=== PATIENT | female | born 1975 | race Caucasian/White ===

== ENCOUNTER 2020-01-04 14:05 | Outpatient (REF) | payer OTHER, SELFPAY | END 2020-01-04 14:06 | disposition home or self-care (01) | LOC: HO.LAB 14:05 | PROVIDERS: Visit Provider Internal Medicine | DX: Z20.828 Contact with and (suspected) exposure to other viral communicable diseases (principal) | CPT/HCPCS: C9803; U0003 ==

== ENCOUNTER 2020-02-09 12:34 | Emergency (ER) | payer OTHER, SELFPAY ==
[2020-02-09 13:32] VITALS: BP 109/63; PULSE 86; RESP 16; TEMP 36.6; O2SAT 99; BMI 31.3
[2020-02-09 17:31] LABS: MANUAL DIFF FLAG NO
[2020-02-09 17:32] LABS: Basophils Percent Auto 0.4 % (0-2); Eosinophils Absolute Auto 0.1 X10*3/uL (0.0-0.4); Eosinophils Percent Auto 0.9 % (0-4); Hematocrit 31.9 % (37-47); Imm Gran Abs Auto 0.02 X10*3/uL (0.00-0.03); Imm Gran Pct Auto 0.2 % (0.0-0.4); Lymphocytes Absolute Auto 2.9 X10*3/uL (1.2-4.9); Lymphocytes Percent Auto 33.8 % (20-40); Mean Corpuscular HGB Conc 31.3 g/dl (31.0-35.0); Mean Corpuscular Hemoglobin 26.9 pg (27.0-33.0); Mean Corpuscular Volume 85.8 fL (80-98); Monocytes Absolute Auto 0.5 X10*3/uL (0.1-1.2); Neutrophils Percent Auto 58.7 % (45-73); Platelet Count 308 X10*3/uL (160-400); Red Blood Count 3.72 X10*6/uL (4.20-5.50); Red Cell Distribution Width 14.3 % (11.0-16.0); White Blood Count 8.5 X10*3/uL (4.8-10.8)
[2020-02-09 18:03] LABS: Alanine Aminotransferase 12 U/L (0-31); Albumin Level 4.1 g/dL (3.5-5.0); Alkaline Phosphatase 49 U/L (39-117); Anion Gap 13 (12-20); Aspartate Amino Transferase 20 U/L (5-31); Bilirubin Total < 0.2 mg/dL (0.0-1.0); Blood Urea Nitrogen 12 mg/dL (9-16); Calcium 8.8 mg/dL (8.4-10.2); Carbon Dioxide 25 mmol/L (22-29); Chloride 107 mmol/L (96-108); Creatinine Clr Calc Pharmacy 106.6; Estimated Glomerular Filt Rate > 60; Glucose Random 96 mg/dL (60-115); Magnesium 1.9 mg/dL (1.6-2.6); Potassium 4.6 mmol/l (3.3-5.1); Sodium 140 mmol/L (135-145); Total Protein 6.4 g/dL (6.5-8.0)
[2020-02-09 18:17] VITALS: BP 108/71; PULSE 61; RESP 16; O2SAT 99
--- NOTE | 2020-02-09 18:17 | ED.EXTPRO ---
HPI - Extremity Problem General Chief complaint: Extremity Problem Stated complaint: leg cramps Time Seen by Provider: 02/09/20 14:26 Source: patient Mode of arrival: ambulatory Limitations: no limitations History of Present Illness HPI Narrative: 44-year-old female with past medical history that is significant for restless leg syndrome, chronic pain in the right shoulder secondary to rotator cuff injury was part of pain management in [place] for extended period time practice has been closed currently between pain management also history of iron deficiency anemia due to prolonged periods she in fact was admitted for this once in the past in 2019 to this facility due to being symptomatic and low in H&H requiring transfusion evaluated by hematology. She presents today with complaint of bilateral lower extremity cramping like pain which she describes as similar to pain when she was anemic in the past requiring transfusion. She states she has had some increase in pica with ice. Related Data Previous Rx's Medication Instructions Recorded ferrous sulfate 325 mg PO DAILY #30 tab 02/09/20 Allergies Allergy/AdvReac Type Severity Reaction Status Date / Time No Known Allergies Allergy Verified 02/09/20 13:30 Review of Systems Review of Systems: Constitutional: No Weight loss, No Fever, No Chills, No Night Sweats, No Fatigue, No Malaise ENT/Mouth: No Hearing loss, No Ear Pain, No Nasal Congestion, No Sinus Pain, No Hoarseness, No sore throat, No Rhinorrhea, No Swallowing Difficulty Eyes: No Eye Pain, No Swelling, No Redness, No Foreign Body, No Discharge, No Vision Changes Cardiovascular: No Chest Pain, No SOB, No Dyspnea on Exertion, No Orthopnea, No Edema, No Palpitations Respiratory: No Cough, No Sputum, No Wheezing, No Smoke Exposure, No Dyspnea Gastrointestinal: No Nausea, No Vomiting, No Diarrhea, No Constipation, No abdominal Pain, No Hematochezia, No Melena Genitourinary: no irregular bleeding, No Dysuria, No Urinary Frequency, No Hematuria, No Urinary Incontinence, No Urgency, No Flank Pain, No Urinary Flow Changes, No Hesitancy Musculoskeletal: No joint pain, No Myalgias, No Joint Swelling Skin: No Skin Lesions, No rash Neuro: No Weakness, No Numbness, No Paresthesias, No Loss of Consciousness, No Dizziness, No Headache Psych: No Social Issues Heme/Lymph: No Bruising, No Bleeding,No Lymphadenopathy Endocrine: No Polyuria, No Polydipsia, No Temperature Intolerance Yes all other systems are reviewed and are negative [facility] Past Medical History Medical History (Updated 02/09/20 @ 18:19 by Jared Templeton NP) Rotator cuff disorder Social History Social History Advance Directives: No Advance Directives Information Provided: Yes Physical Exam Vital Signs: Vital Signs: Last Vital Signs Temp 97.8 F 02/09/20 13:32 Pulse 61 02/09/20 18:17 Resp 16 02/09/20 18:17 BP 108/71 02/09/20 18:17 Pulse Ox 99 02/09/20 18:17 Body Mass Index 31.3 Const: General: cooperative and healthy appearing; No acute distress or intoxicated appearing Nutritional Appearance: average body habitus Orientation/consciousness: patient oriented x3 HENMT: Head: Yes normal to inspection Ears: hearing grossly normal bilaterally Eyes: General: appearance normal, both eyes and all related structures Visual Ramirez: normal visual ramirez by confrontation Neck: Neck: Yes normal visual inspection, No positive Brudzinski's sign, No positive Kernig's sign and No tender Thyroid: Thyroid normal Chest: Chest palpation & inspection: normal inspection of the chest Resp: Effort & Inspection: normal respiratory effort Auscultation: clear to auscultation bilaterally Cardio: Jugular venous distension: no JVD Rhythm: regular rhythm Heart sounds: S1 normal heart sound present and S2 normal heart sound present GI: Inspection: Yes normal to inspection Percussion: Yes normal to percussion Auscultation: normal bowel sounds : General: Yes no CVA tenderness Back/Spine/Pelvis: Back: no CVA tenderness Skin: General skin exam: no rashes or lesions noted Neuro: General: patient oriented x3 Extrem: Other: No lower extremity edema. No rash. Negative Homans. General: Yes normal to inspection Course Course Course Narrative: Labs chronic appearing. Slight anemia no compliance with iron ran out in between doctors. Will give her Rx. In relation to the rotator cuff has had pain management and injections will refer to orthopedics. MDM - Extremity (Nontraumatic) Lab Data Result diagrams: 02/09/20 17:27 02/09/20 17:27 Labs: Lab Results 02/09/20 02/09/20 Range/Units 17:27 17:27 WBC 8.5 (4.8-10.8) X10*3/uL RBC 3.72 L (4.20-5.50) X10*6/uL Hgb 10.0 L (12.0-16.0) g/dl Hct 31.9 L (37-47) % MCV 85.8 (80-98) fL MCH 26.9 L (27.0-33.0) pg MCHC 31.3 (31.0-35.0) g/dl RDW 14.3 (11.0-16.0) % Plt Count 308 (160-400) X10*3/uL MPV 9.0 L (9.4-12.3) fL Immature Gran % (Auto) 0.2 (0.0-0.4) % Neut % (Auto) 58.7 (45-73) % Lymph % (Auto) 33.8 (20-40) % Lawrence % (Auto) 6.0 (2-11) % Eos % (Auto) 0.9 (0-4) % Baso % (Auto) 0.4 (0-2) % Lymph # (Auto) 2.9 (1.2-4.9) X10*3/uL Lawrence # (Auto) 0.5 (0.1-1.2) X10*3/uL Eos # (Auto) 0.1 (0.0-0.4) X10*3/uL Baso # (Auto) 0.0 (0.0-0.2) X10*3/uL Abs Immat Gran (auto) 0.02 (0.00-0.03) X10*3/uL Absolute Neuts (auto) 5.0 (2.0-8.3) X10*3/uL Absolute Nucleated RBC 0.000 (0.0-0.012) X10*3/uL Nucleated RBC % (auto) 0.0 (0.0-0.2) /100WBC Sodium 140 (135-145) mmol/L Potassium 4.6 (3.3-5.1) mmol/l Chloride 107 (96-108) mmol/L Carbon Dioxide 25 (22-29) mmol/L Anion Gap 13 (12-20) BUN 12 (9-16) mg/dL Creatinine 0.76 (0.5-1.4) mg/dL Estim Creat Clear Calc 106.6 Estimated GFR > 60 Random Glucose 96 (60-115) mg/dL Calcium 8.8 (8.4-10.2) mg/dL Magnesium 1.9 (1.6-2.6) mg/dL Total Bilirubin < 0.2 (0.0-1.0) mg/dL AST 20 (5-31) U/L ALT 12 (0-31) U/L Alkaline Phosphatase 49 (39-117) U/L Total Creatine Kinase 149 H (26-140) U/L Total Protein 6.4 L (6.5-8.0) g/dL Albumin 4.1 (3.5-5.0) g/dL Discharge Plan Discharge Clinical Impression: Anemia, Chronic pain in right shoulder Patient Disposition: Home, Self-Care Instructions: Anemia (ED) Additional Instructions: High protein/time however diet Take her iron as prescribed Push fluids Follow-up with her blood 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 (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
== END 2020-02-09 18:28 | disposition home or self-care (01) ==
PROVIDERS: Nurse Practitioner Primary Care; Emergency Provider Emergency Medicine; PCP Internal Medicine
DX: D64.9 Anemia, unspecified (principal); G89.29 Other chronic pain; M25.511 Pain in right shoulder
CPT/HCPCS: 36415; 80053; 82550; 83735; 85025; 99283

== ENCOUNTER 2020-03-07 06:42 | Emergency (ER) | payer OTHER, SELFPAY | END 2020-03-07 08:14 | disposition left against medical advice (07) | LOC: HO.ED 07:59 | PROVIDERS: Emergency Provider Emergency Medicine | DX: R10.9 Unspecified abdominal pain (principal) ==

== ENCOUNTER 2020-03-07 09:25 | Emergency (ER) | payer OTHER, SELFPAY ==
[2020-03-07] VITALS (9 sets, daily range): BP systolic 100–128; BP diastolic 65–85; PULSE 60–78; RESP 16–20; TEMP 36.6–36.8; O2SAT 97–100; BMI 32.3
--- NOTE | 2020-03-07 09:57 | US_ITS ---
EXAMINATION: US RETROPERITONEAL LIMITED (RENAL ONLY) CLINICAL INFORMATION: Renal stone.. COMPARISON: None TECHNIQUE: Routine grayscale imaging of FINDINGS: RIGHT KIDNEY: 11.3 x 4.6 x 5.4 cm (SAG x AP x TRV). The kidney is normal in size, contour, and echogenicity. Renal cortical thickness is normal. There is a small anechoic cyst in the lower pole measuring 1.2 x 0.7 x 0.8 seen. No additional cyst seen. There are no echogenic stones, caliectasis or hydronephrosis. There is a 0.4 x 0.3 x 0.3 cm echogenic area without shadowing likely calcification producing twinkle artifact. LEFT KIDNEY: 10.7 x 5.0 x 5.0 cm (SAG x AP x TRV). The kidney is normal in size, contour, and echogenicity. Renal cortical thickness is normal. No calculi or focal parenchymal lesions. No hydronephrosis. US/US renal BI IMPRESSION: Small cyst lower pole right kidney with a small tubular artifact adjacent to the cyst question calcification. Unremarkable left kidney. There is no hydronephrosis on either side.
--- NOTE | 2020-03-07 10:00 | ED_ITS ---
HPI - Abdominal Pain General Chief Complaint: Abdominal Pain Stated Complaint: ABD PAIN Time Seen by Provider: 03/07/20 09:56 Source: patient Mode of arrival: ambulatory Limitations: no limitations History of Present Illness HPI narrative: Patient is a 44-year-old female with no significant past medical history presenting with right low back pain which is radiating around her flank to her right lower quadrant. Patient denies blood in her urine, constipation, bloody or black stools, nausea, fevers. She states she has never had this kind of pain before. She states the pain comes and goes in waves. Denies history of kidney stones. Related Data Previous Rx's Medication Instructions Recorded ferrous sulfate 325 mg PO DAILY #30 tab 02/09/20 Allergies Allergy/AdvReac Type Severity Reaction Status Date / Time No Known Allergies Allergy Verified 02/09/20 13:30 Review of Systems Review of Systems Yes all other systems are reviewed and are negative Physical Exam Vital Signs: Vital Signs: Last Vital Signs Temp 98.3 F 03/07/20 09:40 Pulse 61 03/07/20 14:00 Resp 18 03/07/20 14:40 BP 113/65 03/07/20 14:00 Pulse Ox 97 03/07/20 14:00 Body Mass Index 32.3 Const: General: cooperative, healthy appearing, comfortable, well developed and acute distress (Very obviously uncomfortable, in pain. ) Orientation/co nsciousness: patient oriented x3 Limitations: no limitations HENMT: Head: Yes normal to inspection Eyes: General: appearance normal, both eyes and all related structures Neck: Neck: Yes normal visual inspection and Yes full ROM Resp: Effort & Inspection: normal respiratory effort and able to speak in complete sentences Auscultation: clear to auscultation bilaterally Cardio: Rate: regular rate Rhythm: regular rhythm Heart sounds: normal S1 and S2 GI: Inspection: Yes normal to inspection Palpation (GI): Soft to palpation and Tenderness to palpation present (GI) in the RLQ; Holley's sign negative and with no rebound tenderness Back/Spine/Pelvis: Back: CVA tenderness (Right-sided positive) Skin: General skin exam: no rashes or lesions noted Neuro: General: patient oriented x3 Extrem: General: Yes normal to inspection Course Course Course Narrative: 44-year-old female no significant past medical history presenting with right-sided lower back pain radiating to the RLQ. VSS. Physical exam we revealed + CVA right side. Will get labs, UA, and ultrasound. Pain control until results available. 11:55am patient requesting more pain medication, will give 15 mg Toradol IV. Labs not resulted, ultrasound is complete but not read. Pt in room laughing and talking on the phone, does not appear to be in any pain. 12:40pm ultrasound negative for kidney stone, will get abdominal CT scan, labs still pending. Patient looks comfortable lying in bed texting. 1:45pm patient stating her pain is getting bad again, will give another dose 3 mg morphine as it has been 4 hours since her last dose. VSS. Complete metabolic panel normal, liver panel normal, CBC still pending. Patient looks comfortable lying in bed texting. 3pm CT scan negative, all labs are within normal limits. Discussed with guicho day, we have ruled out anything concerning in abdomen in all of her labs are normal her vital signs are stable. Advised we will discharge home and she can follow up with her PCP if the pain continues or return to the emergency department. MDM - Abdominal Pain Differential Diagnosis Differential diagnosis: Likely acute appendicitis, calculus of kidney, renal colic and small bowel obstruction Lab Data Result diagrams: 03/07/20 10:21 Labs: Lab Results 03/07/20 03/07/20 Range/Units 10:07 10:21 Sodium 141 (135-145) mmol/L Potassium 4.3 (3.3-5.1) mmol/L Chloride 108 (96-108) mmol/L Carbon Dioxide 24 (22-29) mmol/L Anion Gap 13 (12-20) BUN 16 (9-16) mg/dL Creatinine 0.92 (0.5-1.4) mg/dL Estim Creat Clear Calc 89.4 Estimated GFR > 60 Random Glucose 82 (60-115) mg/dL Calcium 9.2 (8.4-10.2) mg/dL Total Bilirubin 0.5 (0.0-1.0) mg/dL Direct Bilirubin < 0.2 (0.0-0.5) mg/dL AST 23 (5-31) U/L ALT 15 (0-31) U/L Alkaline Phosphatase 54 (39-117) U/L Total Protein 7.3 (6.5-8.0) g/dL Albumin 4.6 (3.5-5.0) g/dL Urine Color YELLOW Urine Appearance CLEAR Urine pH 6.0 (5.0-8.0) Ur Specific [place] 1.015 (1.005-1.025) Urine Protein NEG (NEG-TRACE) MG/DL Urine Glucose (UA) NEG (NEG) MG/DL Urine Ketones NEG (NEG) MG/DL Urine Blood NEG (NEG) Urine Nitrite NEG (NEG) Ur Leukocyte Esterase NEG (NEG) Imaging Data US - abdomen: Attestation: I personally reviewed and interpreted this imaging study as follows: My impression: ? calcification, will get CT Scan abdomen and pelvis Radiologist's impression: [address] [id number] ReportSigned Patient: Stefany SmithMR#: [id number]: 1975Acct:[id number]/Sex: 44 / FADM Date: 03/07/20Loc: EDAttending Dr: Ordering Physician: ALIN CASEY Date of Service: 03/07/20 Procedure(s): US renal BI Accession Number(s): [id number] cc: ALIN CASEY~ EXAMINATION: US RETROPERITONEAL LIMITED (RENAL ONLY) CLINICAL INFORMATION: Renal stone.. COMPARISON: None TECHNIQUE: Routine grayscale imaging of FINDINGS: RIGHT KIDNEY: 11.3 x 4.6 x 5.4 cm (SAG x AP x TRV). The kidney is normal in size, contour, and echogenicity. Renal cortical thickness is normal. There is a small anechoic cyst in the lower pole measuring 1.2 x 0.7 x 0.8 seen. No additional cyst seen. There are no echogenic stones, caliectasis or hydronephrosis. There is a 0.4 x 0.3 x 0.3 cm echogenic area without shadowing likely calcification producing twinkle artifact. LEFT KIDNEY: 10.7 x 5.0 x 5.0 cm (SAG x AP x TRV). The kidney is normal in size, contour, and echogenicity. Renal cortical thickness is normal. No calculi or focal parenchymal lesions. No hydronephrosis. US/US renal BI IMPRESSION: Small cyst lower pole right kidney with a small tubular artifact adjacent to the cyst question calcification. Unremarkable left kidney. There is no hydronephrosis on either side. Dictated By:JOSE TOMPKINS MDSigned By:<Electronically signed by JOSE TOMPKINS MD in [place]>03/07/[address] scan - abdomen: Attestation: I personally reviewed and interpreted this imaging study as follows: Radiologist's impression: [address] [id number] Scan ReportSigned Patient: Stefany SmithMR#: [id number]: 1975Acct:[id number]/Sex: 44 / FADM Date: 03/07/20Loc: EDAttending Dr: Ordering Physician: ALIN CASEY Date of Service: 03/07/20 Procedure(s): CT abdomen pelvis wo con Accession Number(s): [id number] cc: ALIN CASEY~ EXAMINATION: CT ABDOMEN AND PELVIS WITHOUT CONTRAST CLINICAL INFORMATION: Right lower quadrant pain COMPARISON: Previous renal ultrasound from earlier the same day CT of the abdomen and pelvis February 2011 TECHNIQUE: Multidetector volumetric imaging was performed from the superior aspect of the liver through the pubic symphysis. Sagittal and coronal reformatted images were obtained on the technologist's workstation. This CT examination was performed using dose optimization techniques as appropriate, variously including the following: *Automated exposure control *Adjustment of mA and/or kV according to patient size (this includes techniques or standardized protocols for targeted exams where dose is matched to indication/reason for exam; i.e. extremities or head) *Use of iterative reconstruction technique DLP: 667 mGy-cm FINDINGS: LUNG BASES: The visualized lung bases are unremarkable. LIVER, GALLBLADDER, AND BILIARY TREE: The liver is normal in size, shape, and attenuation. There is a cyst with wall calcification exophytic to the posterior segment of the right lobe of the liver. This is unchanged. No other focal liver lesion biliary duct dilatation is present. The gallbladder has been removed. PANCREAS: Unremarkable. SPLEEN: Unremarkable. ADRENAL GLANDS: Unremarkable. KIDNEYS AND URETERS: The kidneys are normal in size, shape, and attenuation. No hydronephrosis, hydroureter, or calculi seen. No perinephric stranding. BLADDER: Not GASTROINTESTINAL TRACT: There are postsurgical changes from gastric bypass. The small and large bowel are otherwise unremarkable. The appendix is unremarkable. ABDOMINAL WALL: There is a small umbilical hernia containing fat. LYMPH NODES: Normal. VASCULAR: Unremarkable. PELVIC VISCERA: Unremarkable. OSSEOUS STRUCTURES: Unremarkable. CT/CT abdomen pelvis wo con IMPRESSION: Normal-appearing appendix. Postoperative changes from gastric bypass. Dictated By:ANDRADE ECHOLS MDSigned By:<Electronically signed by ANDRADE ECHOLS MD in [place]>03/07/20 5977 Discharge Plan Discharge Clinical Impression: Acute right lower quadrant pain Patient Disposition: Home, Self-Care Instructions: Acute Abdominal Pain (ED) Additional Instructions: Discussed, we have ruled out many of the concerning diagnoses when it comes to abdominal pain. Please be sure to stay well hydrated and if the pain continues, please follow-up with your PCP or return to the emergency department. Prescriptions: No Action ferrous sulfate 325 mg (65 mg iron) tablet 325 mg PO DAILY Qty: 30 RF: 0 PMFSH Past Medical History Medical History (Updated 03/07/20 @ 15:17 by JARETH Clay) Rotator cuff disorder Surgical History (Updated 03/07/20 @ 13:57 by JARETH Clay) H/O tubal ligation Social History Social History Alcohol intake: never Smoking Status: Never smoker Use of substances other than those prescribed or required for medical reasons: No Advance Directives: No Advance Directives Information Provided: Yes
[2020-03-07] MEDS: Morphine Sulfate 4 MG/ML CARTRIDGE 3 MG IVPUSH ×2 (10:12→14:40)
[2020-03-07 10:15] LABS: Glucose Urine UA NEG (NEG); Leukocyte Esterase Urine NEG (NEG); Nitrite Urine NEG (NEG); Specific Gravity - Urine 1.015 (1.005-1.025); Urine Blood NEG (NEG); Urine Ketones NEG (NEG); Urine Protein NEG (NEG-TRACE)
[2020-03-07 10:18] LABS: Appearance Urine CLEAR; Color Urine YELLOW
[2020-03-07 10:52] LABS: Alanine Aminotransferase 15 U/L (0-31); Albumin Level 4.6 g/dL (3.5-5.0); Alkaline Phosphatase 54 U/L (39-117); Aspartate Amino Transferase 23 U/L (5-31); Bilirubin Direct < 0.2 mg/dL (0.0-0.5); Bilirubin Total 0.5 mg/dL (0.0-1.0); Total Protein 7.3 g/dL (6.5-8.0)
[2020-03-07] MEDS: Ketorolac Tromethamine 15 MG/ML VIAL IVPUSH (12:06)
--- NOTE | 2020-03-07 12:07 | PC.NURSE ---
PT MEDICATED ORDERED FOR C/O 10/10 FLANK PAIN.
--- NOTE | 2020-03-07 12:39 | CT_ITS ---
EXAMINATION: CT ABDOMEN AND PELVIS WITHOUT CONTRAST CLINICAL INFORMATION: Right lower quadrant pain COMPARISON: Previous renal ultrasound from earlier the same day CT of the abdomen and pelvis February 2011 TECHNIQUE: Multidetector volumetric imaging was performed from the superior aspect of the liver through the pubic symphysis. Sagittal and coronal reformatted images were obtained on the technologist's workstation. This CT examination was performed using dose optimization techniques as appropriate, variously including the following: *Automated exposure control *Adjustment of mA and/or kV according to patient size (this includes techniques or standardized protocols for targeted exams where dose is matched to indication/reason for exam; i.e. extremities or head) *Use of iterative reconstruction technique DLP: 667 mGy-cm FINDINGS: LUNG BASES: The visualized lung bases are unremarkable. LIVER, GALLBLADDER, AND BILIARY TREE: The liver is normal in size, shape, and attenuation. There is a cyst with wall calcification exophytic to the posterior segment of the right lobe of the liver. This is unchanged. No other focal liver lesion biliary duct dilatation is present. The gallbladder has been removed. PANCREAS: Unremarkable. SPLEEN: Unremarkable. ADRENAL GLANDS: Unremarkable. KIDNEYS AND URETERS: The kidneys are normal in size, shape, and attenuation. No hydronephrosis, hydroureter, or calculi seen. No perinephric stranding. BLADDER: Not GASTROINTESTINAL TRACT: There are postsurgical changes from gastric bypass. The small and large bowel are otherwise unremarkable. The appendix is unremarkable. ABDOMINAL WALL: There is a small umbilical hernia containing fat. LYMPH NODES: Normal. VASCULAR: Unremarkable. PELVIC VISCERA: Unremarkable. OSSEOUS STRUCTURES: Unremarkable. CT/CT abdomen pelvis wo con IMPRESSION: Normal-appearing appendix. Postoperative changes from gastric bypass.
[2020-03-07 12:56] LABS: Anion Gap 13 (12-20); Blood Urea Nitrogen 16 mg/dL (9-16); Calcium 9.2 mg/dL (8.4-10.2); Carbon Dioxide 24 mmol/L (22-29); Chloride 108 mmol/L (96-108); Creatinine Clr Calc Pharmacy 89.4; Estimated Glomerular Filt Rate > 60; Glucose Random 82 mg/dL (60-115); Potassium 4.3 mmol/L (3.3-5.1); Sodium 141 mmol/L (135-145)
== END 2020-03-07 15:50 | disposition home or self-care (01) ==
PROVIDERS: Physician Assistant; Emergency Provider Emergency Medicine
DX: R10.31 Right lower quadrant pain (principal); M54.5 Low back pain; Z79.899 Other long term (current) drug therapy
CPT/HCPCS: 36415; 74176; 76775; 80053; 80076; 81003; 82248; 96374; 96375; 96376; 99284; 99285; J1885; J2270

== ENCOUNTER 2020-05-30 20:21 | Emergency (ER) | payer OTHER, SELFPAY ==
[2020-05-30 20:33] VITALS: BP 106/64; PULSE 90; RESP 18; TEMP 36.6; O2SAT 98; BMI 30.7
[2020-05-30 22:24] LABS: MANUAL DIFF FLAG NO
[2020-05-30 22:25] LABS: Basophils Percent Auto 0.4 % (0-2); Eosinophils Absolute Auto 0.1 X10*3/uL (0.0-0.4); Eosinophils Percent Auto 1.7 % (0-4); Hematocrit 30.8 % (37-47); Hemoglobin 9.5 g/dl (12.0-16.0); Imm Gran Abs Auto 0.02 X10*3/uL (0.00-0.03); Imm Gran Pct Auto 0.3 % (0.0-0.4); Lymphocytes Absolute Auto 2.6 X10*3/uL (1.2-4.9); Lymphocytes Percent Auto 33.2 % (20-40); Mean Corpuscular HGB Conc 30.8 g/dl (31.0-35.0); Mean Corpuscular Hemoglobin 25.7 pg (27.0-33.0); Mean Corpuscular Volume 83.5 fL (80-98); Mean Platelet Volume 8.8 fL (9.4-12.3); Monocytes Absolute Auto 0.6 X10*3/uL (0.1-1.2); Monocytes Percent Auto 7.6 % (2-11); Neutrophils Absolute Auto 4.4 X10*3/uL (2.0-8.3); Neutrophils Percent Auto 56.8 % (45-73); Platelet Count 261 X10*3/uL (160-400); Red Blood Count 3.69 X10*6/uL (4.20-5.50); Red Cell Distribution Width 19.1 % (11.0-16.0); White Blood Count 7.8 X10*3/uL (4.8-10.8)
--- NOTE | 2020-05-30 22:36 | ED_ITS ---
HPI - General Adult General Chief complaint: General Medical Stated complaint: leg spasms Time Seen by Provider: 05/30/20 21:48 Source: patient Mode of arrival: EMS History of Present Illness HPI narrative: 45-year-old female who complains acute on chronic bilateral lower extremity muscle spasms. Patient states that this occurs every 2-3 months and denies any precluding symptoms such as nausea, vomiting, diarrhea, or injury to her lower extremities. In addition, patient denies any unexplained calf swelling or pain other than the spasms that she experiences. Patient states that these occur when she is trying to relax in the evening while watching TV. Related Data Previous Rx's Medication Instructions Recorded ferrous sulfate 325 mg PO DAILY #30 tab 02/09/20 ketorolac 10 mg PO Q6H PRN 5 Days #20 tab 05/31/20 Allergies Allergy/AdvReac Type Severity Reaction Status Date / Time No Known Allergies Allergy Verified 02/09/20 13:30 Review of Systems Review of Systems: Pertinent positives and negatives as stated in HPI 10 point review of systems is otherwise negative. PMFSH Past Medical History Source: nursing notes reviewed Medical History Rotator cuff disorder Surgical History H/O tubal ligation Social History Social History Alcohol intake: never Smoking Status: Never smoker Advance Directives: No Advance Directives Information Provided: Yes Physical Exam Vital Signs: Vital Signs: Last Vital Signs Temp 97.9 F 05/30/20 20:33 Pulse 90 05/30/20 20:33 Resp 18 05/30/20 20:33 BP 106/64 05/30/20 20:33 Pulse Ox 98 05/30/20 20:33 Body Mass Index 30.7 VITAL SIGNS: Reviewed. GENERAL: Well developed, well nourished, in no acute distress. HEAD: Normocephalic/atraumatic EYES: PERRLA, EOMI OROPHARYNX: no oral lesions noted, posterior pharynx clear NECK: Supple, no adenopathy LUNGS: Normal breath sounds. No adventitious sounds or accessory muscle use. SpO2<98> CARDIOVASCULAR: Regular rate and rhythm without noted murmurs ABDOMEN: Soft, non-tender, non-distended with bowel sounds. EXTREMITIES: No cyanosis, clubbing or edema. NEUROLOGIC: Alert and oriented x 4. Strength and sensation to light touch were grossly intact x 4. Course Course Course Narrative: A 45-year-old female with history and clinical presentation consistent with leg spasms suggestive of possible restless leg syndrome but will rule out metabolic etiologies. Review of all investigations negative for any acute findings from chronic stable to better explain patient's presentation and on re-evaluation after receiving IM Toradol patient states that her symptoms have completely resolved. She is noted to have been resting comfortably until results of findings were discussed with her at bedside. Medical Decision Making Lab Data Result diagrams: 05/30/20 22:20 05/30/20 22:20 Labs: Lab Results 05/30/20 05/30/20 05/30/20 Range/Units 22:20 22:20 22:20 WBC 7.8 (4.8-10.8) X10*3/uL RBC 3.69 L (4.20-5.50) X10*6/uL Hgb 9.5 L (12.0-16.0) g/dl Hct 30.8 L (37-47) % MCV 83.5 (80-98) fL MCH 25.7 L (27.0-33.0) pg MCHC 30.8 L (31.0-35.0) g/dl RDW 19.1 H (11.0-16.0) % Plt Count 261 (160-400) X10*3/uL MPV 8.8 L (9.4-12.3) fL Immature Gran % (Auto) 0.3 (0.0-0.4) % Neut % (Auto) 56.8 (45-73) % Lymph % (Auto) 33.2 (20-40) % [place] % (Auto) 7.6 (2-11) % Eos % (Auto) 1.7 (0-4) % Baso % (Auto) 0.4 (0-2) % Lymph # (Auto) 2.6 (1.2-4.9) X10*3/uL [place] # (Auto) 0.6 (0.1-1.2) X10*3/uL Eos # (Auto) 0.1 (0.0-0.4) X10*3/uL Baso # (Auto) 0.0 (0.0-0.2) X10*3/uL Abs Immat Gran (auto) 0.02 (0.00-0.03) X10*3/uL Absolute Neuts (auto) 4.4 (2.0-8.3) X10*3/uL Absolute Nucleated RBC 0.000 (0.0-0.012) X10*3/uL Nucleated RBC % (auto) 0.0 (0.0-0.2) /100WBC ESR 12 (0-20) MM/HR Sodium 138 (135-145) mmol/L Potassium 4.1 (3.3-5.1) mmol/L Chloride 108 (96-108) mmol/L Carbon Dioxide 24 (22-29) mmol/L Anion Gap 10 L (12-20) BUN 23 H (9-16) mg/dL Creatinine 0.80 (0.5-1.4) mg/dL Estim Creat Clear Calc 99.2 Estimated GFR > 60 Random Glucose 99 (60-115) mg/dL Calcium 8.7 (8.4-10.2) mg/dL Total Bilirubin 0.4 (0.0-1.0) mg/dL AST 20 (5-31) U/L ALT 11 (0-31) U/L Alkaline Phosphatase 46 (39-117) U/L Total Protein 6.1 L (6.5-8.0) g/dL Albumin 3.9 (3.5-5.0) g/dL Discharge Plan Discharge Clinical Impression: Muscle spasm of both lower legs Patient Disposition: Home, Self-Care Instructions: Muscle Spasm (ED) Additional Instructions: 1. Continue to drink plenty of water. 2. Please follow up with primary care provider in the next 2-3 days for re- evaluation and outpatient management of your chronic lower leg spasms. Do not hesitate to return to the emergency department for any acute worsening of symptoms. Prescriptions: New ketorolac 10 mg tablet 10 mg PO Q6H PRN (Reason: pain) 5 Days Qty: 20 RF: 0 No Action ferrous sulfate 325 mg (65 mg iron) tablet 325 mg PO DAILY Qty: 30 RF: 0 Referrals: Physician,Unknown [Primary Care Provider] - 2 days
[2020-05-30 22:49] LABS: Alanine Aminotransferase 11 U/L (0-31); Albumin Level 3.9 g/dL (3.5-5.0); Alkaline Phosphatase 46 U/L (39-117); Anion Gap 10 (12-20); Aspartate Amino Transferase 20 U/L (5-31); Bilirubin Total 0.4 mg/dL (0.0-1.0); Blood Urea Nitrogen 23 mg/dL (9-16); Calcium 8.7 mg/dL (8.4-10.2); Carbon Dioxide 24 mmol/L (22-29); Chloride 108 mmol/L (96-108); Creatinine Clr Calc Pharmacy 99.2; Estimated Glomerular Filt Rate > 60; Glucose Random 99 mg/dL (60-115); Potassium 4.1 mmol/L (3.3-5.1); Sodium 138 mmol/L (135-145); Total Protein 6.1 g/dL (6.5-8.0)
[2020-05-30] MEDS: Ketorolac Tromethamine 15 MG/ML VIAL IM (22:54)
[2020-05-30 23:14] LABS: Erythrocyte Sedimentation Rate 12 MM/HR (0-20)
[2020-05-31] VITALS: BP 117/74; PULSE 83; RESP 18; O2SAT 97
== END 2020-05-31 00:48 | disposition home or self-care (01) ==
PROVIDERS: Emergency Provider Student in an Organized Health Care Education/Training Program
DX: M62.831 Muscle spasm of calf (principal); M79.605 Pain in left leg; M79.604 Pain in right leg; Z79.899 Other long term (current) drug therapy
CPT/HCPCS: 36415; 80053; 85025; 85652; 96372; 99283; 99284; J1885

== ENCOUNTER 2020-06-10 18:14 | Emergency (ER) | payer OTHER, SELFPAY ==
--- NOTE | ~2020-06-10 | US_ITS ---
EXAMINATION: BILATERAL LOWER EXTREMITY DEEP VENOUS ULTRASOUND CLINICAL INFORMATION: Bilateral lower extremity pain and swelling. COMPARISON: No similar prior examinations are available for comparison. TECHNIQUE: Duplex Doppler imaging with compression maneuvers were performed of the bilateral lower extremity deep venous systems. FINDINGS: The bilateral visualized common femoral, femoral and popliteal veins demonstrate normal compressibility and color flow without evidence of venous thrombosis. Visualized portions of the bilateral calf veins demonstrate normal color fill-in suggesting patency. There is no evidence of a Alford's cyst. US/US venous duplex LE BI IMPRESSION: No evidence of deep venous thrombosis involving the bilateral lower extremities.
[2020-06-10 18:27] VITALS: BP 115/86; PULSE 85; RESP 18; TEMP 36.7; O2SAT 98; BMI 32.3
--- NOTE | 2020-06-10 19:06 | ED_ITS ---
HPI - Extremity Problem General Chief complaint: Extremity Problem Stated complaint: B/L Leg Pain Time Seen by Provider: 06/10/20 18:39 Source: patient Mode of arrival: ambulatory Limitations: no limitations History of Present Illness HPI Narrative: 45-year-old female with a past medical history of iron deficiency anemia, gastric bypass here with complaints of bilateral lower extremity pain with cramping>1 month. Pain usually occurs after she has been sitting for a period of time and then starts to stretch her leg. It starts with a cramp in her toe and then her calves cramp up and cause a severe amount of pain which lasts several minutes and then self resolves when she stretches it out. She does have intermittent swelling. No redness, warmth, fevers, chills. No shortness of breath or chest pain. No recent travel. No estrogen use. No history of blood clots. No family history of blood clots. Seen at her occupational health at work and referred to the ER for a ultrasound to rule out a DVT. She is working on setting up a primary care doctor. Related Data Previous Rx's Medication Instructions Recorded ferrous sulfate 325 mg PO DAILY #30 tab 02/09/20 ketorolac 10 mg PO Q6H PRN 5 Days #20 tab 05/31/20 cyclobenzaprine 10 mg PO TID PRN #10 tab 06/10/20 ketorolac 10 mg PO Q8H PRN #20 tab 06/10/20 Allergies Allergy/AdvReac Type Severity Reaction Status Date / Time No Known Allergies Allergy Verified 06/10/20 18:27 Review of Systems Review of Systems: Yes all other systems are reviewed and are negative Constitutional: Constitutional: Reports no additional constitutional complaints, Denies body ache(s), Denies chills, Denies fever(s), Denies headache(s) and Denies weakness Eyes: Eyes: Reports no additional eye complaints and Denies change in vision ENT: Reports system reviewed and no additional complaints, except as document ed, Denies dizziness, Denies headache(s), Denies nasal congestion, Denies nasal discharge and Denies neck pain Cardiovascular: Cardiovascular: Reports no additional cardiovascular complaints, Denies chest pain, Denies leg edema and Denies dyspnea Respiratory: Respiratory: Reports no additional respiratory complaints, Denies cough and Denies dyspnea Gastrointestinal: Gastrointestinal: Reports no additional gastrointestinal complaints, Denies abdominal pain, Denies diarrhea, Denies nausea and Denies vomiting Genitourinary: Genitourinary: Reports no additional female genitourinary complaints and Denies urinary incontinence Musculoskeletal: Musculoskeletal: Reports no additional musculoskeletal complaints, Denies back pain, Denies arthralgias, Denies joint swelling, Reports muscle cramps, Denies neck pain, Denies numbness and Denies tingling Integumentary/Breasts: Skin/Breast: Reports system reviewed and no additional complaints, except as docu and Denies rash Neurologic: Reports system reviewed and no additional complaints, except as documented, Denies Abnormal speech present, Denies dizziness, Denies headache(s), Denies numbness, Denies tingling and Denies weakness PMFSH Past Medical History Attestation statement: The following information was validated with the patient. Source: old records reviewed and nursing notes reviewed Medical History (Updated 06/10/20 @ 20:22 by Desi Humphrey NP) HILDA (iron deficiency anemia) Rotator cuff disorder Surgical History (Updated 06/10/20 @ 19:08 by Desi Humphrey NP) H/O gastric bypass H/O tubal ligation Social History Social History Alcohol intake: former Smoking Status: Smoker, status unknown Use of substances other than those prescribed or required for medical reasons: No Advance Directives: No Advance Directives Information Provided: No Patient : No Physical Exam Vital Signs: Vital Signs: Last Vital Signs Temp 98.0 F 06/10/20 18:27 Pulse 85 06/10/20 18:27 Resp 18 06/10/20 18:27 BP 115/86 06/10/20 18:27 Pulse Ox 98 06/10/20 18:27 Body Mass Index 32.3 Const: General: cooperative, healthy appearing, comfortable and no acute distress Orientation/consciousness: patient oriented x3 Limitations: no limitations HENMT: Head: Yes normal to inspection Ears: hearing grossly normal bilaterally General nose exam: Normal external nose present Face and sinus: Yes normal facial exam Mouth: Normal oral and palatal mucosa present Throat: Yes posterior oropharynx normal Eyes: General: appearance normal, both eyes and all related structures Pupils: Equal, round and reactive pupils present Neck: Neck: Yes normal visual inspection Chest: Chest palpation & inspection: normal inspection of the chest Resp: Effort & Inspection: normal respiratory effort Auscultation: clear to auscultation bilaterally Cardio: Rate: regular rate Rhythm: regular rhythm Peripheral pulses: Peripheral pulses 2+ throughout GI: Inspection: Yes normal to inspection Palpation (GI): Soft to palpation and nontender Auscultation: normal bowel sounds Back/Spine/Pelvis: Thoracic/Lumbar Spine: thoracic and lumbar spine normal to inspection Skin: General skin exam: no rashes or lesions noted Neuro: General: patient oriented x3, no focal motor deficits and normal sensation to monofilament Cranial nerves: Yes Equal, round and reactive pupils present Cognition (Neuro): normal cognition Speech: No Abnormal speech present Gait exam (Neuro): Normal gait present Motor exam (neuro): 5/5 motor strength present throughout Extrem: General: Yes normal to inspection, Yes calf tenderness (Bilateral posterior calves) and No edema Course Course Course Narrative: 45 yo female here with bilateral calf pain x several weeks to months which is worsened after periods of rest and occurs when she stretches. Seen here and had negative labs. Discussed likely muscle spasms and recommended to follow-up with PCP. However, patient does not have one and does not feel like doctors listen to her complaints. Seen at her occupational health at work who recommended to come in for DVT study. Will check US, Labs. 2039-US negative for DVT. Labs unremarkable w/ exception of mild HILDA. HPI and exam c/w with muscle spasms. Recommended outpatient follow-up with primary care doctor. She was provided with a list.. Reviewed worrisome signs and symptoms of when to return to the emergency department. Comfortable discharge home. MDM - Extremity (Nontraumatic) Lab Data Result diagrams: 06/10/20 19:55 06/10/20 19:55 Labs: Lab Results 06/10/20 06/10/20 Range/Units 19:55 19:55 WBC 7.2 (4.8-10.8) X10*3/uL RBC 3.66 L (4.20-5.50) X10*6/uL Hgb 9.7 L (12.0-16.0) g/dl Hct 31.1 L (37-47) % MCV 85.0 (80-98) fL MCH 26.5 L (27.0-33.0) pg MCHC 31.2 (31.0-35.0) g/dl RDW 19.9 H (11.0-16.0) % Plt Count 265 (160-400) X10*3/uL MPV 9.5 (9.4-12.3) fL Immature Gran % (Auto) 0.1 (0.0-0.4) % Neut % (Auto) 50.3 (45-73) % Lymph % (Auto) 39.9 (20-40) % [place] % (Auto) 7.3 (2-11) % Eos % (Auto) 2.0 (0-4) % Baso % (Auto) 0.4 (0-2) % Lymph # (Auto) 2.9 (1.2-4.9) X10*3/uL [place] # (Auto) 0.5 (0.1-1.2) X10*3/uL Eos # (Auto) 0.1 (0.0-0.4) X10*3/uL Baso # (Auto) 0.0 (0.0-0.2) X10*3/uL Abs Immat Gran (auto) 0.01 (0.00-0.03) X10*3/uL Absolute Neuts (auto) 3.6 (2.0-8.3) X10*3/uL Absolute Nucleated RBC 0.000 (0.0-0.012) X10*3/uL Nucleated RBC % (auto) 0.0 (0.0-0.2) /100WBC Sodium 140 (135-145) mmol/L Potassium 3.8 (3.3-5.1) mmol/L Chloride 111 H (96-108) mmol/L Carbon Dioxide 22 (22-29) mmol/L Anion Gap 11 L (12-20) BUN 20 H (9-16) mg/dL Creatinine 0.80 (0.5-1.4) mg/dL Estim Creat Clear Calc 101.7 Estimated GFR > 60 Random Glucose 120 H (60-115) mg/dL Calcium 8.7 (8.4-10.2) mg/dL Magnesium 1.9 (1.6-2.6) mg/dL Total Bilirubin 0.3 (0.0-1.0) mg/dL Direct Bilirubin < 0.2 (0.0-0.5) mg/dL AST 19 (5-31) U/L ALT 8 (0-31) U/L Alkaline Phosphatase 42 (39-117) U/L Total Creatine Kinase 234 H D (26-140) U/L Total Protein 6.1 L (6.5-8.0) g/dL Albumin 3.9 (3.5-5.0) g/dL Imaging Data Venous US: Attestation: I personally reviewed and interpreted this imaging study as follows: Radiologist's impression: [address] [id number] ReportSigned Patient: Stefany SmithMR#: [id number]: [id number]:[id number]/Sex: 45 / FADM Date: 06/10/20Loc: E[address] Dr: Ordering Physician: DESI HUMPHREY NP Date of Service: 06/10/20 Procedure(s): US venous duplex LE BI Accession Number(s): [id number] cc: DESI HUMPHREY NP~ EXAMINATION: BILATERAL LOWER EXTREMITY DEEP VENOUS ULTRASOUND CLINICAL INFORMATION: Bilateral lower extremity pain and swelling. COMPARISON: No similar prior examinations are available for comparison. TECHNIQUE: Duplex Doppler imaging with compression maneuvers were performed of the bilateral lower extremity deep venous systems. FINDINGS: The bilateral visualized common femoral, femoral and popliteal veins demonstrate normal compressibility and color flow without evidence of venous thrombosis. Visualized portions of the bilateral calf veins demonstrate normal color fill-in suggesting patency. There is no evidence of a Alford's cyst. US/US venous duplex LE BI IMPRESSION: No evidence of deep venous thrombosis involving the bilateral lower extremities. Discharge Plan Discharge Clinical Impression: Muscle spasm of both lower legs Patient Disposition: Home, Self-Care Instructions: Muscle Spasm (ED) Additional Instructions: Heat or ice Gentle stretching Follow-up with a PCP as discussed Prescriptions: New ketorolac 10 mg tablet 10 mg PO Q8H PRN (Reason: pain) Qty: 20 RF: 0 cyclobenzaprine 10 mg tablet 10 mg PO TID PRN (Reason: muscle spasm) Qty: 10 RF: 0 No Action ketorolac 10 mg tablet 10 mg PO Q6H PRN (Reason: pain) 5 Days Qty: 20 RF: 0 ferrous sulfate 325 mg (65 mg iron) tablet 325 mg PO DAILY Qty: 30 RF: 0 Stand Alone Forms: Work/School Release Interventions: ED Discharge Assessment Last Done: 06/10/20 20:50 Discharge Date/Time: 06/10/20 20:52
[2020-06-10] MEDS: diazePAM 5 MG TABLET PO (19:13)
[2020-06-10] MEDS: Ketorolac Tromethamine 60 MG/2 ML VIAL IM (19:13)
[2020-06-10 19:58] LABS: MANUAL DIFF FLAG NO
[2020-06-10 20:10] LABS: Basophils Percent Auto 0.4 % (0-2); Eosinophils Absolute Auto 0.1 X10*3/uL (0.0-0.4); Hematocrit 31.1 % (37-47); Hemoglobin 9.7 g/dl (12.0-16.0); Imm Gran Abs Auto 0.01 X10*3/uL (0.00-0.03); Imm Gran Pct Auto 0.1 % (0.0-0.4); Lymphocytes Absolute Auto 2.9 X10*3/uL (1.2-4.9); Lymphocytes Percent Auto 39.9 % (20-40); Mean Corpuscular HGB Conc 31.2 g/dl (31.0-35.0); Mean Corpuscular Hemoglobin 26.5 pg (27.0-33.0); Mean Platelet Volume 9.5 fL (9.4-12.3); Monocytes Absolute Auto 0.5 X10*3/uL (0.1-1.2); Monocytes Percent Auto 7.3 % (2-11); Neutrophils Absolute Auto 3.6 X10*3/uL (2.0-8.3); Neutrophils Percent Auto 50.3 % (45-73); Platelet Count 265 X10*3/uL (160-400); Red Blood Count 3.66 X10*6/uL (4.20-5.50); Red Cell Distribution Width 19.9 % (11.0-16.0); White Blood Count 7.2 X10*3/uL (4.8-10.8)
[2020-06-10 20:26] LABS: Alanine Aminotransferase 8 U/L (0-31); Albumin Level 3.9 g/dL (3.5-5.0); Alkaline Phosphatase 42 U/L (39-117); Anion Gap 11 (12-20); Aspartate Amino Transferase 19 U/L (5-31); Bilirubin Direct < 0.2 mg/dL (0.0-0.5); Bilirubin Total 0.3 mg/dL (0.0-1.0); Blood Urea Nitrogen 20 mg/dL (9-16); Calcium 8.7 mg/dL (8.4-10.2); Carbon Dioxide 22 mmol/L (22-29); Chloride 111 mmol/L (96-108); Creatinine Clr Calc Pharmacy 101.7; Estimated Glomerular Filt Rate > 60; Glucose Random 120 mg/dL (60-115); Magnesium 1.9 mg/dL (1.6-2.6); Potassium 3.8 mmol/L (3.3-5.1); Sodium 140 mmol/L (135-145); Total Protein 6.1 g/dL (6.5-8.0)
== END 2020-06-10 20:52 | disposition home or self-care (01) ==
PROVIDERS: Nurse Practitioner Family; Emergency Provider Internal Medicine
DX: M79.605 Pain in left leg (principal); M79.604 Pain in right leg; M62.831 Muscle spasm of calf
CPT/HCPCS: 36415; 80048; 80076; 82550; 83735; 85025; 93970; 96372; 99284; J1885

== ENCOUNTER 2021-02-03 12:00 | Outpatient (REF) | payer OTHER, SELFPAY | END 2021-02-03 12:01 | disposition home or self-care (01) | LOC: HO.HMGCLDS 12:00 | PROVIDERS: Visit Provider Internal Medicine | DX: Z20.822 Contact with and (suspected) exposure to COVID-19 (principal) | CPT/HCPCS: C9803; U0003; U0005 ==

== ENCOUNTER 2021-02-25 20:41 | Emergency (ER) | payer OTHER, SELFPAY ==
[2021-02-25 21:41] VITALS: BP 116/60; PULSE 99; RESP 18; TEMP 36.7; O2SAT 98; BMI 30.4
[2021-02-25 23:11] LABS: MANUAL DIFF FLAG NO
[2021-02-25 23:12] LABS: Basophils Percent Auto 0.5 % (0-2); Eosinophils Percent Auto 0.9 % (0-4); Hematocrit 29.2 % (37.0-47.0); Hemoglobin 9.1 g/dl (12.0-16.0); Imm Gran Abs Auto 0.01 X10*3/uL (0.00-0.03); Imm Gran Pct Auto 0.2 % (0.0-0.4); Lymphocytes Absolute Auto 1.7 X10*3/uL (1.2-4.9); Lymphocytes Percent Auto 37.7 % (20-40); Mean Corpuscular HGB Conc 31.2 g/dl (31.0-35.0); Mean Corpuscular Hemoglobin 24.5 pg (27.0-33.0); Mean Corpuscular Volume 78.7 fL (80.0-98.0); Monocytes Absolute Auto 0.7 X10*3/uL (0.1-1.2); Neutrophils Percent Auto 45.7 % (45-73); Platelet Count 309 X10*3/uL (160-400); Red Blood Count 3.71 X10*6/uL (4.20-5.50); Red Cell Distribution Width 15.5 % (11.0-16.0); White Blood Count 4.4 X10*3/uL (4.8-10.8)
[2021-02-25 23:13] LABS: Appearance Urine CLEAR; Color Urine YELLOW; Glucose Urine UA NEG (NEG); Leukocyte Esterase Urine NEG (NEG); Nitrite Urine NEG (NEG); PH 5.5 (5.0-8.0); Specific Gravity - Urine <= 1.005 (1.005-1.025); Urine Blood NEG (NEG); Urine Ketones NEG (NEG); Urine Protein NEG (NEG-TRACE)
[2021-02-25 23:15] LABS: UPreg QC Valid YES; Urine Pregnancy NEGATIVE (NEGATIVE)
[2021-02-25 23:30] LABS: Alanine Aminotransferase 12 U/L (0-31); Albumin Level 4.1 g/dL (3.5-5.0); Alkaline Phosphatase 49 U/L (39-117); Anion Gap 12 (12-20); Aspartate Amino Transferase 18 U/L (5-31); Bilirubin Total 0.3 mg/dL (0.0-1.0); Blood Urea Nitrogen 13 mg/dL (9-16); Calcium 9.2 mg/dL (8.4-10.2); Carbon Dioxide 22 mmol/L (22-29); Chloride 108 mmol/L (96-108); Creatinine Clr Calc Pharmacy 77.6; Estimated Glomerular Filt Rate 59; Glucose Random 98 mg/dL (60-115); Lipase 99 U/L (8-78); Potassium 4.4 mmol/L (3.3-5.1); Sodium 138 mmol/L (135-145); Total Protein 6.9 g/dL (6.5-8.0)
--- NOTE | 2021-02-26 02:24 | ED_ITS ---
HPI - Female Genitourinary General Chief complaint: Urogenital-Female Stated complaint: low iron levels? dizziness, back & leg pain Time Seen by Provider: 02/25/21 21:20 Source: patient Mode of arrival: ambulatory History of Present Illness HPI Narrative: 45-year-old female with significant past medical history of bariatric surgery and presents with 2 years of ongoing pelvic pain with radiation into bilateral lower extremities that patient describes as burning and that she simply ?deals with?. Patient acknowledges that she does not have a primary care provider due to time constraints on following up. Patient denies any fevers, chills and reports that she has not been COVID-19 vaccinated. She denies any recent nausea, vomiting, and denies any use of alcohol or illicit substances. Related Data Previous Rx's Medication Instructions Recorded ferrous sulfate 325 mg (65 mg 325 mg PO DAILY #30 tab 02/09/20 iron) tablet ketorolac 10 mg tablet 10 mg PO Q6H PRN 5 Days #20 tab 05/31/20 cyclobenzaprine 10 mg tablet 10 mg PO TID PRN #10 tab 06/10/20 ketorolac 10 mg tablet 10 mg PO Q8H PRN #20 tab 06/10/20 ketorolac 10 mg tablet 10 mg PO Q6H PRN 5 Days #20 tab 02/26/21 Allergies Allergy/AdvReac Type Severity Reaction Status Date / Time No Known Allergies Allergy Verified 02/25/21 21:41 Review of Systems Review of Systems: Pertinent positives and negatives as stated in HPI 10 point review of systems is otherwise negative. [facility] Past Medical History Source: nursing notes reviewed Medical History HILDA (iron deficiency anemia) Rotator cuff disorder Surgical History H/O gastric bypass H/O tubal ligation Social History Social History Alcohol intake: former Advance Directives: No Patient : No Physical Exam Vital Signs: Vital Signs: Last Vital Signs Temp 98.0 F 02/25/21 21:41 Pulse 99 02/25/21 21:41 Resp 18 02/25/21 21:41 BP 116/60 02/25/21 21:41 Pulse Ox 98 02/25/21 21:41 BMI result Body Mass Index 30.4 VITAL SIGNS: Reviewed. GENERAL: Well developed, well nourished, in no acute distress. HEAD: Normocephalic/atraumatic EYES: PERRLA, EOMI OROPHARYNX: no oral lesions noted, posterior pharynx clear LUNGS: Normal breath sounds. No adventitious sounds or accessory muscle use. SpO2<98> CARDIOVASCULAR: Regular rate and rhythm without noted murmurs, no JVD or lower extremity edema. ABDOMEN: Soft, non-tender, non-distended with bowel sounds. SKIN: Inspection of the skin reveals no rashes NEUROLOGIC: Alert and oriented x 4. Strength and sensation to light touch were grossly intact x 4. Course Course Course Narrative: This is a 45-year-old female with history and clinical presentation consistent with acute on chronic heavy menstrual flow with bilateral lower extremity leg cramps. On review of all investigations there are no acute changes from chronic findings. Notably, patient has electrolytes within normal range, CPK is within normal range and renal function is within normal limits although the creatinine level is noted to have worsened since 06/10/2020. On re-evaluation patient is feeling improved after the Tylenol and Toradol. Patient was strongly encouraged to follow-up with a primary care provider at her earliest convenience. MDM - Female Genitourinary Lab Data Result diagrams: 02/25/21 23:04 02/25/21 23:04 Labs: Lab Results 02/25/21 02/25/21 02/25/21 Range/Units 23:04 23:04 23:04 WBC 4.4 L (4.8-10.8) X10*3/uL RBC 3.71 L (4.20-5.50) X10*6/uL Hgb 9.1 L (12.0-16.0) g/dl Hct 29.2 L (37.0-47.0) % MCV 78.7 L (80.0-98.0) fL MCH 24.5 L (27.0-33.0) pg MCHC 31.2 (31.0-35.0) g/dl RDW 15.5 (11.0-16.0) % Plt Count 309 (160-400) X10*3/uL MPV 9.0 L (9.4-12.3) fL Immature Gran % (Auto) 0.2 (0.0-0.4) % Neut % (Auto) 45.7 (45-73) % Lymph % (Auto) 37.7 (20-40) % [place] % (Auto) 15.0 H (2-11) % Eos % (Auto) 0.9 (0-4) % Baso % (Auto) 0.5 (0-2) % Lymph # (Auto) 1.7 (1.2-4.9) X10*3/uL [place] # (Auto) 0.7 (0.1-1.2) X10*3/uL Eos # (Auto) 0.0 (0.0-0.4) X10*3/uL Baso # (Auto) 0.0 (0.0-0.2) X10*3/uL Abs Immat Gran (auto) 0.01 (0.00-0.03) X10*3/uL Absolute Neuts (auto) 2.0 (2.0-8.3) x10*3/uL Absolute Nucleated RBC 0.000 (0.0-0.012) X10*3/uL Nucleated RBC % (auto) 0.0 (0.0-0.2) /100WBC Sodium 138 (135-145) mmol/L Potassium 4.4 (3.3-5.1) mmol/L Chloride 108 (96-108) mmol/L Carbon Dioxide 22 (22-29) mmol/L Anion Gap 12 (12-20) BUN 13 (9-16) mg/dL Creatinine 1.02 (0.5-1.4) mg/dL Estim Creat Clear Calc 77.6 Estimated GFR 59 Random Glucose 98 (60-115) mg/dL Calcium 9.2 (8.4-10.2) mg/dL Total Bilirubin 0.3 (0.0-1.0) mg/dL AST 18 (5-31) U/L ALT 12 (0-31) U/L Alkaline Phosphatase 49 (39-117) U/L Total Creatine Kinase 100 D (26-140) U/L Total Protein 6.9 (6.5-8.0) g/dL Albumin 4.1 (3.5-5.0) g/dL Lipase 99 H (8-78) U/L Urine Color YELLOW Urine Appearance CLEAR Urine pH 5.5 (5.0-8.0) Ur Specific [place] <= 1.005 (1.005-1.025) Urine Protein NEG (NEG-TRACE) MG/DL Urine Glucose (UA) NEG (NEG) MG/DL Urine Ketones NEG (NEG) MG/DL Urine Blood NEG (NEG) Urine Nitrite NEG (NEG) Ur Leukocyte Esterase NEG (NEG) Urine Test (NEGATIVE) 02/25/21 Range/Units 23:04 WBC (4.8-10.8) X10*3/uL RBC (4.20-5.50) X10*6/uL Hgb (12.0-16.0) g/dl Hct (37.0-47.0) % MCV (80.0-98.0) fL MCH (27.0-33.0) pg MCHC (31.0-35.0) g/dl RDW (11.0-16.0) % Plt Count (160-400) X10*3/uL MPV (9.4-12.3) fL Immature Gran % (Auto) (0.0-0.4) % Neut % (Auto) (45-73) % Lymph % (Auto) (20-40) % [place] % (Auto) (2-11) % Eos % (Auto) (0-4) % Baso % (Auto) (0-2) % Lymph # (Auto) (1.2-4.9) X10*3/uL [place] # (Auto) (0.1-1.2) X10*3/uL Eos # (Auto) (0.0-0.4) X10*3/uL Baso # (Auto) (0.0-0.2) X10*3/uL Abs Immat Gran (auto) (0.00-0.03) X10*3/uL Absolute Neuts (auto) (2.0-8.3) x10*3/uL Absolute Nucleated RBC (0.0-0.012) X10*3/uL Nucleated RBC % (auto) (0.0-0.2) /100WBC Sodium (135-145) mmol/L Potassium (3.3-5.1) mmol/L Chloride (96-108) mmol/L Carbon Dioxide (22-29) mmol/L Anion Gap (12-20) BUN (9-16) mg/dL Creatinine (0.5-1.4) mg/dL Estim Creat Clear Calc Estimated GFR Random Glucose (60-115) mg/dL Calcium (8.4-10.2) mg/dL Total Bilirubin (0.0-1.0) mg/dL AST (5-31) U/L ALT (0-31) U/L Alkaline Phosphatase (39-117) U/L Total Creatine Kinase (26-140) U/L Total Protein (6.5-8.0) g/dL Albumin (3.5-5.0) g/dL Lipase (8-78) U/L Urine Color Urine Appearance Urine pH (5.0-8.0) Ur Specific [place] (1.005-1.025) Urine Protein (NEG-TRACE) MG/DL Urine Glucose (UA) (NEG) MG/DL Urine Ketones (NEG) MG/DL Urine Blood (NEG) Urine Nitrite (NEG) Ur Leukocyte Esterase (NEG) Urine Test NEGATIVE (NEGATIVE) Discharge Plan Discharge Clinical Impression: Dysmenorrhea, Bilateral leg cramps Patient Disposition: Home, Self-Care Instructions: Dysmenorrhea (ED), Leg Cramps (ED) Additional Instructions: 1. Tylenol 1000 mg, orally, every 6 hours as needed for pain control. Do not exceed 4000 mg within 24 hours. 2. Increase fluid hydration, especially with water and use [id number] Mylanta prior to meals as needed for symptoms of indigestion. 3. Establish care with a primary care provider as soon as possible for further outpatient evaluation, it investigations and referrals as necessary. Return to the ER for worsening symptoms. Prescriptions: New ketorolac 10 mg tablet 10 mg PO Q6H PRN (Reason: pain) 5 Days Qty: 20 RF: 0 No Action ketorolac 10 mg tablet 10 mg PO Q6H PRN (Reason: pain) 5 Days Qty: 20 RF: 0 ferrous sulfate 325 mg (65 mg iron) tablet 325 mg PO DAILY Qty: 30 RF: 0 ketorolac 10 mg tablet 10 mg PO Q8H PRN (Reason: pain) Qty: 20 RF: 0 cyclobenzaprine 10 mg tablet 10 mg PO TID PRN (Reason: muscle spasm) Qty: 10 RF: 0
[2021-02-26] MEDS: Ketorolac Tromethamine 30 MG/ML VIAL 15 MG IM (02:59)
[2021-02-26] MEDS: Acetaminophen 325 MG TABLET 975 MG PO (02:59)
== END 2021-02-26 04:20 | disposition home or self-care (01) ==
PROVIDERS: Emergency Provider Student in an Organized Health Care Education/Training Program
DX: N94.6 Dysmenorrhea, unspecified (principal); R25.2 Cramp and spasm; F17.200 Nicotine dependence, unspecified, uncomplicated; Z98.84 Bariatric surgery status
CPT/HCPCS: 36415; 80053; 81003; 81025; 82550; 83690; 85025; 96372; 99283; 99284; J1885

== ENCOUNTER 2021-03-09 13:35 | Outpatient (REF) | payer OTHER, SELFPAY ==
[2021-03-09 16:55] LABS: Cholesterol 178 mg/dL; HDL Cholesterol 54 mg/dL; Iron 22 mcg/dL (30-160); LDL Cholesterol Calculated 105 mg/dl; Percent Iron Saturation 5 % (15-50); Total Iron Binding Capacity 464 mcg/dL (228-428); Triglycerides 96 mg/dL; Unsaturated Iron Binding 442 ug/dL
[2021-03-09 17:16] LABS: TSH reflex Free T4 3.19 uIU/mL (0.32-4.0); Vitamin D 25-OH Total 25.5 ng/mL (>30)
[2021-03-09 17:29] LABS: Folate 8.6 ng/mL (> or = 4.0); Vitamin B12 570 pg/mL (200-900)
== END 2021-03-09 13:36 | disposition home or self-care (01) ==
LOC: HO.HMGCLDS 13:35
PROVIDERS: Visit Provider Internal Medicine
DX: Z00.01 Encounter for general adult medical examination with abnormal findings (principal); D50.9 Iron deficiency anemia, unspecified; Z98.84 Bariatric surgery status
CPT/HCPCS: 36415; 80061; 82306; 82607; 82746; 83540; 84443

== ENCOUNTER 2021-03-12 14:38 | Outpatient (REF) | payer OTHER, SELFPAY ==
[2021-03-13 06:57] LABS: Rubeola IgG (Measles) >300.00 AU/mL
== END 2021-03-12 14:39 | disposition home or self-care (01) ==
LOC: HO.HMGCLDS 14:38
PROVIDERS: Visit Provider Physician Assistant
DX: Z02.1 Encounter for pre-employment examination (principal)
CPT/HCPCS: 36415; 86765

== ENCOUNTER 2021-03-25 08:10 | Outpatient (REF) | payer OTHER, SELFPAY ==
[2021-03-25 17:25] LABS: CT PCR NOT DETECTED (Not Detect.); NG PCR NOT DETECTED (Not Detect.)
== END 2021-03-25 08:11 | disposition home or self-care (01) ==
LOC: HO.LAB 08:10
PROVIDERS: PCP Internal Medicine; Visit Provider Obstetrics & Gynecology
DX: Z11.3 Encounter for screening for infections with a predominantly sexual mode of transmission (principal); N92.0 Excessive and frequent menstruation with regular cycle; K43.2 Incisional hernia without obstruction or gangrene
CPT/HCPCS: 87491; 87591; 99212

== ENCOUNTER 2021-04-03 13:56 | Outpatient (REF) | payer OTHER, SELFPAY ==
--- NOTE | ~2021-04-03 | US_ITS ---
EXAMINATION: US PELVIS CLINICAL INFORMATION: Abnormal uterine vaginal bleeding. COMPARISON: None TECHNIQUE: Ultrasound of the pelvis is performed using both transabdominal and transvaginal transducers along with Doppler. Transvaginal imaging is performed due to inadequate visualization transabdominally. FINDINGS: UTERUS: The uterus is anteverted and measures 10.7 x 5.8 x 6.7 cm. The double wall endometrial thickness is 1.36 mm. The uterus is smooth in contour and has heterogeneous myometrial echogenicity. There are 2 hypoechoic lesions seen. Lesion in the upper body of uterus measures 1.8 x 1.5 x 1.6 cm. Second lesion in the right mid body of lesion likely submucosal measures 1.2 x 0.8 x 1.5 cm. Both these lesions were not seen on the previous ultrasound exam. There are small nabothian cysts seen in the cervix. ADNEXA: Both ovaries are visualized. There is normal color flow to the adnexa. There is no ovarian torsion. There is no pelvic ascites or fluid collection. Right ovary measures 5.1 x 1.9 x 3.8 cm and volume 19.2 mL. There is a simple anechoic cyst measuring 2.2 x 1.8 x 2.4 cm. Left ovary measures 2.4 x 3.0 x 2.0 cm and volume 7.4 mL. There are prominent vessels seen extending to the endometrium where there is a focal hypoechoic round area seen within the endometrial canal, question polyp. It measures 0.5 x 1.3 cm. US/US pelvic and transvaginal IMPRESSION: At least 2 uterine fibroids; the second fibroid is very subtle. Heterogeneous myometrium with small nabothian cysts in the cervix. Suspect small endometrial polyp with increased vascularity.
== END 2021-04-03 13:57 | disposition home or self-care (01) ==
LOC: HO.HMGCX 13:56
PROVIDERS: Visit Provider Obstetrics & Gynecology
DX: N93.9 Abnormal uterine and vaginal bleeding, unspecified (principal)
CPT/HCPCS: 76830; 76856

== ENCOUNTER 2021-04-06 15:55 | Outpatient (REF) | payer OTHER, SELFPAY ==
--- NOTE | ~2021-04-06 | MM_ITS ---
EXAMINATION: MM SCREENING DIGITAL BREAST TOMOSYNTHESIS, BILATERAL CLINICAL INFORMATION: Screening. Asymptomatic. Age 45. No prior breast imaging. Family history breast cancer, maternal aunt. The lifetime risk of breast cancer based on the Tyrer-Cuzick Model is 11%. COMPARISON: None (current study represents initial baseline exam). TECHNIQUE: Digital breast tomosynthesis is performed in both the craniocaudal and mediolateral oblique views along with computer-aided detection (CAD). Synthesized 2D images are generated from the tomosynthesis. Additional left MLO view is provided. FINDINGS: There are scattered areas of fibroglandular density (ACR BI-RADS breast composition Category b). There are no significant masses, abnormal calcifications, or other abnormalities. Breast tissue composition borders on heterogeneously dense. There is no architectural abnormality. The axilla and skin contours are unremarkable. MM/MM tomosynthesis screening BI IMPRESSION: No mammographic evidence of malignancy. ASSESSMENT: BI-RADS 1: Negative RECOMMENDATION: Routine annual mammography screening. This patient's information was entered into a reminder system with a target due date for their next mammogram.
== END 2021-04-06 15:56 | disposition home or self-care (01) ==
LOC: HO.MAMMO 15:55
PROVIDERS: Visit Provider Internal Medicine
DX: Z12.31 Encounter for screening mammogram for malignant neoplasm of breast (principal)
CPT/HCPCS: 77063; 77067

== ENCOUNTER → 2021-04-16 10:06 | Outpatient (BNVA) | payer OTHER, SELFPAY | PROVIDERS: PCP Internal Medicine; Visit Provider Obstetrics & Gynecology | DX: N92.0 Excessive and frequent menstruation with regular cycle (principal); D25.9 Leiomyoma of uterus, unspecified | CPT/HCPCS: 99212 ==

== ENCOUNTER 2021-04-28 08:41 | Outpatient (REF) | payer OTHER, SELFPAY ==
--- NOTE | ~2021-04-28 | CT_ITS ---
EXAMINATION: CT ABDOMEN AND PELVIS WITH CONTRAST CLINICAL INFORMATION: Incisional hernia without obstruction or gangrene COMPARISON: Previous CT of the abdomen and pelvis February 2020 TECHNIQUE: Multidetector volumetric images were obtained from the superior aspect of the liver through the pubic symphysis following administration 85 mL of Omnipaque 350 intravenous contrast. Sagittal and coronal reformatted images were obtained on the technologist's workstation. Oral contrast: Yes This CT examination was performed using dose optimization techniques as appropriate, variously including the following: *Automated exposure control *Adjustment of mA and/or kV according to patient size (this includes techniques or standardized protocols for targeted exams where dose is matched to indication/reason for exam; i.e. extremities or head) *Use of iterative reconstruction technique DLP: 448 mGy-cm FINDINGS: LUNG BASES: The visualized lung bases are unremarkable. LIVER, GALLBLADDER, AND BILIARY TREE: The liver is normal in size, shape, and attenuation. There is an exophytic cyst with wall calcification adjacent to the posterior segment of the right lobe of the liver measuring 1 cm that is stable. No other focal liver lesion. The gallbladder is been removed. There is no biliary duct dilatation. PANCREAS: Unremarkable. SPLEEN: Unremarkable. ADRENAL GLANDS: Unremarkable. KIDNEYS AND URETERS: The kidneys are normal in size, shape, and attenuation. No hydronephrosis, hydroureter, or calculi seen. No perinephric stranding. BLADDER: Unremarkable. GASTROINTESTINAL TRACT: There are postsurgical changes from gastric bypass. There is stool throughout the colon questionable for constipation. Small and large bowel is otherwise unremarkable. The appendix is unremarkable. ABDOMINAL WALL: There is a tiny umbilical hernia containing fat. No other hernia is seen. There is a 1 cm soft tissue nodule right lower quadrant overlying the right rectus muscle axial image 66 series 3. This is similar to February 2020 exam. LYMPH NODES: Normal. VASCULAR: Unremarkable. PELVIC VISCERA: Unremarkable. OSSEOUS STRUCTURES: Unremarkable. CT/CT abdomen pelvis w con IMPRESSION: Postsurgical changes from gastric bypass and cholecystectomy. Constipation. Stable liver cyst with wall calcification. Tiny umbilical hernia containing fat. No other hernia is seen. 1 cm soft tissue nodule in the right lower abdominal wall overlying the right rectus muscle similar to February 2020 exam. Fleischner guidelines were followed.
[2021-04-28] MEDS: iohexoL 350 MG/ML 100 ML INFUS..BTL IV (11:37)
[2021-04-28] MEDS: Barium Sulfate Oral (Berry) 450 ML ORAL.SUSP 900 ML PO (11:38)
== END 2021-04-28 08:42 | disposition home or self-care (01) ==
LOC: HO.CT 08:41
PROVIDERS: PCP Internal Medicine; Visit Provider Obstetrics & Gynecology
DX: K43.2 Incisional hernia without obstruction or gangrene (principal)
CPT/HCPCS: 74177; Q9967

== ENCOUNTER 2021-05-08 05:58 | Day surgery (SDC) | payer OTHER, SELFPAY ==
[2021-05-04 10:37] VITALS: BMI 29.3
--- NOTE | 2021-05-06 13:23 | HO.ANESPROP2 ---
Documented by User: Patsy Adames NP 05/06/21 13:24 HPI - Anesthesia Eval Consult details Narrative: 46yo F for D&C Hysteroscopy,poss polypectomy,poss myomectomy PMFSH Active Problems Active Problems: All Active Problems (Updated 04/16/21 @ 10:31 by Bradley Ricketts MD) Incisional hernia (Acute) Anxiety and depression (Acute) Immunization refused (Acute) Heavy cigarette smoker (20-39 per day) (Acute) Menorrhagia (Acute) H/O gastric bypass (Acute) HILDA (iron deficiency anemia) (Acute) Past Medical History Medical History Anemia Anxiety and depression Heavy cigarette smoker (20-39 per day) HILDA (iron deficiency anemia) Immunization refused Menorrhagia Rotator cuff disorder Family History Family History Father Mental health disorder Daughter Mental health disorder Paternal Aunt Mental health disorder Surgical History Surgical History H/O gastric bypass H/O tubal ligation History of Social History Social History Housing: Apartment Alcohol intake: former Patient Tobacco Use Status: Current everyday Tobacco user Cigarette Packs Per Day: 1 e-Cigarette/Vaping Use: Never Used Use of substances other than those prescribed or required for medical reasons: No Are you DNR?: No Advance Directives: No Advance Directives Information Provided: Yes service: No Current occupational status: employed Meds Allergies Allergy/AdvReac Type Severity Reaction Status Date / Time No Known Allergies Allergy Verified 03/25/21 08:42 Home Medications Medication Instructions Recorded Confirmed Last Taken Type biotin 10,000 mcg capsule mcg PO 03/09/21 Unknown History calcium citrate 250 mg 1 tab PO DAILY 03/09/21 Unknown History calcium-vitamin D3 5 mcg (200 unit) tablet (Citracal Regular) melatonin 10 mg tablet 20 mg PO DAILY 03/09/21 Unknown History Exam Exam Date and Time: May 06, 2021 1323 Height,Weight and Vital Signs: Height 5 ft 6 in Weight 82.554 kg Pertinent Lab Results Pertinent Lab Results: Laboratory Tests 02/25/21 02/25/21 23:04 23:04 WBC 4.4 L Hgb 9.1 L Hct 29.2 L Plt Count 309 Sodium 138 Potassium 4.4 Chloride 108 Carbon Dioxide 22 BUN 13 Creatinine 1.02 Assessment and Plan Assessment Anesthesia Assessment: Chart Reviewed Documented by User: Karen Fox MD 05/08/21 07:37 PMFSH Past Medical History Medical History Anemia Anxiety and depression Heavy cigarette smoker (20-39 per day) HILDA (iron deficiency anemia) Immunization refused Menorrhagia Rotator cuff disorder Family History Family History Father Mental health disorder Daughter Mental health disorder Paternal Aunt Mental health disorder Family history of problems with anesthesia: No Surgical History Surgical History H/O gastric bypass H/O tubal ligation History of History of Problems with Anesthesia: No Social History Social History Housing: Apartment Alcohol intake: former Patient Tobacco Use Status: Current everyday Tobacco user Cigarette Packs Per Day: 1 e-Cigarette/Vaping Use: Never Used Use of substances other than those prescribed or required for medical reasons: No Are you DNR?: No Advance Directives: No Advance Directives Information Provided: Yes service: No Current occupational status: employed Meds Allergies Allergy/AdvReac Type Severity Reaction Status Date / Time No Known Allergies Allergy Verified 03/25/21 08:42 Home Medications Medication Instructions Recorded Confirmed Last Taken Type biotin 10,000 mcg capsule mcg PO 03/09/21 Unknown History calcium citrate 250 mg 1 tab PO DAILY 03/09/21 Unknown History calcium-vitamin D3 5 mcg (200 unit) tablet (Citracal Regular) melatonin 10 mg tablet 20 mg PO DAILY 03/09/21 Unknown History Exam Airway Mallampati Class: I TM Dist: >3cm Neck ROM: Full Assessment and Plan Assessment Anesthesia Assessment: Anesthesia Plan Discussed and Smoking Cess. Discussed Final Anesthetic Review Family History of Problems with Anesthesia: No History of Problems with Anesthesia: No NPO: Yes ASA Class: II Final Preanesthetic Review: No Changes in Pt Med Stat, Meds/Allgs Chart Reviewed, Consent Obtained/Reviewed and Anes Risks/Benef Reviewed Patient Risk: Low Procedure Risk: Low Anesthetic Plan Anesthetic Plan: GA Disposition: Standard PACU
[2021-05-08] VITALS (8 sets, daily range): BP systolic 100–122; BP diastolic 51–67; PULSE 63–85; RESP 16–18; TEMP 36.3–36.9; O2SAT 98–100
[2021-05-08 06:19] LABS: UPreg QC Valid YES; Urine Pregnancy NEGATIVE (NEGATIVE)
[2021-05-08] MEDS: Lactated Ringers 1,000 ML 100 ML IVCONT (06:47)
--- NOTE | 2021-05-08 07:33 | MHC.SHP ---
Pre-Procedural Eval Section A Date of Service: 05/08/21 The patient is an INPATIENT: No Changes since office visit: No Cold of Flu in the past 2 weeks, No New Medical Problems, No Changes in Medication and No Patient answered all questions The History & Physical has been completed within 30 days and I have reviewed it.: Yes Section B Chief Complaint: Excessive and frequent menstruation Allergies: Allergies Allergy/AdvReac Type Severity Reaction Status Date / Time No Known Allergies Allergy Verified 03/25/21 08:42 Plan Diagnosis/Plan: Unchanged I have reviewed the history and physical and performed a pertinent physical examination on my patient. No changes have occurred unless specified.
--- NOTE | 2021-05-08 08:00 | PM.OP ---
Brief Operative Note Date of Service: 05/08/21 Pre-op diagnosis: abnormal uterine bleeding Post-op diagnosis: other ( endometrial polyp) Procedure: Hysteroscopy D&C, Polypectomy Surgeon: Bradley Ricketts MD Anesthesia: MAC Was an Business Excellence Manager used for this Procedure?: No Estimated blood loss (mL): 0 Pathology: other (Endometrial Scrapping. Polyp) Condition: stable Disposition: PACU
--- NOTE | 2021-05-08 08:01 | P.OP_ITS ---
Operative Note Operative Note Date of Service: 05/08/21 Narrative: Preop Diagnosis: abnormal uterine bleeding Operation: Diagnostic Hysteroscopy, Dilataion & Curettage and polypectomy Post Op Diagnosis: Endometrial Polyp QBL: Minimal Anesthesia: MAC Surgeon: Bradley Ricketts MD Senior Php Software Developer: None Complication: None Pathology: Endometrial Scrapings, Endometrial polyp Complication: None Pathology: Endometrial Scrapings, Endometrial polyp Procedure: The patient was put in the dorsal lithotomy position, scrubbed, and draped in the usual manner. A sterile speculum was inserted in the patient's vagina. The anterior lip of the cervix was grasped with a single tooth tenaculum. The cervix was dilated up to 5 mm, then the scope was inserted in the patient's uterus. Inspection revealed endometrial polyp. The Myosure Reach device was used; it was introduced through the operative channel and polypectomy done with no complications, this was followed by sharp curettings with moderate amount of tissues retrieved.At the end of the procedure, all instruments were taken out of the patient uterine and vaginal cavity. The single tooth tenaculum was removed and homeostasis was assured using pressure,. The patient tolerated the procedure well and was transferred to the PACU in a stable condition.
[2021-05-08] MEDS: oxyCODONE HCl Immed Release 5 MG TABLET PO (08:12)
== END 2021-05-08 09:50 | disposition home or self-care (01) ==
PROVIDERS: PCP Internal Medicine; Visit Provider Obstetrics & Gynecology
PROC: 0UDB8ZZ Extraction of Endometrium, Via Natural or Artificial Opening Endoscopic (ICD-10-PCS; CPT 58558; principal; 2021-05-08 07:30)
DX: N92.0 Excessive and frequent menstruation with regular cycle (principal); N84.0 Polyp of corpus uteri; D50.9 Iron deficiency anemia, unspecified; F17.210 Nicotine dependence, cigarettes, uncomplicated; Z98.84 Bariatric surgery status; Z98.51 Tubal ligation status
CPT/HCPCS: 58558; 81025; 88305; J1100; J2250; J2405; J3010

== ENCOUNTER → 2021-05-28 11:59 | Outpatient (BNVA) | payer OTHER, SELFPAY | PROVIDERS: PCP Internal Medicine; Visit Provider Obstetrics & Gynecology | DX: N92.0 Excessive and frequent menstruation with regular cycle (principal) ==

== ENCOUNTER → 2021-06-10 13:45 | Outpatient (BNVA) | payer OTHER, SELFPAY | PROVIDERS: PCP Internal Medicine; Referring Provider Internal Medicine; Visit Provider Surgery | DX: K42.9 Umbilical hernia without obstruction or gangrene (principal); D50.9 Iron deficiency anemia, unspecified; N92.0 Excessive and frequent menstruation with regular cycle; F17.210 Nicotine dependence, cigarettes, uncomplicated; F41.9 Anxiety disorder, unspecified; F32.A Depression, unspecified; I83.813 Varicose veins of bilateral lower extremities with pain; M25.511 Pain in right shoulder; G89.29 Other chronic pain; M67.919 Unspecified disorder of synovium and tendon, unspecified shoulder; Z98.84 Bariatric surgery status | CPT/HCPCS: 99202 ==

== ENCOUNTER → 2021-06-16 10:35 | Outpatient (BNVA) | payer OTHER, SELFPAY | PROVIDERS: PCP Internal Medicine; Visit Provider Obstetrics & Gynecology | DX: N92.0 Excessive and frequent menstruation with regular cycle (principal) | CPT/HCPCS: 99212 ==

== ENCOUNTER 2021-06-19 08:21 | Day surgery (SDC) | payer OTHER, SELFPAY ==
--- NOTE | 2021-06-18 09:09 | HO.ANESPROP2 ---
Documented by User: Patsy Adames NP 06/18/21 09:10 HPI - Anesthesia Eval Consult details Narrative: 46yo F for Uterine Ablation w/Master PMFSH Active Problems Active Problems: All Active Problems (Updated 05/28/21 @ 12:30 by Bradley Ricketts MD) Incisional hernia (Acute) Umbilical hernia (Acute) Myoma (Acute) Rotator cuff disorder (Acute) Chronic right shoulder pain (Acute) Varicose veins of bilateral lower extremities with pain (Acute) Anxiety and depression (Acute) Immunization refused (Acute) Heavy cigarette smoker (20-39 per day) (Acute) Menorrhagia (Acute) H/O gastric bypass (Acute) HILDA (iron deficiency anemia) (Acute) Past Medical History Medical History Anemia Anxiety and depression Chronic right shoulder pain Heavy cigarette smoker (20-39 per day) HILDA (iron deficiency anemia) Immunization refused Menorrhagia Rotator cuff disorder Varicose veins of bilateral lower extremities with pain Family History Family History Father Mental health disorder Daughter Mental health disorder Paternal Aunt Mental health disorder Family history of problems with anesthesia: No Surgical History Surgical History H/O gastric bypass H/O tubal ligation History of History of cholecystectomy Hx of dilation and curettage History of Problems with Anesthesia: No Social History Social History Housing: Apartment Alcohol intake: former Patient Tobacco Use Status: Current everyday Tobacco user Cigarette Packs Per Day: 1 e-Cigarette/Vaping Use: Never Used Are you DNR?: No Advance Directives: No Advance Directives Information Provided: Yes Nutrition Risks: No Nutritional Risk service: No Current occupational status: employed Meds Allergies Allergy/AdvReac Type Severity Reaction Status Date / Time No Known Allergies Allergy Verified 06/10/21 13:58 Home Medications Medication Instructions Recorded Confirmed Last Taken Type biotin 10,000 mcg capsule mcg PO 03/09/21 06/10/21 Unknown History calcium citrate 250 mg 1 tab PO DAILY 03/09/21 06/15/21 Unknown History calcium-vitamin D3 5 mcg (200 unit) tablet (Citracal Regular) melatonin 10 mg tablet 20 mg PO DAILY 03/09/21 06/15/21 Unknown History Exam Exam Date and Time: June 18, [id number] Pertinent Lab Results Pertinent Lab Results: Laboratory Tests 02/25/21 02/25/21 23:04 23:04 WBC 4.4 L Hgb 9.1 L Hct 29.2 L Plt Count 309 Sodium 138 Potassium 4.4 Chloride 108 Carbon Dioxide 22 BUN 13 Creatinine 1.02 Assessment and Plan Assessment Anesthesia Assessment: Chart Reviewed Final Anesthetic Review Family History of Problems with Anesthesia: No History of Problems with Anesthesia: No Documented by User: Karen Fox MD 06/19/21 10:11 PMF Past Medical History Medical History Anemia Anxiety and depression Chronic right shoulder pain Heavy cigarette smoker (20-39 per day) HILDA (iron deficiency anemia) Immunization refused Menorrhagia Rotator cuff disorder Varicose veins of bilateral lower extremities with pain Family History Family History Father Mental health disorder Daughter Mental health disorder Paternal Aunt Mental health disorder Surgical History Surgical History H/O gastric bypass H/O tubal ligation History of History of cholecystectomy Hx of dilation and curettage Social History Social History Housing: Apartment Alcohol intake: former Patient Tobacco Use Status: Current everyday Tobacco user Cigarette Packs Per Day: 1 e-Cigarette/Vaping Use: Never Used Are you DNR?: No Advance Directives: No Advance Directives Information Provided: Yes Nutrition Risks: No Nutritional Risk service: No Current occupational status: employed Meds Allergies Allergy/AdvReac Type Severity Reaction Status Date / Time No Known Allergies Allergy Verified 06/10/21 13:58 Home Medications Medication Instructions Recorded Confirmed Last Taken Type biotin 10,000 mcg capsule mcg PO 03/09/21 06/10/21 Unknown History calcium citrate 250 mg 1 tab PO DAILY 03/09/21 06/15/21 Unknown History calcium-vitamin D3 5 mcg (200 unit) tablet (Citracal Regular) melatonin 10 mg tablet 20 mg PO DAILY 03/09/21 06/15/21 Unknown History Exam Airway Mallampati Class: II TM Dist: >3cm Neck ROM: Full Assessment and Plan Assessment Anesthesia Assessment: Anesthesia Plan Discussed Final Anesthetic Review NPO: Yes ASA Class: II Final Preanesthetic Review: No Changes in Pt Med Stat, Meds/Allgs Chart Reviewed, Consent Obtained/Reviewed and Anes Risks/Benef Reviewed Patient Risk: Low Procedure Risk: Low Anesthetic Plan Anesthetic Plan: GA Disposition: Standard PACU
[2021-06-19] VITALS (14 sets, daily range): BP systolic 102–124; BP diastolic 52–71; PULSE 53–80; RESP 12–18; TEMP 35.9–36.6; O2SAT 97–100; BMI 30.2
[2021-06-19] MEDS: Lactated Ringers 1,000 ML 100 ML IVCONT (08:47)
--- NOTE | 2021-06-19 08:54 | MHC.SHP ---
Pre-Procedural Eval Section A Date of Service: 06/19/21 The patient is an INPATIENT: No Changes since office visit: No Cold of Flu in the past 2 weeks, No New Medical Problems, No Changes in Medication and No Patient answered all questions The History & Physical has been completed within 30 days and I have reviewed it.: Yes Section B Chief Complaint: Excessive and frequent menstruation w/ reg cycle Allergies: Allergies Allergy/AdvReac Type Severity Reaction Status Date / Time No Known Allergies Allergy Verified 06/10/21 13:58 Plan Diagnosis/Plan: Unchanged I have reviewed the history and physical and performed a pertinent physical examination on my patient. No changes have occurred unless specified.
[2021-06-19 08:56] LABS: UPreg QC Valid YES; Urine Pregnancy NEGATIVE (NEGATIVE)
--- NOTE | 2021-06-19 10:14 | P.BOP_ITS ---
Brief Operative Note Date of Service: 06/19/21 Pre-op diagnosis: Abnormal uterine bleeding Post-op diagnosis: same Procedure: NovaSure Endometrial Ablation Surgeon: Bradley Ricketts MD Anesthesia: MAC Was an Flatbed Company Driver used for this Procedure?: No Estimated blood loss (mL): 0 Pathology: none sent Condition: stable Disposition: PACU
--- NOTE | 2021-06-19 10:15 | P.OP_ITS ---
Operative Note Operative Note Date of Service: 06/19/21 Narrative: Preop diagnosis: Abnormal uterine bleed Post Op Diagnosis: Same Op: Novasure Endometrial Ablation Anesthesia: MAC Finished Stock Inspector: None QBL: Minimal Pathology: None Complications: None Procedure: The patient was put in the dorsal lithotomy position. She was prepped and draped in the usual sterile manner. Bimanual exam prior to prepping revealed a mobile, anteverted uterus. A speculum was placed in the vagina and the anterior lip of the cervix was grasped with a single toothed tenaculum and brought forward. Taking care not to enter deep into the uterus, a sound was passed inside to measure the length of the uterus and cervix. This length was found to be 8 cm. Next, Hegar dilator was inserted into the cervical os to measure the cervical length which was 3 cm. This yielded an endometrial cavity length of 5 cm. A series of Hegar dilators were then inserted sequentially into the cervical os up to a size of 5 mm. The Novasure device was then opened and tested; the fan deployed easily. The instrument was set to the correct cavity length and introduced into the uterine cavity. The fan was slowly deployed with gentle movements to ensure a snug fit within the cavity. The cavity width read 4.5 cm. The measurements were imported and a cavity check was done. The trumpet was then slid down to the cervix and the device was activated. The total burn time was 97 seconds. The fan was retracted and device removed. The fan was examined and revealed charred tissue. The tenaculum was removed and the cervix examined for hemostasis which was achieved using pressure. Finally the speculum was removed. The patient tolerated the procedure well and was brought to the recovery room in a stable condition. At the end of the procedure all sponges and instruments were counted and correct. The blood loss was minimal and there were no complications.
[2021-06-19] MEDS: fentaNYL citrate/PF 100 MCG/2 ML VIAL 50 MCG IVPUSH ×4 (10:24→11:01)
[2021-06-19] MEDS: oxyCODONE HCl Immed Release 5 MG TABLET PO (10:25)
[2021-06-19] MEDS: HYDROmorphone HCl 0.5 MG/0.5 ML SYRINGE IVPUSH (11:27)
== END 2021-06-19 12:45 | disposition home or self-care (01) ==
PROVIDERS: PCP Internal Medicine; Visit Provider Obstetrics & Gynecology
PROC: (CPT 58353; principal; 2021-06-19 10:20)
DX: N92.0 Excessive and frequent menstruation with regular cycle (principal); N93.9 Abnormal uterine and vaginal bleeding, unspecified; Z98.51 Tubal ligation status; D50.9 Iron deficiency anemia, unspecified; F41.8 Other specified anxiety disorders; D64.9 Anemia, unspecified; I83.813 Varicose veins of bilateral lower extremities with pain; Z79.899 Other long term (current) drug therapy; F17.210 Nicotine dependence, cigarettes, uncomplicated
CPT/HCPCS: 58353; 81025; J1100; J1170; J2250; J2405; J3010

== ENCOUNTER → 2021-07-02 14:31 | Outpatient (BNVA) | payer OTHER, SELFPAY | PROVIDERS: Visit Provider Obstetrics & Gynecology | DX: Z13.89 Encounter for screening for other disorder (principal) ==

== ENCOUNTER → 2021-07-23 14:49 | Outpatient (BNVA) | payer OTHER, SELFPAY | PROVIDERS: PCP Internal Medicine; Visit Provider Nurse Practitioner Family | DX: M25.511 Pain in right shoulder (principal); G89.29 Other chronic pain; M67.911 Unspecified disorder of synovium and tendon, right shoulder; M25.531 Pain in right wrist; M79.604 Pain in right leg; M79.605 Pain in left leg | CPT/HCPCS: 99202 ==

== ENCOUNTER 2023-01-28 09:22 | Outpatient (AMB) | payer OTHER, SELFPAY ==
--- NOTE | 2023-01-28 09:34 | A.OFFPC_ITS ---
Vital Signs 01/28/23 09:35 Height 5 ft 7 in Weight 222 lb 5 oz BMI 34.8 BP 110/74 Blood Pressure Location Rt brachial Position Sitting Pulse 74 Pulse Source Pulse Oximeter Pulse Oximetry (%) 97 Oxygen Delivery Method Room Air Intake Visit Reasons: Annual PE Intake Note: pt is here for annual exam, physical Inspector Brake Lining Required: No Accompanied by: Self / Same As Patient Allergies No Known Allergies Allergy (Verified 01/28/23 10:25) Medication List - Last Reconciled 01/28/23 by Rosio Augustine MD bupropion HCl 150 mg PO BID clonidine HCl 0.1 mg PO BID cyclobenzaprine 10 mg PO BEDTIME PRN 90 days eszopiclone 3 mg PO BEDTIME PRN gabapentin 900 mg PO BEDTIME gabapentin 600 mg PO TID hydroxyzine HCl 10 mg PO QID PRN varenicline (Chantix Starting Month Box) PO PER PKG DIR Tobacco use date assessed: 01/28/23 Dental Screening Dental Screen Date: 01/28/23 Did you have a dental visit in the last 12 months?: Yes Did you have a dental problem in the last 6 months where you did not have access to dental care?: No Was dental information given to patient?: Patient has dentist HPI Annual PE HPI Details 47-year-old lady here today to [facility] and for physical examination. Recently moved up here again from [place], where she had recent cervical spine surgery for cervical scoliosis, states had plates and screws placed, and was prescribed gabapentin, takes 600 mg 3 times a day 08:00, 12 noon and 16:00 and 900 mg at bedtime still having intermittent episodes of pain and stiffness in posterior neck going down right shoulder, but decreased intensity as compared to prior to surgery.. She has chronic insomnia, was placed on eszopiclone by her PCP when she was in [place]. Still continues to smoke 1 pack per day, and would like to try quitting again, has tried Chantix in the past which has helped. She has been diagnosed with OCD, anxiety and depression and PTSD in the past, previously was being seen by Dr. Dunaway at [facility], and has been seeing a therapist down in [place] . Patient was then placed there on bupropion, clonidine, hydroxyzine, which she has been taking 4 times a day for anxiety attacks. Would like to be referred back for counseling, and eventually establish with another psychiatric provider here. Has history of iron deficiency anemia, due to heavy menstrual bleeding, underwent endometrial ablation-NovaSure procedure [address] Ricketst and has not had a period since. Still has intermittent episodes of fatigue and lightheadedness, but denies chest pain, no palpitations or shortness of breath reported. Has superficial varicosities in both lower extremities, with heaviness in legs and pain worse during the summer months COUNT INCLUDES THE [facility] Medical History OCD (obsessive compulsive disorder) Cigarette smoker motivated to quit Scoliosis of cervical region due to degenerative disease of spine in adult History of vitamin D deficiency Chronic right shoulder pain Varicose veins of bilateral lower extremities with pain Anemia Anxiety and depression Immunization refused Heavy cigarette smoker (20-39 per day) Menorrhagia HILDA (iron deficiency anemia) Rotator cuff disorder Surgical History History of cervical spinal surgery History of endometrial ablation Hx of dilation and curettage History of cholecystectomy History of H/O gastric bypass H/O tubal ligation Family History Father Mental health disorder Daughter Mental health disorder Paternal Aunt Mental health disorder Social History Housing: Apartment Alcohol intake: former Patient Tobacco Use Status: Current everyday Tobacco user Cigarette Packs Per Day: 1 e-Cigarette/Vaping Use: Never Used service: No Current occupational status: employed 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 1. Little interest or pleasure in doing things: more than half the days 2. Feeling down, depressed, or hopeless: more than half the days 3. Trouble falling or staying asleep, or sleeping too much: several days 4. Feeling tired or having little energy: more than half the days 5. Poor appetite or overeating: more than half the days 6. Feeling bad about yourself - or that you are a failure or have let yourself or your family down: several days 7. Trouble concentrating on things, such as reading the newspaper or watching television: several days 8. Moving or speaking so slowly that other people could have noticed. Or the opposite - being so fidgety or restless that you have been moving around a lot more than usual: not at all 9. Thoughts that you would be better off or of hurting yourself in some way: not at all Total score: 11 Depression Screening Interpretation: Positive Depression Screening Follow-up: Existing condition, In treatment and Community Mental Health Worker F/U Depression Screening Done: Yes 13894 - PHQ-9 Billing: Yes Source: Developed by Drs. Kali Sheriff, Azul Palencia, Amrit Rogers and colleagues, with an educational alfa from [employer]. Thrive Questionnaire Date Thrive assessed: 01/28/23 I am a: Patient What is your living situation today?: I have a steady place to live Within the past 12 months, did the food you bought not last and you didn't have the money to get more?: Never true Within the past 12 months, did you worry whether your food would run out before you got money to buy more?: Never true Do you have trouble paying for medicines?: No Do you have trouble getting transportation to medical appointments?: No Do you have trouble paying your heating and electricity bill?: No Do you have trouble taking care of your child, family member or friend?: No Do you have trouble with day-to-day activities such as bathing, preparing meals, shopping, managing finances, etc.?: No Are you currently unemployed and looking for a job?: No Are you interested in more education?: No Please select the resources that you would like help with: None Currently or been in a relationship where the following occur: no concerns reported AUDIT C Alcohol Use Questionnaire (AUDIT-C) 1. How often do you have a drink containing alcohol?: Never 2. How many drinks containing alcohol do you have on a typical day when you are drinking?: 1 or 2 3. How often do you have six or more drinks on one occasion?: Never Total Score: 0 JESÚS-7 AMB Questionnaire JESÚS-7 Date JESÚS - 7 assessed: 01/28/23 Feeling nervous, anxious, or on edge: 1 = Several days Not being able to stop or control worryin = More than half the days Worrying too much about different things: 2 = More than half the days Trouble relaxin = More than half the days Being so restless that it is hard to sit still: 2 = More than half the days Becoming easily annoyed or irritable: 2 = More than half the days Feeling afraid as if something awful might happen: 1 = Several days Total JESÚS-7 score (0-4 normal; 5-9 mild; 10-14 moderate; 15-21 severe): 12 Source: Developed by Drs. Kali Sheriff, Azul Palencia, Amrit Rogers and colleagues, with an educational alfa from [employer]. JESÚS-7 Assessment Billing JESÚS-7 Assessment Tool: JESÚS-7 Assessment 33711 Review of Systems Const Reports as per HPI and Reports no additional complaints Eyes Details: goes to [facility], wears reading glasses Reports blurry vision and Reports requires corrective lenses ENT Details: [facility] dental Card Denies chest pain, Denies rapid heart rate and Denies irregular heart rhythm Resp Reports no additional complaints GI Denies abdominal pain, Denies melena, Denies hematochezia, Denies change in bowel habits and Denies heartburn Reports no additional complaints Musc Reports as per HPI Skin/Breast Denies breast pain, Denies breast mass and Denies rash Neuro Reports no additional complaints Psych Reports as per HPI, Denies homicidal ideation and Denies suicidal ideation Endo Reports no additional complaints Dell/Lymph Reports no additional complaints Aller/Immun Reports no additional complaints Physical exam (Primary Care) Vital Signs: Last Vital Signs Pulse 74 01/28/23 09:35 BP 110/74 01/28/23 09:35 Pulse Ox 97 01/28/23 09:35 Oxygen Delivery Method Room Air 01/28/23 09:35 BMI result Body Mass Index 34.8 Tobacco/Smoking Status: Tobacco use Status Tobacco use date assessed 01/28/23 01/28/23 09:38 Patient Tobacco Use Status Current everyday Tobacco 01/28/23 09:38 e-Cigarette/Vaping Use Never Used 01/28/23 09:38 Are you ready to quit: Yes PHQ-9: PHQ-9 Score PHQ-9: Total score 11 02/01/23 00:18 Depression Screening Interpretation: Positive Depression Screening Follow-up: Existing condition, In treatment and Community Mental Health Worker F/U Thrive Assessment: Date of Thrive Assessment Date Thrive assessed 01/28/23 01/28/23 09:38 Currently or been in a relationship where the following occur: no concerns reported Const Other: Alert oriented x3, no acute cardiorespiratory distress, ambulatory with normal gait Orientation/consciousness: patient oriented x3 HENMT Head: Yes normocephalic Ears: hearing grossly normal bilaterally, TM's normal bilaterally and EAC's normal General nose exam: Normal external nose present and No nasal discharge present Face and sinus: Yes face symmetric Mouth: Normal oral and palatal mucosa present, oropharynx normal and moist mucous membranes Eyes General: appearance normal, both eyes and all related structures Neck Other: Supple, no lymphadenopathy, thyroid gland nonpalpable Neck: Yes no meningeal signs Chest Chest palpation & inspection: normal inspection of the chest and normal palpation of entire chest wall Breast/axilla palpation: normal palpation of the breasts Resp Effort & Inspection: normal respiratory effort and able to speak in complete sentences Auscultation: clear to auscultation bilaterally Cardio Other: S1-S2 present regular rate and rhythm GI Other: Soft, normal bowel sounds, nontender to palpation, no mass palpated General: Yes deferred (Goes to [facility]) Back/Spine/Pelvis Back: No back tenderness Skin General skin exam: no rashes or lesions noted Neuro General: patient oriented x3, gait normal, moves all extremities, Normal light touch and pain sensation, no meningeal signs and CN's II-XI intact bilaterally Extrem General: Yes no joint enlargement, Yes no pedal edema, Yes no calf tenderness and Yes normal gait Psych Appearance: grossly normal and well kempt Mental Status: mental status grossly normal Speech and movement: Normal speech and movement present Affect: normal affect Attitude: cooperative Thought process: Normal thought process present Thought content: Normal thought content present Assessment and Plan Assessment & Plan (1) Annual visit for general adult medical examination with abnormal findings: Code(s): Z00.01 - Encounter for general adult medical examination with abnormal findings Plan: Will check appropriate labs. Recommended dental visit every 6 months and regular eye exams, at least every 2 years. Take adequate calcium in diet and vitamin-D 3 at 2000 IU per cap once a day, in addition to weight-bearing exercises to help maintain good muscle tone and weight control. Instructed to do self-breast exam, and recommended to get yearly mammogram, states that she will schedule appointment at [facility].. Declined getting colonoscopy procedure, but willing to do Cologuard testing, ordered. Patient understands that if Cologuard comes back positive, she will need to have a colonoscopy. Declined getting any vaccines (2) H/O gastric bypass: Code(s): Z98.84 - Bariatric surgery status Plan: Check CBC, vitamin B12 folic acid level and vitamin-D (3) HILDA (iron deficiency anemia): Code(s): D50.9 - Iron deficiency anemia, unspecified Qualifiers: Iron deficiency anemia type: chronic blood loss Qualified Code(s): D50.0 - Iron deficiency anemia secondary to blood loss (chronic) Plan: CBC ordered with iron profile (4) Heavy cigarette smoker (20-39 per day): Code(s): F17.210 - Nicotine dependence, cigarettes, uncomplicated Plan: Interested in quitting smoking, prescription sent for varenicline starter pack, to take as directed. Return to the clinic for follow-up i on the 4th week after starting medication. Discussed possible side effects with the medication. (5) History of vitamin D deficiency: Code(s): Z86.39 - Personal history of other endocrine, nutritional and metabolic disease Plan: Ordered vitamin-D level, start taking [id number] vitamin-D 3 2000 units daily (6) Anxiety and depression: Code(s): F41.9 - Anxiety disorder, unspecified; F32.A - Depression, unspecified Plan: Currently on multiple psych meds, with symptoms not fully controlled. Referred to our certified mental health worker, for assistance in getting in to be seen for therapy and psychiatry for further evaluation management. (7) Immunization refused: Code(s): Z28.21 - Immunization not carried out because of patient refusal Plan: Patient does not want to get any vaccinations at present time (8) Varicose veins of bilateral lower extremities with pain: Code(s): I83.813 - Varicose veins of bilateral lower extremities with pain Plan: Elevate legs as much as possible and tried wearing compression socks or stockings. Orders: Orders Lipid Panel 01/28/23 D50.9 - Iron deficiency anemia, unspecified, F17.210 - Nicotine dependence, cigarettes, uncomplicated, F32.A - Depression, unspecified, F41.9 - Anxiety disorder, unspecified, I83.813 - Varicose veins of bilateral lower extremities with pain, K42.9 - Umbilical hernia without obstruction or gangrene, M41.52 - Other secondary scoliosis, cervical region, Z00.01 - Encou nter for general adult medical examination with abnormal findings, Z13.220 - Encounter for screening for lipoid disorders, Z28.21 - Immunization not carried out because of patient refusal, Z86.39 - Personal history of other endocrine, nutritional and metabolic disease, Z98.84 - Bariatric surgery status, Z98.890 - Other specified postprocedural states Vitamin B12 and Folate 01/28/23 D50.9 - Iron deficiency anemia, unspecified, F17.210 - Nicotine dependence, cigarettes, uncomplicated, F32.A - Depression, unspecified, F41.9 - Anxiety disorder, unspecified, I83.813 - Varicose veins of bilateral lower extremities with pain, K42.9 - Umbilical hernia without obstruction or gangrene, M41.52 - Other secondary scoliosis, cervical region, Z00.01 - Encounter for general adult medical examination with abnormal findings, Z13.220 - Encounter for screening for lipoid disorders, Z28.21 - Immunization not carried out because of patient refusal, Z86.39 - Personal history of other endocrine, nutritional and metabolic disease, Z98.84 - Bariatric surgery status, Z98.890 - Other specified postprocedural states Complete Blood Count Auto Diff 01/28/23 D50.9 - Iron deficiency anemia, unspecified, F17.210 - Nicotine dependence, cigarettes, uncomplicated, F32.A - Depression, unspecified, F41.9 - Anxiety disorder, unspecified, I83.813 - Varicose veins of bilateral lower extremities with pain, K42.9 - Umbilical hernia without obstruction or gangrene, M41.52 - Other secondary scoliosis, cervical region, Z00.01 - Encounter for general adult medical examination with abnormal findings, Z13.220 - Encounter for screening for lipoid disorders, Z28.21 - Immunization not carried out because of patient refusal, Z86.39 - Personal history of other endocrine, nutritional and metabolic disease, Z98.84 - Bariatric surgery status, Z98.890 - Other specified postprocedural states Comprehensive [place]. Panel Fast 01/28/23 D50.9 - Iron deficiency anemia, unspecified, F17.210 - Nicotine dependence, cigarettes, uncomplicated, F32.A - Depression, unspecified, F41.9 - Anxiety disorder, unspecified, I83.813 - Varicose veins of bilateral lower extremities with pain, K42.9 - Umbilical hernia without obstruction or gangrene, M41.52 - Other secondary scoliosis, cervical region, Z00.01 - Encounter for general adult medical examination with abnormal findings, Z13.220 - Encounter for screening for lipoid disorders, Z28.21 - Immunization not carried out because of patient refusal, Z86.39 - Personal history of other endocrine, nutritional and metabolic disease, Z98.84 - Bariatric surgery status, Z98.890 - Other specified postprocedural states IRON PROFILE 01/28/23 D50.9 - Iron deficiency anemia, unspecified, F17.210 - Nicotine dependence, cigarettes, uncomplicated, F32.A - Depression, unspecified, F41.9 - Anxiety disorder, unspecified, I83.813 - Varicose veins of bilateral lower extremities with pain, K42.9 - Umbilical hernia without obstruction or gangrene, M41.52 - Other secondary scoliosis, cervical region, Z00.01 - Encounter for general adult medical examination with abnormal findings, Z13.220 - Encounter for screening for lipoid disorders, Z28.21 - Immunization not carried out because of patient refusal, Z86.39 - Personal history of other endocrine, nutritional and metabolic disease, Z98.84 - Bariatric surgery status, Z98.890 - Other specified postprocedural states Vitamin D 25-OH Total 01/28/23 D50.9 - Iron deficiency anemia, unspecified, F17.210 - Nicotine dependence, cigarettes, uncomplicated, F32.A - Depression, unspecified, F41.9 - Anxiety disorder, unspecified, I83.813 - Varicose veins of bilateral lower extremities with pain, K42.9 - Umbilical hernia without obstruction or gangrene, M41.52 - Other secondary scoliosis, cervical region, Z00.01 - Encounter for general adult medical examination with abnormal findings, Z13.220 - Encounter for screening for lipoid disorders, Z28.21 - Immunization not carried out because of patient refusal, Z86.39 - Personal history of other endocrine, nutritional and metabolic disease, Z98.84 - Bariatric surgery status, Z98.890 - Other specified postprocedural states Referrals Cologuard Test Z12.11 - Encounter for screening for malignant neoplasm of colon, Z12.12 - Encounter for screening for malignant neoplasm of rectum Medications: New varenicline (Chantix Starting Month Box) PO PER PKG DIR 53 ea 0RF F17.210 - Nicotine dependence, cigarettes, uncomplicated Coding Level of Care Code Est Pt Prev Care 40-64y(59962) Diagnoses Annual visit for general adult medical examination with abnormal findings Z00.01 H/O gastric bypass Z98.84 Iron deficiency anemia due to chronic blood loss D50.0 Iron deficiency anemia type: chronic blood loss Heavy cigarette smoker (20-39 per day) F17.210 History of vitamin D deficiency Z86.39 Anxiety and depression F41.9; F32.A Immunization refused Z28.21 Varicose veins of bilateral lower extremities with pain I83.813 Additional Codes JESÚS-7 Assessment Billing - JESÚS-7 Assessment Tool: JESÚS-7 Assessment [id number] ([id number])
[2023-01-28 09:35] VITALS: BP 110/74; PULSE 74; O2SAT 97; BMI 34.8
== END 2023-01-28 11:39 | disposition home or self-care (01) ==
PROVIDERS: Visit Provider Internal Medicine
DX: Z00.00 Encounter for general adult medical examination without abnormal findings (principal); Z98.84 Bariatric surgery status; D50.0 Iron deficiency anemia secondary to blood loss (chronic); F17.210 Nicotine dependence, cigarettes, uncomplicated; Z86.39 Personal history of other endocrine, nutritional and metabolic disease; F41.9 Anxiety disorder, unspecified; F32.A Depression, unspecified; Z28.21 Immunization not carried out because of patient refusal; I83.813 Varicose veins of bilateral lower extremities with pain
CPT/HCPCS: 96127; 99396

== ENCOUNTER 2023-02-25 08:01 | Outpatient (REF) | payer OTHER, SELFPAY ==
[2023-02-25 11:40] LABS: MANUAL DIFF FLAG NO
[2023-02-25 11:54] LABS: Basophils Percent Auto 0.4 % (0-2); Eosinophils Absolute Auto 0.1 X10*3/uL (0.0-0.4); Eosinophils Percent Auto 1.6 % (0-4); Hematocrit 34.6 % (37.0-47.0); Hemoglobin 10.9 g/dl (12.0-16.0); Imm Gran Abs Auto 0.01 X10*3/uL (0.00-0.03); Imm Gran Pct Auto 0.1 % (0.0-0.4); Lymphocytes Absolute Auto 2.2 X10*3/uL (1.2-4.9); Lymphocytes Percent Auto 29.7 % (20-40); Mean Corpuscular HGB Conc 31.5 g/dl (31.0-35.0); Mean Corpuscular Hemoglobin 25.2 pg (27.0-33.0); Mean Corpuscular Volume 79.9 fL (80.0-98.0); Monocytes Absolute Auto 0.4 X10*3/uL (0.1-1.2); Monocytes Percent Auto 5.7 % (2-11); Neutrophils Absolute Auto 4.6 x10*3/uL (2.0-8.3); Neutrophils Percent Auto 62.5 % (45-73); Platelet Count 380 X10*3/uL (160-400); Red Blood Count 4.33 X10*6/uL (4.20-5.50); White Blood Count 7.3 X10*3/uL (4.8-10.8)
[2023-02-25 13:16] LABS: Alanine Aminotransferase 11 U/L (0-31); Albumin Level 4.3 g/dL (3.5-5.0); Alkaline Phosphatase 68 U/L (39-117); Anion Gap 15 (12-20); Aspartate Amino Transferase 19 U/L (5-31); Bilirubin Total 0.4 mg/dL (0.0-1.0); Blood Urea Nitrogen 22 mg/dL (9-16); Calcium 9.7 mg/dL (8.4-10.2); Carbon Dioxide 22 mmol/L (22-29); Chloride 108 mmol/L (96-108); Cholesterol 227 mg/dL (<200); Estimated Glomerular Filt Rate > 60; Glucose Fasting 92 mg/dL (60-99); HDL Cholesterol 64 mg/dL (>40); Iron 44 mcg/dL (30-160); LDL Cholesterol Calculated 144 mg/dL (<100); Percent Iron Saturation 11 % (15-50); Potassium 4.3 mmol/L (3.3-5.1); Sodium 141 mmol/L (135-145); Total Iron Binding Capacity 397 mcg/dL (228-428); Total Protein 7.7 g/dL (6.5-8.0); Triglycerides 96 mg/dL (<150); Unsaturated Iron Binding 353 ug/dL; Vitamin D 25-OH Total 21.5 ng/mL (>30)
[2023-02-25 14:39] LABS: Folate 4.1 ng/mL (> or = 4.0); Vitamin B12 635 pg/mL (200-900)
== END 2023-02-25 08:02 | disposition home or self-care (01) ==
LOC: HO.HMGCLDS 08:01
PROVIDERS: PCP Internal Medicine; Visit Provider Internal Medicine
DX: Z00.01 Encounter for general adult medical examination with abnormal findings (principal); Z13.220 Encounter for screening for lipoid disorders; D50.9 Iron deficiency anemia, unspecified; F41.9 Anxiety disorder, unspecified; F32.A Depression, unspecified; K42.9 Umbilical hernia without obstruction or gangrene; M41.52 Other secondary scoliosis, cervical region; I83.813 Varicose veins of bilateral lower extremities with pain; F17.210 Nicotine dependence, cigarettes, uncomplicated; Z86.39 Personal history of other endocrine, nutritional and metabolic disease; Z98.890 Other specified postprocedural states; Z98.84 Bariatric surgery status
CPT/HCPCS: 36415; 80053; 80061; 82306; 82607; 82746; 83540; 85025

== ENCOUNTER 2023-03-07 10:57 | Outpatient (AMB) | payer OTHER, SELFPAY ==
[2023-03-07 10:32] VITALS: BMI 35.5
--- NOTE | 2023-03-07 10:32 | MHC.PC.OV ---
Vital Signs 03/07/23 10:32 Height 5 ft 7 in Weight 227 lb BMI 35.5 Intake Visit Reasons: one month fu Intake Note: Pt is having a telehealth visit to discuss smoking cessation & wgt loss options Allergies No Known Allergies Allergy (Verified 03/07/23 11:07) Medication List - Last Reconciled 03/07/23 by Rosio Augustine MD bupropion HCl 150 mg PO BID cholecalciferol (vitamin D3) 1,250 mcg PO QWEEK 3 months clonidine HCl 0.1 mg PO BID cyclobenzaprine 10 mg PO BEDTIME PRN 90 days eszopiclone 3 mg PO BEDTIME PRN ferrous sulfate 325 mg PO DAILY gabapentin 900 mg PO BEDTIME gabapentin 600 mg PO TID hydroxyzine HCl 10 mg PO QID PRN Tobacco use date assessed: 03/07/23 Dental Screening Dental Screen Date: 03/07/23 Did you have a dental visit in the last 12 months?: No Was dental information given to patient?: No HPI one month fu HPI Details 47-year-old lady here today for follow-up regarding smoking cessation. Has been prescribed varenicline, later switched to Chantix, but both medications are not approved by her insurance. She is already on bupropion HCL 150 mg 1 tablet twice a day for her anxiety, but it does not seem to help reduce her nicotine cravings. Smokes at least 20 to 39 cigarettes per day. She is also interested in starting a GLP 1 agonist to help with weight loss . Was on Ozempic starting dose several months ago but had to discontinue it as it was not covered by insurance. Was able to lose about 10 lb while on it. However it cut her appetite too much that she has to force herself to eat when she was taking Ozempic. She is also here to discuss results of recent fasting labs, which showed fasting lipids are elevated with LDL cholesterol at 144 mg/dL and vitamin-D deficiency. Patient states that she knows that she has been eating poorly, eats a lot of fast food and no exercise. [facility] Medical History (Updated 03/07/23 @ 11:41 by Rosio Augustine MD) Obesity (BMI 35.0-39.9 without comorbidity) Hyperlipidemia Vitamin D deficiency OCD (obsessive compulsive disorder) Cigarette smoker motivated to quit Scoliosis of cervical region due to degenerative disease of spine in adult History of vitamin D deficiency Chronic right shoulder pain Varicose veins of bilateral lower extremities with pain Anemia Anxiety and depression Immunization refused Heavy cigarette smoker (20-39 per day) Menorrhagia HILDA (iron deficiency anemia) Rotator cuff disorder Surgical History History of cervical spinal surgery History of endometrial ablation Hx of dilation and curettage History of cholecystectomy History of H/O gastric bypass H/O tubal ligation Family History Father Mental health disorder Daughter Mental health disorder Paternal Aunt Mental health disorder Social History Housing: Apartment Alcohol intake: former Patient Tobacco Use Status: Current everyday Tobacco user Cigarette Packs Per Day: 1 e-Cigarette/Vaping Use: Never Used service: No Current occupational status: employed 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 1. Little interest or pleasure in doing things: not at all 2. Feeling down, depressed, or hopeless: not at all 3. Trouble falling or staying asleep, or sleeping too much: not at all 4. Feeling tired or having little energy: not at all 5. Poor appetite or overeating: not at all 6. Feeling bad about yourself - or that you are a failure or have let yourself or your family down: not at all 7. Trouble concentrating on things, such as reading the newspaper or watching television: not at all 8. Moving or speaking so slowly that other people could have noticed. Or the opposite - being so fidgety or restless that you have been moving around a lot more than usual: not at all 9. Thoughts that you would be better off or of hurting yourself in some way: not at all Total score: 0 Depression Screening Interpretation: Negative Depression Screening Done: Yes 57613 - PHQ-9 Billing: Yes Source: Developed by Drs. Kali Sheriff, Azul Amrit Lawson and colleagues, with an educational alfa from [employer]. Thrive Questionnaire Date Thrive assessed: 01/28/23 I am a: Patient What is your living situation today?: I have a steady place to live Within the past 12 months, did the food you bought not last and you didn't have the money to get more?: Never true Within the past 12 months, did you worry whether your food would run out before you got money to buy more?: Never true Do you have trouble paying for medicines?: No Do you have trouble getting transportation to medical appointments?: No Do you have trouble paying your heating and electricity bill?: No Do you have trouble taking care of your child, family member or friend?: No Do you have trouble with day-to-day activities such as bathing, preparing meals, shopping, managing finances, etc.?: No Are you currently unemployed and looking for a job?: No Are you interested in more education?: No THRIVE Score: 0 AUDIT C Alcohol Use Questionnaire (AUDIT-C) 1. How often do you have a drink containing alcohol?: Monthly or less 2. How many drinks containing alcohol do you have on a typical day when you are drinking?: 3 or 4 3. How often do you have six or more drinks on one occasion?: Never Total Score: 2 JESÚS-7 AMB Questionnaire JESÚS-7 Date JESÚS - 7 assessed: 03/07/23 Feeling nervous, anxious, or on edge: 2 = More than half the days Not being able to stop or control worryin = Nearly every day Worrying too much about different things: 3 = Nearly every day Trouble relaxin = Nearly every day Being so restless that it is hard to sit still: 3 = Nearly every day Becoming easily annoyed or irritable: 3 = Nearly every day Feeling afraid as if something awful might happen: 0 = Not at all Total JESÚS-7 score (0-4 normal; 5-9 mild; 10-14 moderate; 15-21 severe): 17 Source: Developed by Drs. Kali Sheriff, Amrit Tan and colleagues, with an educational alfa from [employer]. JESÚS-7 Assessment Billing JESÚS-7 Assessment Tool: JESÚS-7 Assessment 91084 Review of Systems Const Denies fatigue, Denies headache(s) and Reports weight gain Eyes Details: goes to [employer], wears reading glasses Reports blurry vision and Reports requires corrective lenses ENT Reports no additional complaints and Denies headache(s) Card Denies chest pain, Denies rapid heart rate and Denies irregular heart rhythm Resp Denies cough GI Denies abdominal pain, Denies melena, Denies hematochezia, Denies change in bowel habits and Denies heartburn Reports no additional complaints Musc Reports as per HPI Skin/Breast Denies breast pain, Denies breast mass and Denies rash Neuro Reports no additional complaints and Denies headache(s) Psych Reports as per HPI, Denies homicidal ideation and Denies suicidal ideation Endo Reports no additional complaints and Denies fatigue Dell/Lymph Reports no additional complaints Aller/Immun Reports no additional complaints Physical exam (Primary Care) BMI result Body Mass Index 35.5 Tobacco/Smoking Status: Tobacco use Status Tobacco use date assessed 03/07/23 03/07/23 10:33 Patient Tobacco Use Status Current everyday Tobacco 03/07/23 10:33 e-Cigarette/Vaping Use Never Used 03/07/23 10:33 PHQ-9: PHQ-9 Score PHQ-9: Total score 0 03/07/23 11:15 Depression Screening Interpretation: Negative Thrive Assessment: Date of Thrive Assessment Date Thrive assessed 01/28/23 03/07/23 10:33 Telehealth Telehealth Location of provider rendering services: practice address Location of patient: address on file Patient Identification confirmed using: Name, : Yes Telehealth method: video Patient verbally consented to treatment: Yes Patient verbally consented to billing insurance company: Yes Patient informed of any privacy concerns related to visit: Yes Minutes spent on Phone/Video with Pt.: 15 Results Reviewed Results Reviewed: Name: Stefany Smith Age/Sex: 47/F : 1975 Unit#: [id number] Attend Dr: Rosio Augustine MD Re02/25/23 Status: DEP REF Location: [facility] Disch: SPEC : [id number] TANI: 02/25/23 STATUS: COMP REQ : [id number] RECD: 02/25/[address]: Rosio Augustine MD COMP: 02/25/23 ENTERED: 02/25/[address]: ORDERED: CBC Auto Diff Test Result Flag Reference WBC 7.3 4.8-10.8 X10*3/uL RBC 4.33 4.20-5.50 X10*6/uL HGB 10.9 L 12.0-16.0 g/dl HCT 34.6 L 37.0-47.0 % MCV 79.9 L 80.0-98.0 fL MCH 25.2 L 27.0-33.0 pg MCHC 31.5 31.0-35.0 g/dl RDW 16.0 11.0-16.0 % PLT 380 160-400 X10*3/uL Name: Stefany Smith Age/Sex: 47/F : 1975 Unit#: [id number] Attend Dr: Rosio Augustine MD Re02/25/23 Status: DEP REF Location: [facility] Disch: SPEC : [id number] TANI: 02/25/23 STATUS: COMP REQ : [id number] RECD: 02/25/[address]: Rosio Augustine MD COMP: 02/25/23 ENTERED: 02/25/[address] [facility] [address]: ORDERED: CMP Fast, IRON PROF, Lipid Panel, Vitamin D 25-OH Test Result Flag Reference Sodium 141 135-145 mmol/L Potassium 4.3 3.3-5.1 mmol/L CL 108 96-108 mmol/L CO2 22 22-29 mmol/L Gap 15 12-20 BUN 22 H 9-16 mg/dL Creat 0.90 0.5-1.4 mg/dL EGFR > 60 NOTE: For -[place] individuals, multiply the result by 1.210. Chronic Kidney Disease: Estimated GFR < 60 mL/min/1.73m2 Severe Kidney Disease: Estimated GFR < 15 mL/min/1.73m2 FBS 92 60-99 mg/dL CA 9.7 8.4-10.2 mg/dL Iron 44 30-160 mcg/dL TIBC 397 228-428 mcg/dL Saturation 11 L 15-50 % UIBC 353 ug/dL Total Bili 0.4 0.0-1.0 mg/dL AST (GOT) 19 5-31 U/L ALT (GPT) 11 0-31 U/L Protein, Total 7.7 6.5-8.0 g/dL Alb 4.3 3.5-5.0 g/dL Triglyceride 96 <150 mg/dL Desirable Triglyceride: less than 150 mg/dL Borderline High Triglyceride 150-199 mg/dL High Triglyceride: 200-499 mg/dL Very High Triglyceride: greater than or equal to 5OO mg/dL Cholesterol 227 H <200 mg/dL Desirable Cholesterol: less than 200 mg/dL Borderline High Cholesterol: 200-239 mg/dL High Cholesterol: greater than 239 mg/dL LDL Calculated 144 H <100 mg/dL Desirable LDL: less than 100 mg/dL Near Optimal/Above Optimal LDL: 110-129 mg/dL Borderline High LDL: 130-159 mg/dL High LDL: 160-189 mg/dL Very High LDL: greater than or equal to 190 mg/dL HDL 64 >40 mg/dL Desirable HDL: greater than 40 mg/dL Note: This HDL assay may give artificially low results in patients with liver disease. Alk Phos 68 39-117 U/L Vit D 25-OH Tot 21.5 L >30 ng/mL Health Based Reference Values* < 20 ng/mL Deficient 20-30 ng/mL Insufficient > 30 ng/mL Sufficient Assessment and Plan Assessment & Plan (1) Vitamin D deficiency: Code(s): E55.9 - Vitamin D deficiency, unspecified Plan: Continue taking cholecalciferol 12267 units per capsule to take once a week for the next 3 months. (2) HILDA (iron deficiency anemia): Code(s): D50.9 - Iron deficiency anemia, unspecified Qualifiers: Iron deficiency anemia type: chronic blood loss Qualified Code(s): D50.0 - Iron deficiency anemia secondary to blood loss (chronic) Plan: Continue taking her iron supplement 325 mg once daily (3) Hyperlipidemia: Code(s): E78.5 - Hyperlipidemia, unspecified Qualifiers: Hyperlipidemia type: pure hypercholesterolemia Qualified Code(s): E78.00 - Pure hypercholesterolemia, unspecified Plan: Reviewed recent fasting lipid profile with patient with elevated LDL cholesterol . Stressed importance of adherence to low-cholesterol diet and regular exercise, at least 30 minutes 3 to 4 times a week. Stop eating fast food.. Advised patient to make healthy food choices, eat more fruits, vegetables, whole grains, wild caught fish and low-fat dairy. Limit amount of meat and fried or fatty food products, as well as processed foods and fast foods. Follow-up scheduled with repeat fasting lipid panel in 3 months. (4) Obesity (BMI 35.0-39.9 without comorbidity): Code(s): E66.9 - Obesity, unspecified Plan: Whilst try on we go be 0.25 mg injected subcutaneously once a week, instructed on proper use of medication. Combining it with diet and exercise. Discussed possible side effects of medication, taking it if any severe abdominal pain, nausea diarrhea jaundice develops, see me back for follow-up office visit in 4 weeks (5) Cigarette smoker motivated to quit: Code(s): F17.210 - Nicotine dependence, cigarettes, uncomplicated Plan: Unable to take Chantix or her varenicline due to insurance not covering it. Patient already on bupropion 150 mg twice a day, does not want to go higher on the dose. Awaiting appointment to see psychiatrist at [facility]. Other option would be to start nicotine patches which patient does not want to do at present time. Medications: New Wegovy (semaglutide (weight loss)) administer weeks 1 through 4 of therapy 0.25 mg (0.5 mL) subcut QWEEK 2 mL 0RF NS Coding Level of Care Code Tele Est Pt Level 3 (87604) Diagnoses Vitamin D deficiency E55.9 Iron deficiency anemia due to chronic blood loss D50.0 Iron deficiency anemia type: chronic blood loss Pure hypercholesterolemia E78.00 Hyperlipidemia type: pure hypercholesterolemia Obesity (BMI 35.0-39.9 without comorbidity) E66.9 Cigarette smoker motivated to quit F17.210 Additional Codes JESÚS-7 Assessment Billing - JESÚS-7 Assessment Tool: JESÚS-7 Assessment 76417 ([id number])
== END 2023-03-07 16:07 | disposition home or self-care (01) ==
LOC: HO.HMGC 10:57
PROVIDERS: PCP Internal Medicine; Visit Provider Internal Medicine
DX: D50.0 Iron deficiency anemia secondary to blood loss (chronic) (principal); E66.9 Obesity, unspecified; Z68.35 Body mass index [BMI] 35.0-35.9, adult; E55.9 Vitamin D deficiency, unspecified; E78.00 Pure hypercholesterolemia, unspecified; F17.210 Nicotine dependence, cigarettes, uncomplicated
CPT/HCPCS: 99213

== ENCOUNTER 2023-05-02 16:21 | Emergency (ER) | payer OTHER, SELFPAY ==
--- NOTE | ~2023-05-02 | CT_ITS ---
EXAMINATION: CT HEAD WITHOUT CONTRAST CLINICAL INFORMATION: Change in mental status. COMPARISON: Brain MRI dated 10/21/2009. TECHNIQUE: Contiguous axial imaging was performed from the skull base to vertex without intravenous administration of contrast. This CT examination was performed using dose optimization techniques as appropriate, variously including the following: *Automated exposure control *Adjustment of mA and/or kV according to patient size (this includes techniques or standardized protocols for targeted exams where dose is matched to indication/reason for exam; i.e. extremities or head) *Use of iterative reconstruction technique DLP: 692 mGy-cm FINDINGS: There is no intracranial hemorrhage. There is no evidence of acute/subacute cerebral or cerebellar infarction. There is no midline shift or mass effect. There is no extra-axial fluid collection. The orbits are symmetric and within normal limits. The calvarium is intact. The visualized paranasal sinuses are clear. The mastoid air cells are clear. CT/CT head/brain wo IV con IMPRESSION: No acute intracranial pathology.
--- NOTE | ~2023-05-02 | XR_ITS ---
EXAMINATION: XR CHEST CLINICAL INFORMATION: Cough. COMPARISON: Chest radiographs dated 10/29/2013. TECHNIQUE: Frontal view of the chest was obtained. FINDINGS: There is partially visualized cervical spine hardware. There is scoliosis. Heart size is normal. The lungs are clear. No pleural effusion. No pneumothorax. XR/XR chest 1V IMPRESSION: No pneumonia.
--- NOTE | 2023-05-02 16:24 | ECG_ITS ---
Test Reason : TACARDYA Blood Pressure : / mmHG Vent. Rate : 069 BPM Atrial Rate : 069 BPM P-R Int : 148 ms QRS Dur : 096 ms QT Int : 414 ms P-R-T Axes : 075 063 042 degrees QTc Int : 443 ms Normal sinus rhythm with sinus arrhythmia Normal ECG When compared with ECG of 02-MAY-2023 16:26, Vent. rate has decreased BY 68 BPM T wave inversion no longer evident in Inferior leads Referred By: Rin Nielsen Electronically Signed By:Damion Linder
[2023-05-02 16:36] VITALS: BP 143/77; PULSE 114; RESP 16; TEMP 36.6; O2SAT 100; BMI 32.8
--- NOTE | 2023-05-02 16:47 | ED_ITS ---
HPI - General Adult General Chief complaint: General Medical Stated complaint: ? heart attack Time Seen by Provider: 05/02/23 17:24 Source: family and other Mode of arrival: EMS History of Present Illness HPI narrative: 48-year-old female has a longstanding history of iron deficiency anemia, OCD/anxiety/depression, everyday smoker and history of gastric bypass who was at her daughter's place with concerns regarding a missing granddaughter, daughter denies any illicit substance use but states that when she came back into the house the patient had taken her blood pressure medicine and then stated to the daughter that it felt like she was having a heart attack. Related Data Home Medications Medication Instructions Recorded Confirmed gabapentin 300 mg capsule 900 mg PO BEDTIME pain 01/28/23 gabapentin 600 mg tablet 600 mg PO TID 01/28/23 01/28/23 hydroxyzine HCl 10 mg tablet 10 mg PO QID PRN anxiety 01/28/23 01/28/23 Previous Rx's Medication Instructions Recorded bupropion HCl 150 mg tablet,12 hr 150 mg PO BID #60 tabs 06/17/21 sustained-release cyclobenzaprine 10 mg tablet 10 mg PO BEDTIME PRN muscle spasm 09/28/21 90 days #90 tabs cholecalciferol (vitamin D3) 1,250 1,250 mcg PO QWEEK 3 months #13 02/25/23 mcg (50,000 unit) capsule caps ferrous sulfate 325 mg (65 mg 325 mg PO DAILY #90 tabs 02/25/23 iron) tablet Wegovy 0.25 mg/0.5 mL subcutaneous 0.25 mg (0.5 mL) subcut QWEEK #2 mL 04/29/23 pen injector (semaglutide (weight loss)) clonidine HCl 0.1 mg tablet 0.1 mg PO Q4H 30 days #180 tabs 04/29/23 eszopiclone 3 mg tablet 3 mg PO BEDTIME PRN insomnia #30 04/29/23 tabs varenicline 0.5 mg (11)-1 mg (42) See Rx Instructions PO PER PKG DIR 04/29/23 tablets in a dose pack #53 ea Allergies Allergy/AdvReac Type Severity Reaction Status Date / Time No Known Allergies Allergy Verified 03/07/23 11:07 Review of Systems 2 Review of Systems: Yes Unobtainable due to mental condition PMFSH Past Medical History Source: nursing notes reviewed Medical History Obesity (BMI 35.0-39.9 without comorbidity) Hyperlipidemia Vitamin D deficiency OCD (obsessive compulsive disorder) Cigarette smoker motivated to quit Scoliosis of cervical region due to degenerative disease of spine in adult History of vitamin D deficiency Chronic right shoulder pain Varicose veins of bilateral lower extremities with pain Anemia Anxiety and depression Immunization refused Heavy cigarette smoker (20-39 per day) Menorrhagia HILDA (iron deficiency anemia) Rotator cuff disorder Surgical History History of cervical spinal surgery History of endometrial ablation Hx of dilation and curettage History of cholecystectomy History of H/O gastric bypass H/O tubal ligation Family History Family History Father Mental health disorder Daughter Mental health disorder Paternal Aunt Mental health disorder Social History Social History Housing: Apartment Alcohol intake: former Patient Tobacco Use Status: Current everyday Tobacco user Cigarette Packs Per Day: 1 Smoked in Last 30 Days: Yes e-Cigarette/Vaping Use: Never Used Use of substances other than those prescribed or required for medical reasons: Yes Substance Use Type: Marijuana Advance Directives: No Advance Directives Information Provided: Yes Patient : No service: No Current occupational status: employed 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 GENERAL: Well developed, well nourished, in no acute distress. HEAD: Normocephalic/atraumatic EYES: PERRLA, EOMI EARS: Ext canals without abnormality NOSE: Nares patent bilateral OROPHARYNX: no oral lesions noted, posterior pharynx clear NECK: Supple, no adenopathy LUNGS: Normal breath sounds. No adventitious sounds or accessory muscle use. SpO2<> CARDIOVASCULAR: Regular rate and rhythm without noted murmurs ABDOMEN: Soft, non-tender, non-distended with bowel sounds. MUSCULOSKELETAL: No tenderness, deformities, or effusions noted on gross inspection. EXTREMITIES: No cyanosis, clubbing or edema. SKIN: Inspection of the skin reveals no rashes, NEUROLOGIC: Alert and not answering questions. Strength and sensation to light touch were grossly intact x 4. Course Course Course Narrative: RME performed by Laura Garvin PA-C. Patient is a 48 year old assigned female at presenting to the emergency department acting abnormal. Patient refuses to speak, daughter speaking for patient. Detailed physical exam and review of systems are deferred to the mobile phone salesperson. Labs, imaging, swabs ordered. Patient placed back in the waiting room pending room availability and results. Medications Administered Discontinued Medications Generic Name Dose Route Start Last Admin Trade Name Freq PRN Reason Stop Dose Admin Sodium Chloride 1,000 mls @ 999 mls/hr 05/02/23 17:45 05/02/23 19:52 Ns IV 05/02/23 18:45 Infused .Q1H1M ZAINAB Infusion Medical Decision Making Medical Decision Making [facility] [place] Narrative: 48-year-old female with history and clinical presentation, DDX: Possible intentional overdose, no concern for intracranial etiology, possibility of depression/catatonia. Daughter states that she was not out of site of her mother at all throughout the day, she adamantly denies that her mother took any illicit substances or that she took anything overdose ceron intentionally. I reviewed all investigations and hematologic indices are chronically stable without leukocytosis or left shift, there is a stable microcytic anemia without evidence of bleeding and otherwise there is no thrombocytopenia. Chemistries to seize negative for ANGELITA/electrolyte or liver enzyme derangements and high sensitivity troponin is undetectable without acute changes on EKG. Serial EKGs do not demonstrate any QRS/QTC prolongation. Urinalysis is negative for UTI or hematuria. Salicylate and Tylenol are undetectable, ethanol is undetectable and UDS is only positive for marijuana which may have contributed to patient's symptoms but unclear. CT scan negative for intracranial hemorrhage or mass effect. Chest x-ray negative for pneumonia or venous congestion. 1920: Was notified by nursing and daughter that patient is now awake and adamantly denying any attempts to harm herself and states that she only took her prescribed medication as directed. Patient is eating and drinking at this time, ambulating with a steady gait and is otherwise stable for discharge and suspected panic attack. Differential Diagnosis Differential Diagnoses: The differential diagnosis associated with the presentation includes Please see the discussion above Admission/Observation Consideration of admission/observation: Escalation of care including admission/observation considered Please see the discussion above Lab Data MDM Lab Attestation statement: I reviewed the patient's lab results. Please see the discussion above 05/02/23 17:02 05/02/23 17:02 Labs: Lab Results 05/02/23 05/02/23 05/02/23 Range/Units 16:43 17:02 18:39 WBC 6.7 (4.8-10.8) X10*3/uL RBC 4.31 (4.20-5.50) X10*6/uL Hgb 10.6 L (12.0-16.0) g/dl Hct 33.9 L (37.0-47.0) % MCV 78.7 L (80.0-98.0) fL MCH 24.6 L (27.0-33.0) pg MCHC 31.3 (31.0-35.0) g/dl RDW 15.8 (11.0-16.0) % Plt Count 381 (160-400) X10*3/uL MPV 8.3 L (9.4-12.3) fL Immature Gran % (Auto) 0.1 (0.0-0.4) % Neut % (Auto) 53.3 (45-73) % Lymph % (Auto) 39.8 (20-40) % Cameron % (Auto) 5.3 (2-11) % Eos % (Auto) 0.9 (0-4) % Baso % (Auto) 0.6 (0-2) % Lymph # (Auto) 2.7 (1.2-4.9) X10*3/uL Cameron # (Auto) 0.4 (0.1-1.2) X10*3/uL Eos # (Auto) 0.1 (0.0-0.4) X10*3/uL Baso # (Auto) 0.0 (0.0-0.2) X10*3/uL Abs Immat Gran (auto) 0.01 (0.00-0.03) X10*3/uL Absolute Neuts (auto) 3.6 (2.0-8.3) x10*3/uL Absolute Nucleated RBC 0.000 (0.0-0.012) X10*3/uL Nucleated RBC % (auto) 0.0 (0.0-0.2) /100WBC Sodium 139 (135-145) mmol/L Potassium 3.9 (3.3-5.1) mmol/L Chloride 106 (96-108) mmol/L Carbon Dioxide 22 (22-29) mmol/L Anion Gap 15 (12-20) BUN 18 H (9-16) mg/dL Creatinine 0.97 (0.5-1.4) mg/dL Estim Creat Clear Calc 81.9 Estimated GFR > 60 POC Glucose 122 H (60-115) mg/dL Random Glucose 134 H (60-115) mg/dL Calcium 9.5 (8.4-10.2) mg/dL Total Bilirubin 0.2 (0.0-1.0) mg/dL AST 20 (5-31) U/L ALT 11 (0-31) U/L Alkaline Phosphatase 65 (39-117) U/L Troponin I High Sens < 2.7 (<3.5-17.0) ng/L Total Protein 7.8 (6.5-8.0) g/dL Albumin 4.4 (3.5-5.0) g/dL Urine Color Urine Appearance Urine pH (5.0-9.0) Ur Specific [place] (1.005-1.025) Urine Protein (Neg-Trace) mg/dL Urine Glucose (UA) (Negative) mg/dL Urine Ketones (Negative) mg/dL Urine Blood (Negative) Urine Nitrite (Negative) Ur Leukocyte Esterase (Negative) Salicylates < 5.0 L (15-30) mg/dL Urine Opiates Screen (Not Detect) Urine Fentanyl Screen (Not Detect) Acetaminophen < 3 (<30) mcg/mL Ur Barbiturates Screen (Not Detect) Ur Phencyclidine Scrn (Not Detect) Ur Amphetamines Screen (Not Detect) U Benzodiazepines Scrn (Not Detect) Urine Cocaine Screen (Not Detect) U Marijuana (THC) Screen (Not Detect) Ethyl Alcohol < 10 mg/dL 05/02/23 Range/Units 19:39 WBC (4.8-10.8) X10*3/uL RBC (4.20-5.50) X10*6/uL Hgb (12.0-16.0) g/dl Hct (37.0-47.0) % MCV (80.0-98.0) fL MCH (27.0-33.0) pg MCHC (31.0-35.0) g/dl RDW (11.0-16.0) % Plt Count (160-400) X10*3/uL MPV (9.4-12.3) fL Immature Gran % (Auto) (0.0-0.4) % Neut % (Auto) (45-73) % Lymph % (Auto) (20-40) % Cameron % (Auto) (2-11) % Eos % (Auto) (0-4) % Baso % (Auto) (0-2) % Lymph # (Auto) (1.2-4.9) X10*3/uL [place] # (Auto) (0.1-1.2) X10*3/uL Eos # (Auto) (0.0-0.4) X10*3/uL Baso # (Auto) (0.0-0.2) X10*3/uL Abs Immat Gran (auto) (0.00-0.03) X10*3/uL Absolute Neuts (auto) (2.0-8.3) x10*3/uL Absolute Nucleated RBC (0.0-0.012) X10*3/uL Nucleated RBC % (auto) (0.0-0.2) /100WBC Sodium (135-145) mmol/L Potassium (3.3-5.1) mmol/L Chloride (96-108) mmol/L Carbon Dioxide (22-29) mmol/L Anion Gap (12-20) BUN (9-16) mg/dL Creatinine (0.5-1.4) mg/dL Estim Creat Clear Calc Estimated GFR POC Glucose (60-115) mg/dL Random Glucose (60-115) mg/dL Calcium (8.4-10.2) mg/dL Total Bilirubin (0.0-1.0) mg/dL AST (5-31) U/L ALT (0-31) U/L Alkaline Phosphatase (39-117) U/L Troponin I High Sens (<3.5-17.0) ng/L Total Protein (6.5-8.0) g/dL Albumin (3.5-5.0) g/dL Urine Color Yellow Urine Appearance Clear Urine pH 6.0 (5.0-9.0) Ur Specific [place] 1.015 (1.005-1.025) Urine Protein Negative (Neg-Trace) mg/dL Urine Glucose (UA) Negative (Negative) mg/dL Urine Ketones Negative (Negative) mg/dL Urine Blood Negative (Negative) Urine Nitrite Negative (Negative) Ur Leukocyte Esterase Negative (Negative) Salicylates (15-30) mg/dL Urine Opiates Screen Not Detected (Not Detect) Urine Fentanyl Screen Not Detected (Not Detect) Acetaminophen (<30) mcg/mL Ur Barbiturates Screen Not Detected (Not Detect) Ur Phencyclidine Scrn Not Detected (Not Detect) Ur Amphetamines Screen Not Detected (Not Detect) U Benzodiazepines Scrn Not Detected (Not Detect) Urine Cocaine Screen Not Detected (Not Detect) U Marijuana (THC) Screen POSITIVE H (Not Detect) Ethyl Alcohol mg/dL Independent Interpretation I performed an independent interpretation of an: EKG Interpretation: 1626: Sinus tachycardia, HR-137, no STEMI, TN/QRS/QTC is within normal limits. 1841: Normal sinus rhythm, HR-69, no STEMI, TN/QRS/QTC is within normal limits, QT mildly prolonged but QTC and QRS are within normal limits. Radiology Impression Discussion of test interpretation with radiology: I have reviewed the radiologist's reading. Radiologist Impression: Please see the discussion above External Record Review External record reviewed: Office record, Outpatient record and Prior outpatient labs Chronic Conditions Patient?s care impacted by: Hypertension and Other Depression Critical Care Time Critical Care Time Critical Care Time: Yes Total Critical Care Time: 60 Attestation: I personally attest to this time spent taking care of the patient. Discharge Plan Discharge Clinical Impression: Panic attack Patient Disposition: Home, Self-Care Instructions: Panic Attack (ED) Additional Instructions: 1. Resume all home medications as prescribed. 2. Follow-up with your primary care doctor. Return to the ER for any worsening symptoms. Prescriptions: No Action bupropion HCl 150 mg tablet sustained-release 12 hr 150 mg PO BID Qty: 60 5RF cyclobenzaprine 10 mg tablet 10 mg PO BEDTIME PRN (Reason: muscle spasm) 90 Days Qty: 90 1RF ferrous sulfate 325 mg (65 mg iron) tablet 325 mg PO DAILY Qty: 90 1RF cholecalciferol (vitamin D3) 1,250 mcg (50,000 unit) capsule 1,250 mcg PO QWEEK 90 Days Qty: 13 0RF Wegovy 0.25 mg/0.5 mL pen injector 0.25 mg subcut QWEEK Qty: 2 0RF Rx Instructions: administer weeks 1 through 4 of therapy eszopiclone 3 mg tablet 3 mg PO BEDTIME PRN (Reason: insomnia) Qty: 30 0RF varenicline 0.5 mg (11)- 1 mg (42) tablets,dose pack See Rx Instructions PO PER PKG DIR Qty: 53 0RF Rx Instructions: PO PER PKG DIR clonidine HCl 0.1 mg tablet 0.1 mg PO Q4H 30 Days Qty: 180 0RF hydroxyzine HCl 10 mg tablet 10 mg PO QID PRN (Reason: anxiety) gabapentin 600 mg tablet 600 mg PO TID gabapentin 300 mg capsule 900 mg PO BEDTIME Referrals: Rosio Augustine MD [Primary Care Provider] -
[2023-05-02 16:48] LABS: Glucose, Whole Blood 122 mg/dL (60-115)
[2023-05-02 17:05] LABS: MANUAL DIFF FLAG NO
[2023-05-02 17:15] LABS: Basophils Percent Auto 0.6 % (0-2); Eosinophils Absolute Auto 0.1 X10*3/uL (0.0-0.4); Eosinophils Percent Auto 0.9 % (0-4); Hematocrit 33.9 % (37.0-47.0); Hemoglobin 10.6 g/dl (12.0-16.0); Imm Gran Abs Auto 0.01 X10*3/uL (0.00-0.03); Imm Gran Pct Auto 0.1 % (0.0-0.4); Lymphocytes Absolute Auto 2.7 X10*3/uL (1.2-4.9); Lymphocytes Percent Auto 39.8 % (20-40); Mean Corpuscular HGB Conc 31.3 g/dl (31.0-35.0); Mean Corpuscular Hemoglobin 24.6 pg (27.0-33.0); Mean Corpuscular Volume 78.7 fL (80.0-98.0); Mean Platelet Volume 8.3 fL (9.4-12.3); Monocytes Absolute Auto 0.4 X10*3/uL (0.1-1.2); Monocytes Percent Auto 5.3 % (2-11); Neutrophils Absolute Auto 3.6 x10*3/uL (2.0-8.3); Neutrophils Percent Auto 53.3 % (45-73); Platelet Count 381 X10*3/uL (160-400); Red Blood Count 4.31 X10*6/uL (4.20-5.50); Red Cell Distribution Width 15.8 % (11.0-16.0); White Blood Count 6.7 X10*3/uL (4.8-10.8)
[2023-05-02 17:21] LABS: Alanine Aminotransferase 11 U/L (0-31); Albumin Level 4.4 g/dL (3.5-5.0); Alkaline Phosphatase 65 U/L (39-117); Anion Gap 15 (12-20); Aspartate Amino Transferase 20 U/L (5-31); Bilirubin Total 0.2 mg/dL (0.0-1.0); Blood Urea Nitrogen 18 mg/dL (9-16); Calcium 9.5 mg/dL (8.4-10.2); Carbon Dioxide 22 mmol/L (22-29); Chloride 106 mmol/L (96-108); Creatinine Clr Calc Pharmacy 81.9; Estimated Glomerular Filt Rate > 60; Glucose Random 134 mg/dL (60-115); Potassium 3.9 mmol/L (3.3-5.1); Sodium 139 mmol/L (135-145); Total Protein 7.8 g/dL (6.5-8.0)
--- NOTE | 2023-05-02 17:27 | PC.NURSE ---
pt brought back to 18H - non responsive to verbal commands. pt VSS. resting in bed. with eyes closed.
[2023-05-02 17:31] LABS: Troponin-I High Sensitivity < 2.7 ng/L (<3.5-17.0)
[2023-05-02 17:46] LABS: Ethanol < 10 mg/dL
[2023-05-02 17:52] VITALS: BP 130/85; PULSE 83; RESP 18; TEMP 36.8; O2SAT 93
[2023-05-02] MEDS: 0.9 % Sodium Chloride 1,000 ML 999 ML IV (18:02)
--- NOTE | 2023-05-02 18:32 | ECG_ITS ---
Test Reason : TACHYCARDIA Blood Pressure : / mmHG Vent. Rate : 137 BPM Atrial Rate : 137 BPM P-R Int : 130 ms QRS Dur : 084 ms QT Int : 316 ms P-R-T Axes : 057 078 049 degrees QTc Int : 477 ms Sinus tachycardia Poor data quality No previous ECGs available Referred By: Rin Nielsen Electronically Signed By:Damion Linder
--- NOTE | 2023-05-02 18:50 | MHC.EDTECH ---
patient acetaminophen and salicylate level drawn and sent to lab ,2 nd ekg taken and was read by provider ,Kristen connollyck in place ,br1apnt taken ,patient still very drowsy ,RN aware ,Patient daughter at bedside .
[2023-05-02 18:52] VITALS: BP 134/78; PULSE 76; RESP 16; TEMP 36.1; O2SAT 97
[2023-05-02 19:05] LABS: Acetaminophen LAB < 3 mcg/mL (<30); Salicylate < 5.0 mg/dL (15-30)
[2023-05-02 19:46] LABS: Appearance Urine Clear; Color Urine Yellow; Glucose Urine UA Negative (Negative); Leukocyte Esterase Urine Negative (Negative); Nitrite Urine Negative (Negative); Specific Gravity - Urine 1.015 (1.005-1.025); Urine Blood Negative (Negative); Urine Ketones Negative (Negative); Urine Protein Negative (Neg-Trace)
[2023-05-02 19:51] VITALS: BP 133/79; PULSE 83; RESP 16; TEMP 36.9; O2SAT 98
--- NOTE | 2023-05-02 19:53 | PC.NURSE ---
this RN assumed care of pt, pt A&ox4, respirations even and unlabored. pt alert and asking food at this time, per , pt allowed to eat. pt given sandwich and gingerale, tolerated well at this time.
--- NOTE | 2023-05-02 19:55 | MHC.EDTECH ---
Patient awake talking alert and oriented ,Provider aware ,pt was assisted to bathroom ,void urine sample sent to lab ,vitals taken ,Patient had a ham sandwich and drank 240 ml cara danielito for snack .
[2023-05-02 19:56] LABS: Amphetamine Screen Urine Not Detected (Not Detect); Barbiturates, Urine Not Detected (Not Detect); Benzodiazepines Screen Urine Not Detected (Not Detect); Cannabinoid Screen Urine POSITIVE (Not Detect); Cocaine Screen Urine Not Detected (Not Detect); Fentanyl, urine Not Detected (Not Detect); Opiate Screen Urine Not Detected (Not Detect); Phencyclidine Screen Urine Not Detected (Not Detect)
[2023-05-02 20:45] VITALS: BP 133/79; PULSE 83; RESP 16; TEMP 36.9; O2SAT 98
== END 2023-05-02 20:47 | disposition home or self-care (01) ==
PROVIDERS: Physician Assistant Medical; Emergency Provider Student in an Organized Health Care Education/Training Program; PCP Internal Medicine
DX: F41.0 Panic disorder [episodic paroxysmal anxiety] (principal); F17.210 Nicotine dependence, cigarettes, uncomplicated; Z63.4 Disappearance and death of family member; Z98.84 Bariatric surgery status
CPT/HCPCS: 36415; 70450; 71045; 80053; 80143; 80179; 80307; 81003; 82947; 84484; 85025; 93005; 96360; 96361; 99284

== ENCOUNTER → 2023-05-02 16:24 | Outpatient (BNV) | payer OTHER, SELFPAY | PROVIDERS: Emergency Provider Student in an Organized Health Care Education/Training Program; PCP Internal Medicine; Visit Provider Internal Medicine Cardiovascular Disease | DX: R00.0 Tachycardia, unspecified (principal) | CPT/HCPCS: 93010 ==

== ENCOUNTER 2023-05-04 11:39 | Outpatient (AMB) | payer OTHER, SELFPAY ==
--- NOTE | 2023-05-04 12:15 | MHC.PC.OV ---
Vital Signs 05/04/23 12:16 Height 5 ft 7 in Weight 226 lb BMI 35.4 BP 132/84 Blood Pressure Location Lt brachial Position Sitting Pulse 97 Pulse Source Pulse Oximeter Pulse Oximetry (%) 97 Oxygen Delivery Method Room Air Intake Visit Reasons: ER f/u panic attack Intake Note: [place] [facility] [place] Allergies No Known Allergies Allergy (Verified 05/04/23 23:51) Medication List - Last Reconciled 05/04/23 by Rosio Augustine MD bupropion HCl 150 mg PO BID cholecalciferol (vitamin D3) 1,250 mcg PO QWEEK 3 months clonidine HCl 0.1 mg PO Q4H 30 days cyclobenzaprine 10 mg PO BEDTIME PRN 90 days eszopiclone 3 mg PO BEDTIME PRN gabapentin 600 mg PO TID hydroxyzine HCl 10 mg PO QID PRN varenicline PO PER PKG DIR Wegovy (semaglutide (weight loss)) 0.25 mg (0.5 mL) subcut QWEEK NS Tobacco use date assessed: 05/04/23 Dental Screening Dental Screen Date: 05/04/23 Did you have a dental visit in the last 12 months?: No Was dental information given to patient?: No HPI ER f/u panic attack HPI Details 48-year-old female has a longstanding history of iron deficiency anemia, OCD/anxiety/depression, everyday smoker and history of gastric bypass who was recently seen at the ER for an acute panic attack. Prior to episode, patient states that she was anxiously looking for her daughter, but eventually found her at school doing after school work. When she came back into the house, she states that she felt very funny, was having rapid heartbeats, and stated to her daughter that she felt like she was having a heart attack. She was immediately brought to the emergency room. At the ER, labs drawn showed stable microcytic anemia without evidence of bleeding, no thrombocytopenia. Chemistries came back with electrolyte , renal function, liver enzyme were unremarkable, and high sensitivity troponin was undetectable, without acute changes on EKG. Serial EKGs did not demonstrate any QRS/QTC prolongation. Urinalysis was negative for UTI or hematuria. Salicylate and Tylenol were undetectable, ethanol is undetectable and UDS is only positive for marijuana which may have contributed to patient's symptoms but unclear. CT scan was negative for intracranial hemorrhage or mass effect. Chest x-ray negative for pneumonia or venous congestion. She was given IV fluids, with with improvement of symptoms, and was discharged home. At present patient states that she has not had any further episodes of panic attacks, chest pain, but still feels occasional palpitations and fatigue. Of note she admits to drinking at least 40 oz of espresso a day and does not drink enough water. She is trying to quit smoking cigarettes, was prescribed varenicline on last visit but has not yet started taking the medication.. She is still waiting for an appointment to see as therapist and psychiatrist for her OCD and depression. [facility] Medical History (Updated 05/05/23 @ 05:30 by Asim Bess) Caffeine dependence Intermittent palpitations Obesity (BMI 35.0-39.9 without comorbidity) Hyperlipidemia Vitamin D deficiency OCD (obsessive compulsive disorder) Cigarette smoker motivated to quit Scoliosis of cervical region due to degenerative disease of spine in adult History of vitamin D deficiency Chronic right shoulder pain Varicose veins of bilateral lower extremities with pain Anemia Anxiety and depression Immunization refused Heavy cigarette smoker (20-39 per day) Menorrhagia HILDA (iron deficiency anemia) Rotator cuff disorder Surgical History History of cervical spinal surgery History of endometrial ablation Hx of dilation and curettage History of cholecystectomy History of H/O gastric bypass H/O tubal ligation Family History Father Mental health disorder Daughter Mental health disorder Paternal Aunt Mental health disorder Social History Housing: Apartment Alcohol intake: former Patient Tobacco Use Status: Current everyday Tobacco user Cigarette Packs Per Day: 1 e-Cigarette/Vaping Use: Never Used Substance Use Type: Marijuana service: No Current occupational status: employed 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 1. Little interest or pleasure in doing things: not at all 2. Feeling down, depressed, or hopeless: several days 3. Trouble falling or staying asleep, or sleeping too much: not at all 4. Feeling tired or having little energy: several days 5. Poor appetite or overeating: not at all 6. Feeling bad about yourself - or that you are a failure or have let yourself or your family down: not at all 7. Trouble concentrating on things, such as reading the newspaper or watching television: not at all 8. Moving or speaking so slowly that other people could have noticed. Or the opposite - being so fidgety or restless that you have been moving around a lot more than usual: not at all 9. Thoughts that you would be better off or of hurting yourself in some way: not at all Total score: 2 Depression Screening Interpretation: Positive Depression Screening Follow-up: Existing condition, In treatment and Community Mental Health Worker F/U Depression Screening Done: Yes 61930 - PHQ-9 Billing: Yes Source: Developed by Drs. Kali Sheriff, Azul Palencia, Amrit Rogers and colleagues, with an educational alfa from [employer]: online [employer]. Thrive Questionnaire Date Thrive assessed: 01/28/23 AUDIT C Alcohol Use Questionnaire (AUDIT-C) 1. How often do you have a drink containing alcohol?: Never Total Score: 0 JESÚS-7 AMB Questionnaire JESÚS-7 Date JESÚS - 7 assessed: 05/04/23 Feeling nervous, anxious, or on edge: 1 = Several days Not being able to stop or control worryin = Several days Worrying too much about different things: 1 = Several days Trouble relaxin = Several days Being so restless that it is hard to sit still: 0 = Not at all Becoming easily annoyed or irritable: 1 = Several days Feeling afraid as if something awful might happen: 0 = Not at all Total JESÚS-7 score (0-4 normal; 5-9 mild; 10-14 moderate; 15-21 severe): 5 Source: Developed by Drs. Kali Sheriff, Amrit Tan and colleagues, with an educational alfa from [employer]: online travellers club. JESÚS-7 Assessment Billing JESÚS-7 Assessment Tool: JESÚS-7 Assessment 15181 Review of Systems Const Denies fatigue Eyes Details: goes to [employer], wears reading glasses Reports blurry vision and Reports requires corrective lenses ENT Reports no additional complaints Card Denies chest pain and Denies lightheadedness Resp Denies cough GI Denies abdominal pain, Denies melena, Denies change in bowel habits and Denies heartburn Reports no additional complaints Neuro Reports no additional complaints Psych Reports as per HPI Endo Reports no additional complaints and Denies fatigue Dell/Lymph Reports no additional complaints Aller/Immun Reports no additional complaints Physical exam (Primary Care) Vital Signs: Last Vital Signs Pulse 97 05/04/23 12:16 BP 132/84 05/04/23 12:16 Pulse Ox 97 05/04/23 12:16 Oxygen Delivery Method Room Air 05/04/23 12:16 BMI result Body Mass Index 35.4 Tobacco/Smoking Status: Tobacco use Status Tobacco use date assessed 05/04/23 05/04/23 12:25 Patient Tobacco Use Status Current everyday Tobacco 05/04/23 12:25 e-Cigarette/Vaping Use Never Used 05/04/23 12:25 Are you ready to quit: Yes PHQ-9: PHQ-9 Score PHQ-9: Total score 2 05/09/23 00:45 Depression Screening Interpretation: Positive Depression Screening Follow-up: Existing condition, In treatment and Community Mental Health Worker F/U Thrive Assessment: Date of Thrive Assessment Date Thrive assessed 01/28/23 05/04/23 12:25 Advance Care Planning discussion: Completed/Scanned Date of discussion: 05/04/23 Who was present: Patient and daughter Forms completed: Health Care Proxy Time spent: 16-45 minutes Actual minutes spent: 16 Const Other: Alert oriented x3, no acute cardiorespiratory distress, ambulatory with normal gait, accompanied by daughter Orientation/consciousness: patient oriented x3 HENMT Ears: TM's normal bilaterally and EAC's normal General nose exam: Normal external nose present Face and sinus: Yes face symmetric Mouth: Normal oral and palatal mucosa present, oropharynx normal and moist mucous membranes Eyes General: appearance normal, both eyes and all related structures Neck Other: Supple, no lymphadenopathy, thyroid gland nonpalpable Resp Effort & Inspection: normal respiratory effort and able to speak in complete sentences Auscultation: clear to auscultation bilaterally Cardio Other: S1-S2 present regular rate and rhythm GI Other: Soft, normal bowel sounds, nontender to palpation, no mass palpated Skin General skin exam: no rashes or lesions noted Neuro General: patient oriented x3, gait normal, moves all extremities, Normal light touch and pain sensation and CN's II-XI intact bilaterally Extrem General: Yes no joint enlargement, Yes no pedal edema and Yes normal gait Psych Appearance: grossly normal and well kempt Mental Status: mental status grossly normal Speech and movement: Normal speech and movement present Affect: normal affect Attitude: cooperative Thought process: Normal thought process present Thought content: Normal thought content present Results Reviewed Results Reviewed: Name: Stefany Smith Age/Sex: 48/F : 1975 Unit#: [id number] Attend Dr: Rin Nielsen MD Re05/02/23 Status: DEP ER Location: [facility] Disch: SPEC : [id number] TANI: 05/02/23 STATUS: COMP REQ : [id number] RECD: 05/02/[address]: Laura Garvin COMP: 05/02/23-1745 ENTERED: 05/02/23-[address]: Rosio Augustine MD ORDERED: CMP, Ethanol Test Result Flag Reference Sodium 139 135-145 mmol/L Potassium 3.9 3.3-5.1 mmol/L CL 106 96-108 mmol/L CO2 22 22-29 mmol/L Gap 15 12-20 BUN 18 H 9-16 mg/dL Creat 0.97 0.5-1.4 mg/dL Estimated CrCl 81.9 Provided height and weight: 167.64 cm, 92.079 kg. eGFR (calculated from the MDRD study equation) and eCrCl (calculated from the Cockcroft-Gault equation) are based on different parameters and may not yield comparable results. If eCrCl result is absurd, please check patient's height/weight. EGFR > 60 NOTE: For -[place] individuals, multiply the result by 1.210. Chronic Kidney Disease: Estimated GFR < 60 mL/min/1.73m2 Severe Kidney Disease: Estimated GFR < 15 mL/min/1.73m2 Glucose, Random 134 H 60-115 mg/dL CA 9.5 8.4-10.2 mg/dL Total Bili 0.2 0.0-1.0 mg/dL AST (GOT) 20 5-31 U/L ALT (GPT) 11 0-31 U/L Protein, Total 7.8 6.5-8.0 g/dL Alb 4.4 3.5-5.0 g/dL Alk Phos 65 39-117 U/L Ethanol < 10 mg/dL Serum/plasma ethanol results are to be used for medical/treatment Laboratory Tests 02/25/23 02/25/23 02/25/23 08:06 08:06 08:06 t Iron 44 TIBC 397 % Saturation 11 L Unsat Iron Binding 353 Vitamin B12 635 25-OH Vitamin D Total 21.5 L Folate 4.1 05/02/23 05/02/23 17:02 17:02 WBC 6.7 Hgb 10.6 L Hct 33.9 L MCV 78.7 L MCH 24.6 L RDW 15.8 Plt Count 381 I Assessment and Plan Assessment & Plan (1) Intermittent palpitations: Code(s): R00.2 - Palpitations Plan: Patient does have chronic anemia with negative cologuard test done February 2023. (2) Caffeine dependence: Comment: Drinks espresso , at least 40 oz a day Code(s): F15.20 - Other stimulant dependence, uncomplicated Plan: Advised patient to strongly cut back on her caffeine intake, try switching to decaf has her caffeine intake, specially when taking together with her other medications is likely the reason for her current symptoms (3) Panic attack: Code(s): F41.0 - Panic disorder [episodic paroxysmal anxiety] Plan: Will continue on bupropion, clonidine, hydroxyzine as needed for acuteanxiety attacks . She already sees a therapist once a week, and has been seen by [facility] for assistance with regards to getting an appointment to see psychiatry now that she is back in [place], was previously seeing 1 when she was in [place]. Started on metoprolol succinate ER 25 mg once a day, and cardiology consult ordered. (4) Vitamin D deficiency: Code(s): E55.9 - Vitamin D deficiency, unspecified Plan: Prescription already sent for cholecalciferol supplement to take 1250 mcg once a week for the next 3 months (5) HILDA (iron deficiency anemia): Code(s): D50.9 - Iron deficiency anemia, unspecified Qualifiers: Iron deficiency anemia type: chronic blood loss Qualified Code(s): D50.0 - Iron deficiency anemia secondary to blood loss (chronic) Plan: Refilled her prescription for ferrous sulfate 325 mg to take 1 tablet once a day, advised to take with orange juice for better absorption. Will repeat another CBC, iron profile in 2 months. Prescription also sent for docusate 100 mg per capsule to take 1-2 capsules once a day as needed for constipation that may arise from taking iron supplements. Orders: Orders Complete Blood Count Auto Diff 2 Months D50.9 - Iron deficiency anemia, unspecified, E55.9 - Vitamin D deficiency, unspecified, R00.2 - Palpitations IRON PROFILE 2 Months D50.9 - Iron deficiency anemia, unspecified, E55.9 - Vitamin D deficiency, unspecified, R00.2 - Palpitations Vitamin D 25-OH Total 2 Months D50.9 - Iron deficiency anemia, unspecified, E55.9 - Vitamin D deficiency, unspecified, R00.2 - Palpitations TSH reflex Free T4 05/04/23 R00.2 - Palpitations Glucose Fasting 2 Months D50.9 - Iron deficiency anemia, unspecified, E55.9 - Vitamin D deficiency, unspecified, R00.2 - Palpitations Referrals Cardiology Referral R00.2 - Palpitations Medications: New docusate sodium 100 mg PO DAILY 30 caps 4RF metoprolol succinate ER 25 mg PO DAILY 30 tabs 0RF Refilled ferrous sulfate 325 mg PO DAILY 90 tabs 1RF D50.0 - Iron deficiency anemia secondary to blood loss (chronic) Coding Level of Care Code Est Pt Level 4 (16232) Diagnoses Intermittent palpitations R00.2 Caffeine dependence F15.20 Panic attack F41.0 Vitamin D deficiency E55.9 Iron deficiency anemia due to chronic blood loss D50.0 Iron deficiency anemia type: chronic blood loss Additional Codes JESÚS-7 Assessment Billing - JESÚS-7 Assessment Tool: JESÚS-7 Assessment 11193 ([id number]) Vital Signs *Quality* - Advance Care Planning discussion: Completed/Scanned ([id number]) Vital Signs *Quality* - Time spent: 16-45 minutes ([id number])
[2023-05-04 12:16] VITALS: BP 132/84; PULSE 97; O2SAT 97; BMI 35.4
== END 2023-05-04 13:53 | disposition home or self-care (01) ==
PROVIDERS: PCP Internal Medicine; Visit Provider Internal Medicine
DX: R00.2 Palpitations (principal); F15.20 Other stimulant dependence, uncomplicated; F41.0 Panic disorder [episodic paroxysmal anxiety]; E55.9 Vitamin D deficiency, unspecified; D50.0 Iron deficiency anemia secondary to blood loss (chronic); Z00.00 Encounter for general adult medical examination without abnormal findings
CPT/HCPCS: 99214; 99497

== ENCOUNTER 2023-05-18 06:50 | Outpatient (REF) | payer OTHER, SELFPAY ==
[2023-05-18 11:15] LABS: Iron 30 mcg/dL (30-160); Percent Iron Saturation 8 % (15-50); Total Iron Binding Capacity 396 mcg/dL (228-428); Unsaturated Iron Binding 366 ug/dL
[2023-05-18 11:16] LABS: TSH reflex Free T4 2.69 uIU/mL (0.32-4.0)
== END 2023-05-18 06:51 | disposition home or self-care (01) ==
LOC: HO.HMGCLDS 06:50
PROVIDERS: PCP Internal Medicine; Visit Provider Internal Medicine
DX: R00.2 Palpitations (principal); E55.9 Vitamin D deficiency, unspecified
CPT/HCPCS: 36415; 82306; 83540; 84443

== ENCOUNTER 2023-05-27 11:03 | Outpatient (AMB) | payer OTHER, SELFPAY ==
[2023-05-27 11:39] VITALS: BP 110/68; PULSE 67; O2SAT 98; BMI 35.5
--- NOTE | 2023-05-27 11:39 | MHC.PC.OV ---
Vital Signs 05/27/23 11:39 Height 5 ft 7 in Weight 227 lb BMI 35.5 BP 110/68 Blood Pressure Location Lt brachial Position Sitting Pulse 67 Pulse Source Pulse Oximeter Pulse Oximetry (%) 98 Oxygen Delivery Method Room Air Intake Visit Reasons: f/u Intake Note: Pt is here today for her f/u labs Allergies No Known Allergies Allergy (Verified 05/27/23 12:10) Medication List - Last Reconciled 05/27/23 by Rosio Augustine MD bupropion HCl SR 150 mg PO ONCE cholecalciferol (vitamin D3) 1,250 mcg PO QWEEK 3 months clonidine HCl 0.1 mg PO Q4H 30 days cyclobenzaprine 10 mg PO BEDTIME PRN 90 days docusate sodium 100 mg PO DAILY eszopiclone 3 mg PO BEDTIME PRN ferrous sulfate 325 mg PO DAILY gabapentin 600 mg PO TID hydroxyzine HCl 10 mg PO QID PRN metoprolol succinate ER 25 mg PO DAILY varenicline PO PER PKG DIR Wegovy (semaglutide (weight loss)) 0.25 mg (0.5 mL) subcut QWEEK NS Tobacco use date assessed: 05/27/23 Dental Screening Dental Screen Date: 05/27/23 Did you have a dental visit in the last 12 months?: No Was dental information given to patient?: No HPI f/u HPI Details 38-year-old lady here today for follow-up on her anemia, was started on ferrous sulfate 325 mg once daily, but repeat CBC done recently showed no improvement in her anemia with a hemoglobin still at 10.6 and hematocrit at 33.9 with low iron saturation level. Still complaining of feeling tired all the time, with recurrent palpitations. She has an appointment already scheduled with Cardiology She has anxiety depression, currently still taking medications provided by her previous PCP, and has not yet seen her therapist, states that she did not have time to spend 20 minutes doing an intake on the phone n she has been taking zopiclone almost on a daily basis to help her sleep at night which has been helping Has not started using we go be for help with losing weight as she states that the starting dose was still unavailable in her pharmacy. She has been weaning herself off bupropion, states that it was not really helping her quit smoking, just started taking varenicline starter pack yesterday. States that she has did feel some nausea after starting , which eventually which spontaneously resolved after several minutes. [facility] Medical History Caffeine dependence Intermittent palpitations Obesity (BMI 35.0-39.9 without comorbidity) Hyperlipidemia Vitamin D deficiency OCD (obsessive compulsive disorder) Cigarette smoker motivated to quit Scoliosis of cervical region due to degenerative disease of spine in adult History of vitamin D deficiency Chronic right shoulder pain Varicose veins of bilateral lower extremities with pain Anemia Anxiety and depression Immunization refused Heavy cigarette smoker (20-39 per day) Menorrhagia HILDA (iron deficiency anemia) Rotator cuff disorder Surgical History History of cervical spinal surgery History of endometrial ablation Hx of dilation and curettage History of cholecystectomy History of H/O gastric bypass H/O tubal ligation Family History Father Mental health disorder Daughter Mental health disorder Paternal Aunt Mental health disorder Social History Housing: Apartment Alcohol intake: former Patient Tobacco Use Status: Current everyday Tobacco user Cigarette Packs Per Day: 1 e-Cigarette/Vaping Use: Never Used Substance Use Type: Marijuana service: No Current occupational status: employed 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[employer], 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 Cognitive needs: No Hearing needs: No Vision needs: Yes Female Reproductive History Menstrual Age of Menarche: 13 Questionnaire Thrive Questionnaire Date Thrive assessed: 05/27/23 I am a: Patient What is your living situation today?: I have a steady place to live Within the past 12 months, did the food you bought not last and you didn't have the money to get more?: Never true Within the past 12 months, did you worry whether your food would run out before you got money to buy more?: Never true Do you have trouble paying for medicines?: No Do you have trouble getting transportation to medical appointments?: No Do you have trouble paying your heating and electricity bill?: No Do you have trouble taking care of your child, family member or friend?: No Do you have trouble with day-to-day activities such as bathing, preparing meals, shopping, managing finances, etc.?: No Are you currently unemployed and looking for a job?: No Are you interested in more education?: No THRIVE Score: 0 AUDIT C Alcohol Use Questionnaire (AUDIT-C) 1. How often do you have a drink containing alcohol?: Monthly or less 2. How many drinks containing alcohol do you have on a typical day when you are drinking?: 1 or 2 3. How often do you have six or more drinks on one occasion?: Never Total Score: 1 JESÚS-7 AMB Questionnaire JESÚS-7 Date EJSÚS - 7 assessed: 05/04/23 Source: Developed by Drs. Kali Sheriff, Azul Palencia, Amrit Rogers and colleagues, with an educational alfa from [employer]. Review of Systems Const Denies fatigue Eyes Details: goes to [employer], wears reading glasses Reports blurry vision and Reports requires corrective lenses ENT Reports no additional complaints Card Denies chest pain and Denies lightheadedness Resp Denies cough GI Denies abdominal pain, Denies melena, Denies change in bowel habits and Denies heartburn Reports no additional complaints Neuro Reports no additional complaints Psych Reports as per HPI Endo Reports no additional complaints and Denies fatigue Dell/Lymph Reports no additional complaints Aller/Immun Reports no additional complaints Physical exam (Primary Care) Vital Signs: Last Vital Signs Pulse 67 05/27/23 11:39 BP 110/68 05/27/23 11:39 Pulse Ox 98 05/27/23 11:39 Oxygen Delivery Method Room Air 05/27/23 11:39 BMI result Body Mass Index 35.5 Tobacco/Smoking Status: Tobacco use Status Tobacco use date assessed 05/27/23 05/27/23 11:40 Patient Tobacco Use Status Current everyday Tobacco 05/27/23 11:40 e-Cigarette/Vaping Use Never Used 05/27/23 11:40 Are you ready to quit: Yes Thrive Assessment: Date of Thrive Assessment Date Thrive assessed 05/27/23 05/27/23 11:48 Const Other: Alert oriented x3, no acute cardiorespiratory distress, ambulatory with normal gait, accompanied by daughter Orientation/consciousness: patient oriented x3 HENMT Ears: TM's normal bilaterally and EAC's normal General nose exam: Normal external nose present Face and sinus: Yes face symmetric Mouth: Normal oral and palatal mucosa present, oropharynx normal and moist mucous membranes Eyes General: appearance normal, both eyes and all related structures Neck Other: Supple, no lymphadenopathy, thyroid gland nonpalpable Resp Effort & Inspection: normal respiratory effort and able to speak in complete sentences Auscultation: clear to auscultation bilaterally Cardio Other: S1-S2 present regular rate and rhythm Neuro General: patient oriented x3, gait normal, moves all extremities, Normal light touch and pain sensation and CN's II-XI intact bilaterally Results Reviewed Results Reviewed: Name: Stefany Smith Age/Sex: 48/F : 1975 Unit#: [id number] Attend Dr: Rin Nielsen MD Re05/02/23 [facility] SPE[facility] : [id number] TANI: 05/02/23 STATUS: COMP REQ : [id number] RECD: 05/02/[address]: Rin Nielsen MD COMP: 05/02/23 ENTERED: 05/02/23 [facility] DR: Rosio Augustine MD Generic ED Physician ORDERED: CBC Auto Diff Test Result Flag Reference WBC 6.7 4.8-10.8 X10*3/uL RBC 4.31 4.20-5.50 X10*6/uL HGB 10.6 L 12.0-16.0 g/dl HCT 33.9 L 37.0-47.0 % MCV 78.7 L 80.0-98.0 fL MCH 24.6 L 27.0-33.0 pg MCHC 31.3 31.0-35.0 g/dl RDW 15.8 11.0-16.0 % PLT 381 160-400 X10*3/uL MPV 8.3 L 9.4-12.3 fL Neut Pct Auto 53.3 45-73 % ImGran Pct Auto 0.1 0.0-0.4 % Lymp Pct Auto 39.8 20-40 % [place] Pct Auto 5.3 2-11 % Eos Pct Auto 0.9 0-4 % Baso Pct Auto 0.6 0-2 % NRBC Pct Auto 0.0 0.0-0.2 /100WBC ANC Neut Abs # 3.6 2.0-8.3 x10*3/uL ImGran Abs Auto 0.01 0.00-0.03 X10*3/uL Lymph Abs Auto 2.7 1.2-4.9 X10*3/uL [place] Abs Auto 0.4 0.1-1.2 X10*3/uL Eos Abs Auto 0.1 0.0-0.4 X10*3/uL Baso Abs Auto 0.0 0.0-0.2 X10*3/uL NRBC Abs Auto 0.000 0.0-0.012 X10*3/uL Laboratory Tests 03/09/21 05/18/23 13:40 06:52 Iron 30 TIBC 396 % Saturation 8 L Unsat Iron Binding 366 TSH 3.19 Assessment and Plan Assessment & Plan (1) HILDA (iron deficiency anemia): Code(s): D50.9 - Iron deficiency anemia, unspecified Qualifiers: Iron deficiency anemia type: chronic blood loss Qualified Code(s): D50.0 - Iron deficiency anemia secondary to blood loss (chronic) Plan: Continue taking iron supplements, take it with vitamin-C or orange juice for better absorption. May take Colace or docusate sodium as needed for constipation that may arise (2) Intermittent palpitations: Code(s): R00.2 - Palpitations Plan: Will repeat another CBC and iron profile in 2 months, she also has an appointment already scheduled with Cardiology in August 2023 for further evaluation (3) Cigarette smoker motivated to quit: Code(s): F17.210 - Nicotine dependence, cigarettes, uncomplicated Plan: Started taking varenicline yesterday, advised to continue, take it with food in a glass of water. See her back for follow-up in 1 month (4) OCD (obsessive compulsive disorder): Comment: previously seen by Dr Dunaway Code(s): F42.9 - Obsessive-compulsive disorder, unspecified Plan: Patient advised to schedule an appointment with a therapist and eventually sees Psychiatry. Will continue her on her present treatment for her OCD and anxiety depression. Orders: Orders Complete Blood Count Auto Diff 2 Months D50.0 - Iron deficiency anemia secondary to blood loss (chronic), R00.2 - Palpitations IRON PROFILE 2 Months D50.0 - Iron deficiency anemia secondary to blood loss (chronic), R00.2 - Palpitations Medications: Changed From bupropion HCl SR 150 mg PO BID 60 tabs 5RF Z71.6 - Tobacco abuse counseling To bupropion HCl SR QOD 150 mg PO ONCE Z71.6 - Tobacco abuse counseling Coding Level of Care Code Est Pt Level 4 (04546) Diagnoses Iron deficiency anemia due to chronic blood loss D50.0 Iron deficiency anemia type: chronic blood loss Intermittent palpitations R00.2 Cigarette smoker motivated to quit F17.210 OCD (obsessive compulsive disorder) F42.9
== END 2023-05-27 12:54 | disposition home or self-care (01) ==
PROVIDERS: PCP Internal Medicine; Visit Provider Internal Medicine
DX: D50.0 Iron deficiency anemia secondary to blood loss (chronic) (principal); R00.2 Palpitations; F17.210 Nicotine dependence, cigarettes, uncomplicated; F42.9 Obsessive-compulsive disorder, unspecified
CPT/HCPCS: 99214

== ENCOUNTER 2023-06-14 08:41 | Outpatient (AMB) | payer OTHER, SELFPAY ==
--- NOTE | 2023-06-14 08:53 | MHC.OFFVIS ---
Vital Signs 06/14/23 08:58 Height 5 ft 7 in Weight 226 lb 2 oz BMI 35.4 BP 106/66 Blood Pressure Location Lt brachial Position Sitting Respiration 16 Pulse 93 Pulse Source Pulse Oximeter Pulse Oximetry (%) 97 Oxygen Delivery Method Room Air Intake Visit Reasons: Medication follow up- 2021 Allergies No Known Allergies Allergy (Verified 06/14/23 08:59) Medication List - Last Reconciled 06/14/23 by SHANNON Castillo clonidine HCl 0.1 mg PO Q4H 30 days cyclobenzaprine 10 mg PO BEDTIME PRN 90 days docusate sodium 100 mg PO DAILY eszopiclone 3 mg PO BEDTIME PRN ferrous sulfate 325 mg PO DAILY gabapentin 600 mg PO TID hydroxyzine HCl 10 mg PO QID PRN metoprolol succinate ER 25 mg PO DAILY varenicline PO PER PKG DIR Wegovy (semaglutide (weight loss)) 0.25 mg (0.5 mL) subcut QWEEK NS HPI Comments Details: Patient presents today for medication review. She was last seen in our office in August 2021 after which she moved to [place], [place] and moved back last November,. She was planning to undergo right RTC surgery in [place] but upon surgical evaluation was noted to have significant cervical scoliosis for which she underwent cervical spine fusion with screws and plates in place. Patient reports her right shoulder symptoms have subsided since surgery. Patient reports chronic neck pain with muscle stiffness and limited range of motion but continues to do regular home exercises program and completed 6 weeks of PT after cervical spine surgery in [place]. She has been taking gabapentin TID-QID, spreading it one tab in the morning and afternoon and 2 tabs at bedtime or taking it at am, noon, afternoon and bedtime. She continues to take cyclobenzaprine with good effect and denies any side effects to both medications. She requests refill for gabapentin today. Patient reports numbness and tingling with burning sensations in her upper and lower extremities, with CTS components in her both wrists. She states gabapentin has been helpful but concerned her neuropathy symptoms has been progressively worsening. Denies any recent neurodiagnostic studies. Denies any bladder or bowel dysfunction or saddle anesthesia. Reports left upper extremity decreased strength. Patient is also re-establishing care with Psychology provider and recently had intake at [facility] to manage her stress, OCD, anxiety, depression, insomnia and PTSD. PRIOR: Patient is a pleasant 46 year old female who presents today for evaluation of right shoulder pain due to torn rotator cuff, right wrist pain due to carpal tunnel syndrome and bilateral lower leg pain with burning sensations. 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 She is not sure of the cause for bilateral leg pain since 2020. Patient reports her most concerning pain today is her right shoulder. She endorses difficulty with lifting, overhead movements, pushing, or movements with hand behind her back. She was seen by orthopedic surgeon Dr. Nunez in 2016 and has received cortisone injections. She also reports getting cortisone injections for her right wrist pain. Denies shoulder surgery and states she was told she needs RTC surgery but has been putting off due to family and work commitments. Patient reports she is raising 2 children as a single mom and has not been able to take time off from work to undergo surgery and rehabilitation. Patient reports right shoulder MRI was obtained in 2015 which we do not have a report or imaging today. Patient has previously tried physical therapy, bracing, injections, topical, pain and muscle relaxant medications and ice/heat therapy with minimal to no pain relief. She notes physical therapy has worsened her symptoms. Patient cannot take NSAIDs due to previous bariatric surgery. [facility] Medical History Caffeine dependence Intermittent palpitations Obesity (BMI 35.0-39.9 without comorbidity) Hyperlipidemia Vitamin D deficiency OCD (obsessive compulsive disorder) Cigarette smoker motivated to quit Scoliosis of cervical region due to degenerative disease of spine in adult History of vitamin D deficiency Chronic right shoulder pain Varicose veins of bilateral lower extremities with pain Anemia Anxiety and depression Immunization refused Heavy cigarette smoker (20-39 per day) Menorrhagia HILDA (iron deficiency anemia) Rotator cuff disorder Surgical History History of cervical spinal surgery History of endometrial ablation Hx of dilation and curettage History of cholecystectomy History of H/O gastric bypass H/O tubal ligation Family History Father Mental health disorder Daughter Mental health disorder Paternal Aunt Mental health disorder Social History Housing: Apartment Alcohol intake: former Patient Tobacco Use Status: Current everyday Tobacco user Cigarette Packs Per Day: 1 e-Cigarette/Vaping Use: Never Used Substance Use Type: Marijuana service: No Current occupational status: employed 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[employer], 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 Cognitive needs: No Hearing needs: No Vision needs: Yes Female Reproductive History Menstrual Age of Menarche: 13 Review of Systems Const All systems reviewed & are unremarkable except as noted in HPI and below ENT Reports Normal hearing present and Reports neck pain Musc Reports as per HPI, Reports back pain, Denies myalgias, Reports arthralgias, Denies joint swelling, Denies muscle weakness, Reports neck pain, Reports numbness, Reports radiating pain into limb, Reports stiffness and Reports tingling Neuro Reports Normal hearing present, Denies Abnormal speech present, Denies confusion, Denies memory loss, Reports numbness, Denies Sensory deficit (Neuro) and Reports tingling Psych Reports as per HPI, Reports anxiety, Denies confusion, Reports depression, Reports difficulty concentrating (when in moderate to severe pain), Denies auditory hallucinations, Denies irritability, Denies memory loss, Reports panic attacks, Denies paranoia, Denies hallucinations, Denies tactile hallucinations, Denies homicidal ideation and Denies suicidal ideation Physical Exam General: Appears afebrile. Alert and oriented. Mood and affect appropriate. Follows and participates in conversation appropriately. Respiratory effort is unlabored. No cough. Able to transition from sit to stand unassisted. Ambulates with bilaterally normal heel strike and toe off. Const General: No confusion Orientation/consciousness: patient oriented x3 and No confusion Eyes Pupils: Equal, round and reactive pupils present Neck Neck: Yes no lymphadenopathy, Yes supple, No anterior neck swelling, No torticollis, No tracheal deviation, Yes no JVD and No prominent dorsocervical fat pad Back/Spine/Pelvis Cervical Spine: No collar present, No Lhermitte's sign positive, cervical muscular tenderness, pain with cervical ROM, Cervical spine scars present (anterior), cervical spasm (left>right), No Cervical spine tenderness and No step off deformity Thoracic/Lumbar Spine: thoracic and lumbar spine normal to inspection, No Thoracic/lumbar spine scar(s), paraspinal muscle tenderness, No thoracic spinal tenderness and No lumbar spinal tenderness Neuro General: patient oriented x3, CN's II-XI intact bilaterally and No confusion Cranial nerves: Yes Equal, round and reactive pupils present, Yes Normal hearing present and Yes Ability to bilaterally elevate shoulders present Cognition (Neuro): normal cognition Speech: No Abnormal speech present Gait exam (Neuro): Normal gait present and No Assistive device used Motor exam (neuro): 5/5 motor strength present throughout (4/5 LUE), no tremor noted and Motor abnormalities not present Sensory Exam: No Sensory deficit (Neuro) Results Reviewed Results Reviewed: CT/CT head/brain wo IV con 05/02/23 No acute intracranial pathology. CT/CT abdomen pelvis w con 04/28/21 OSSEOUS STRUCTURES: Unremarkable. XR SHOULDER, RIGHT 07/21/2015 XR ACROMIOCLAVICULAR JOINTS CLINICAL INFORMATION: Right shoulder/right arm numbness. Pain. Decreased range of motion. FINDINGS: Right shoulder: No acute fracture or dislocation. The humeral head articulates appropriately with the glenoid. The joint space is maintained. The visualized lung is clear. Acromioclavicular joints: The acromioclavicular joints are symmetric. There is no abnormal widening with weights. Mild hypertrophic degenerative changes are seen at the right acromioclavicular joint. The lung apices are clear. IMPRESSION: Mild degenerative changes of the right acromioclavicular joint. No abnormal widening. Cervical Spine series 10/29/2013 CLINICAL INFORMATION: Neck and right arm pain with flexion and extension. FINDINGS: The prevertebral soft tissues are normal in configuration. There is a levoscoliosis of the cervicothoracic spine centered at the T3 level. The bones are normal in mineralization and architecture. There is no evidence of a fracture or spondylolisthesis. No kyphotic angulation or subluxation is detected on flexion and extension views. There is minimal disc space narrowing at the C4-C5, C5-C6 and C6-C7 levels with associated spondylytic lipping of the vertebral endplates. There is suggestion of a small posterior bar at C6-C7 level. The neural foramina are patent with out evidence of any bony encroachment. No significant facet joint arthropathy is appreciated. The posterior elements appear to be intact. IMPRESSION: 1. Mild degenerative disc disease with associated spondylitic changes at the C4-C5, C5-C6, and C6-C7 levels without evidence of instability. 2. No evidence of bony neural foraminal encroachment. 3. Levoscoliosis of the cervicothoracic spine. Assessment & Plan Assessment & Plan (1) Cervical post-laminectomy syndrome: Code(s): M96.1 - Postlaminectomy syndrome, not elsewhere classified Category: Medical (2) Chronic pain syndrome: Code(s): G89.4 - Chronic pain syndrome Category: Medical (3) Bilateral neuropathy of upper extremities: Code(s): G56.93 - Unspecified mononeuropathy of bilateral upper limbs Category: Medical (4) Neuropathy involving both lower extremities: Code(s): G57.93 - Unspecified mononeuropathy of bilateral lower limbs Category: Medical (5) Cervicalgia: Code(s): M54.2 - Cervicalgia Category: Medical Plan Continue gabapentin and cyclobenzaprine for neck and neuropathy symptoms. Script also provided for duloxetine, side effects and precautions discussed with patient. Neurodiagnostic studies to further evaluate cervical radiculopathy vs CTS, left >right and bilateral lower extremity neuropathy. Cervical xray to assess hardware status and degenerative changes s/p cervical spine fusion in 07/2022 in [place]. Continue HEP, heat and ice therapy, relaxation and meditation techniques, consider CBT through new Psychology provider. All questions and concerns have been answered and patient agreed with the plan. Follow up for xray/EMG study results/medication review and sooner as needed. Orders: Orders NE electromyogram (EMG) Today G56.93 - Unspecified mononeuropathy of bilateral upper limbs, G57.93 - Unspecified mononeuropathy of bilateral lower limbs XR cervical spine 3V Today G56.93 - Unspecified mononeuropathy of bilateral upper limbs, M54.2 - Cervicalgia, M96.1 - Postlaminectomy syndrome, not elsewhere classified NE nerve conduction velocity Today G56.93 - Unspecified mononeuropathy of bilateral upper limbs, G57.93 - Unspecified mononeuropathy of bilateral lower limbs Medications: New duloxetine 20 mg PO BID 30 days 60 caps 0RF pain G56.93 - Unspecified mononeuropathy of bilateral upper limbs, G57.93 - Unspecified mononeuropathy of bilateral lower limbs, G89.4 - Chronic pain syndrome Changed From gabapentin 600 mg PO TID 30 days 90 tabs 0RF pain G89.4 - Chronic pain syndrome, M96.1 - Postlaminectomy syndrome, not elsewhere classified To gabapentin 1 tab in am, 1 tab in afternoon, 2 tabs at bedtime 600 mg PO TID 30 days 120 tabs 0RF pain G89.4 - Chronic pain syndrome, M96.1 - Postlaminectomy syndrome, not elsewhere classified From gabapentin 600 mg PO TID G89.4 - Chronic pain syndrome, M96.1 - Postlaminectomy syndrome, not elsewhere classified To gabapentin 600 mg PO TID 30 days 90 tabs 0RF pain G89.4 - Chronic pain syndrome, M96.1 - Postlaminectomy syndrome, not elsewhere classified Coding Level of Care Code Est Pt Level 4 (09622) Diagnoses Cervical post-laminectomy syndrome M96.1 Chronic pain syndrome G89.4 Bilateral neuropathy of upper extremities G56.93 Neuropathy involving both lower extremities G57.93 Cervicalgia M54.2
[2023-06-14 08:58] VITALS: BP 106/66; PULSE 93; RESP 16; O2SAT 97; BMI 35.4
== END 2023-06-14 09:19 | disposition home or self-care (01) ==
PROVIDERS: PCP Internal Medicine; Visit Provider Nurse Practitioner Family
DX: M96.1 Postlaminectomy syndrome, not elsewhere classified (principal); G89.4 Chronic pain syndrome; G56.93 Unspecified mononeuropathy of bilateral upper limbs; G57.93 Unspecified mononeuropathy of bilateral lower limbs; M54.2 Cervicalgia
CPT/HCPCS: 99214

== ENCOUNTER → 2023-06-14 08:41 | Outpatient (BNVA) | payer OTHER, SELFPAY | PROVIDERS: PCP Internal Medicine; Visit Provider Nurse Practitioner Family ==

== ENCOUNTER 2023-06-29 15:19 | Outpatient (REF) | payer OTHER, SELFPAY ==
--- NOTE | 2023-06-29 15:29 | EMG_ITS ---
Chief complaint: Chronic neck pain, hand numbness; spasm on bilateral big toes Reason for referral: Evaluate for neuropathy; Carpal Tunnel Syndrome versus radiculopathy Referred by: Jill Levine NP Procedure done: Bilateral upper extremities and bilateral lower extremity NCS/EMG Precautions and/or limitations: Past cervical fusion The limb temperature was monitored continuously and remained between 32-36 degrees C during the performance of the NCS. ?Stim Site NR Onset (ms) Norm Onset (ms) Peak (ms) Norm Peak (ms) O-P Amp (?V) Norm O-P Amp Site1 Site2 Delta-0 (ms) Dist (cm) Werner (m/s) Norm Werner (m/s) Left Median Anti Sensory (2nd Digit) Wrist ? 2.2 2.8 <3.6 39.6 >10 Wrist 2nd Digit 2.2 14.0 64 Right Median Anti Sensory (2nd Digit) Wrist ? 2.7 3.3 <3.6 27.2 >10 Wrist 2nd Digit 2.7 14.0 52 Left Sural Anti Sensory (Lat Mall) Calf ? 2.4 3.3 <4.0 9.6 >5.0 Calf Lat Mall 2.4 14.0 58 Right Sural Anti Sensory (Lat Mall) Calf ? 1.6 3.5 <4.0 10.8 >5.0 Calf Lat Mall 1.6 14.0 88 Left Ulnar Anti Sensory (5th Digit) Wrist ? 2.2 2.9 <3.7 30.0 >15.0 Wrist 5th Digit 2.2 14.0 64 Right Ulnar Anti Sensory (5th Digit) Wrist ? 2.0 2.7 <3.7 24.2 >15.0 Wrist 5th Digit 2.0 14.0 70 Motor Summary Table ?Stim Site NR Onset (ms) Norm Onset (ms) O-P Amp (mV) Norm O-P Amp iAmp (mV) Amp (1st) (%) Site1 Site2 Delta-0 (ms) Dist (cm) Werner (m/s) Norm Werner (m/s) Left Median Motor (Abd Poll Brev) Wrist ? 3.3 <3.9 8.2 >4.5 10.4 100.0 Elbow Wrist 3.9 23.5 60 >45 Elbow ? 7.2 7.7 9.9 93.9 Right Median Motor (Abd Poll Brev) Wrist ? 3.6 <3.9 9.9 >4.5 12.4 100.0 Elbow Wrist 3.9 23.0 59 >45 Elbow ? 7.5 9.1 11.9 91.9 Right Peroneal Motor (Ext Dig Brev) Ankle ? 3.5 <4.0 6.1 >2.5 7.4 100.0 Ankle Ext Dig Brev 3.5 0.0 B Fib ? 9.4 8.5 10.2 139.3 B Fib Ankle 5.9 31.0 53 >40 Poplt ? 10.3 8.6 10.3 141.0 Poplt B Fib 0.9 6.5 72 >40 Left Tibial Motor (Abd Shanks Brev) Ankle ? 2.9 <5 8.4 >2.5 12.9 100.0 Ankle Abd Shanks Brev 2.9 0.0 Knee ? 11.3 6.3 9.0 75.0 Knee Ankle 8.4 35.0 42 >40 Right Tibial Motor (Abd Shanks Brev) Ankle ? 3.1 <5 6.4 >2.5 9.6 100.0 Ankle Abd Shanks Brev 3.1 0.0 Knee ? 10.2 5.8 8.3 90.6 Knee Ankle 7.1 38.0 54 >40 Left Ulnar Motor (Abd Dig Minimi) Wrist ? 2.5 <3.0 5.8 >5 7.5 100.0 B Elbow Wrist 3.4 19.0 56 >45 B Elbow ? 5.9 5.0 6.4 86.2 A Elbow B Elbow 1.3 10.0 77 >45 A Elbow ? 7.2 4.9 6.4 84.5 Right Ulnar Motor (Abd Dig Minimi) Wrist ? 2.3 <3.0 9.0 >5 12.6 100.0 B Elbow Wrist 3.3 20.5 62 >45 B Elbow ? 5.6 8.3 11.8 92.2 A Elbow B Elbow 1.3 10.0 77 >45 A Elbow ? 6.9 8.1 11.5 90.0 Comparison Summary Table ?Stim Site NR Peak (ms) Norm Peak (ms) P-T Amp (?V) Site1 Site2 Delta-P (ms) Norm Delta (ms) Left Median/Radial Dig I Comparison (Digit 1 - 10cm) Median ? 2.3 <2.9 52.1 Median Radial 0.0 Radial ? 2.3 <2.8 14.7 Right Median/Radial Dig I Comparison (Digit 1 - 10cm) Median ? 2.8 <2.9 27.5 Median Radial 0.7 Radial ? 2.1 <2.8 19.2 EMG ?Side Muscle Nerve Root Ins Act Fibs Psw Amp Dur Poly Recrt Int Pat Comment Right 1stDorInt Ulnar C8-T1 Nml Nml Nml Nml Nml 0 Nml Complete Right FlexCarRad Median C6-7 Nml Nml Nml Nml Nml 0 Nml Complete Right Biceps Musculocut C5-6 Nml Nml Nml Nml Nml 0 Nml Complete Right Triceps Radial C6-7-8 Nml Nml Nml Nml Nml 0 Nml Complete Right Deltoid Axillary C5-6 Nml Nml Nml Nml Nml 0 Nml Complete Left 1stDorInt Ulnar C8-T1 Nml Nml Nml Nml Nml 0 Nml Complete Left FlexCarRad Median C6-7 Nml Nml Nml Nml Nml 0 Nml Complete Left Biceps Musculocut C5-6 Nml Nml Nml Nml Nml 0 Nml Complete Left Triceps Radial C6-7-8 Nml Nml Nml Nml Nml 0 Nml Complete Left Deltoid Axillary C5-6 Nml Nml Nml Nml Nml 0 Nml Complete Right AbdHallucis MedPlantar S1-2 Nml Nml Nml Nml Nml 0 Nml Complete Right AntTibialis Dp Br Peron L4-5 Nml Nml Nml Nml Nml 0 Nml Complete Right PostTibialis Tibial L5, S1 Nml Nml Nml Nml Nml 0 Nml Complete Right MedGastroc Tibial S1-2 Nml Nml Nml Nml Nml 0 Nml Complete Right VastusMed Femoral L2-4 Nml Nml Nml Nml Nml 0 Nml Complete Left AbdHallucis MedPlantar S1-2 Nml Nml Nml Nml Nml 0 Nml Complete Left AntTibialis Dp Br Peron L4-5 Nml Nml Nml Nml Nml 0 Nml Complete Left PostTibialis Tibial L5, S1 Nml Nml Nml Nml Nml 0 Nml Complete Left MedGastroc Tibial S1-2 Nml Nml Nml Nml Nml 0 Nml Complete Left VastusMed Femoral L2-4 Nml Nml Nml Nml Nml 0 Nml Complete FINDINGS: Significant interlatency difference seen between right median and radial sensory nerves. Otherwise all other nerves tested within normal. Concentric needle EMG was performed in selected muscles of the bilateral upper extremities and bilateral lower extremity, lumbar paraspinals. Study did not reveal signs of electric abnormalities as shown in the table below. IMPRESSION: 1. This is an abnormal study. 2. There is electrodiagnostic evidence for right very mild/borderline median neuropathy at the wrist, consistent with Carpal Tunnel Syndrome. 3. There is no electrodiagnostic evidence for ulnar neuropathy, brachial plexopathy, cervical radiculopathy. peroneal neuropathy, tibial neuropathy. lumbosacral plexopathy, lumbar radiculopathy, or peripheral neuropathy. Thank you for your kind referral. Lesley Miguel MD, DWIGHT Board Certified, [place] [employer] and [employer] (ABPMR) Board Certified, [place] Board [employer] Electrodiagnostic [employer] (ABEM) CODIN 31506 x 4 MTDD
== END 2023-06-29 15:20 | disposition home or self-care (01) ==
LOC: HO.NEURO 15:19
PROVIDERS: PCP Internal Medicine; Visit Provider Nurse Practitioner Family
DX: G56.93 Unspecified mononeuropathy of bilateral upper limbs (principal); G57.93 Unspecified mononeuropathy of bilateral lower limbs
CPT/HCPCS: 95886; 95913

== ENCOUNTER → 2023-06-29 15:29 | Outpatient (BNV) | payer OTHER, SELFPAY | PROVIDERS: PCP Internal Medicine; Visit Provider Physical Medicine & Rehabilitation | DX: G56.01 Carpal tunnel syndrome, right upper limb (principal); R20.2 Paresthesia of skin; M62.838 Other muscle spasm | CPT/HCPCS: 95886; 95913 ==

== ENCOUNTER 2023-07-07 08:00 | Outpatient (AMB) | payer OTHER, SELFPAY ==
--- NOTE | 2023-07-07 08:09 | AM.OFFWIN_ITS ---
Intake Vital Signs 07/07/23 08:26 Height 5 ft 7 in BP 118/72 Blood Pressure Location Rt brachial Position Sitting Pulse 78 Pulse Source Pulse Oximeter Temp 98.3 F Temp Source Oral Pulse Oximetry (%) 97 Intake Visit Reasons: EST/ cat scratch left arm (lobby) Patient Tobacco Use Status: Current everyday Tobacco user Allergies No Known Allergies Allergy (Verified 07/07/23 08:26) Do you need a note to return to daycare/school/sports/work: Yes HPI HPI Comments History of Present Illness Details This is a 48-year-old female who presents for evaluation of cat bite and cat scratches that occurred last night on her left forearm. The patient states her cat was scared by the appearance of an unknown cat on the other side of her window. The patient picked up her cat and was scratched and bit repeatedly on the left forearm. The patient is unaware of her own cats immunization status. Patient states that she was bleeding excessively and used a paper towel only to stop the blood. Patient states that she did not clean it out with soap and water last night. The patient denies having any fevers or chills but describes significant diaphoresis last night and increased pain in her left forearm today. Patient's last tetanus immunization was approximately 9 years ago. [facility] Medical History Restless leg syndrome Caffeine dependence Intermittent palpitations Obesity (BMI 35.0-39.9 without comorbidity) Hyperlipidemia Vitamin D deficiency OCD (obsessive compulsive disorder) Cigarette smoker motivated to quit Scoliosis of cervical region due to degenerative disease of spine in adult History of vitamin D deficiency Chronic right shoulder pain Varicose veins of bilateral lower extremities with pain Anemia Anxiety and depression Immunization refused Heavy cigarette smoker (20-39 per day) Menorrhagia HILDA (iron deficiency anemia) Rotator cuff disorder Surgical History History of cervical spinal surgery History of endometrial ablation Hx of dilation and curettage History of cholecystectomy History of H/O gastric bypass H/O tubal ligation Family History Father Mental health disorder Daughter Mental health disorder Paternal Aunt Mental health disorder Social History (Reviewed 06/14/23 @ 08:58 by AGNIESZKA Castillo Housing: Apartment Alcohol intake: former Patient Tobacco Use Status: Current everyday Tobacco user Cigarette Packs Per Day: 1 e-Cigarette/Vaping Use: Never Used Substance Use Type: Marijuana service: No Current occupational status: employed 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 Cognitive needs: No Hearing needs: No Vision needs: Yes Female Reproductive History Menstrual Age of Menarche: 13 Review of Systems Const All systems reviewed & are unremarkable except as noted in HPI and below Denies chills, Reports excessive sweating and Denies fever(s) Eyes Reports no additional complaints ENT Reports no additional complaints Card Reports no additional complaints Skin/Breast Denies non-healing lesions, Denies rash, Reports skin pain, Reports skin swelling and Reports wounds Neuro Reports no additional complaints and Denies Sensory deficit (Neuro) Psych Reports no additional complaints Endo Reports excessive sweating Physical Exam Vital Signs: Last Vital Signs Temp 98.3 F 07/07/23 08:26 Pulse 78 07/07/23 08:26 BP 118/72 07/07/23 08:26 Pulse Ox 97 07/07/23 08:26 Const General: cooperative, healthy appearing, alert, awake and in distress mild; No ill appearing Nutritional Appearance: average body habitus and well nourished Orientation/consciousness: patient oriented x3 Limitations: no limitations Skin Other: There are multiple linear surface lacerations and puncture wounds circumferentially on the left forearm; no lesions on the left-hand; no active bleeding or evidence of retained foreign body Wounds: wounds noted (left forearm) Neuro General: patient oriented x3 Sensory Exam: No Sensory deficit (Neuro) Extrem Other: passive ROM left olecranon and left wrist intact; patient able to move all digits of the left hand. Left upper extremity: edema (mild edema left wrist and digits of the left hand) and no joint enlargement Office Meds acetaminophen 325 mg tablet Performing Provider: Kat Navarrete PA-C Performing Location: [facility] Administered by: Willard Breaux CMA on 07/07/23 12:58 Dose Route Admin Location Dispensed Lot Number Expiration Date NDC Sld Inclusion Teacher 325 mg PO 325 mg [id number] [employer] Assessment & Plan Assessment & Plan (1) Cat bite: Comment: Lesions are cleansed with Betadine solution; forearm is wrapped utilizing non.adherent gauze and curlex. Tetanus immunization is updated today. Code(s): W55.01XA - Bitten by cat, initial encounter Qualifiers: Encounter type: initial encounter Qualified Code(s): W55.01XA - Bitten by cat, initial encounter Plan: Patient will be prescribed Augmentin b.i.d. x5 days as prophylactic dose. At this time there is no evidence of a secondary cellulitis. Patient is instructed to return for further evaluation if there is any sign of infection including increased redness, discharge from the lesion, increased pain or fever. Orders: Orders AMB Acetaminophen Adult Dose 07/07/23 W55.01XA - Bitten by cat, initial encounter TDaP Immunization 07/07/23 Z23 - Encounter for immunization Medications: New amoxicillin-pot clavulanate 875-125 mg 1 tab PO Q12H 10 tabs 0RF Coding Level of Care Code Est Pt Level 3 (37706) Diagnoses Cat bite, initial encounter W55.01XA Encounter type: initial encounter Time Spent (min) 25
[2023-07-07 08:26] VITALS: BP 118/72; PULSE 78; TEMP 36.8; O2SAT 97
== END 2023-07-07 09:33 | disposition home or self-care (01) ==
PROVIDERS: PCP Internal Medicine; Visit Provider Physician Assistant
DX: S51.802A Unspecified open wound of left forearm, initial encounter (principal); W55.01XA Bitten by cat, initial encounter
CPT/HCPCS: 90471; 90715; 99213

== ENCOUNTER 2023-07-26 09:14 | Outpatient (REF) | payer OTHER, SELFPAY ==
--- NOTE | ~2023-07-26 | XR_ITS ---
EXAMINATION: XR CERVICAL SPINE CLINICAL INFORMATION: Neck pain. COMPARISON: 10/29/2013. TECHNIQUE: AP and lateral views of the cervical spine. FINDINGS: Status post ACDF with anterior plate, screws and disc spacers spanning [id number]-C7-T1. Hardware appears intact. Large spur along the anteroinferior aspect of C1 progressed since 2013. XR/XR cervical spine 2V IMPRESSION: 1. Status post ACDF spanning C4-T1. Hardware appears intact. 2. Large spur along the anterior-inferior aspect of C1 progressed since 2013.
== END 2023-07-26 09:15 | disposition home or self-care (01) ==
LOC: HO.HMGCX 09:14
PROVIDERS: PCP Internal Medicine; Visit Provider Nurse Practitioner Family
DX: M54.2 Cervicalgia (principal); G56.93 Unspecified mononeuropathy of bilateral upper limbs; M96.1 Postlaminectomy syndrome, not elsewhere classified
CPT/HCPCS: 72040

== ENCOUNTER 2023-08-01 06:21 | Outpatient (REF) | payer OTHER, SELFPAY ==
[2023-08-01 12:05] LABS: MANUAL DIFF FLAG NO
[2023-08-01 12:07] LABS: Basophils Percent Auto 0.4 % (0-2); Eosinophils Absolute Auto 0.1 X10*3/uL (0.0-0.4); Eosinophils Percent Auto 0.8 % (0-4); Hematocrit 37.7 % (37.0-47.0); Hemoglobin 11.8 g/dl (12.0-16.0); Imm Gran Abs Auto 0.03 X10*3/uL (0.00-0.03); Imm Gran Pct Auto 0.3 % (0.0-0.4); Lymphocytes Absolute Auto 2.6 X10*3/uL (1.2-4.9); Lymphocytes Percent Auto 25.5 % (20-40); Mean Corpuscular HGB Conc 31.3 g/dl (31.0-35.0); Mean Corpuscular Hemoglobin 26.9 pg (27.0-33.0); Mean Corpuscular Volume 86.1 fL (80.0-98.0); Mean Platelet Volume 9.4 fL (9.4-12.3); Monocytes Absolute Auto 0.6 X10*3/uL (0.1-1.2); Monocytes Percent Auto 6.2 % (2-11); Neutrophils Absolute Auto 6.8 x10*3/uL (2.0-8.3); Neutrophils Percent Auto 66.8 % (45-73); Platelet Count 369 X10*3/uL (160-400); Red Blood Count 4.38 X10*6/uL (4.20-5.50); Red Cell Distribution Width 16.2 % (11.0-16.0); White Blood Count 10.2 X10*3/uL (4.8-10.8)
[2023-08-01 13:06] LABS: Glucose Fasting 91 mg/dL (60-99); Iron 40 mcg/dL (30-160); Percent Iron Saturation 11 % (15-50); Total Iron Binding Capacity 362 mcg/dL (228-428); Unsaturated Iron Binding 322 ug/dL; Vitamin D 25-OH Total 30.3 ng/mL (>30)
== END 2023-08-01 06:22 | disposition home or self-care (01) ==
LOC: HO.HMGCLDS 06:21
PROVIDERS: PCP Internal Medicine; Visit Provider Internal Medicine
DX: E55.9 Vitamin D deficiency, unspecified (principal); D50.9 Iron deficiency anemia, unspecified; R00.2 Palpitations; D50.0 Iron deficiency anemia secondary to blood loss (chronic); Z13.1 Encounter for screening for diabetes mellitus
CPT/HCPCS: 36415; 82306; 82947; 83540; 85025

== ENCOUNTER 2023-08-01 15:02 | Outpatient (AMB) | payer OTHER, SELFPAY ==
[2023-08-01 15:12] VITALS: BP 121/61; PULSE 83; O2SAT 100; BMI 35.4
--- NOTE | 2023-08-01 15:12 | A.OFFVIS_ITS ---
Vital Signs 08/01/23 15:12 Height 5 ft 7 in Weight 226 lb BMI 35.4 BP 121/61 Blood Pressure Location Rt brachial Position Sitting Pulse 83 Pulse Source Pulse Oximeter Pulse Oximetry (%) 100 Oxygen Delivery Method Room Air Intake Visit Reasons: follow up emg results Intake Note: Pain today 07/17 Microbiology Supervisor Required: No Accompanied by: Self / Same As Patient Allergies No Known Allergies Allergy (Verified 08/01/23 15:13) HPI Comments Details: Patient presents today for follow up to review results of recent EMG of upper and lower extremities. She continues to endorse numbness and tingling of bilateral upper and lower extremities. EMG showed right very mild/borderline median neuropathy at the wrist, consistent with Carpal Tunnel Syndrome. 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 She has tried multiple cortisone injections for right CTS symptoms in the past by Dr. Rosas with good results. She is interested to be evaluated by Hand Specialist. Patient is also seeing cardiology, Dr. Cross on 08/09/23 for palpitations and recent panic attacks. Denies any chest pain, tightness or shortness of breaths. Her neck pain is most bothersome and radiates to left arm and between shoulder blades. She reports significant right arm radicular pain resolution after cervical fusion last summer in [place]. Patient reports same symptoms have shifted to left side. She denies any recent trauma, injury or falls. Denies any bladder or bowel dysfunction or saddle anesthesia. Reports ongoing numbness and tingling with burning sensations in lower extremities, worse at night or prolonged walking or standing. She does have varicose veins with intermittent pain and swelling. Patient was referred to Vascular in 2021 but was not scheduled yet. I will resubmit Vascular referral today. Denies any recent cough, cold, infection, fever, any significant changes in her medical history, medications or recent hospitalizations. PRIOR: Patient presents today for medication review. She was last seen in our office in August 2021 after which she moved to [place], [place] and moved back last November,. She was planning to undergo right RTC surgery in [place] but upon surgical evaluation was noted to have significant cervical scoliosis for which she underwent cervical spine fusion with screws and plates in place. Patient reports her right shoulder symptoms have subsided since surgery. Patient reports chronic neck pain with muscle stiffness and limited range of motion but continues to do regular home exercises program and completed 6 weeks of PT after cervical spine surgery in [place]. She has been taking gabapentin TID-QID, spreading it one tab in the morning and afternoon and 2 tabs at bedtime or taking it at am, noon, afternoon and bedtime. She continues to take cyclobenzaprine with good effect and denies any side effects to both medications. She requests refill for gabapentin today. Patient reports numbness and tingling with burning sensations in her upper and lower extremities, with CTS components in her both wrists. She states gabapentin has been helpful but concerned her neuropathy symptoms has been progressively worsening. Denies any recent neurodiagnostic studies. Denies any bladder or bowel dysfunction or saddle anesthesia. Reports left upper extremity decreased strength. Patient is also re-establishing care with Psychology provider and recently had intake at [facility] to manage her stress, OCD, anxiety, depression, insomnia and PTSD. PRIOR: Patient is a pleasant 46 year old female who presents today for evaluation of right shoulder pain due to torn rotator cuff, right wrist pain due to carpal tunnel syndrome and bilateral lower leg pain with burning sensations. 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 She is not sure of the cause for bilateral leg pain since 2020. Patient reports her most concerning pain today is her right shoulder. She endorses difficulty with lifting, overhead movements, pushing, or movements with hand behind her back. She was seen by orthopedic surgeon Dr. Nunez in 2016 and has received cortisone injections. She also reports getting cortisone injections for her right wrist pain. Denies shoulder surgery and states she was told she needs RTC surgery but has been putting off due to family and work commitments. Patient reports she is raising 2 children as a single mom and has not been able to take time off from work to undergo surgery and rehabilitation. Patient reports right shoulder MRI was obtained in 2016 which we do not have a report or imaging today . Patient has previously tried physical therapy, bracing, injections, topical, pain and muscle relaxant medications and ice/heat therapy with minimal to no pain relief. She notes physical therapy has worsened her symptoms. Patient cannot take NSAIDs due to previous bariatric surgery. [facility] Medical History Restless leg syndrome Caffeine dependence Intermittent palpitations Obesity (BMI 35.0-39.9 without comorbidity) Hyperlipidemia Vitamin D deficiency OCD (obsessive compulsive disorder) Cigarette smoker motivated to quit Scoliosis of cervical region due to degenerative disease of spine in adult History of vitamin D deficiency Chronic right shoulder pain Varicose veins of bilateral lower extremities with pain Anemia Anxiety and depression Immunization refused Heavy cigarette smoker (20-39 per day) Menorrhagia HILDA (iron deficiency anemia) Rotator cuff disorder Surgical History (Updated 08/01/23 @ 15:22 by SHANNON Castillo) History of cervical spinal surgery History of endometrial ablation Hx of dilation and curettage History of cholecystectomy History of H/O gastric bypass H/O tubal ligation Family History Father Mental health disorder Daughter Mental health disorder Paternal Aunt Mental health disorder Social History Housing: Apartment Alcohol intake: former Patient Tobacco Use Status: Current everyday Tobacco user Cigarette Packs Per Day: 1 e-Cigarette/Vaping Use: Never Used Substance Use Type: Marijuana service: No Current occupational status: employed 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[employer], 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 Cognitive needs: No Hearing needs: No Vision needs: Yes Female Reproductive History Menstrual Age of Menarche: 13 Review of Systems Const All systems reviewed & are unremarkable except as noted in HPI and below Reports as per HPI, Denies body aches, Denies chills, Reports difficulty sleeping, Reports fatigue, Denies fever(s), Reports headache(s), Denies malaise, Denies night sweats, Denies weakness and Denies weight loss ENT Reports Normal hearing present and Reports headache(s) Card Denies acrocyanosis, Denies chest pain with activity, Denies syncope, Denies edema, Reports claudication, Denies leg edema, Denies lightheadedness, Reports palpitations (occasionally) and Denies dyspnea on exertion Resp Denies cough and Denies dyspnea on exertion Neuro Reports Normal hearing present, Denies Abnormal speech present, Denies confusion, Denies syncope, Reports headache(s), Denies Sensory deficit (Neuro) and Denies weakness Psych Denies confusion Endo Reports fatigue and Reports palpitations (occasionally) Physical Exam General: Appears afebrile. Alert and oriented. Mood and affect appropriate. Follows and participates in conversation appropriately. Respiratory effort is unlabored. No cough. Able to transition from sit to stand unassisted. Ambulates with bilaterally normal heel strike and toe off. Const General: No confusion Orientation/consciousness: patient oriented x3 and No confusion Eyes Pupils: Equal, round and reactive pupils present Neck Neck: Yes no lymphadenopathy, Yes supple, No anterior neck swelling, No torticollis, No tracheal deviation, Yes no JVD and No prominent dorsocervical fat pad Back/Spine/Pelvis Cervical Spine: No collar present, No Lhermitte's sign positive, cervical muscular tenderness, pain with cervical ROM, Cervical spine scars present (anterior), cervical spasm (left>right), No Cervical spine tenderness and No step off deformity Thoracic/Lumbar Spine: thoracic and lumbar spine normal to inspection, No Thoracic/lumbar spine scar(s), paraspinal muscle tenderness, thoraco-lumbar ROM limited, Thoracic/lumbar scoliosis (cervicothoracic levoscoliosis), No thoracic spinal tenderness and No lumbar spinal tenderness Neuro General: patient oriented x3, CN's II-XI intact bilaterally and No confusion Cranial nerves: Yes Equal, round and reactive pupils present, Yes Normal hearing present and Yes Ability to bilaterally elevate shoulders present Cognition (Neuro): normal cognition Speech: No Abnormal speech present Gait exam (Neuro): Normal gait present and No Assistive device used Motor exam (neuro): 5/5 motor strength present throughout (4/5 LUE), no tremor noted and Motor abnormalities not present Sensory Exam: No Sensory deficit (Neuro) Extrem General: Yes capillary refill normal, Yes no clubbing, cyanosis or edema, Yes no calf tenderness and Yes other (multiple varicose veins BLE) Right upper extremity: wrist (+Tinel's, pain with wrist flexion) Details: normal to inspection, normal ROM and radial pulse present; no tenderness and no unusual warmth Results Reviewed Results Reviewed: NE electromyogram (EMG); NE nerve conduction velocity 06/29/23 IMPRESSION: 1. This is an abnormal study. 2. There is electrodiagnostic evidence for right very mild/borderline median neuropathy at the wrist, consistent with Carpal Tunnel Syndrome. 3. There is no electrodiagnostic evidence for ulnar neuropathy, brachial plexopathy, cervical radiculopathy. peroneal neuropathy, tibial neuropathy. lumbosacral plexopathy, lumbar radiculopathy, or peripheral neuropathy. CT/CT head/brain wo IV con 05/02/23 No acute intracranial pathology. CT/CT abdomen pelvis w con 04/28/21 OSSEOUS STRUCTURES: Unremarkable. XR SHOULDER, RIGHT 07/21/2015 XR ACROMIOCLAVICULAR JOINTS CLINICAL INFORMATION: Right shoulder/right arm numbness. Pain. Decreased range of motion. FINDINGS: Right shoulder: No acute fracture or dislocation. The humeral head articulates appropriately with the glenoid. The joint space is maintained. The visualized lung is clear. Acromioclavicular joints: The acromioclavicular joints are symmetric. There is no abnormal widening with weights. Mild hypertrophic degenerative changes are seen at the right acromioclavicular joint. The lung apices are clear. IMPRESSION: Mild degenerative changes of the right acromioclavicular joint. No abnormal widening. Cervical Spine series 10/29/2013 CLINICAL INFORMATION: Neck and right arm pain with flexion and extension. FINDINGS: The prevertebral soft tissues are normal in configuration. There is a levoscoliosis of the cervicothoracic spine centered at the T3 level. The bones are normal in mineralization and architecture. There is no evidence of a fracture or spondylolisthesis. No kyphotic angulation or subluxation is detected on flexion and extension views. There is minimal disc space narrowing at the C4-C5, C5-C6 and C6-C7 levels with associated spondylytic lipping of the vertebral endplates. There is suggestion of a small posterior bar at C6-C7 level. The neural foramina are patent with out evidence of any bony encroachment. No significant facet joint arthropathy is appreciated. The posterior elements appear to be intact. IMPRESSION: 1. Mild degenerative disc disease with associated spondylitic changes at the C4-C5, C5-C6, and C6-C7 levels without evidence of instability. 2. No evidence of bony neural foraminal encroachment. 3. Levoscoliosis of the cervicothoracic spine. Assessment & Plan Assessment & Plan (1) Scoliosis of cervical region due to degenerative disease of spine in adult: Code(s): M41.52 - Other secondary scoliosis, cervical region Category: Medical (2) Cervical post-laminectomy syndrome: Code(s): M96.1 - Postlaminectomy syndrome, not elsewhere classified Category: Medical (3) Neuropathy involving both lower extremities: Code(s): G57.93 - Unspecified mononeuropathy of bilateral lower limbs Category: Medical (4) Cervical radiculitis: Code(s): M54.12 - Radiculopathy, cervical region Category: Medical (5) History of fusion of cervical spine: Code(s): Z98.1 - Arthrodesis status Category: Surgical (6) Carpal tunnel syndrome of right wrist: Code(s): G56.01 - Carpal tunnel syndrome, right upper limb Category: Medical Plan Neurodiagnostic study results were discussed with patient today. MRI of the cervical spine to assess for neural integrity and compression and follow on cervical hardware status with recent h/o cervical fusion in July 2022. Patient prefers open MRI, will schedule at [facility]. Hand surgery referral for right hand CTS per exam and recent EMG studies. Consider bracing, avoid pain producing activities. Continue gabapentin and duloxetine. Resubmitting Vascular evaluation for BLE varicose veins with pain. All questions and concerns have been answered and patient agreed with the plan. Follow up for MRI results and sooner as needed. Orders: Orders MR cervical spine wo/w con Today G57.93 - Unspecified mononeuropathy of bilateral lower limbs, M41.52 - Other secondary scoliosis, cervical region, M54. 12 - Radiculopathy, cervical region, Z98.1 - Arthrodesis status Referrals Vascular Surgery Referral I83.813 - Varicose veins of bilateral lower extremities with pain Hand Surgery Referral G56.01 - Carpal tunnel syndrome, right upper limb Coding Level of Care Code Est Pt Level 4 (69558) Diagnoses Scoliosis of cervical region due to degenerative disease of spine in adult M41.52 Cervical post-laminectomy syndrome M96.1 Neuropathy involving both lower extremities G57.93 Cervical radiculitis M54.12 History of fusion of cervical spine Z98.1 Carpal tunnel syndrome of right wrist G56.01
== END 2023-08-01 15:36 | disposition home or self-care (01) ==
PROVIDERS: PCP Internal Medicine; Visit Provider Nurse Practitioner Family
DX: M41.52 Other secondary scoliosis, cervical region (principal); M96.1 Postlaminectomy syndrome, not elsewhere classified; G57.93 Unspecified mononeuropathy of bilateral lower limbs; M54.12 Radiculopathy, cervical region; Z98.1 Arthrodesis status; G56.01 Carpal tunnel syndrome, right upper limb
CPT/HCPCS: 99214

== ENCOUNTER 2023-08-04 13:34 | Outpatient (AMB) | payer OTHER, SELFPAY ==
[2023-08-04 14:17] VITALS: BP 106/68; PULSE 65; O2SAT 100; BMI 35.7
--- NOTE | 2023-08-04 14:17 | A.OFFPC_ITS ---
Vital Signs 08/04/23 14:17 Height 5 ft 7 in Weight 228 lb BMI 35.7 BP 106/68 Blood Pressure Location Lt brachial Position Sitting Pulse 65 Pulse Source Pulse Oximeter Pulse Oximetry (%) 100 Oxygen Delivery Method Room Air Intake Visit Reasons: 2 month follow up Intake Note: Pt is here today for her 2 months f/u Allergies No Known Allergies Allergy (Verified 08/14/23 21:10) Medication List - Last Reconciled 08/04/23 by Rosio Augustine MD clonidine HCl 0.1 mg PO Q4H 30 days docusate sodium 100 mg PO DAILY duloxetine 20 mg PO BID 30 days eszopiclone 3 mg PO BEDTIME PRN ferrous sulfate 325 mg PO DAILY gabapentin 600 mg PO TID hydroxyzine HCl 10 mg PO QID PRN magnesium oxide 250 mg PO DAILY metoprolol succinate ER 25 mg PO DAILY polyethylene glycol 3350 (Miralax) 17 grams PO DAILY PRN pramipexole 0.125 mg PO BEDTIME varenicline 1 mg PO BID Wegovy (semaglutide (weight loss)) 0.5 mg (0.5 mL) subcut QWEEK 1 month NS Tobacco use date assessed: 08/04/23 Dental Screening Dental Screen Date: 08/04/23 Did you have a dental visit in the last 12 months?: No Was dental information given to patient?: Patient has dentist HPI 2 month follow up HPI Details 48-year-old lady here today for follow-u p on her anemia. She is currently taking ferrous sulfate 325 mg daily, recent labs showed improvement in her hemoglobin/hematocrit, now almost back to normal. Iron levels however still on the low side. She was started on varenicline for it with smoking cessation last visit 2 months ago, continues to smoke cigarettes, but has been cutting back slowly. [facility] Medical History (Updated 08/14/23 @ 21:17 by Rosio Augustine MD) On varenicline therapy Restless leg syndrome Caffeine dependence Intermittent palpitations Obesity (BMI 35.0-39.9 without comorbidity) Hyperlipidemia Vitamin D deficiency OCD (obsessive compulsive disorder) Cigarette smoker motivated to quit Scoliosis of cervical region due to degenerative disease of spine in adult History of vitamin D deficiency Chronic right shoulder pain Varicose veins of bilateral lower extremities with pain Anemia Anxiety and depression Immunization refused Heavy cigarette smoker (20-39 per day) Menorrhagia HILDA (iron deficiency anemia) Rotator cuff disorder Surgical History History of cervical spinal surgery History of endometrial ablation Hx of dilation and curettage History of cholecystectomy History of H/O gastric bypass H/O tubal ligation Family History Father Mental health disorder Daughter Mental health disorder Paternal Aunt Mental health disorder Social History Housing: Apartment Alcohol intake: former Patient Tobacco Use Status: Current everyday Tobacco user Cigarette Packs Per Day: 1 e-Cigarette/Vaping Use: Never Used Substance Use Type: Marijuana service: No Current occupational status: employed 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 Kali Sheriff, Azul Palencia, Amrit Rogers and colleagues, with an educational alfa from [employer]. Review of Systems Const Reports difficulty sleeping and Denies fatigue (Resolving) ENT Reports no additional complaints Card Denies chest pain and Denies lightheadedness Resp Denies cough GI Denies abdominal pain, Denies melena, Denies change in bowel habits and Denies heartburn Neuro Reports no additional complaints Endo Denies fatigue (Resolving) Dell/Lymph Reports no additional complaints Physical exam (Primary Care) Vital Signs: Last Vital Signs Pulse 65 08/04/23 14:17 BP 106/68 08/04/23 14:17 Pulse Ox 100 08/04/23 14:17 Oxygen Delivery Method Room Air 08/04/23 14:17 BMI result Body Mass Index 35.7 Tobacco/Smoking Status: Tobacco use Status Tobacco use date assessed 08/04/23 08/04/23 14:19 Patient Tobacco Use Status Current everyday Tobacco 08/04/23 14:19 e-Cigarette/Vaping Use Never Used 08/04/23 14:19 Thrive Assessment: Date of Thrive Assessment Date Thrive assessed 05/27/23 08/04/23 14:19 Const Other: Alert oriented x3, no acute cardiorespiratory distress, ambulatory with normal gait, accompanied by daughter Orientation/consciousness: patient oriented x3 [facility] General nose exam: Normal external nose present Face and sinus: Yes face symmetric Mouth: Normal oral and palatal mucosa present, oropharynx normal and moist mucous membranes Eyes General: appearance normal, both eyes and all related structures Neck Other: Supple, no lymphadenopathy, thyroid gland nonpalpable Resp Effort & Inspection: normal respiratory effort and able to speak in complete sentences Auscultation: clear to auscultation bilaterally Cardio Other: S1-S2 present regular rate and rhythm GI Palpation (GI): Soft to palpation, nontender, no guarding and no masses Neuro General: patient oriented x3, gait normal, moves all extremities, Normal light touch and pain sensation and CN's II-XI intact bilaterally Results Reviewed Results Reviewed: Name: Stefany Smith Age/Sex: 48/F : 1975 Unit#: [id number] Attend Dr: Rosio Augustine MD Re08/01/23 Status: DEP REF Location: [facility] Disch: SPEC : [id number] TANI: 08/01/23 STATUS: COMP REQ : [id number] RECD: 08/01/[address]: Rosio Augustine MD COMP: 08/01/23 ENTERED: 08/01/[address]: ORDERED: CBC Auto Diff Test Result Flag Reference WBC 10.2 4.8-10.8 X10*3/uL RBC 4.38 4.20-5.50 X10*6/uL HGB 11.8 L 12.0-16.0 g/dl HCT 37.7 37.0-47.0 % MCV 86.1 80.0-98.0 fL MCH 26.9 L 27.0-33.0 pg MCHC 31.3 31.0-35.0 g/dl RDW 16.2 H 11.0-16.0 % PLT 369 160-400 X10*3/uL MPV 9.4 9.4-12.3 fL Neut Pct Auto 66.8 45-73 % ImGran Pct Auto 0.3 0.0-0.4 % Lymp Pct Auto 25.5 20-40 % Robertson Pct Auto 6.2 2-11 % Eos Pct Auto 0.8 0-4 % Baso Pct Auto 0.4 0-2 % NRBC Pct Auto 0.0 0.0-0.2 /100WBC ANC Neut Abs # 6.8 2.0-8.3 x10*3/uL ImGran Abs Auto 0.03 0.00-0.03 X10*3/uL Lymph Abs Auto 2.6 1.2-4.9 X10*3/uL Robertson Abs Auto 0.6 0.1-1.2 X10*3/uL Eos Abs Auto 0.1 0.0-0.4 X10*3/uL Baso Abs Auto 0.0 0.0-0.2 X10*3/uL NRBC Abs Auto 0.000 0.0-0.012 X10*3/uL Name: Stefany Smith Age/Sex: 48/F : 1975 Unit#: [id number] Attend Dr: Rosio Augustine MD Re08/01/23 Status: DEP REF Location: [facility] Disch: SPEC : [id number] TANI: 08/01/23 STATUS: COMP REQ : [id number] RECD: 08/01/[address]: Rosio Augustine MD COMP: 08/01/231306 ENTERED: 08/01/[address] [facility] [address]: ORDERED: Glu Fasting, IRON PROF, Vitamin D 25-OH Test Result Flag Reference FBS 91 60-99 mg/dL Iron 40 30-160 mcg/dL TIBC 362 228-428 mcg/dL Saturation 11 L 15-50 % UIBC 322 ug/dL Vit D 25-OH Tot 30.3 L >30 ng/mL Health Based Reference Values* < 20 ng/mL Deficient 20-30 ng/mL Insufficient > 30 ng/mL Sufficient Assessment and Plan Assessment & Plan (1) HILDA (iron deficiency anemia): Code(s): D50.9 - Iron deficiency anemia, unspecified Qualifiers: Iron deficiency anemia type: chronic blood loss Qualified Code(s): D50.0 - Iron deficiency anemia secondary to blood loss (chronic) Plan: Improving hemoglobin hematocrit levels, continue ferrous sulfate 325 mg 1 tablet daily (2) Cigarette smoker motivated to quit: Code(s): F17.210 - Nicotine dependence, cigarettes, uncomplicated Plan: Continue with varenicline 1 mg twice a day, and continue cutting back on smoking, should set a quit date on went to stop smoking. 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
== END 2023-08-04 15:52 | disposition home or self-care (01) ==
LOC: HO.HMGC 13:34
PROVIDERS: PCP Internal Medicine; Visit Provider Internal Medicine
DX: D50.0 Iron deficiency anemia secondary to blood loss (chronic) (principal); F17.210 Nicotine dependence, cigarettes, uncomplicated; Z79.899 Other long term (current) drug therapy; Z86.39 Personal history of other endocrine, nutritional and metabolic disease
CPT/HCPCS: 99214

== ENCOUNTER 2023-08-09 08:58 | Outpatient (AMB) | payer OTHER, SELFPAY ==
--- NOTE | 2023-08-09 09:03 | A.OFFVIS_ITS ---
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 Palpitations Credit Administration Manager Required: No Allergies No Known Allergies Allergy (Verified 08/04/23 14:18) Medication List - Last Reconciled 08/09/23 by Alexander Cross MD clonidine HCl 0.1 mg PO Q4H 30 days docusate sodium 100 mg PO DAILY duloxetine 20 mg PO BID eszopiclone 3 mg PO BEDTIME PRN ferrous sulfate 325 mg PO DAILY gabapentin 600 mg PO TID hydroxyzine HCl 10 mg PO QID PRN magnesium oxide 250 mg PO DAILY metoprolol succinate ER 25 mg PO DAILY polyethylene glycol 3350 (Miralax) 17 grams PO DAILY PRN pramipexole 0.125 mg PO BEDTIME varenicline 1 mg PO BID Wegovy (semaglutide (weight loss)) 0.5 mg (0.5 mL) subcut QWEEK 1 month NS HPI Comments Details: Thank you for referring Stefany in cardiology consultation today for symptoms of palpitations. She is a 48-year-old woman with prior history of morbid obesity status post gastric bypass surgery, which has led to about greater than 100 lb weight loss and she is done well with it, mood disorder as well as OCD on psychoactive medications, heavy smoker which she is currently reducing her smoking intake, heavy caffeine intake has been having increased symptoms of palpitations over the last many months. She said she said her palpitations in the past but they were not as frequent and she would notice them as she thought they were due to her poor lifestyle choices. However more recently she is noticing increasing palpitations happening mostly at rest but can happen while at work or at home and sometimes with activity. She feels fluttering/skipped heartbeats in the precordial area. She had presented as the symptoms have worsened in Aprilto the emergency room at that time the workup was benign with benign EKG and normal labs. She had syncopized at that time while in the [facility] room and due to not able to catch her breath and had a CT which was negative. She says she has been feeling increasingly tired and notices the frequency of palpitation have increased. Her daughter bother her Apple watch and she notices whenever she gets his flutter heart rate dips from baseline 83 to 70 beats per minute. She is worried about this. No obvious diagnosis has been made. She was started on metoprolol therapy in April which she does not think has helped her significantly. [facility] Medical History Restless leg syndrome Caffeine dependence Intermittent palpitations Obesity (BMI 35.0-39.9 without comorbidity) Hyperlipidemia Vitamin D deficiency OCD (obsessive compulsive disorder) Cigarette smoker motivated to quit Scoliosis of cervical region due to degenerative disease of spine in adult History of vitamin D deficiency Chronic right shoulder pain Varicose veins of bilateral lower extremities with pain Anemia Anxiety and depression Immunization refused Heavy cigarette smoker (20-39 per day) Menorrhagia HILDA (iron deficiency anemia) Rotator cuff disorder Surgical History History of cervical spinal surgery History of endometrial ablation Hx of dilation and curettage History of cholecystectomy History of H/O gastric bypass H/O tubal ligation Family History Father Mental health disorder Daughter Mental health disorder Paternal Aunt Mental health disorder Social History Housing: Apartment Alcohol intake: former Patient Tobacco Use Status: Current everyday Tobacco user Cigarette Packs Per Day: 1 e-Cigarette/Vaping Use: Never Used Substance Use Type: Marijuana service: No Current occupational status: employed 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[employer], 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[employer], 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 Cognitive needs: No Hearing needs: No Vision needs: Yes Female Reproductive History Menstrual Age of Menarche: 13 Review of Systems Const Reports chills, Reports daytime sleepiness, Reports fatigue, Reports fever(s), Reports frequent falls, Reports poor appetite, Reports snoring, Reports stops breathing during sleep, Reports weakness, Reports weight gain and Reports weight loss Eyes Reports loss of vision ENT Reports dizziness and Reports hearing loss Card Reports chest pain, Reports claudication, Reports leg edema, Reports lightheadedness, Reports palpitations, Reports dyspnea, Reports dyspnea on exertion and Reports orthopnea Resp Reports cough, Reports excessive phlegm production, Reports dyspnea, Reports dyspnea on exertion, Reports snoring and Reports wheezing GI Reports abdominal pain, Reports hematochezia, Reports change in bowel habits, Reports nausea and Reports vomiting Reports urinary frequency and Reports dysuria Musc Reports arthralgias, Reports muscle weakness and Reports numbness Skin/Breast Reports nail changes and Reports rash Neuro Reports Abnormal speech present, Reports dizziness, Reports frequent falls, Reports loss of vision, Reports memory loss, Reports numbness and Reports weakness Psych Reports depression and Reports memory loss Endo Reports fatigue and Reports palpitations Dell/Lymph Reports easy bruising Aller/Immun Reports wheezing Physical Exam Vital Signs: Last Vital Signs Pulse 74 08/09/23 09:04 BP 130/84 08/09/23 09:04 BMI result Body Mass Index 35.7 Const General: cooperative, comfortable, no acute distress, alert, awake, Physically active and well groomed Nutritional Appearance: obese Orientation/consciousness: patient oriented x3 Limitations: no limitations HEENT Head: Yes normocephalic and Yes atraumatic Neck Neck: Yes trachea midline, Yes supple and Yes no JVD Resp Effort & Inspection: normal respiratory effort Auscultation: clear to auscultation bilaterally Cardio Jugular venous distension: no JVD Palpation: normal PMI Rate: regular rate Rhythm: regular rhythm Heart sounds: S1 normal heart sound present, S2 normal heart sound present, no click, no gallops, no murmurs and no rubs GI Auscultation: normal bowel sounds Skin General skin exam: no rashes or lesions noted Neuro General: patient oriented x3 and no focal motor deficits Speech: Abnormal speech present Extrem General: Yes no clubbing, cyanosis or edema Psych Appearance: grossly normal Office Procedures EKG Details: EKG shows normal sinus rhythm with normal EKG with normal axis and normal intervals [id number], Complete Assessment & Plan Assessment & Plan (1) Intermittent palpitations: Code(s): R00.2 - Palpitations Category: Medical Plan: Intermittent episodes of palpitation with increased frequency and change in quality of life for her, most likely clinically appears to be PVCs. However these need to be diagnose. Would suggest a 7 day Holter monitor to further assess for the same. We explained the drop in heart rate due to lack of stroke volume caused by an isolated PVCs. However also evaluated given her multiple risk factors for structural heart disease including ruling out myocardial ischemia as well as an LV structure and function. Will suggest a treadmill stress test to assess for ischemia and also evaluate for exercise-induced arrhythmia. Echocardiogram to assess for LV systolic and diastolic function RV size and function. Further treatment based on the findings. At this point in time continue metoprolol therapy. We discussed about tapering and discontinuing caffeine therapy which she has not quite open to. Also encouraged to eventually abstain from smoking. She says she is trying. Can consider coronary calcium score to evaluate for presence of coronary atherosclerosis if the stress test is within normal limits. Will follow up in the clinic after above-mentioned test. Thank you for allowing me to partake in her care Orders: Orders CA stress test Today R00.2 - Palpitations ECG 7 day holter monitor Today R00.2 - Palpitations CA echo transthoracic complete Today R00.2 - Palpitations Coding Level of Care Code New Pt Level 4 (03919) Diagnoses Intermittent palpitations R00.2 CPT Codes EKG - CPT: 35273-[id number], Complete ([id number])
[2023-08-09 09:04] VITALS: BP 130/84; PULSE 74; BMI 35.7
== END 2023-08-09 09:50 | disposition home or self-care (01) ==
PROVIDERS: PCP Internal Medicine; Visit Provider Internal Medicine Cardiovascular Disease
DX: R00.2 Palpitations (principal)
CPT/HCPCS: 93010; 99204

== ENCOUNTER → 2023-08-09 08:58 | Outpatient (BNVA) | payer OTHER, SELFPAY | PROVIDERS: PCP Internal Medicine; Visit Provider Internal Medicine Cardiovascular Disease | DX: R00.2 Palpitations (principal) | CPT/HCPCS: 93005 ==

== ENCOUNTER 2023-08-10 13:32 | Outpatient (REF) | payer OTHER, SELFPAY ==
[2023-08-25 08:13] LABS: HPV 16 RNA NOT DETECTED
== END 2023-08-10 13:33 | disposition home or self-care (01) ==
LOC: HO.LNP 13:32
PROVIDERS: PCP Internal Medicine; Visit Provider Obstetrics & Gynecology
DX: Z01.419 Encounter for gynecological examination (general) (routine) without abnormal findings (principal); Z11.51 Encounter for screening for human papillomavirus (HPV)
CPT/HCPCS: 87624; 87625; 88175

== ENCOUNTER 2023-08-10 13:32 | Outpatient (AMB) | payer OTHER, SELFPAY ==
--- NOTE | 2023-08-10 13:36 | A.OFFVIS_ITS ---
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 No complaints. Last Pap/HPV was negative in 09/25 Last Mammogram was BI-RADS 1 in 03/31 No previous screening colonoscopy [facility] Medical History Restless leg syndrome Caffeine dependence Intermittent palpitations Obesity (BMI 35.0-39.9 without comorbidity) Hyperlipidemia Vitamin D deficiency OCD (obsessive compulsive disorder) Cigarette smoker motivated to quit Scoliosis of cervical region due to degenerative disease of spine in adult History of vitamin D deficiency Chronic right shoulder pain Varicose veins of bilateral lower extremities with pain Anemia Anxiety and depression Immunization refused Heavy cigarette smoker (20-39 per day) Menorrhagia HILDA (iron deficiency anemia) Rotator cuff disorder Surgical History History of cervical spinal surgery History of endometrial ablation Hx of dilation and curettage History of cholecystectomy History of H/O gastric bypass H/O tubal ligation Family History Father Mental health disorder Daughter Mental health disorder Paternal Aunt Mental health disorder Social History Housing: Apartment Alcohol intake: former Patient Tobacco Use Status: Current everyday Tobacco user Cigarette Packs Per Day: 1 e-Cigarette/Vaping Use: Never Used Substance Use Type: Marijuana service: No Current occupational status: employed 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[employer], 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 Cognitive needs: No Hearing needs: No Vision needs: Yes Female Reproductive History Menstrual Age of Menarche: 13 Date of last pap smear: 09/28/18 Date of Mammogram: 04/06/21 Review of Systems Const All systems reviewed & are unremarkable except as noted in HPI and below Card Reports as per HPI Resp Reports as per HPI GI Reports as per HPI and Reports no additional complaints Reports as per HPI Physical Exam Vital Signs: Last Vital Signs BP 126/82 08/10/23 13:38 BMI result Body Mass Index 35.6 Const General: cooperative, healthy appearing and comfortable Chest Chest palpation & inspection: normal inspection of the chest and normal palpation of entire chest wall Breast/axilla inspection: normal inspection of the breasts and normal inspection of the axillae Breast/axilla palpation: normal palpation of the breasts, normal palpation of the axillae and no axillary lymphadenopathy Resp Effort & Inspection: normal respiratory effort Auscultation: clear to auscultation bilaterally Percussion: percussion normal Cardio Palpation: normal PMI Rate: regular rate Rhythm: regular rhythm Heart sounds: no murmurs and no rubs Peripheral pulses: Peripheral pulses 2+ throughout GI Inspection: Yes normal to inspection Palpation (GI): Soft to palpation, nontender, no guarding, not rigid and No hepatosplenomegaly present Percussion: Yes normal to percussion Auscultation: normal bowel sounds Rectal Exam - Female: deferred General: Yes bladder normal to palpation External Female Exam: No lesion Speculum Exam - Vagina: normal appearance of the vagina, normal palpation, normal vaginal discharge and not erythematous Speculum Exam - Cervix: normal appearance of the cervix and normal palpation Bimanual exam- vagina & uterus: normal bimanual exam, normal palpation, uterine size normal, bladder normal to palpation, consistency normal and normal palpation Bimanual Exam- Adnexa, other: normal adnexae, no masses and no tenderness Assessment & Plan Assessment & Plan (1) Well woman exam: Code(s): Z01.419 - Encounter for gynecological examination (general) (routine) without abnormal findings Category: Medical Plan: Co testing done. Counseled the patient about the recommended dietary allowance of 1200 mg of Calcium & 600 IU of vitamin D. Mammogram ordered. Recommended to the patient to be referred to GI for screening colonoscopy, the patient would like to think about it and get back to me . The patient was instructed to perform monthly self-breast exams and schedule annual exam in a year. All questions answered and the patient verbalized understanding. Orders: Orders MM tomosynthesis screening BI Today Z12.31 - Encounter for screening mammogram for malignant neoplasm of breast Coding Level of Care Code Est Pt Prev Care 40-64y(03532) Diagnoses Well woman exam Z01.419
[2023-08-10 13:38] VITALS: BP 126/82; BMI 35.6
== END 2023-08-10 14:00 | disposition home or self-care (01) ==
PROVIDERS: PCP Internal Medicine; Visit Provider Obstetrics & Gynecology
DX: Z01.419 Encounter for gynecological examination (general) (routine) without abnormal findings (principal)
CPT/HCPCS: 99396

== ENCOUNTER 2023-08-26 08:56 | Outpatient (AMB) | payer OTHER, SELFPAY ==
--- NOTE | 2023-08-26 09:17 | HO.SPINEOV ---
Intake Visit Reasons: cervical radiculopathy Intake Note: Ms. Smith is here today c/o neck pain that radiates to both arms. Government Affairs Fellow Required: No Allergies No Known Allergies Allergy (Verified 08/26/23 09:18) Assessment & Plan Assessment & Plan (1) Cervical radiculitis: Code(s): M54.12 - Radiculopathy, cervical region Category: Medical Plan Dear Jill, Thank you for referring Mrs Smith to our office today. This is a 48-year-old female who presents to the office today for evaluation of chronic interscapular neck pain, left hand numbness and persistent right arm pain after a C4-T1 fusion done in 2020 at [facility]. She tells me that the surgery was done because of right arm weakness and spinal cord compression. She underwent the proceed and had improvement in the arm weakness to the point where she was able to lift her arm up again. However, there has been an interscapular lower cervical upper thoracic pain that she has been continuing to deal with since the operation. She also continues to complain of left hand numbness. She describes it as the whole hand being numb. There is also pain that continues to shoot down her right arm into her forearm. That was present before the surgery as well, got slightly better but just never completely went away. She is here today to review her MRI and her x-rays. She currently takes gabapentin, duloxetine, leave to help with the pain. She was on cyclobenzaprine but that was stopped. She does not report any new myelopathic symptoms. PMH: History of PCOS, high cholesterol, Igor-en-Y bypass, some type of sinus arrhythmia, anemia, cholecystectomy, uterus cauterization, C4-T1 anterior cervical fusion. Social hx: Still smokes about a quarter of a pack a day, marijuana nightly, no alcohol Medications: Gabapentin, duloxetine, cyclobenzaprine, leave, clonidine, Colace, Lunesta, iron, wegovy, pramipexole, metoprolol, hydroxyzine, Chantix Allergies: None Physical exam: Patient is awake alert oriented x3, she has a well healed incision in the front of her neck on the left side, strength is full in bilateral upper extremities with the exception of some pain related weakness in her right shoulder secondary to a rotator cuff tear. Reflexes are 2+ and symmetric in the upper and lower extremities. There is no Brar's sign. Tinel sign is negative bilaterally. Imaging review: There is a cervical MRI and cervical x-rays as well as a chest x-ray to review. Cervical MRI was done at [facility] and this shows evidence of metallic hardware defects from C4-T1. The patient has no residual spinal cord compression. The neuroforamina are patent. Her x-rays show that she has evidence of good alignment with the interbody cages the plate is in good position. It does appear as though 1 of the screws in the bottom left may have come forward slightly. There is nothing here to suggest instability. There is a chest x-ray done in 2014 compared to 1 done recently and it does show slight worsening of her levoscoliosis in the upper thoracic spine. Impression: 48-year-old female with a C4-T1 anterior cervical fusion for what sounds like spinal cord compression right arm weakness who did have good improvement in her symptoms postoperatively, with the exception of an interscapular lower cervical upper thoracic neck pain, right arm radiculopathy going down into her forearm and numbness of her left hand. I reviewed all the imaging with Dr. Cuevas in her clinical presentation. Although she has signs of 1 of the screws coming out in the lower edge of the cervical plate, he does not feel there is any evidence of instability here. The plate is in good position. She does have some progression of the thoracic scoliosis which is worse compared to her x-ray done in 2014. This could be an adjacent segment type problem or just strictly degeneration of the scoliosis that can occur naturally. Because of the fusion in the scoliosis combined together, it certainly would be expected that she would have pain in that upper thoracic lower cervical region. Unfortunately attempting to fix the thoracic scoliosis would involve extensive instrumentation and would be unlikely to give her improvements in her pain. In fact it may even make it worse. He does not think he has any surgery to offer her to help with the pain. The good news is that the EMG that she had done does not show any permanent nerve damage in the arms. I reassured her that the numbness that she is feeling in her hand not a sign of permanent nerve damage according to the EMG. She can follow up with us on an as-needed basis. Thank you for allowing us to care for your patient. The total time spent with this visit with this patient was 45 minutes reviewing history, physical exam, cervical imaging review, and implementation of treatment plan or further diagnostic testing Misha Cuevas MD,PhD [facility] Coding Level of Care Code New Pt Level 4 (69664) Diagnoses Cervical radiculitis M54.12
== END 2023-08-26 10:15 | disposition home or self-care (01) ==
PROVIDERS: PCP Internal Medicine; Referring Provider Nurse Practitioner Family; Visit Provider Physician Assistant
DX: M54.12 Radiculopathy, cervical region (principal)
CPT/HCPCS: 99204

== ENCOUNTER → 2023-08-26 08:56 | Outpatient (BNVA) | payer OTHER, SELFPAY | PROVIDERS: PCP Internal Medicine; Visit Provider Physician Assistant ==

== ENCOUNTER → 2023-08-29 07:50 | Outpatient (REF) | payer OTHER, SELFPAY ==
--- NOTE | 2023-08-29 07:57 | CA_ITS ---
Acquisition Time: 2023-08-29 09:12:26 Total Exercise Time: 00:05:39 Test Indications: Dyspnea Medications: SEE H Protocol: ANGIE Max HR: 148 BPM 85% of Pred: 173 BPM Max BP: 148/080 mmHG Max Work Load: 7.0 METS Exercise stress test exercise 5 min 39 sec of Angei protocol achieving 85% with reported dizziness, with mild to moderate SOB, with isolated PACs and rest, with normotensive response to exercise, without EKG changes. Test reviewed with Dr. Pritchard. Referred By: Alexander Cross Overread By: Bibi Gracia
--- NOTE | 2023-08-29 07:57 | CA_ITS ---
Transthoracic Echocardiogram Patient (Last, First, Middle): Stefany Smith, Gender: Female Date of : 1975 Age: 48 Procedure Date: 08/29/2023 Procedure Type: Transthoracic Echocardiogram Location: OP Height: 170.18 cm Weight: 102.97 kg BSA: 2.13 m2 Heart Rate: bpm BP: 110 / 76 mmHg Strength And Conditioning Coach: HARRISON Referring MD: Alexander Cross MD Symptoms: R00.2 - Palpitations Study Quality: Adequate ECG Rhythm: Sinus Conclusions: - The left ventricular systolic function is normal. The calculated ejection fraction is 59% by biplane method. - No obvious valvular pathology seen on this study. Findings Left Ventricle Normal left ventricular cavity size. There is normal left ventricular wall thickness. The left ventricular systolic function is normal. The calculated ejection fraction is 59% by biplane method. There is no evidence of regional wall motion abnormalities. Diastolic function is normal for age. LV peak GLS -20.3%. Right Ventricle Normal right ventricular cavity size and systolic function. Atria Both atria are normal in size. Aortic Valve There is a normal trileaflet aortic valve. There is no aortic valve stenosis. There is no aortic valve regurgitation. Mitral Valve There is mild mitral annular calcification. There is no mitral valve regurgitation. There is no mitral valve stenosis. Pulmonic Valve The pulmonic valve is likely normal. Tricuspid Valve Normal tricuspid valve structure. There is trace tricuspid valve regurgitation. There is no evidence of pulmonary hypertension. Great Vessels The asc aorta is normal in size. Venous The inferior vena cava is normal in size and collapses greater than 50% with inspiration. Pericardium/Pleural There is no evidence of pericardial effusion. Prior Study Comparison No prior study available for comparison. Recommendations, Care & Conclusions No obvious valvular pathology seen on this study. Measurements 2D Linear Measurements IVSd: 0.76 0.6-0.9/0.6-1.0 cm LVIDd: 5.16 3.9-5.3/4.2-5.9 cm LVIDd Index: 2.42 2.4-3.2/2.2-3.1 cm/m2 LVIDs: 3.36 2.0-3.6 cm LVPWd: 0.86 0.7-1.1 cm LA Diam: 3.40 2.7-3.8/3.0-4.0 cm LAIDs Index: 1.60 1.5-2.3 cm/m2 LV Mass: 181.11 67-162/88-224 g LV Mass Index: 85.03 43-95/49-115 g/m2 LVOT Diam: 2.20 3.0+(-)1.3 cm 2D Systolic Function EF 4C: 58.20 >55% EF 2C: 58.00 >55% EF BiP: 58.70 >55% Mitral Valve MV Pk E: 1.16 MV PK A: 0.61 MV Decel Time: 218.00 E/A: 1.90 E'Lateral: 15.00 E'Medial: 9.03 E/E' Med: 12.80 E/E' Lat: 7.70 PHT: 64.00 MVA PHT: 3.44 Decel Appling: 5.30 Aortic Valve AoV Pk Werner: 1.63 AoV Mn Werner: 1.11 AoV VTI: 0.37 AoV Pk Grad: 11.00 Aov Mn Grad: 6.00 GRETTA Cont.VTI: 2.46 LVOT LVOT Pk Werner: 1.07 LVOT Mn Werner: 0.70 LVOT VTI: 0.24 LVOT Pk Grad: 5.00 LVOT Mn Grad: 2.00 LVOT Diam: 2.20 LVOT Area: 3.80 Diastolic Function MV Pk E: 1.16 MV Pk A: 0.61 E/A: 1.90 E'Medial: 9.03 E/E' Med: 12.80 E' Laterial: 15.00 E/E' Lat: 7.70 Right Ventricle TAPSE (mm): 20.70 TVS' Werner: 10.80 Tricuspid Valve RA Press: 3.00 Great Vessels Aorta Sinus of Valsalva: 3.08 2.0-3.5 cm Ao Asc: 3.10 2.1-3.4 cm Updated in Other Vendor System with Status of Final Josemanuel Pritchard MD electronically signed on 08/29/2023 4:08:17 PM with status of Final
--- NOTE | 2023-08-29 07:57 | HM_ITS ---
* Total monitoring time 5 days and 13 hours. * Underlying rhythm is sinus with an average rate of 80/Min. * Occasional ventricular ectopy with a burden of 0.5%. * Rare supraventricular ectopy. * No significant pauses or AV blocks. * No patient markers or diary events. MTDD
== END ==
LOC: HO.CARD 07:50
PROVIDERS: PCP Internal Medicine; Visit Provider Internal Medicine Cardiovascular Disease
DX: R00.2 Palpitations (principal)
CPT/HCPCS: 93017; 93242; 93306; 93356

== ENCOUNTER → 2023-08-29 07:57 | Outpatient (BNV) | payer OTHER, SELFPAY | PROVIDERS: PCP Internal Medicine; Visit Provider Nurse Practitioner | DX: I49.3 Ventricular premature depolarization (principal) | CPT/HCPCS: 93016; 93018; 93244; 93350; 93356 ==

== ENCOUNTER 2023-09-19 14:37 | Outpatient (AMB) | payer OTHER, SELFPAY ==
--- NOTE | 2023-09-19 14:47 | MHC.OFFVIS ---
Vital Signs 09/19/23 14:49 Height 5 ft 7 in Weight 230 lb BMI 36.0 Handedness Right Intake Visit Reasons: New Pt - right hand numbness Intake Note: Stefany is a 48 year old right hand dominant female who presents today as a new patient for right hand numbness that began approximately in 2015. Patient reports she had c3-c7 spinal fusion done July 202022 pressure on spine causing hands to go numb and after this fusion her symptoms improved mildly after. She received ultrasound injections roughly in [id number] Michele Wolf in [place] for her right hand CTS. 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 Her symptoms are worse at night. Her 4th and 5th finger has intermittent numbness with tingling however her thumb is only goes numbness EMG done on 06/29/23. She has wrist brace at home which do provide her with some relief. Allergies No Known Allergies Allergy (Verified 09/19/23 14:49) HPI HPI New Pt - right hand numbness: Details: Patient is a 48-year-old female who presents for evaluation of right hand numbness and tingling, ongoing since approximately 2015. The patient reports that she was diagnosed with carpal tunnel syndrome at approximately that time, and reports that she has received injections into her wrist for carpal tunnel previously, although she is unable to recall the exact date. Today, the patient reports that she does still experience numbness and tingling in her right hand, intermittent, but daily, worse at night. She reports that she is not experiencing any numbness or tingling at this time. She does report that her pain in her right hand regularly wakes her from sleep, and then she has to ?shake it out? in order to get sensation back. [facility] Medical History On varenicline therapy Restless leg syndrome Caffeine dependence Intermittent palpitations Obesity (BMI 35.0-39.9 without comorbidity) Hyperlipidemia Vitamin D deficiency OCD (obsessive compulsive disorder) Cigarette smoker motivated to quit Scoliosis of cervical region due to degenerative disease of spine in adult History of vitamin D deficiency Chronic right shoulder pain Varicose veins of bilateral lower extremities with pain Anemia Anxiety and depression Immunization refused Heavy cigarette smoker (20-39 per day) Menorrhagia HILDA (iron deficiency anemia) Rotator cuff disorder Surgical History History of cervical spinal surgery History of endometrial ablation Hx of dilation and curettage History of cholecystectomy History of H/O gastric bypass H/O tubal ligation Family History Father Mental health disorder Daughter Mental health disorder Paternal Aunt Mental health disorder Social History Housing: Apartment Alcohol intake: former Patient Tobacco Use Status: Current everyday Tobacco user Cigarette Packs Per Day: 1 e-Cigarette/Vaping Use: Never Used Substance Use Type: Marijuana service: No Current occupational status: employed 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 Neuro: Median, ulnar, radial nerves motor and sensory intact and sensation is normal to the tips of all digits. Vascular: Cap refill brisk Pain: Patient reports pain with palpation of the basal joint of the right hand No other pain to palpation ROM: Range of motion of the right hand full and intact Patient is able to make a closed fist Good finger cross Skin: No lacerations or abrasions. General: No ecchymosis, erythema, or evidence of infection. Psych: Appears grossly normal Affect normal Attitude cooperative Results Reviewed Results Reviewed: IMPRESSION: 1. This is an abnormal study. 2. There is electrodiagnostic evidence for right very mild/borderline median neuropathy at the wrist, consistent with Carpal Tunnel Syndrome. 3. There is no electrodiagnostic evidence for ulnar neuropathy, brachial plexopathy, cervical radiculopathy. peroneal neuropathy, tibial neuropathy. lumbosacral plexopathy, lumbar radiculopathy, or peripheral neuropathy. Assessment & Plan Assessment & Plan (1) Carpal tunnel syndrome of right wrist: Code(s): G56.01 - Carpal tunnel syndrome, right upper limb Category: Medical Plan 1. Right carpal tunnel syndrome, mild Symptoms intermittent, daily, worse at night I educated the patient about the condition. I discussed both operative and nonoperative treatment options. The patient would like to proceed with surgery. The risks and benefits of operative treatment were discussed with the patient and the patient wishes to proceed with surgery. These risks include, but are not limited to, risk of damage to blood vessels, nerves, tendons, infection, recurrence, incomplete relief of preoperative symptoms, persistent pain, possible need for further surgery, and the risks associated with regional blocks and/or anesthesia. Plan is to take the patient to the operating room at some point in the next few weeks for the following procedures: 1. Right carpal tunnel release under local anesthesia All of the preoperative paperwork including the consent was discussed today. All of the patient's questions were answered in the clinic today. The patient understands that they will be in contact with our medical or surgical instrument maker to discuss scheduling their procedure. Patient denies diabetes, blood thinners, asthma, heart issues, lung issues, kidney issues, Patient does report current smoking, but that she is attempting smoking cessation, or at least cutting down significantly, this time. Coding Level of Care Code New Pt Level 4 (58887) Diagnoses Carpal tunnel syndrome of right wrist G56.01
[2023-09-19 14:49] VITALS: BMI 36.0
== END 2023-09-19 15:41 | disposition home or self-care (01) ==
PROVIDERS: PCP Internal Medicine
DX: G56.01 Carpal tunnel syndrome, right upper limb (principal)
CPT/HCPCS: 99204

== ENCOUNTER → 2023-09-19 14:37 | Outpatient (BNVA) | payer OTHER, SELFPAY | PROVIDERS: PCP Internal Medicine ==

== ENCOUNTER 2023-10-06 15:28 | Outpatient (AMB) | payer OTHER, SELFPAY ==
[2023-10-06 15:29] VITALS: BP 110/74; BMI 36.0
--- NOTE | 2023-10-06 15:29 | MHC.OFFVIS ---
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 Pt states she has pain and swelling in both legs. Pt denies any numbness or tingling. 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 Complaints include pain over varicosities, swelling of lower extremities, cramping, fatigue, and heaviness of the lower extremities. It has been affecting there daily activities including walking. It is noted more so in right leg. Patient denies any previous venous surgery or injections. Patient denies any history of DVT/ PE. Patient denies any history of phlebitis. Trial of compression includes - [id number] They now present for vascular evaluation regarding their varicose veins. [facility] Medical History On varenicline therapy Restless leg syndrome Caffeine dependence Intermittent palpitations Obesity (BMI 35.0-39.9 without comorbidity) Hyperlipidemia Vitamin D deficiency OCD (obsessive compulsive disorder) Cigarette smoker motivated to quit Scoliosis of cervical region due to degenerative disease of spine in adult History of vitamin D deficiency Chronic right shoulder pain Varicose veins of bilateral lower extremities with pain Anemia Anxiety and depression Immunization refused Heavy cigarette smoker (20-39 per day) Menorrhagia HILDA (iron deficiency anemia) Rotator cuff disorder Surgical History History of cervical spinal surgery History of endometrial ablation Hx of dilation and curettage History of cholecystectomy History of H/O gastric bypass H/O tubal ligation Family History Father Mental health disorder Daughter Mental health disorder Paternal Aunt Mental health disorder Social History Housing: Apartment Alcohol intake: former Patient Tobacco Use Status: Current everyday Tobacco user Cigarette Packs Per Day: 1 e-Cigarette/Vaping Use: Never Used Substance Use Type: Marijuana service: No Current occupational status: employed 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[employer], 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 Cognitive needs: No Hearing needs: No Vision needs: Yes Female Reproductive History Menstrual Age of Menarche: 13 Review of Systems Const All systems reviewed & are unremarkable except as noted in HPI and below Reports no additional complaints ENT Reports Normal hearing present Card Denies chest pain, Denies chest pain at rest, Denies chest pain with activity and Denies pedal edema Resp Denies cough GI Denies abdominal pain Musc Denies abnormal gait, Denies muscle cramps and Denies radiating pain into limb Skin/Breast Denies skin ulcer and Denies wounds Neuro Reports Normal hearing present and Denies abnormal gait Psych Reports no additional complaints Physical Exam Vital Signs: Last Vital Signs BP 110/74 10/06/23 15:29 BMI result Body Mass Index 36.0 Const General: cooperative, healthy appearing and comfortable Orientation/consciousness: oriented to person, oriented to place and oriented to time HEENT Head: Yes normal to inspection Neck Neck: Yes normal visual inspection Carotids: no bruits Chest Chest palpation & inspection: normal inspection of the chest Resp Effort & Inspection: normal respiratory effort and able to speak in complete sentences Auscultation: clear to auscultation bilaterally, no crackles, no rales, no rhonchi and no wheezes Cardio Other: Palpable bilateral dorsalis pedis pulses Rate: regular rate Rhythm: regular rhythm Heart sounds: S1 normal heart sound present and S2 normal heart sound present Bruits: no carotid bruits Peripheral pulses: Peripheral pulses 2+ throughout GI Inspection: Yes normal to inspection Skin Wounds: no wounds Hair: normal Neuro General: oriented to person, oriented to place and oriented to time Cranial nerves: Yes CN's II-XII intact bilaterally and Yes Normal hearing present Cognition (Neuro): normal cognition Motor exam (neuro): 5/5 motor strength present throughout Extrem Other: venous exam: +1 edema General: No clubbing, No cyanosis and No edema Psych Appearance: grossly normal Mental Status: mental status grossly normal Speech and movement: Normal speech and movement present Assessment & Plan Assessment & Plan (1) Varicose veins of right lower extremity with inflammation: Code(s): I83.11 - Varicose veins of right lower extremity with inflammation Category: Medical Plan: Unclear etiology of lower extremity discomfort. This does appear to be more neurogenic in nature. She did have EMG of the upper and lower extremity. It does appear negative for the lower extremities. Patient has mild swelling and some spider telangiectasias. I did take the liberty of ordering venous insufficiency testing to rule that out. I did provide literature and information about compression stockings to her as well. She will follow up with us after testing. Thank you for allowing us to assist in her care. If there are any questions or concerns please do not hesitate to contact us Orders: Orders US venous duplex LE 1 Week I83.11 - Varicose veins of right lower extremity with inflammation Coding Level of Care Code New Pt Level 4 (32261) Diagnoses Varicose veins of right lower extremity with inflammation I83.11
== END 2023-10-06 15:52 | disposition home or self-care (01) ==
PROVIDERS: PCP Internal Medicine; Visit Provider Surgery Vascular Surgery
DX: I83.11 Varicose veins of right lower extremity with inflammation (principal)
CPT/HCPCS: 99204

== ENCOUNTER → 2023-10-06 15:28 | Outpatient (BNVA) | payer OTHER, SELFPAY | PROVIDERS: PCP Internal Medicine; Visit Provider Surgery Vascular Surgery ==

== ENCOUNTER → 2023-11-07 13:52 | Outpatient (BNVA) | payer BC, SELFPAY | PROVIDERS: PCP Internal Medicine; Visit Provider Internal Medicine ==

== ENCOUNTER 2023-11-10 10:53 | Day surgery (SDC) | payer BC, SELFPAY ==
--- NOTE | 2023-11-10 09:28 | W.PM.OPN ---
Operative Note Operative Note Date of Service: 11/10/23 Narrative: Preop diagnosis: 1. Right Carpal tunnel syndrome Postop diagnosis: same Procedure: 1. Right Carpal tunnel release Surgeon: Barb Calloway MD Employment Educational Coord: Rene TEMPLETON Anesthesia: local block using 1% lidocaine with epinephrine Findings: Thickened transverse carpal ligament. EBL: Less than 5 mL Specimens: None Complications: None Disposition: Brought to recovery room in stable condition Plan: Follow-up for 10-14 days for wound check and suture removal Indications: The patient is 48 years old, with right carpal tunnel syndrome that has been unresponsive to nonoperative management. The risks and benefits of operative treatment including but not limited to risk of damage to blood vessels, nerves, tendons, infection, persistent pain, persistent symptoms, or possible need for additional surgery were discussed with the patient and the patient wishes to proceed with surgery. Please note, patient was complaining of left-sided numbness tingling and pain in preop hold and during surgery. We ordered a nerve conduction study of the left side. Procedure: Once consent was obtained a local block was performed using a combination of 1% lidocaine with epinephrine. The patient was then brought back to the operating suite and placed on the operative table in supine position. The right upper extremity was prepped and draped in a standard surgical fashion. Once assured that we had a good block, a 2.0 cm longitudinal incision was made centered over the carpal tunnel. The incision was made through the skin to the subcutaneous tissues using a #15 blade. Dissection was made down to the level of the transverse carpal ligament with care being taken to protect the palmar cutaneous nerve. Once the transverse carpal ligament was clearly visualized, a longitudinal incision was made in the transverse carpal ligament 1st using a #15 blade, then using tenotomy scissors under direct visualization. Care was taken to look for and protect the motor branch of the median nerve when seen in this area. Once satisfied with our carpal tunnel release the wound was copiously irrigated with normal saline and hemostasis was obtained with a brief period of local pressure. The skin edges were reapproximated with some 5.0 nylon suture material and a sterile dressing was applied. The patient appears to have tolerated the procedure well and with no complications. All digits were well vascularized at the conclusion of the case.
[2023-11-10 11:49] VITALS: BP 100/64; PULSE 72; RESP 18; TEMP 36.1; O2SAT 98; BMI 36.0
--- NOTE | 2023-11-10 13:48 | MHC.SHP ---
Pre-Procedural Eval Section A - 24 Hr Update-Section A only Date of Service: 11/10/23 The patient is an INPATIENT: No Changes since office visit: No Cold of Flu in the past 2 weeks, No New Medical Problems, No Changes in Medication and No Patient answered all questions The patient has been examined within 24 hours of the surgical procedure. The History & Physical has been completed within 30 days and I have reviewed it.: Yes Section B - Complete if H&P > 30 days Chief Complaint: Carpal tunnel syndrome, right upper limb Allergies: Allergies Allergy/AdvReac Type Severity Reaction Status Date / Time No Known Allergies Allergy Verified 10/06/23 15:31 Plan Diagnosis/Plan: Unchanged I have reviewed the history and physical and performed a pertinent physical examination on my patient. No changes have occurred unless specified. Time Spent With Patient Time: Total time managing care of this patient today ____ minutes.
[2023-11-10 15:16] VITALS: BP 104/76; PULSE 65; RESP 16; O2SAT 100
== END 2023-11-10 15:17 | disposition home or self-care (01) ==
PROVIDERS: PCP Internal Medicine; Visit Provider Orthopaedic Surgery
PROC: (CPT 64721; principal; 2023-11-10 12:20)
DX: G56.01 Carpal tunnel syndrome, right upper limb (principal); R20.0 Anesthesia of skin; R20.2 Paresthesia of skin; D50.9 Iron deficiency anemia, unspecified; F17.210 Nicotine dependence, cigarettes, uncomplicated; Z98.890 Other specified postprocedural states
CPT/HCPCS: 64721; J0171; J2003

== ENCOUNTER → 2023-11-10 10:53 | Outpatient (BNV) | payer BC, SELFPAY | PROVIDERS: PCP Internal Medicine; Visit Provider Orthopaedic Surgery | DX: G56.01 Carpal tunnel syndrome, right upper limb (principal) | CPT/HCPCS: 64721 ==

== ENCOUNTER 2023-11-23 14:54 | Outpatient (AMB) | payer BC, SELFPAY ==
--- NOTE | 2023-11-23 14:59 | MHC.OFFVIS ---
Intake Visit Reasons: PO RT CTR 11/10/23 AR Intake Note: Stefany is a 48 year old right hand dominant female who presents today post operative S/P right carpal tunnel release DOS: 11/10/23 w/ Dr Calloway. Pt states she is overall feeling well and states her ROM is doing well. Allergies No Known Allergies Allergy (Verified 11/23/23 14:59) HPI HPI PO RT CTR 11/10/23 AR: Details: Patient is a 48-year-old female who presents for postoperative evaluation status post right carpal tunnel release, DOS 11/10/2023. Today, the patient reports that she is feeling very well, and is not experiencing any symptoms in the right hand at this time. The patient denies any redness or discharge from the incision site. Patient denies any numbness or tingling ongoing in the right hand. Of note, the patient does report that she is still experiencing significant numbness, tingling, and pain in the left hand, but is still awaiting EMG and nerve conduction study on that side. Patient states that she has been compliant with all postoperative precautions given to her prior to surgery. No other acute complaints or concerns at this time. [facility] Medical History On varenicline therapy Restless leg syndrome Caffeine dependence Intermittent palpitations Obesity (BMI 35.0-39.9 without comorbidity) Hyperlipidemia Vitamin D deficiency OCD (obsessive compulsive disorder) Cigarette smoker motivated to quit Scoliosis of cervical region due to degenerative disease of spine in adult History of vitamin D deficiency Chronic right shoulder pain Varicose veins of bilateral lower extremities with pain Anemia Anxiety and depression Immunization refused Heavy cigarette smoker (20-39 per day) Menorrhagia HILDA (iron deficiency anemia) Rotator cuff disorder Surgical History History of cervical spinal surgery History of endometrial ablation Hx of dilation and curettage History of cholecystectomy History of H/O gastric bypass H/O tubal ligation Family History Father Mental health disorder Daughter Mental health disorder Paternal Aunt Mental health disorder Social History Housing: Apartment Alcohol intake: former Patient Tobacco Use Status: Current everyday Tobacco user Cigarette Packs Per Day: 1 e-Cigarette/Vaping Use: Never Used Substance Use Type: Marijuana service: No Current occupational status: employed 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 Good APB muscle firing and good finger cross. Pain: Patient reports no tenderness to palpation around the incision site Range of motion nontender and nonpainful Vascular: Capillary refill brisk. ROM: Patient can make a fist and extend all their digits. Skin: Well approximated and well healing incision site noted on the volar aspect of the right wrist No lacerations or abrasions noted. General: No ecchymosis. No erythema or evidence of infection. Assessment & Plan Assessment & Plan (1) Carpal tunnel syndrome of right wrist: Code(s): G56.01 - Carpal tunnel syndrome, right upper limb Category: Medical (2) Numbness and tingling in left hand: Code(s): R20.0 - Anesthesia of skin; R20.2 - Paresthesia of skin Category: Medical Plan 1. Carpal tunnel syndrome, right, status post carpal tunnel release DOS 11/10/2023 Patient appears to be recovering well postoperatively Patient is educated about the typical recovery course At this time, patient is informed that because she is recovering so well, she will not require an acute follow-up with us for her right carpal tunnel release Patient understands this and is amenable to this plan Patient will follow-up as needed with any acute concerns 2. Numbness and tingling of left hand Symptoms almost constant, daily, worse at night Patient was already referred for EMG and nerve conduction study of the left hand Will call for appointment immediately following EMG and nerve conduction study for results review and discussion of further treatment options if indicated Patient is amenable to this plan Patient will follow-up after EMG and nerve conduction study, sooner with any acute concerns Coding Level of Care Code Global (71321) Diagnoses Carpal tunnel syndrome of right wrist G56.01 Numbness and tingling in left hand R20.0; R20.2
== END 2023-11-23 15:13 | disposition home or self-care (01) ==
PROVIDERS: PCP Internal Medicine
DX: G56.01 Carpal tunnel syndrome, right upper limb (principal); R20.0 Anesthesia of skin; R20.2 Paresthesia of skin
CPT/HCPCS: 99024

== ENCOUNTER → 2023-11-23 14:54 | Outpatient (BNVA) | payer OTHER, SELFPAY | PROVIDERS: PCP Internal Medicine ==

== ENCOUNTER 2023-11-30 14:58 | Outpatient (REF) | payer BC, SELFPAY ==
--- NOTE | 2023-11-30 15:01 | EMG_ITS ---
Chief complaint: Pins and needles from left shoulder to left hand, but denies numbness. Left shoulder pain. Last EMG done by me 06/29/2023 did not show any signs of left Carpal Tunnel Syndrome. It did show right mild/borderline Carpal Tunnel Syndrome, now status post right CTR. Reason for referral: Evaluate for Carpal Tunnel Syndrome Referred by: Rene TEMPLETON Procedure done: Left upper extremity NCS/EMG Precautions and/or limitations: None The limb temperature was monitored continuously and remained between 32-36 degrees C during the performance of the NCS. Nerve Conduction Studies Anti Sensory Summary Table ?Stim Site NR Onset (ms) Norm Onset (ms) Peak (ms) Norm Peak (ms) O-P Amp (?V) Norm O-P Amp Site1 Site2 Delta-0 (ms) Dist (cm) Werner (m/s) Norm Werner (m/s) Left Lat Ante Brach Cutan Anti Sensory (Lat Forearm) Lat Biceps ? 1.0 1.3 9.9 Lat Biceps Lat Forearm 1.0 0.0 Left Med Ante Brach Cutan Anti Sensory (Med Forearm) Elbow ? 1.7 2.7 41.0 Elbow Med Forearm 1.7 0.0 Left Median Anti Sensory (2nd Digit) Wrist ? 2.4 3.0 <3.6 31.7 >10 Wrist 2nd Digit 2.4 14.0 58 Left Ulnar Anti Sensory (5th Digit) Wrist ? 2.3 2.9 <3.7 19.9 >15.0 Wrist 5th Digit 2.3 14.0 61 Motor Summary Table ?Stim Site NR Onset (ms) Norm Onset (ms) O-P Amp (mV) Norm O-P Amp iAmp (mV) Amp (1st) (%) Site1 Site2 Delta-0 (ms) Dist (cm) Werner (m/s) Norm Werner (m/s) Left Median Motor (Abd Poll Brev) Wrist ? 3.5 <3.9 9.8 >4.5 11.8 100.0 Elbow Wrist 3.6 21.0 58 >45 Elbow ? 7.1 8.8 11.0 89.8 Left Ulnar Motor (Abd Dig Minimi) Wrist ? 2.4 <3.0 7.1 >5 8.8 100.0 B Elbow Wrist 3.7 19.0 51 >45 B Elbow ? 6.1 6.1 8.1 85.9 A Elbow B Elbow 1.2 10.0 83 >45 A Elbow ? 7.3 5.9 7.5 83.1 Comparison Summary Table ?Stim Site NR Peak (ms) Norm Peak (ms) P-T Amp (?V) Site1 Site2 Delta-P (ms) Norm Delta (ms) Left Median/Radial Dig I Comparison (Digit 1 - 10cm) Median ? 2.4 <2.9 50.3 Median Radial 0.2 Radial ? 2.2 <2.8 16.1 EMG ?Side Muscle Nerve Root Ins Act Fibs Psw Amp Dur Poly Recrt Int Pat Comment Left 1stDorInt Ulnar C8-T1 Nml Nml Nml Nml Nml 0 Nml Complete Left FlexCarRad Median C6-7 Nml Nml Nml Nml Nml 0 Nml Complete Left Biceps Musculocut C5-6 Nml Nml Nml Nml Nml 0 Nml Complete Left Triceps Radial C6-7-8 Nml Nml Nml Nml Nml 0 Nml Complete Left Deltoid Axillary C5-6 Nml Nml Nml Nml Nml 0 Nml Complete Paraspinal EMG ?Side Muscle Nerve Root Ins Act Fibs Psw Comment Left Cervical Upper Rami Nml Nml Nml Left Cervical Mid Rami Nml Nml Nml Left Cervical Lower Rami Nml Nml Nml FINDINGS: All motor and sensory nerves tested showed normal latencies, amplitudes and conduction velocities. Concentric needle EMG was performed in selected muscles of the left upper extremity and cervical paraspinals. Study did not reveal signs of electric abnormalities as shown in the table above. IMPRESSION: 1. This is a normal study. 2. There is no electrodiagnostic evidence for median neuropathy, ulnar neuropathy, brachial plexopathy, or cervical radiculopathy. Thank you for your kind referral. Lesley Miguel MD, DWIGHT Board Certified, [place] [employer] and Rehabilitation (ABPMR) Board Certified, [place] Board of Electrodiagnostic Medicine (ABEM) [place] [id number] [facility]
== END 2023-11-30 14:59 | disposition home or self-care (01) ==
LOC: HO.NEURO 14:58
PROVIDERS: PCP Internal Medicine
DX: R20.0 Anesthesia of skin (principal); R20.2 Paresthesia of skin
CPT/HCPCS: 95886; 95910

== ENCOUNTER → 2023-11-30 15:01 | Outpatient (BNV) | payer BC, SELFPAY | PROVIDERS: PCP Internal Medicine; Visit Provider Physical Medicine & Rehabilitation | DX: R20.2 Paresthesia of skin (principal) | CPT/HCPCS: 95886; 95910 ==

== ENCOUNTER 2023-12-16 12:59 | Outpatient (AMB) | payer BC, SELFPAY ==
--- NOTE | 2023-12-16 13:01 | A.OFFVIS_ITS ---
Intake Visit Reasons: OV-Left upper extremity NCS/EMG-review Intake Note: Stefany is a 48 year old right hand dominant female who presents today for left upper extremity NCS/EMG review. Allergies No Known Allergies Allergy (Verified 12/16/23 13:01) HPI HPI OV-Left upper extremity NCS/EMG-review: Details: Patient is a 48-year-old female who presents for EMG review of hand and arm. The patient states that her numbness, tingling, and pain in the left side of only continue to worsen over the last few weeks, she would like to have carpal tunnel release performed on this side, she got good relief on side the surgery. Patient reports that this numbness and tingling is intermittent, daily, and worse at night. No other acute complaints or concerns at this time. [facility] Medical History On varenicline therapy Restless leg syndrome Caffeine dependence Intermittent palpitations Obesity (BMI 35.0-39.9 without comorbidity) Hyperlipidemia Vitamin D deficiency OCD (obsessive compulsive disorder) Cigarette smoker motivated to quit Scoliosis of cervical region due to degenerative disease of spine in adult History of vitamin D deficiency Chronic right shoulder pain Varicose veins of bilateral lower extremities with pain Anemia Anxiety and depression Immunization refused Heavy cigarette smoker (20-39 per day) Menorrhagia HILDA (iron deficiency anemia) Rotator cuff disorder Surgical History History of cervical spinal surgery History of endometrial ablation Hx of dilation and curettage History of cholecystectomy History of H/O gastric bypass H/O tubal ligation Family History Father Mental health disorder Daughter Mental health disorder Paternal Aunt Mental health disorder Social History Housing: Apartment Alcohol intake: former Patient Tobacco Use Status: Current everyday Tobacco user Cigarette Packs Per Day: 1 e-Cigarette/Vaping Use: Never Used Substance Use Type: Marijuana service: No Current occupational status: employed 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 Normal sensation to all other digits in the left hand today. Normal sensation in the tips of all digits of the right hand today. No thenar or intrinsic wasting. Good APB muscle firing and good finger cross. Vascular: Capillary refill brisk. ROM: Patient can make a fist and extend all their digits. Skin: No lacerations or abrasions noted. General: No ecchymosis. No erythema or evidence of infection. Results Reviewed Results Reviewed: IMPRESSION: 1. This is a normal study. 2. There is no electrodiagnostic evidence for median neuropathy, ulnar neuropathy, brachial plexopathy, or cervical radiculopathy. Lesley Miguel MD, DWIGHT Assessment & Plan Assessment & Plan (1) Numbness and tingling in left hand: Code(s): R20.0 - Anesthesia of skin; R20.2 - Paresthesia of skin Category: Medical Plan 1. Numbness and tingling of the left hand Symptoms intermittent, daily, worse at night At this time, patient is informed that we can not sign her up for a carpal tunnel release on the left with a negative EMG Patient denies any numbness or tingling left small finger Patient was informed that if she is still experiencing numbness or tingling in the 6 months, we can order an other EMG and nerve conduction study to see if she does in fact have carpal tunnel syndrome of the left Patient understands this and is amenable to this plan Patient will follow-up in 4-5 months if she is still experiencing numbness or tingling in the left hand, sooner with any acute concerns Coding Level of Care Code Est Pt Level 3 (89377) Diagnoses Numbness and tingling in left hand R20.0; R20.2
== END 2023-12-16 13:29 | disposition home or self-care (01) ==
PROVIDERS: PCP Internal Medicine
DX: R20.0 Anesthesia of skin (principal); R20.2 Paresthesia of skin
CPT/HCPCS: 99213

== ENCOUNTER 2023-12-27 16:08 | Outpatient (AMB) | payer BC, SELFPAY ==
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
== END 2023-12-27 17:13 | disposition home or self-care (01) ==
LOC: HO.HOP 16:08
PROVIDERS: PCP Internal Medicine; Visit Provider Clinical Nurse Specialist Psychiatric/Mental Health
DX: F42.4 Excoriation (skin-picking) disorder (principal); F33.1 Major depressive disorder, recurrent, moderate; F90.2 Attention-deficit hyperactivity disorder, combined type; F43.12 Post-traumatic stress disorder, chronic
CPT/HCPCS: 90792

== ENCOUNTER → 2023-12-27 16:08 | Outpatient (BNVA) | payer BC, SELFPAY | PROVIDERS: PCP Internal Medicine; Visit Provider Clinical Nurse Specialist Psychiatric/Mental Health | DX: F42.4 Excoriation (skin-picking) disorder (principal); F33.1 Major depressive disorder, recurrent, moderate; F90.2 Attention-deficit hyperactivity disorder, combined type; F43.12 Post-traumatic stress disorder, chronic; Z79.899 Other long term (current) drug therapy | CPT/HCPCS: 90792 ==

== ENCOUNTER 2024-01-10 20:13 | Emergency (ER) | payer BC, SELFPAY ==
--- NOTE | ~2024-01-10 | CT_ITS ---
EXAMINATION: CT ABDOMEN AND PELVIS WITHOUT CONTRAST CLINICAL INFORMATION: Right flank pain. COMPARISON: April 28, 2021 TECHNIQUE: Multidetector volumetric imaging was performed from the superior aspect of the liver through the pubic symphysis. Sagittal and coronal reformatted images were obtained on the technologist's workstation. This CT examination was performed using dose optimization techniques as appropriate, variously including the following: *Automated exposure control *Adjustment of mA and/or kV according to patient size (this includes techniques or standardized protocols for targeted exams where dose is matched to indication/reason for exam; i.e. extremities or head) *Use of iterative reconstruction technique DLP: 809 mGy-cm FINDINGS: LUNG BASES: The visualized lung bases are unremarkable. LIVER, GALLBLADDER, AND BILIARY TREE: The liver is normal in size, shape, and attenuation. No focal hepatic lesion or biliary ductal dilatation is present. There has been a prior cholecystectomy. PANCREAS: Unremarkable. SPLEEN: Unremarkable. ADRENAL GLANDS: Unremarkable. KIDNEYS AND URETERS: The kidneys are normal in size, shape, and attenuation. No hydronephrosis, hydroureter, or calculi seen. No perinephric stranding. BLADDER: Unremarkable. GASTROINTESTINAL TRACT: There is retained stool throughout. The appendix is visualized and is within normal limits. There has been a prior gastric bypass. There is no evidence for bowel obstruction. There is a small umbilical hernia containing fat. ABDOMINAL WALL: There is a minimal umbilical hernia containing fat. LYMPH NODES: Normal. VASCULAR: Unremarkable. PELVIC VISCERA: Unremarkable. OSSEOUS STRUCTURES: Unremarkable. CT/CT abdomen pelvis wo IV con IMPRESSION: 1. No evidence for acute abnormality in the abdomen or pelvis. 2. Retained stool throughout the colon. 3. Small umbilical hernia containing fat. Fleischner guidelines were followed. Electronically signed by: Logan Izquierdo MD 01/11/2024 01:48 AM [facility]
[2024-01-10 20:48] VITALS: BP 96/71; PULSE 80; RESP 18; TEMP 36.9; O2SAT 96; BMI 34.8
--- NOTE | 2024-01-10 20:52 | ED_ITS ---
HPI - Back Pain/Injury General Chief Complaint: Back Pain/Injury Stated Complaint: Lower back pain Time Seen by Provider: 01/10/24 23:33 Related Data Home Medications ?Medication ?Instructions ?Recorded ?Confirmed hydroxyzine HCl 10 mg tablet 10 mg PO BID PRN anxiety 12/27/23 12/27/23 Previous Rx's ?Medication ?Instructions ?Recorded ferrous sulfate 325 mg (65 mg 325 mg PO DAILY #90 tabs 05/04/23 iron) tablet polyethylene glycol 3350 17 gram 17 g PO DAILY PRN constipation #14 06/27/23 oral powder packet (Miralax) ea magnesium oxide 250 mg PO DAILY #30 tabs 08/03/23 gabapentin 600 mg tablet 600 mg PO TID for pain 30 days #90 09/19/23 tabs pramipexole 0.125 mg tablet 0.125 mg PO BEDTIME #90 tabs 11/24/23 cyclobenzaprine 10 mg tablet 10 mg PO BEDTIME PRN muscle spasm 12/19/23 90 days #90 tabs duloxetine 30 mg capsule,delayed 30 mg PO BID #60 caps 12/27/23 release eszopiclone 3 mg tablet 3 mg PO BEDTIME PRN insomnia #30 12/27/23 tabs clonidine HCl 0.1 mg tablet 0.1 mg PO Q4H 30 days #180 tabs 01/09/24 Allergies Allergy/AdvReac Type Severity Reaction Status Date / Time No Known Allergies Allergy Verified 01/10/24 20:49 [facility] Past Medical History Medical History On varenicline therapy Restless leg syndrome Caffeine dependence Intermittent palpitations Obesity (BMI 35.0-39.9 without comorbidity) Hyperlipidemia Vitamin D deficiency OCD (obsessive compulsive disorder) Cigarette smoker motivated to quit Scoliosis of cervical region due to degenerative disease of spine in adult History of vitamin D deficiency Chronic right shoulder pain Varicose veins of bilateral lower extremities with pain Anemia Anxiety and depression Immunization refused Heavy cigarette smoker (20-39 per day) Menorrhagia HILDA (iron deficiency anemia) Rotator cuff disorder Surgical History History of cervical spinal surgery History of endometrial ablation Hx of dilation and curettage History of cholecystectomy History of H/O gastric bypass H/O tubal ligation Family History Family History Father Mental health disorder Daughter Mental health disorder Paternal Aunt Mental health disorder Social History Social History Housing: Apartment Alcohol intake: former Patient Tobacco Use Status: Current everyday Tobacco user Cigarette Packs Per Day: 1 Smoked in Last 30 Days: Yes e-Cigarette/Vaping Use: Never Used Use of substances other than those prescribed or required for medical reasons: No Substance Use Type: Marijuana Advance Directives: No Advance Directives Information Provided: No Do you have a plan to hurt others: No Plan Patient : No service: No Current occupational status: employed 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 Patient is a 48-year-old female with a history of kidney stones, chronic pain syndrome, PTSD, ADHD, OCD, anxiety, depression who presents with right low back/flank pain x2 days. Pain is nonradiating, constant and worsening. Associated nausea vomiting. Patient denies new activity, heavy lifting or trauma. Patient denies dysuria, hematuria. On exam, the patient appears extremely uncomfortable, no CVA tenderness noted. We will screen basic labs a urinalysis and a CT scan. We will be giving IM Toradol and ODT Zofran. The patient is stable, she is able to return to the waiting room pending her full medical assessment. Medications Administered Discontinued Medications Generic Name Dose Route Start Last Admin Trade Name Freq PRN Reason Stop Dose Admin Ketorolac Tromethamine 15 mg 01/10/24 20:51 01/10/24 20:55 Ketorolac Tromethamine 15 Mg/Ml Vial IM 01/10/24 20:52 15 mg ONCE ONE Administration Ketorolac Tromethamine 30 mg 01/11/24 00:03 01/11/24 00:37 Ketorolac Tromethamine 30 Mg/Ml Vial IM 01/11/24 00:04 30 mg ONCE ONE Administration Ondansetron HCl 4 mg 01/10/24 20:51 01/10/24 20:55 Ondansetron Odt 4 Mg Tab.Rapdis TRANSLINGU 01/10/24 20:52 4 mg ONCE ONE Administration Medical Decision Making Lab Data 01/10/24 21:06 01/10/24 21:06 Labs: Lab Results 01/10/24 01/10/24 Range/Units 21:06 22:46 WBC 9.1 (4.8-10.8) X10*3/uL RBC 4.03 L (4.20-5.50) X10*6/uL Hgb 11.7 L (12.0-16.0) g/dl Hct 34.9 L (37.0-47.0) % MCV 86.6 (80.0-98.0) fL MCH 29.0 (27.0-33.0) pg MCHC 33.5 (31.0-35.0) g/dl RDW 13.6 (11.0-16.0) % Plt Count 294 (160-400) X10*3/uL MPV 9.0 L (9.4-12.3) fL Immature Gran % (Auto) 0.3 (0.0-0.4) % Neut % (Auto) 52.3 (45-73) % Lymph % (Auto) 38.5 (20-40) % [place] % (Auto) 6.5 (2-11) % Eos % (Auto) 1.8 (0-4) % Baso % (Auto) 0.6 (0-2) % Lymph # (Auto) 3.5 (1.2-4.9) X10*3/uL [place] # (Auto) 0.6 (0.1-1.2) X10*3/uL Eos # (Auto) 0.2 (0.0-0.4) X10*3/uL Baso # (Auto) 0.1 (0.0-0.2) X10*3/uL Abs Immat Gran (auto) 0.03 (0.00-0.03) X10*3/uL Absolute Neuts (auto) 4.8 (2.0-8.3) x10*3/uL Absolute Nucleated RBC 0.000 (0.0-0.012) X10*3/uL Nucleated RBC % (auto) 0.0 (0.0-0.2) /100WBC Sodium 138 (135-145) mmol/L Potassium 3.9 (3.3-5.1) mmol/L Chloride 109 H (96-108) mmol/L Carbon Dioxide 21 L (22-29) mmol/L Anion Gap 12 (12-20) BUN 19 H (9-16) mg/dL Creatinine 0.78 (0.5-1.4) mg/dL Estim Creat Clear Calc 108.7 Estimated GFR > 60 Random Glucose 69 (60-115) mg/dL Calcium 9.3 (8.4-10.2) mg/dL Magnesium 1.9 (1.6-2.6) mg/dL Total Bilirubin 0.3 (0.0-1.0) mg/dL AST 27 (5-31) U/L ALT 18 (0-31) U/L Alkaline Phosphatase 58 (39-117) U/L Total Protein 6.9 (6.5-8.0) g/dL Albumin 4.0 (3.5-5.0) g/dL Beta HCG, Quant < 2 mIU/mL Urine Color Dark Yellow Urine Appearance Clear Urine pH 6.0 (5.0-9.0) Ur Specific [place] >= 1.030 H (1.005-1.025) Urine Protein Negative (Neg-Trace) mg/dL Urine Glucose (UA) Negative (Negative) mg/dL Urine Ketones Trace (Negative) mg/dL Urine Blood Negative (Negative) Urine Nitrite Negative (Negative) Ur Leukocyte Esterase Negative (Negative) Discharge Plan Discharge Clinical Impression: Abdominal pain Patient Disposition: Still a Patient Prescriptions: No Action polyethylene glycol 3350 [Miralax] 17 gram powder in packet 17 g PO DAILY PRN (Reason: constipation) Qty: 14 0RF magnesium oxide 250 mg magnesium tablet 250 mg PO DAILY Qty: 30 0RF gabapentin 600 mg tablet 600 mg PO TID 30 Days Qty: 90 3RF pramipexole 0.125 mg tablet 0.125 mg PO BEDTIME Qty: 90 1RF cyclobenzaprine 10 mg tablet 10 mg PO BEDTIME PRN (Reason: muscle spasm) 90 Days Qty: 90 1RF clonidine HCl 0.1 mg tablet 0.1 mg PO Q4H 30 Days Qty: 180 0RF ferrous sulfate 325 mg (65 mg iron) tablet 325 mg PO DAILY Qty: 90 1RF duloxetine 30 mg capsule,delayed release(DR/EC) 30 mg PO BID Qty: 60 2RF eszopiclone 3 mg tablet 3 mg PO BEDTIME PRN (Reason: insomnia) Qty: 30 1RF hydroxyzine HCl 10 mg tablet 10 mg PO BID PRN (Reason: anxiety) Print Language: Macedonian
[2024-01-10] MEDS: Ketorolac Tromethamine 15 MG/ML VIAL IM (20:55)
[2024-01-10] MEDS: Ondansetron ODT 4 MG TAB.RAPDIS TRANSLINGU (20:55)
[2024-01-10 21:12] LABS: MANUAL DIFF FLAG NO
[2024-01-10 21:14] LABS: Basophils Absolute Auto 0.1 X10*3/uL (0.0-0.2); Basophils Percent Auto 0.6 % (0-2); Eosinophils Absolute Auto 0.2 X10*3/uL (0.0-0.4); Eosinophils Percent Auto 1.8 % (0-4); Hematocrit 34.9 % (37.0-47.0); Hemoglobin 11.7 g/dl (12.0-16.0); Imm Gran Abs Auto 0.03 X10*3/uL (0.00-0.03); Imm Gran Pct Auto 0.3 % (0.0-0.4); Lymphocytes Absolute Auto 3.5 X10*3/uL (1.2-4.9); Lymphocytes Percent Auto 38.5 % (20-40); Mean Corpuscular HGB Conc 33.5 g/dl (31.0-35.0); Mean Corpuscular Volume 86.6 fL (80.0-98.0); Monocytes Absolute Auto 0.6 X10*3/uL (0.1-1.2); Monocytes Percent Auto 6.5 % (2-11); Neutrophils Absolute Auto 4.8 x10*3/uL (2.0-8.3); Neutrophils Percent Auto 52.3 % (45-73); Platelet Count 294 X10*3/uL (160-400); Red Blood Count 4.03 X10*6/uL (4.20-5.50); Red Cell Distribution Width 13.6 % (11.0-16.0); White Blood Count 9.1 X10*3/uL (4.8-10.8)
[2024-01-10 21:37] LABS: Alanine Aminotransferase 18 U/L (0-31); Alkaline Phosphatase 58 U/L (39-117); Anion Gap 12 (12-20); Aspartate Amino Transferase 27 U/L (5-31); Bilirubin Total 0.3 mg/dL (0.0-1.0); Blood Urea Nitrogen 19 mg/dL (9-16); Calcium 9.3 mg/dL (8.4-10.2); Carbon Dioxide 21 mmol/L (22-29); Chloride 109 mmol/L (96-108); Creatinine Clr Calc Pharmacy 108.7; Estimated Glomerular Filt Rate > 60; Glucose Random 69 mg/dL (60-115); Magnesium 1.9 mg/dL (1.6-2.6); Potassium 3.9 mmol/L (3.3-5.1); Sodium 138 mmol/L (135-145); Total Protein 6.9 g/dL (6.5-8.0)
[2024-01-10 21:39] LABS: HCG Quantitative < 2 mIU/mL
[2024-01-10 23:09] LABS: Appearance Urine Clear; Color Urine Dark Yellow; Glucose Urine UA Negative (Negative); Leukocyte Esterase Urine Negative (Negative); Nitrite Urine Negative (Negative); Specific Gravity - Urine >= 1.030 (1.005-1.025); Urine Blood Negative (Negative); Urine Ketones Trace mg/dL (Negative); Urine Protein Negative (Neg-Trace)
[2024-01-10 23:18] VITALS: BP 103/57; PULSE 62; RESP 18; TEMP 36.7; O2SAT 96
--- NOTE | 2024-01-10 23:32 | MHC.EDTECH ---
This tech took over care of patient at 2300,rounded and introduced self to pt,vitals taken,pt is on her cell phone,appears comfortable call valdes in reach
--- NOTE | 2024-01-11 00:04 | ED_ITS ---
HPI - General Adult General Chief complaint: Back Pain/Injury Stated complaint: Lower back pain Time Seen by Provider: 01/10/24 23:33 Source: patient, RN notes reviewed and old records reviewed Mode of arrival: ambulatory Limitations: no limitations History of Present Illness ED Provider: Lukasz NIELSON narrative: This is a 48-year-old female who presents to the ED complaining of right-sided flank pain for 1 day. Patient reports that the pain is sharp and comes and goes, and radiates to her right groin. She had 1 episode of dry heaving today, and 1 episode of vomiting. She is able to pass gas, and has not had any diarrhea or fevers. Patient takes gabapentin, duloxetine, and clonidine which she reports did not help with her pain which made her concerned. She does have a known small hernia on her right side just below her scar. She endorses significant constipation, however this is not a usual for her baseline, reports that she takes magnesium citrate twice daily along with some ?colostrum powder ?. She is able to pass gas, and had a small bowel movement yesterday. She has a surgical history of cholecystectomy, and gastric bypass 2007. Related Data Home Medications ?Medication ?Instructions ?Recorded ?Confirmed hydroxyzine HCl 10 mg tablet 10 mg PO BID PRN anxiety 12/27/23 12/27/23 Previous Rx's ?Medication ?Instructions ?Recorded ferrous sulfate 325 mg (65 mg 325 mg PO DAILY #90 tabs 05/04/23 iron) tablet polyethylene glycol 3350 17 gram 17 g PO DAILY PRN constipation #14 06/27/23 oral powder packet (Miralax) ea magnesium oxide 250 mg PO DAILY #30 tabs 08/03/23 gabapentin 600 mg tablet 600 mg PO TID for pain 30 days #90 09/19/23 tabs pramipexole 0.125 mg tablet 0.125 mg PO BEDTIME #90 tabs 11/24/23 cyclobenzaprine 10 mg tablet 10 mg PO BEDTIME PRN muscle spasm 12/19/23 90 days #90 tabs duloxetine 30 mg capsule,delayed 30 mg PO BID #60 caps 12/27/23 release eszopiclone 3 mg tablet 3 mg PO BEDTIME PRN insomnia #30 12/27/23 tabs clonidine HCl 0.1 mg tablet 0.1 mg PO Q4H 30 days #180 tabs 01/09/24 peg 3350-electrolytes 236 240 ml PO Q10M PRN constipation 01/11/24 gram-22.74 gram-6.74 gram-5.86 #4,000 mL gram solution (GaviLyte-G) Allergies Allergy/AdvReac Type Severity Reaction Status Date / Time No Known Allergies Allergy Verified 01/10/24 20:49 Review of Systems 2 Constitutional: Constitutional: Denies body ache(s), Denies chills and Denies fever(s) Eyes: Eyes: Denies blurry vision ENT: Denies vertigo and Denies dizziness Cardiovascular: Cardiovascular: Denies chest pain and Denies dyspnea Respiratory: Respiratory: Denies cough and Denies dyspnea Gastrointestinal: Gastrointestinal: Reports abdominal pain, Denies nausea and Denies vomiting Musculoskeletal: Musculoskeletal: Denies back pain Integumentary/Breasts: Skin/Breast: Denies rash Neurologic: Denies vertigo and Denies dizziness Psychiatric: Psychiatric: Denies anxiety PMFSH Past Medical History Medical History On varenicline therapy Restless leg syndrome Caffeine dependence Intermittent palpitations Obesity (BMI 35.0-39.9 without comorbidity) Hyperlipidemia Vitamin D deficiency OCD (obsessive compulsive disorder) Cigarette smoker motivated to quit Scoliosis of cervical region due to degenerative disease of spine in adult History of vitamin D deficiency Chronic right shoulder pain Varicose veins of bilateral lower extremities with pain Anemia Anxiety and depression Immunization refused Heavy cigarette smoker (20-39 per day) Menorrhagia HILDA (iron deficiency anemia) Rotator cuff disorder Surgical History History of cervical spinal surgery History of endometrial ablation Hx of dilation and curettage History of cholecystectomy History of H/O gastric bypass H/O tubal ligation Family History Family History Father Mental health disorder Daughter Mental health disorder Paternal Aunt Mental health disorder Social History Social History Housing: Apartment Alcohol intake: former Patient Tobacco Use Status: Current everyday Tobacco user Cigarette Packs Per Day: 1 Smoked in Last 30 Days: Yes e-Cigarette/Vaping Use: Never Used Use of substances other than those prescribed or required for medical reasons: No Substance Use Type: Marijuana Advance Directives: No Advance Directives Information Provided: No Do you have a plan to hurt others: No Plan Patient : No service: No Current occupational status: employed 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[employer], 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 Cognitive needs: No Hearing needs: No Vision needs: Yes Physical Exam ED Vital Signs: Vital Signs - 24 hr 01/10/24 20:48 01/10/24 23:18 01/11/24 00:36 Temperature 98.5 F 98.1 F 97.7 F Pulse Rate 80 62 80 Respiratory Rate 18 18 16 Blood Pressure 96/71 103/57 L 106/61 Pulse Oximetry 96 96 98 Oxygen Delivery Method Room Air Room Air Room Air BMI result Body Mass Index 34.8 Const Other: Uncomfortable appearing General: cooperative and alert Nutritional Appearance: well nourished Orientation/consciousness: patient oriented x3 HENMT Head: Yes normocephalic and Yes atraumatic Eyes Eyelids: Yes eyelids normal Conjunctivae: conjunctivae normal Sclerae: sclerae normal Corneas: corneas normal Pupils: Equal, round and reactive pupils present EOM: EOMs intact bilaterally Neck Neck: Yes full ROM Resp Effort & Inspection: normal respiratory effort, able to speak in complete sentences and not labored Cardio Rate: regular rate Rhythm: regular rhythm GI Other: Soft around, non distended abdomen. No overlying skin changes. Abdomen nontender to palpation in all 4 quadrants. Rovsing sign negative. No McBurney's point tenderness. Patient has tenderness to palpation of the right flank CVA tenderness is negative bilaterally. Inspection: No distended Palpation (GI): Soft to palpation, not firm, Tenderness to palpation present (GI), no guarding and not rigid Skin General skin exam: elasticity normal Neuro General: patient oriented x3 Cranial nerves: Yes Equal, round and reactive pupils present and Yes Bilaterally intact EOM present Cognition (Neuro): normal cognition Extrem Other: Moving all extremities well without any obvious deformities Medications Administered Discontinued Medications Generic Name Dose Route Start Last Admin Trade Name Freq PRN Reason Stop Dose Admin Ketorolac Tromethamine 15 mg 01/10/24 20:51 01/10/24 20:55 Ketorolac Tromethamine 15 Mg/Ml Vial IM 01/10/24 20:52 15 mg ONCE ONE Administration Ketorolac Tromethamine 30 mg 01/11/24 00:03 01/11/24 00:37 Ketorolac Tromethamine 30 Mg/Ml Vial IM 01/11/24 00:04 30 mg ONCE ONE Administration Ondansetron HCl 4 mg 01/10/24 20:51 01/10/24 20:55 Ondansetron Odt 4 Mg Tab.Kaycee CIFUENTESINGU 01/10/24 20:52 4 mg ONCE ONE Administration Medical Decision Making Medical Decision Making [facility] Narrative: 48-year-old female presents for evaluation of abdominal pain with no other symptoms. Her labs have no significant abnormalities, her urinalysis does not show any evidence of hematuria or infection. Her CT scan was ordered in triage. Clinically I feel the most likely diagnosis is constipation. Less likely bowel obstruction, appendicitis, obstructive uropathy Differential Diagnosis Differential Diagnoses: The differential diagnosis associated with the presentation includes Lab Data [facility] Lab Attestation statement: I reviewed the patient's lab results. No leukocytosis. The patient does have a chronic normocytic anemia consistent with a baseline. There is no left shift. No significant chemistry abnormalities warranting intervention. The patient is not 01/10/24 21:06 01/10/24 21:06 Labs: Lab Results 01/10/24 01/10/24 Range/Units 21:06 22:46 WBC 9.1 (4.8-10.8) X10*3/uL RBC 4.03 L (4.20-5.50) X10*6/uL Hgb 11.7 L (12.0-16.0) g/dl Hct 34.9 L (37.0-47.0) % MCV 86.6 (80.0-98.0) fL MCH 29.0 (27.0-33.0) pg MCHC 33.5 (31.0-35.0) g/dl RDW 13.6 (11.0-16.0) % Plt Count 294 (160-400) X10*3/uL MPV 9.0 L (9.4-12.3) fL Immature Gran % (Auto) 0.3 (0.0-0.4) % Neut % (Auto) 52.3 (45-73) % Lymph % (Auto) 38.5 (20-40) % [place] % (Auto) 6.5 (2-11) % Eos % (Auto) 1.8 (0-4) % Baso % (Auto) 0.6 (0-2) % Lymph # (Auto) 3.5 (1.2-4.9) X10*3/uL [place] # (Auto) 0.6 (0.1-1.2) X10*3/uL Eos # (Auto) 0.2 (0.0-0.4) X10*3/uL Baso # (Auto) 0.1 (0.0-0.2) X10*3/uL Abs Immat Gran (auto) 0.03 (0.00-0.03) X10*3/uL Absolute Neuts (auto) 4.8 (2.0-8.3) x10*3/uL Absolute Nucleated RBC 0.000 (0.0-0.012) X10*3/uL Nucleated RBC % (auto) 0.0 (0.0-0.2) /100WBC Sodium 138 (135-145) mmol/L Potassium 3.9 (3.3-5.1) mmol/L Chloride 109 H (96-108) mmol/L Carbon Dioxide 21 L (22-29) mmol/L Anion Gap 12 (12-20) BUN 19 H (9-16) mg/dL Creatinine 0.78 (0.5-1.4) mg/dL Estim Creat Clear Calc 108.7 Estimated GFR > 60 Random Glucose 69 (60-115) mg/dL Calcium 9.3 (8.4-10.2) mg/dL Magnesium 1.9 (1.6-2.6) mg/dL Total Bilirubin 0.3 (0.0-1.0) mg/dL AST 27 (5-31) U/L ALT 18 (0-31) U/L Alkaline Phosphatase 58 (39-117) U/L Total Protein 6.9 (6.5-8.0) g/dL Albumin 4.0 (3.5-5.0) g/dL Beta HCG, Quant < 2 mIU/mL Urine Color Dark Yellow Urine Appearance Clear Urine pH 6.0 (5.0-9.0) Ur Specific [place] >= 1.030 H (1.005-1.025) Urine Protein Negative (Neg-Trace) mg/dL Urine Glucose (UA) Negative (Negative) mg/dL Urine Ketones Trace (Negative) mg/dL Urine Blood Negative (Negative) Urine Nitrite Negative (Negative) Ur Leukocyte Esterase Negative (Negative) Independent Interpretation I performed an independent interpretation of an: CT Scan (Ysrk-jc-birawibu stool burden) Radiology Impression Discussion of test interpretation with radiology: I have reviewed the radiologist's reading. Radiologist Impression: FINDINGS: LUNG BASES: The visualized lung bases are unremarkable. LIVER, GALLBLADDER, AND BILIARY TREE: The liver is normal in size, shape, and attenuation. No focal hepatic lesion or biliary ductal dilatation is present. There has been a prior cholecystectomy. PANCREAS: Unremarkable. SPLEEN: Unremarkable. ADRENAL GLANDS: Unremarkable. KIDNEYS AND URETERS: The kidneys are normal in size, shape, and attenuation. No hydronephrosis, hydroureter, or calculi seen. No perinephric stranding. BLADDER: Unremarkable. GASTROINTESTINAL TRACT: There is retained stool throughout. The appendix is visualized and is within normal limits. There has been a prior gastric bypass. There is no evidence for bowel obstruction. There is a small umbilical hernia containing fat. ABDOMINAL WALL: There is a minimal umbilical hernia containing fat. LYMPH NODES: Normal. VASCULAR: Unremarkable. PELVIC VISCERA: Unremarkable. OSSEOUS STRUCTURES: Unremarkable. CT/CT abdomen pelvis wo IV con IMPRESSION: 1. No evidence for acute abnormality in the abdomen or pelvis. 2. Retained stool throughout the colon. 3. Small umbilical hernia containing fat. Fleischner guidelines were followed. Electronically signed by: Logan Izquierdo MD 01/11/2024 01:48 AM [facility] [place] Discharge Clinical Impression: Constipation Patient Disposition: Home, Self-Care Instructions: Constipation (ED), High Fiber Diet (ED) Additional Instructions: Your CT scan only showed constipation. Continue the MiraLax. Take GoLYTELY as needed for constipation You do not need to drink the entire bottle Follow-up with your primary doctor Prescriptions: New peg 3350-electrolytes [GaviLyte-G] 236-22.74-6.74 -5.86 gram recon soln 240 ml PO Q10M PRN (Reason: constipation) Qty: 4000 0RF Rx Instructions: until fecal effluent is clear No Action polyethylene glycol 3350 [Miralax] 17 gram powder in packet 17 g PO DAILY PRN (Reason: constipation) Qty: 14 0RF magnesium oxide 250 mg magnesium tablet 250 mg PO DAILY Qty: 30 0RF gabapentin 600 mg tablet 600 mg PO TID 30 Days Qty: 90 3RF pramipexole 0.125 mg tablet 0.125 mg PO BEDTIME Qty: 90 1RF cyclobenzaprine 10 mg tablet 10 mg PO BEDTIME PRN (Reason: muscle spasm) 90 Days Qty: 90 1RF clonidine HCl 0.1 mg tablet 0.1 mg PO Q4H 30 Days Qty: 180 0RF ferrous sulfate 325 mg (65 mg iron) tablet 325 mg PO DAILY Qty: 90 1RF duloxetine 30 mg capsule,delayed release(DR/EC) 30 mg PO BID Qty: 60 2RF eszopiclone 3 mg tablet 3 mg PO BEDTIME PRN (Reason: insomnia) Qty: 30 1RF hydroxyzine HCl 10 mg tablet 10 mg PO BID PRN (Reason: anxiety) Print Language: Slovenian
[2024-01-11 00:36] VITALS: BP 106/61; PULSE 80; RESP 16; TEMP 36.5; O2SAT 98
[2024-01-11] MEDS: Ketorolac Tromethamine 30 MG/ML VIAL IM (00:37)
[2024-01-11 02:06] VITALS: BP 106/61; PULSE 80; RESP 16; TEMP 36.5; O2SAT 98
== END 2024-01-11 02:13 | disposition home or self-care (01) ==
PROVIDERS: Physician Assistant Medical; Emergency Provider Emergency Medicine Emergency Medical Services; PCP Internal Medicine
DX: K59.00 Constipation, unspecified (principal); R10.2 Pelvic and perineal pain; E78.5 Hyperlipidemia, unspecified; F17.210 Nicotine dependence, cigarettes, uncomplicated; F12.90 Cannabis use, unspecified, uncomplicated; Z79.899 Other long term (current) drug therapy
CPT/HCPCS: 36415; 74176; 80053; 81003; 83735; 84702; 85025; 96372; 99284; J1885

== ENCOUNTER 2024-01-16 08:10 | Outpatient (REF) | payer BC, SELFPAY ==
--- NOTE | ~2024-01-16 | XR_ITS ---
EXAMINATION: XR LEFT SHOULDER CLINICAL INFORMATION: Pain in left shoulder M25.512. COMPARISON: None available TECHNIQUE: Three views of the left shoulder. FINDINGS: Mild acromioclavicular osteoarthritis. Possible remote, healed fracture of the clavicle. Small degenerative cyst of the anterior superior humeral head. No acute osseous abnormality. XR/XR shoulder LT min 2V IMPRESSION: Mild acromioclavicular osteoarthritis. No acute osseous abnormality. Electronically signed by: Michael Cook MD 02/23/2024 10:37 AM [facility]
== END 2024-01-16 08:11 | disposition home or self-care (01) ==
LOC: HO.HOSX 08:10
DX: M25.512 Pain in left shoulder (principal); M41.9 Scoliosis, unspecified; Z98.890 Other specified postprocedural states
CPT/HCPCS: 73030

== ENCOUNTER 2024-01-16 14:23 | Outpatient (AMB) | payer BC, SELFPAY ==
--- NOTE | 2024-01-16 14:36 | A.OFFVIS_ITS ---
Vital Signs 01/16/24 14:37 Height 5 ft 7 in Weight 220 lb BMI 34.5 Handedness Right Intake Visit Reasons: New prob- Left shoulder pain Intake Note: Stefany is a 48 year old right hand dominant female who presents today for a new problem visit with complaints of left shoulder pain that started after her right shoulder and spine surgery in 2022 in [place]. Patient described her pain as burning and aching that radiates down her right arm and into fingers. After a while her pins and needles turns into a severe pain. She expresses an itch on the dorsal aspect of her hand that goes into the fingers. She needed to cut down her finger nails to prevent herself from continuing to tear her skin. Is having clicking in the right shoulder. Tylenol and ibuprofen offer no adequate relief. 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 Allergies No Known Allergies Allergy (Verified 01/16/24 14:37) HPI HPI New prob- Left shoulder pain: Details: Patient is a 48-year-old female who presents for left-sided back, shoulder, arm, and hand pain, numbness, and tingling, that has been ongoing since she had spinal surgery in 2022 in [place]. The patient states that at that time, she had surgery to correct some scoliosis in her neck and to alleviate pain in her right shoulder, and since then she has noticed significant pain in the left side of her back, shoulder, arm, and hand. The patient states that her numbness and tingling is intermittent, but daily, and much worse at night or with activity. Patient reports that she frequently has to sit in unorthodox positions to be able to find any relief. Patient reports that she was recently told that she had scoliosis in her spine at the level of the shoulder blades that she was pr eviously unaware of, and she feels that this may be the cause of her pain. Patient did have EMG and nerve conduction study previously performed in the left arm, that was negative. No other acute complaints or concerns at this time. [facility] Medical History On varenicline therapy Restless leg syndrome Caffeine dependence Intermittent palpitations Obesity (BMI 35.0-39.9 without comorbidity) Hyperlipidemia Vitamin D deficiency OCD (obsessive compulsive disorder) Cigarette smoker motivated to quit Scoliosis of cervical region due to degenerative disease of spine in adult History of vitamin D deficiency Chronic right shoulder pain Varicose veins of bilateral lower extremities with pain Anemia Anxiety and depression Immunization refused Heavy cigarette smoker (20-39 per day) Menorrhagia HILDA (iron deficiency anemia) Rotator cuff disorder Surgical History History of cervical spinal surgery History of endometrial ablation Hx of dilation and curettage History of cholecystectomy History of H/O gastric bypass H/O tubal ligation Family History Father Mental health disorder Daughter Mental health disorder Paternal Aunt Mental health disorder Social History Housing: Apartment Alcohol intake: former Patient Tobacco Use Status: Current everyday Tobacco user Cigarette Packs Per Day: 1 e-Cigarette/Vaping Use: Never Used Substance Use Type: Marijuana service: No Current occupational status: employed 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 Neuro: Normal sensation of the tips of all digits of the left hand at this time Vascular: Cap refill brisk Pain: No tenderness to palpation of the left shoulder Negative empty can Negative belly press Negative lift-off Negative Lutz However, the patient does report significant tingling and shooting sensations from the shoulder blade all the way down the left arm with this movement and manipulation ROM: Patient is able to forward flex the left shoulder to 90 degrees without difficulty Patient is able to abduct the left shoulder to 90 degrees without difficulty Patient is able to externally rotate the left shoulder to approximately 70 degrees without difficulty Skin: No lacerations or abrasions. General: No ecchymosis, erythema, or evidence of infection. Psych: Appears grossly normal Affect normal Attitude cooperative Results Reviewed Results Reviewed: X-rays obtained in the office today and independently reviewed by me, Rene Pinto PA-C, demonstrate no fracture or acute bony abnormality of the left shoulder, however it was observed that the upper thoracic spine does have deformity consistent with scoliosis. Assessment & Plan Assessment & Plan (1) Scoliosis deformity of spine: Code(s): M41.9 - Scoliosis, unspecified Category: Medical Plan 1. Scoliosis of lower cervical and upper thoracic spine Patient is educated about this condition Patient is educated that we are not the best office to treat her for this MRI of thoracic spine is ordered Referral was also placed to neuro spine surgery for evaluation and discussion of potential treatment of scoliosis and symptoms in the left arm Patient was amenable to this plan Patient will follow-up with us as needed with any acute concerns Orders: Orders XR shoulder LT min 2V Today M25.512 - Pain in left shoulder MR thoracic spine wo con Today M41.9 - Scoliosis, unspecified Referrals Neuro Spine Referral M41.9 - Scoliosis, unspecified Coding Level of Care Code Est Pt Level 3 (74674) Diagnoses Scoliosis deformity of spine M41.9
[2024-01-16 14:37] VITALS: BMI 34.5
== END 2024-01-16 15:12 | disposition home or self-care (01) ==
PROVIDERS: PCP Internal Medicine
DX: M41.9 Scoliosis, unspecified (principal)
CPT/HCPCS: 99213

== ENCOUNTER 2024-02-06 13:35 | Outpatient (AMB) | payer BC, SELFPAY ==
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
== END 2024-02-06 16:54 | disposition home or self-care (01) ==
LOC: HO.HOP 13:35
PROVIDERS: PCP Internal Medicine; Visit Provider Clinical Nurse Specialist Psychiatric/Mental Health
DX: F43.12 Post-traumatic stress disorder, chronic (principal); F90.2 Attention-deficit hyperactivity disorder, combined type; F33.1 Major depressive disorder, recurrent, moderate
CPT/HCPCS: 99215

== ENCOUNTER → 2024-02-06 13:35 | Outpatient (BNVA) | payer BC, SELFPAY | PROVIDERS: PCP Internal Medicine; Visit Provider Clinical Nurse Specialist Psychiatric/Mental Health ==

== ENCOUNTER → 2024-02-13 17:23 | Outpatient (BNV) | payer BC, SELFPAY | PROVIDERS: PCP Internal Medicine; Visit Provider Radiology Diagnostic Radiology | DX: M41.9 Scoliosis, unspecified (principal) | CPT/HCPCS: 72146 ==

== ENCOUNTER 2024-02-13 17:27 | Outpatient (REF) | payer BC, SELFPAY ==
--- NOTE | ~2024-02-13 | MR_ITS ---
CLINICAL HISTORY: M41.9 - Scoliosis, unspecified MR thoracic spine without contrast Comparison: CR/SR - XR CERVICAL SPINE 2V - 07/26/23 09:42 EDT CR/SR - XR CHEST 1V - 05/02/23 18:09 EDT CR - CHEST 2 VIEWS 91263 - 10/29/13 12:55 EDT Findings: There is mild levocurvature with the apex T4 and moderate T8/T9 dextrocurvature with the apex. Normal marrow signal. No severe central spinal canal stenosis; there is multilevel mild central spinal canal stenosis secondary to small disc protrusions and facet/ligamentum flavum hypertrophy throughout the thoracic spine. The spinal cord is normal in size and signal. Unremarkable paraspinous muscles. Impression: No acute findings. Moderate scoliosis. Mild multilevel central spinal canal stenosis. This document has been electronically signed by: Callie Harrell MD on 02/14/2024 16:46:45
== END 2024-02-13 17:28 | disposition home or self-care (01) ==
LOC: HO.MRI 17:27
PROVIDERS: PCP Internal Medicine
DX: M41.9 Scoliosis, unspecified (principal); R52 Pain, unspecified; R20.0 Anesthesia of skin
CPT/HCPCS: 72146

== ENCOUNTER 2024-03-01 13:38 | Outpatient (REF) | payer BC, SELFPAY ==
[2024-03-01 16:43] LABS: MANUAL DIFF FLAG NO
[2024-03-01 16:52] LABS: Basophils Percent Auto 0.5 % (0-2); Eosinophils Absolute Auto 0.2 X10*3/uL (0.0-0.4); Eosinophils Percent Auto 1.9 % (0-4); Hematocrit 36.4 % (37.0-47.0); Imm Gran Abs Auto 0.02 X10*3/uL (0.00-0.03); Imm Gran Pct Auto 0.2 % (0.0-0.4); Lymphocytes Absolute Auto 3.5 X10*3/uL (1.2-4.9); Lymphocytes Percent Auto 39.8 % (20-40); Mean Corpuscular Hemoglobin 29.8 pg (27.0-33.0); Mean Corpuscular Volume 90.3 fL (80.0-98.0); Mean Platelet Volume 9.8 fL (9.4-12.3); Monocytes Absolute Auto 0.5 X10*3/uL (0.1-1.2); Monocytes Percent Auto 5.3 % (2-11); Neutrophils Absolute Auto 4.6 x10*3/uL (2.0-8.3); Neutrophils Percent Auto 52.3 % (45-73); Platelet Count 293 X10*3/uL (160-400); Red Blood Count 4.03 X10*6/uL (4.20-5.50); Red Cell Distribution Width 14.4 % (11.0-16.0); White Blood Count 8.8 X10*3/uL (4.8-10.8)
[2024-03-01 17:11] LABS: Iron 22 mcg/dL (30-160); Percent Iron Saturation 7 % (15-50); Total Iron Binding Capacity 331 mcg/dL (228-428); Unsaturated Iron Binding 309 ug/dL
== END 2024-03-01 13:39 | disposition home or self-care (01) ==
LOC: HO.HMGCLDS 13:38
PROVIDERS: PCP Internal Medicine; Visit Provider Internal Medicine
DX: D50.9 Iron deficiency anemia, unspecified (principal); E55.9 Vitamin D deficiency, unspecified; R00.2 Palpitations; D50.0 Iron deficiency anemia secondary to blood loss (chronic)
CPT/HCPCS: 36415; 83540; 85025

== ENCOUNTER 2024-03-05 13:24 | Outpatient (AMB) | payer BC, SELFPAY ==
[2024-03-05 13:27] VITALS: BP 100/74; PULSE 78; TEMP 36.8; O2SAT 98; BMI 33.4
--- NOTE | 2024-03-05 13:27 | MHC.PC.OV ---
Vital Signs 03/05/24 13:27 Height 5 ft 7 in Weight 213 lb BMI 33.4 BP 100/74 Blood Pressure Location Rt brachial Position Sitting Pulse 78 Pulse Source Pulse Oximeter Temp 98.3 F Temp Source Oral Pulse Oximetry (%) 98 Oxygen Delivery Method Room Air Intake Visit Reasons: PE Intake Note: Pt is here today for her PE: Mammogram 04/06/21, cologuard 02/18/23 Allergies No Known Allergies Allergy (Verified 03/05/24 13:48) Medication List - Last Reconciled 03/05/24 by Rosio Augustine MD acetylcysteine (NAC) 600 mg PO BID bupropion HCl XL (Wellbutrin XL) 150 mg PO QAM clonidine HCl 0.1 mg PO QID 30 days cyclobenzaprine 10 mg PO BEDTIME PRN 90 days duloxetine 30 mg PO BID eszopiclone 3 mg PO BEDTIME PRN gabapentin 600 mg PO TID pramipexole 0.125 mg PO BEDTIME Tobacco use date assessed: 03/05/24 Dental Screening Dental Screen Date: 03/05/24 Did you have a dental visit in the last 12 months?: No Did you have a dental problem in the last 6 months where you did not have access to dental care?: No Was dental information given to patient?: Patient has dentist HPI PE HPI Details 48-year-old lady with history for scoliosis and multilevel spinal stenosis, here today for physical exam. She has depression, anxiety and ADHD, currently followed by Vandana Ledesma ACCOUNT INFORMATION CLERK. She is currently on duloxetine 30 mg twice a day which has been helping control her anxiety depression, also taking clonidine and was started on Wellbutrin XL 150 mg for her ADHD. She is also taking magnesium glycinate 250mg BID -she goes to [facility] for her routine Pap and pelvic exam which is currently up-to-date, and is overdue for her screening mammogram, last 1 done was in 2021 She had a negative Cologuard test done 02/12/2023 - Known positive Cologuard from 2021; additional related diagnostics appropriately followed. - Ongoing struggle with smoking cessation, having trialed Chantix without success. - History of low iron levels with noted mild improvement in recent labs - Carpal tunnel syndrome noted, impacting functionality. - Nutritional status is suboptimal due to irregular eating because of a demanding job schedule. - Previous attempts at weight management include Wegovy, which she no longer uses. [facility] Medical History (Updated 03/12/24 @ 00:16 by Rosio Augustine MD) Cat bite Restless leg syndrome Caffeine dependence Obesity (BMI 35.0-39.9 without comorbidity) Hyperlipidemia Vitamin D deficiency OCD (obsessive compulsive disorder) Scoliosis of cervical region due to degenerative disease of spine in adult History of vitamin D deficiency Chronic right shoulder pain Varicose veins of bilateral lower extremities with pain Anemia Anxiety and depression Immunization refused Heavy cigarette smoker (20-39 per day) Menorrhagia HILDA (iron deficiency anemia) Rotator cuff disorder Surgical History (Updated 03/12/24 @ 00:04 by Rosio Augustine MD) History of cervical spinal surgery History of endometrial ablation Hx of dilation and curettage History of cholecystectomy History of H/O gastric bypass H/O tubal ligation Family History Father Mental health disorder Daughter Mental health disorder Paternal Aunt Mental health disorder Social History Housing: Apartment Alcohol intake: former Patient Tobacco Use Status: Current everyday Tobacco user Cigarette Packs Per Day: 1 e-Cigarette/Vaping Use: Never Used Substance Use Type: Marijuana service: No Current occupational status: employed 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 1. Little interest or pleasure in doing things: more than half the days 2. Feeling down, depressed, or hopeless: more than half the days 3. Trouble falling or staying asleep, or sleeping too much: nearly every day 4. Feeling tired or having little energy: more than half the days 5. Poor appetite or overeating: several days 6. Feeling bad about yourself - or that you are a failure or have let yourself or your family down: more than half the days 7. Trouble concentrating on things, such as reading the newspaper or watching television: more than half the days 8. Moving or speaking so slowly that other people could have noticed. Or the opposite - being so fidgety or restless that you have been moving around a lot more than usual: not at all 9. Thoughts that you would be better off or of hurting yourself in some way: not at all Total score: 14 Depression Screening Interpretation: Positive (Followed by Vandana Ledesma NP at [facility] Depression Screening Follow-up: Existing condition, In treatment and Community Mental Health Worker F/U Depression Screening Done: Yes 57914 - PHQ-9 Billing: Yes Source: Developed by Drs. Kali Sheriff, Azul Palencia, Amrit Rogers and colleagues, with an educational alfa from [employer]. Thrive Questionnaire Date Thrive assessed: 03/05/24 I am a: Patient What is your living situation today?: I have a steady place to live Within the past 12 months, did the food you bought not last and you didn't have the money to get more?: Never true Within the past 12 months, did you worry whether your food would run out before you got money to buy more?: Never true Do you have trouble paying for medicines?: Yes Do you have trouble getting transportation to medical appointments?: No Do you have trouble paying your heating and electricity bill?: No Do you have trouble taking care of your child, family member or friend?: No Do you have trouble with day-to-day activities such as bathing, preparing meals, shopping, managing finances, etc.?: No Are you currently unemployed and looking for a job?: No Are you interested in more education?: No Please select the resources that you would like help with: Paying for medicine Currently or been in a relationship where the following occur: No concerns reported THRIVE Score: 0 AUDIT C Alcohol Use Questionnaire (AUDIT-C) 1. How often do you have a drink containing alcohol?: Monthly or less 2. How many drinks containing alcohol do you have on a typical day when you are drinking?: 3 or 4 3. How often do you have six or more drinks on one occasion?: Never Total Score: 2 JESÚS-7 AMB Questionnaire JESÚS-7 Date JESÚS - 7 assessed: 03/05/24 Feeling nervous, anxious, or on edge: 2 = More than half the days Not being able to stop or control worryin = More than half the days Worrying too much about different things: 2 = More than half the days Trouble relaxin = Several days Being so restless that it is hard to sit still: 2 = More than half the days Becoming easily annoyed or irritable: 2 = More than half the days Feeling afraid as if something awful might happen: 1 = Several days Total JESÚS-7 score (0-4 normal; 5-9 mild; 10-14 moderate; 15-21 severe): 12 Source: Developed by Drs. Kali Sheriff, Azul Palencia, Amrit Rogers and colleagues, with an educational alfa from [employer]. JESÚS-7 Assessment Billing JESÚS-7 Assessment Tool: JESÚS-7 Assessment 56144 Review of Systems Const Reports no additional complaints Eyes Reports no additional complaints ENT Reports Normal hearing present Card Denies chest pain, Denies chest pain at rest, Denies chest pain with activity and Denies pedal edema Resp Denies cough GI Denies abdominal pain Reports no additional complaints Musc Denies abnormal gait, Denies muscle cramps and Denies radiating pain into limb Skin/Breast Denies skin ulcer and Denies wounds Neuro Reports Normal hearing present and Denies abnormal gait Psych Reports as per HPI Endo Reports no additional complaints Dell/Lymph Reports no additional complaints Aller/Immun Reports no additional complaints Physical exam (Primary Care) Vital Signs: Last Vital Signs Temp 98.3 F 03/05/24 13:27 Pulse 78 03/05/24 13:27 BP 100/74 03/05/24 13:27 Pulse Ox 98 03/05/24 13:27 Oxygen Delivery Method Room Air 03/05/24 13:27 BMI result Body Mass Index 33.4 Tobacco/Smoking Status: Tobacco use Status Tobacco use date assessed 03/05/24 03/05/24 13:41 Patient Tobacco Use Status Current everyday Tobacco 03/05/24 13:28 e-Cigarette/Vaping Use Never Used 03/05/24 13:28 PHQ-9: PHQ-9 Score PHQ-9: Total score 03/05/24 13:50 Depression Screening Interpretation: Positive (Followed by Vandana Ledesma NP at [facility]) Depression Screening Follow-up: Existing condition, In treatment and Community Mental Health Worker F/U Thrive Assessment: Date of Thrive Assessment Date Thrive assessed 03/05/24 03/05/24 13:41 Currently or been in a relationship where the following occur: No concerns reported Const Other: Alert oriented x3, no acute cardiorespiratory distress, ambulatory with normal gait, accompanied by daughter Orientation/consciousness: patient oriented x3 [facility] General nose exam: Normal external nose present Face and sinus: Yes face symmetric Mouth: Normal oral and palatal mucosa present, oropharynx normal and moist mucous membranes Eyes General: appearance normal, both eyes and all related structures Neck Other: Supple, no lymphadenopathy, thyroid gland nonpalpable Chest Breast/axilla palpation: normal palpation of the breasts Resp Effort & Inspection: normal respiratory effort and able to speak in complete sentences Auscultation: clear to auscultation bilaterally Cardio Other: S1-S2 present regular rate and rhythm GI Palpation (GI): Soft to palpation, nontender, no guarding and no masses General: Yes no CVA tenderness and Yes deferred (Sees Dr. Ricketts at [facility]) Back/Spine/Pelvis Back: no CVA tenderness and No back tenderness Skin General skin exam: no rashes or lesions noted Neuro General: patient oriented x3, gait normal, moves all extremities, Normal light touch and pain sensation and CN's II-XI intact bilaterally Cranial nerves: Yes Normal hearing present Extrem General: Yes full ROM, Yes no joint enlargement, Yes no clubbing, cyanosis or edema and Yes normal gait Psych Appearance: grossly normal and well kempt Mental Status: mental status grossly normal Speech and movement: Normal speech and movement present Affect: normal affect Thought process: Normal thought process present Coding Level of Care Code Est Pt Prev Care 40-64y(52799) Diagnoses Annual visit for general adult medical examination with abnormal findings Z00.01 Excoriation (skin-picking) disorder F42.4 Obsessive-compulsive disorder type: excoriation disorder Pure hypercholesterolemia E78.00 Hyperlipidemia type: pure hypercholesterolemia Iron deficiency anemia due to chronic blood loss D50.0 Iron deficiency anemia type: chronic blood loss Immunization refused Z28.21 Anxiety and depression F41.9; F32.A Cervical post-laminectomy syndrome M96.1 Carpal tunnel syndrome of right wrist G56.01 Chronic post-traumatic stress disorder (PTSD) F43.12 ADHD (attention deficit hyperactivity disorder), combined type F90.2 Chronic pain syndrome G89.4 Additional Codes JESÚS-7 Assessment Billing - JESÚS-7 Assessment Tool: JSEÚS-7 Assessment 43710 ([id number]) PHQ-9 - 92405 - PHQ-9 Billing: Yes ([id number]) Assessment & Plan Assessment & Plan (1) Annual visit for general adult medical examination with abnormal findings: Code(s): Z00.01 - Encounter for general adult medical examination with abnormal findings (2) OCD (obsessive compulsive disorder): Code(s): F42.9 - Obsessive-compulsive disorder, unspecified Category: Medical Qualifiers: Obsessive-compulsive disorder type: excoriation disorder Qualified Code(s): F42.4 - Excoriation (skin-picking) disorder (3) Hyperlipidemia: Code(s): E78.5 - Hyperlipidemia, unspecified Category: Medical Qualifiers: Hyperlipidemia type: pure hypercholesterolemia Qualified Code(s): E78.00 - Pure hypercholesterolemia, unspecified (4) HILDA (iron deficiency anemia): Code(s): D50.9 - Iron deficiency anemia, unspecified Category: Medical Qualifiers: Iron deficiency anemia type: chronic blood loss Qualified Code(s): D50.0 - Iron deficiency anemia secondary to blood loss (chronic) (5) Immunization refused: Code(s): Z28.21 - Immunization not carried out because of patient refusal Category: Medical (6) Anxiety and depression: Code(s): F41.9 - Anxiety disorder, unspecified; F32.A - Depression, unspecified Category: Medical (7) Cervical post-laminectomy syndrome: Code(s): M96.1 - Postlaminectomy syndrome, not elsewhere classified Category: Medical (8) Carpal tunnel syndrome of right wrist: Code(s): G56.01 - Carpal tunnel syndrome, right upper limb Category: Medical (9) Chronic post-traumatic stress disorder (PTSD): Code(s): F43.12 - Post-traumatic stress disorder, chronic Category: Medical (10) ADHD (attention deficit hyperactivity disorder), combined type: Code(s): F90.2 - Attention-deficit hyperactivity disorder, combined type Category: Medical (11) Chronic pain syndrome: Code(s): G89.4 - Chronic pain syndrome Category: Medical Plan -Fasting labs ordered today -currently followed by Vandana Ledesma ACCOUNT INFORMATION CLERK for her ADHD, depression /anxiety and OCD Management of scoliosis and multilevel spine stenosis will be observational with potential imaging if symptoms change. Up-to-date with her cervical cancer screening, goes to [facility] , and advised to schedule mammogram. Up-to-date with her screening colonoscopy. Declines recommendation for routine vaccinations. Smoking cessation is encouraged through different therapeutic options as Chantix did not suffice. Addressing iron deficiency involves potential re-initiation of supplements. Dietary guidance focuses on improving meal regularity and nutritional intake amidst a busy lifestyle. Weight management options will be revisited in future consultations. Currently followed by Orthopedics for carpal tunnel syndrome Patient was informed and verbally consented to the use of an ambient scribe for clinic note documentation during this visit. Orders: Orders Lipid Panel 03/05/24 E78.00 - Pure hypercholesterolemia, unspecified, F42.4 - Excoriation (skin-picking) disorder, Z78.0 - Asymptomatic menopausal state Vitamin D 25-OH Total 03/05/24 E78.00 - Pure hypercholesterolemia, unspecified, F42.4 - Excoriation (skin-picking) disorder, Z78.0 - Asymptomatic menopausal state Vitamin B12 and Folate 03/05/24 E78.00 - Pure hypercholesterolemia, unspecified, F42.4 - Excoriation (skin-picking) disorder, Z78.0 - Asymptomatic menopausal state
== END 2024-03-05 14:12 | disposition home or self-care (01) ==
PROVIDERS: PCP Internal Medicine; Visit Provider Internal Medicine
DX: Z00.01 Encounter for general adult medical examination with abnormal findings (principal); F42.4 Excoriation (skin-picking) disorder; E78.00 Pure hypercholesterolemia, unspecified; D50.0 Iron deficiency anemia secondary to blood loss (chronic); Z28.21 Immunization not carried out because of patient refusal; F41.9 Anxiety disorder, unspecified; F32.A Depression, unspecified; M96.1 Postlaminectomy syndrome, not elsewhere classified; G56.01 Carpal tunnel syndrome, right upper limb; F43.12 Post-traumatic stress disorder, chronic; F90.2 Attention-deficit hyperactivity disorder, combined type; G89.4 Chronic pain syndrome

== ENCOUNTER → 2024-03-05 13:24 | Outpatient (BNVA) | payer BC, SELFPAY | PROVIDERS: PCP Internal Medicine; Visit Provider Internal Medicine | DX: Z00.01 Encounter for general adult medical examination with abnormal findings (principal); F42.4 Excoriation (skin-picking) disorder; E78.00 Pure hypercholesterolemia, unspecified; D50.0 Iron deficiency anemia secondary to blood loss (chronic); F41.9 Anxiety disorder, unspecified; F32.A Depression, unspecified; M96.1 Postlaminectomy syndrome, not elsewhere classified; G56.01 Carpal tunnel syndrome, right upper limb; F43.12 Post-traumatic stress disorder, chronic; F90.2 Attention-deficit hyperactivity disorder, combined type; G89.4 Chronic pain syndrome; Z28.21 Immunization not carried out because of patient refusal | CPT/HCPCS: 96127 ==

== ENCOUNTER 2024-05-04 10:37 | Outpatient (AMB) | payer BC, SELFPAY ==
--- NOTE | 2024-05-04 11:18 | MHC.OFFWIV ---
Intake Vital Signs 05/04/24 11:20 Weight 213 lb BP 118/70 Blood Pressure Location Rt brachial Position Sitting Pulse 84 Pulse Source Pulse Oximeter Pulse Oximetry (%) 98 Oxygen Delivery Method Room Air Intake Visit Reasons: EP RT Hip Pain, going down the leg Intake Note: patient here for right hip pain and burning sensation that radiates down the leg that has been present for about 1 week. Patient Tobacco Use Status: Current everyday Tobacco user Allergies No Known Allergies Allergy (Verified 05/04/24 11:19) HPI HPI Comments History of Present Illness Details History of Present Illness - The patient is a 49-year-old female presenting with right sided low back pain which is getting worse and extending down the back of her right leg. - Symptoms began two weeks ago, initially with minor discomfort during activities such as standing up or exiting a vehicle. - Without relief, symptoms have progressed to a significant burning pain in the hip and buttocks, extending down the back of the leg, resulting in a limp. - There is no history of similar sciatica episodes. - Ongoing medication regimen includes gabapentin, duloxetine, naproxen, cyclobenzaprine, and clonidine, with noted ineffectiveness for current pain management. - The patient reports ongoing smoking habits, relevant to overall health context. Physical Exam General: Cooperative, healthy appearing, comfortable, no acute distress and well developed Orientation: Patient oriented x3 Limitations: Limping 2/2 pain Head: Normal to inspection Ears: Hearing grossly normal bilaterally Nose: Normal External nose present Face and sinus: Normal facial exam Eyes: Appearance normal, both eyes and all related structures Neck: Normal visual inspection and Yes full ROM Respiratory: Normal respiratory effort and able to speak in complete sentences. Skin: No rashes or lesions noted Neuro: Patient oriented x3 Back/Spine: No TTP c-spine, t-spine or l-spine, slight ttp right lumbar back to buttocks Extremities: normal appearance, negative straight leg test right side [facility] Medical History (Updated 05/04/24 @ 11:36 by Alla Aguila PA-C) Cat bite Restless leg syndrome Caffeine dependence Obesity (BMI 35.0-39.9 without comorbidity) Hyperlipidemia Vitamin D deficiency OCD (obsessive compulsive disorder) Scoliosis of cervical region due to degenerative disease of spine in adult History of vitamin D deficiency Chronic right shoulder pain Varicose veins of bilateral lower extremities with pain Anemia Anxiety and depression Immunization refused Heavy cigarette smoker (20-39 per day) Menorrhagia HILDA (iron deficiency anemia) Rotator cuff disorder Surgical History (Updated 03/12/24 @ 00:04 by Rosio Augustine MD) History of cervical spinal surgery History of endometrial ablation Hx of dilation and curettage History of cholecystectomy History of H/O gastric bypass H/O tubal ligation Family History Father Mental health disorder Daughter Mental health disorder Paternal Aunt Mental health disorder Social History Housing: Apartment Alcohol intake: former Patient Tobacco Use Status: Current everyday Tobacco user Cigarette Packs Per Day: 1 e-Cigarette/Vaping Use: Never Used Substance Use Type: Marijuana service: No Current occupational status: employed 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[email or web address], 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 Cognitive needs: No Hearing needs: No Vision needs: Yes Female Reproductive History Menstrual Age of Menarche: 13 Review of Systems Const All systems reviewed & are unremarkable except as noted in HPI and below Physical Exam Vital Signs: Last Vital Signs Pulse 84 05/04/24 11:20 BP 118/70 05/04/24 11:20 Pulse Ox 98 05/04/24 11:20 Oxygen Delivery Method Room Air 05/04/24 11:20 Assessment & Plan Assessment & Plan (1) Sciatica of right side: Code(s): M54.31 - Sciatica, right side Plan: The plan for the patient focuses on addressing sciatica through a course of prednisone at 50 mg per day for five days, administered in the morning. The treatment aims to alleviate pain and inflammation contributing to the patient's symptoms. New prescriptions have been promptly sent to the pharmacy to ensure timely commencement of therapy. The patient was given patient education from [facility] on sciatica with a set of specific floor exercises targeting sciatica. Patient was informed and verbally consented to the use of an ambient scribe for clinic note documentation during this visit. Medications: New prednisone 50 mg PO QAM 5 tabs 0RF Coding Level of Care Code Est Pt Level 3 (60876) Diagnoses Sciatica of right side M54.31
[2024-05-04 11:20] VITALS: BP 118/70; PULSE 84; O2SAT 98
== END 2024-05-04 11:50 | disposition home or self-care (01) ==
PROVIDERS: PCP Internal Medicine; Visit Provider Physician Assistant
DX: M54.31 Sciatica, right side (principal)

== ENCOUNTER → 2024-05-04 10:37 | Outpatient (BNVA) | payer BC, SELFPAY | PROVIDERS: PCP Internal Medicine; Visit Provider Physician Assistant ==

== ENCOUNTER 2024-09-26 13:51 | Outpatient (AMB) | payer OTHER, SELFPAY ==
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
== END 2024-09-26 15:14 | disposition home or self-care (01) ==
LOC: HO.HOP 13:51
PROVIDERS: PCP Internal Medicine; Visit Provider Clinical Nurse Specialist Psychiatric/Mental Health, Adult
DX: F33.1 Major depressive disorder, recurrent, moderate (principal); F41.9 Anxiety disorder, unspecified; F42.4 Excoriation (skin-picking) disorder; F90.2 Attention-deficit hyperactivity disorder, combined type; F43.12 Post-traumatic stress disorder, chronic
CPT/HCPCS: 99214

== ENCOUNTER → 2024-09-26 13:51 | Outpatient (BNVA) | payer OTHER, SELFPAY | PROVIDERS: PCP Internal Medicine; Visit Provider Clinical Nurse Specialist Psychiatric/Mental Health, Adult | DX: F43.12 Post-traumatic stress disorder, chronic (principal); F90.2 Attention-deficit hyperactivity disorder, combined type; F33.1 Major depressive disorder, recurrent, moderate; F41.9 Anxiety disorder, unspecified; F42.4 Excoriation (skin-picking) disorder; F42.9 Obsessive-compulsive disorder, unspecified | CPT/HCPCS: 99212 ==

== ENCOUNTER 2024-10-09 11:19 | Outpatient (AMB) | payer OTHER, SELFPAY ==
--- NOTE | 2024-10-09 11:24 | MHC.OFFVIS ---
Vital Signs 10/09/24 11:28 Height 5 ft 7 in Weight 208 lb 8 oz BMI 32.7 BP 134/84 Blood Pressure Location Rt brachial Position Sitting Pulse 99 Pulse Source Pulse Oximeter Pulse Oximetry (%) 97 Oxygen Delivery Method Room Air Intake Visit Reasons: Follow up Intake Note: Pain today 09/16 Cook Ship Required: No Accompanied by: Self / Same As Patient Allergies No Known Allergies Allergy (Verified 10/09/24 11:29) HPI Comments Details: The patient is a 49-year-old female presenting with back pain and sciatica. The back pain began approximately one month ago and is described as a muscle pain that sometimes wakes her up at night and makes it difficult to breathe deeply. The pain is localized to the right side and does not radiate to the legs. She reports that bending and stretching provide some relief, although the pain persists. The patient has a history of thoracic scoliosis, which may contribute to her current symptoms. She has not undergone any imaging for her low back pain, and no physical therapy has been initiated until now. For pain management, she has been using gabapentin and Aleve, and recently tried a lidocaine patch which provided temporary relief. She has also been taking cyclobenzaprine and is due for a refill. - Onset: Chronic pain, flare up approximately one month ago - Quality: Muscle pain, sometimes waking her at night and affecting deep breathing - Location: Right side of the back - Radiation: Does not radiate to the legs - Exacerbating factors: None specifically mentioned - Relieving factors: Bending and stretching, heat application, lidocaine patch - Interference: Affects ability to walk due to hip pain - Affect: Pain impacts her ability to care for grandchildren and assist her mother - Analgesia: Currently using gabapentin, Aleve, and cyclobenzaprine; lidocaine patch provided temporary relief - Adverse Effects: None reported - Activities of Daily Living: Pain affects walking and daily activities - Aberrant Drug Related Behaviors: None reported PRIOR 08/01/23: Patient presents today for follow up to review results of recent EMG of upper and lower extremities. She continues to endorse numbness and tingling of bilateral upper and lower extremities. EMG showed right very mild/borderline median neuropathy at the wrist, consistent with Carpal Tunnel Syndrome. 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 She has tried multiple cortisone injections for right CTS symptoms in the past by Dr. Rosas with good results. She is interested to be evaluated by Hand [facility]ist. Patient is also seeing cardiology, Dr. Cross on 08/09/23 for palpitations and recent panic attacks. Denies any chest pain, tightness or shortness of breaths. Her neck pain is most bothersome and radiates to left arm and between shoulder blades. She reports significant right arm radicular pain resolution after cervical fusion last summer in [place]. Patient reports same symptoms have shifted to left side. She denies any recent trauma, injury or falls. Denies any bladder or bowel dysfunction or saddle anesthesia. Reports ongoing numbness and tingling with burning sensations in lower extremities, worse at night or prolonged walking or standing. She does have varicose veins with intermittent pain and swelling. Patient was referred to Vascular in 2021 but was not scheduled yet. I will resubmit Vascular referral today. Denies any recent cough, cold, infection, fever, any significant changes in her medical history, medications or recent hospitalizations. PRIOR: Patient presents today for medication review. She was last seen in our office in August 2021 after which she moved to [place], [place] and moved back last November,. She was planning to undergo right RTC surgery in [place] but upon surgical evaluation was noted to have significant cervical scoliosis for which she underwent cervical spine fusion with screws and plates in place. Patient reports her right shoulder symptoms have subsided since surgery. Patient reports chronic neck pain with muscle stiffness and limited range of motion but continues to do regular home exercises program and completed 6 weeks of PT after cervical spine surgery in [place]. She has been taking gabapentin TID-QID, spreading it one tab in the morning and afternoon and 2 tabs at bedtime or taking it at am, noon, afternoon and bedtime. She continues to take cyclobenzaprine with good effect and denies any side effects to both medications. She requests refill for gabapentin today. Patient reports numbness and tingling with burning sensations in her upper and lower extremities, with CTS components in her both wrists. She states gabapentin has been helpful but concerned her neuropathy symptoms has been progressively worsening. Denies any recent neurodiagnostic studies. Denies any bladder or bowel dysfunction or saddle anesthesia. Reports left upper extremity decreased strength. Patient is also re-establishing care with Psychology provider and recently had intake at [facility] to manage her stress, OCD, anxiety, depression, insomnia and PTSD. PRIOR: Patient is a pleasant 46 year old female who presents today for evaluation of right shoulder pain due to torn rotator cuff, right wrist pain due to carpal tunnel syndrome and bilateral lower leg pain with burning sensations. 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 She is not sure of the cause for bilateral leg pain since 2020. Patient reports her most concerning pain today is her right shoulder. She endorses difficulty with lifting, overhead movements, pushing, or movements with hand behind her back. She was seen by orthopedic surgeon Dr. Nunez in 2016 and has received cortisone injections. She also reports getting cortisone injections for her right wrist pain. Denies shoulder surgery and states she was told she needs RTC surgery but has been putting off due to family and work commitments. Patient reports she is raising 2 children as a single mom and has not been able to take time off from work to undergo surgery and rehabilitation. Patient reports right shoulder MRI was obtained in 2015 which we do not have a report or imaging today. Patient has previously tried physical therapy, bracing, injections, topical, pain and muscle relaxant medications and ice/heat therapy with minimal to no pain relief. She notes physical therapy has worsened her symptoms. Patient cannot take NSAIDs due to previous bariatric surgery. [facility] Medical History Cat bite Restless leg syndrome Caffeine dependence Obesity (BMI 35.0-39.9 without comorbidity) Hyperlipidemia Vitamin D deficiency OCD (obsessive compulsive disorder) Scoliosis of cervical region due to degenerative disease of spine in adult History of vitamin D deficiency Chronic right shoulder pain Varicose veins of bilateral lower extremities with pain Anemia Anxiety and depression Immunization refused Heavy cigarette smoker (20-39 per day) Menorrhagia HILDA (iron deficiency anemia) Rotator cuff disorder Surgical History History of cervical spinal surgery History of endometrial ablation Hx of dilation and curettage History of cholecystectomy History of H/O gastric bypass H/O tubal ligation Family History Father Mental health disorder Daughter Mental health disorder Paternal Aunt Mental health disorder Social History (Reviewed 10/09/24 @ 11:31 by AGNIESZKA Castillo Housing: Apartment Alcohol intake: former Patient Tobacco Use Status: Current everyday Tobacco user Cigarette Packs Per Day: 1 e-Cigarette/Vaping Use: Never Used Substance Use Type: Marijuana service: No Current occupational status: employed 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[employer], 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 Cognitive needs: No Hearing needs: No Vision needs: Yes Female Reproductive History Menstrual Age of Menarche: 13 Review of Systems Const Details: - Musculoskeletal: Reports chronic back pain, muscle spasms on the right side, and thoracic scoliosis - Respiratory: Denies lung-related issues, reports difficulty with deep breathing due to back pain - Neurological: Denies radiation of pain to the legs All systems reviewed & are unremarkable except as noted in HPI and below Physical Exam Vital Signs: Last Vital Signs Pulse 99 10/09/24 11:28 BP 134/84 10/09/24 11:28 Pulse Ox 97 10/09/24 11:28 Oxygen Delivery Method Room Air 10/09/24 11:28 BMI result Body Mass Index 32.7 General: Appears afebrile. Alert and oriented. Mood and affect appropriate. Follows and participates in conversation appropriately. Respiratory effort is unlabored. No cough. Able to transition from sit to stand unassisted. Ambulates with bilaterally normal heel strike and toe off. General: Yes no CVA tenderness Back/Spine/Pelvis Other: Limited lumbar ROM due to pain. Demonstrates 5/5 strength of quadriceps bilaterally as well as flexion/dorsiflexion of bilateral feet against resistance. 2+ pedal pulses bilaterally. Straight leg rise with dorsiflexion negative bilaterally. +2 patellar and achilles reflexes bilaterally. Facet loading test positive bilaterally. No midline TTP in thoracic or lumbar spine. Julián sign, Ignacio?s, Pelvic compression and Stinchfield tests are positive bilaterally. No groin pain with I/E hip rotations. Significant paraspinals tenderness mostly on the right lower thoracic and lower back. Valsalva maneuver negative. Back: no CVA tenderness Cervical Spine: cervical muscular tenderness, Cervical spine scars present, No Cervical spine tenderness and No step off deformity Thoracic/Lumbar Spine: thoracic and lumbar spine normal to inspection, No Thoracic/lumbar spine scar(s), Lasegue's sign negative, straight leg raise negative bilaterally, pain with thoraco-lumbar ROM, paraspinal muscle tenderness, thoraco-lumbar ROM limited, No thoracic spinal tenderness and lumbar spinal tenderness (L4-S1) Pelvis: no buttock tenderness Sacroiliac joints: bilaterally tender to palpation Extrem General: Yes capillary refill normal, Yes no clubbing, cyanosis or edema and Yes no calf tenderness Results Reviewed Results Reviewed: MR thoracic spine without contrast 02/14/24 Comparison: CR/SR - XR CERVICAL SPINE 2V - 07/26/23 09:42 EDT CR/SR - XR CHEST 1V - 05/02/23 18:09 EDT CR - CHEST 2 VIEWS [id number] - 10/29/13 12:55 EDT Findings: There is mild levocurvature with the apex T4 and moderate T8/T9 dextrocurvature with the apex. Normal marrow signal. No severe central spinal canal stenosis; there is multilevel mild central spinal canal stenosis secondary to small disc protrusions and facet/ligamentum flavum hypertrophy throughout the thoracic spine. The spinal cord is normal in size and signal. Unremarkable paraspinous muscles. Impression: No acute findings. Moderate scoliosis. Mild multilevel central spinal canal stenosis. Assessment & Plan Assessment & Plan (1) Sciatica of right side: Code(s): M54.31 - Sciatica, right side Category: Medical (2) Low back pain: Code(s): M54.50 - Low back pain, unspecified Category: Medical (3) Thoracic scoliosis: Code(s): M41.9 - Scoliosis, unspecified Category: Medical (4) Muscle spasm of back: Code(s): M62.830 - Muscle spasm of back Category: Medical Plan The plan includes initiating physical therapy to address the back pain and sciatica. Lumbar and thoracic x-rays have been ordered to further evaluate the underlying causes of the pain. The patient will continue with her current medication regimen, including gabapentin, Aleve, and cyclobenzaprine, with a refill provided for the latter. Consideration for diagnostic injections will be made based on the outcomes of physical therapy and imaging results. All questions and concerns have been answered and patient agreed with the treatment plan. Follow up after PT and sooner as needed. Orders: Orders XR thoracic spine 2V Today M41.9 - Scoliosis, unspecified, M62.830 - Muscle spasm of back PT Evaluation and Treatment Today M41.9 - Scoliosis, unspecified, M54.31 - Sciatica, right side, M54.50 - Low back pain, unspecified, M62.830 - Muscle spasm of back XR lumbar spine 4V min Today M54.50 - Low back pain, unspecified, M62.830 - Muscle spasm of back Medications: New lidocaine 5% 1 patch topical DAILY 30 ea 0RF pain 30 days M41.9 - Scoliosis, unspecified, M54.50 - Low back pain, unspecified Refilled cyclobenzaprine 10 mg PO BEDTIME PRN 90 tabs 1RF muscle spasm 90 days G89.29 - Other chronic pain, M25.511 - Pain in right shoulder, M48.02 - Spinal stenosis, cervical region, M62.838 - Other muscle spasm Patient Instructions: - Start physical therapy to help manage back pain and sciatica. - Continue taking gabapentin, Aleve, and cyclobenzaprine as prescribed. - Use lidocaine patches as needed for pain relief, up to 12 hours a day. - Follow up with x-rays of the lumbar and thoracic spine as scheduled. - Return for reassessment after completing x-rays and physical therapy. Patient was informed and verbally consented to the use of an ambient scribe for clinic note documentation during this visit. Coding Level of Care Code Est Pt Level 4 (52178) Complex EM visit Add On G2211 Diagnoses Sciatica of right side M54.31 Low back pain M54.50 Thoracic scoliosis M41.9 Muscle spasm of back M62.830
[2024-10-09 11:28] VITALS: BP 134/84; PULSE 99; O2SAT 97; BMI 32.7
== END 2024-10-09 11:43 | disposition home or self-care (01) ==
LOC: HO.PMC 11:20
PROVIDERS: PCP Internal Medicine; Visit Provider Nurse Practitioner Family
DX: M54.31 Sciatica, right side (principal); M54.50 Low back pain, unspecified; M41.9 Scoliosis, unspecified; M62.830 Muscle spasm of back
CPT/HCPCS: 99214

== ENCOUNTER → 2024-10-09 11:19 | Outpatient (BNVA) | payer OTHER, SELFPAY | PROVIDERS: PCP Internal Medicine; Visit Provider Nurse Practitioner Family | DX: M54.31 Sciatica, right side (principal); M54.50 Low back pain, unspecified; M41.9 Scoliosis, unspecified; M62.830 Muscle spasm of back | CPT/HCPCS: 99212 ==

== ENCOUNTER 2024-11-19 11:10 | Outpatient (AMB) | payer OTHER, SELFPAY ==
--- OUTSIDE RECORDS SUMMARY | 2024-11-19 11:16 | XMS_ITS ---
Author Name [facility] Organization Unknown History of Medication Use Medication Directions Dispensed Refills Start Date End Date Stat us albuterol sulfate 11/12/2024 act bigg azithromycin 11/12/2024 active benzonatate 11/12/2024 active prednisone 11/12/2024 active bupropion HCl 11/06/2024 active gabapentin 10/23/2024 active cyclobenzaprine HCl 10/16/2024 a ctive clonidine HCl 09/26/2024 active duloxetine HCl 09/24/2024 active Encounters Encounter Type Encounter Reason Primary Diagnosis Location Date Ambulatory TBE Acute bronchitis , unspecified [facility]) 11/12/2024 Ambulatory Irregular menstruation, unspecified [facility] 07/22/2022 Ambulatory Disease of blood and blood-forming organs, unspecified [facility] 07/21/2022 Care Team Organization Name Specialty Phone Email Start Date End [facility] 11/12[facility]2024 [facility]2024 [facility] Med Group Panel 08/15/2022 09/26/2023 [facility] DULCE MARIA THAKUR Primary Care 07/22/2022 [facility] 04/29/2022 0 04/29/2022
--- NOTE | 2024-11-19 11:33 | MHC.PC.OV ---
Vital Signs 11/19/24 11:39 Height 5 ft 7 in Weight 210 lb BMI 32.9 BP 100/70 Blood Pressure Location Rt brachial Position Sitting Respiration 16 Pulse 106 H Pulse Source Pulse Oximeter Temp 98.8 F Temp Source Oral Pulse Oximetry (%) 96 Oxygen Delivery Method Room Air Intake Visit Reasons: referral for foot/podiatry Intake Note: Pt is here today request a referral for foot doctor Allergies No Known Allergies Allergy (Verified 11/19/24 11:44) Medication List - Last Reconciled 11/19/24 by Rosio Augustine MD bupropion HCl XL 150 mg PO QAM clonidine HCl 0.1 mg PO QID 30 days cyclobenzaprine 10 mg PO BEDTIME PRN 90 days duloxetine 30 mg PO BID eszopiclone 3 mg PO BEDTIME PRN gabapentin 600 mg PO TID lidocaine 5% 1 patch topical DAILY 30 days pramipexole 0.125 mg PO BEDTIME Tobacco use date assessed: 11/19/24 Dental Screening Dental Screen Date: 11/19/24 Did you have a dental visit in the last 12 months?: Yes Did you have a dental problem in the last 6 months where you did not have access to dental care?: Yes Was dental information given to patient?: Patient has dentist HPI referral for foot/podiatry HPI Details The patient is a 49-year-old female presenting today complaining of pain in both feet . Patient states that she has been constantly rubbing and now has been peeling the skin of the plantar aspect of both feet relieve the pain and itching. The excoriation has been exacerbated by the patient's habit of scratching and peeling the skin, leading to bleeding and irritation. She reports that the itching is severe and often leads to further skin damage, despite attempts to manage it with Aquaphor and Epsom salt soaks. The patient also reports insomnia, which persists despite the use of clonidine and esopiclone at night. 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 Additionally, the patient has a history of obsessive-compulsive disorder, which contributes to her compulsive skin-picking behavior. [facility] Medical History (Updated 11/19/24 @ 11:54 by Rosio Augustine MD) Pain of plantar aspect of heel Cat bite Restless leg syndrome Caffeine dependence Obesity (BMI 35.0-39.9 without comorbidity) Hyperlipidemia Vitamin D deficiency OCD (obsessive compulsive disorder) Scoliosis of cervical region due to degenerative disease of spine in adult History of vitamin D deficiency Chronic right shoulder pain Varicose veins of bilateral lower extremities with pain Anemia Anxiety and depression Immunization refused Heavy cigarette smoker (20-39 per day) Menorrhagia HILDA (iron deficiency anemia) Rotator cuff disorder Surgical History History of cervical spinal surgery History of endometrial ablation Hx of dilation and curettage History of cholecystectomy History of H/O gastric bypass H/O tubal ligation Family History Father Mental health disorder Daughter Mental health disorder Paternal Aunt Mental health disorder Social History Housing: Apartment Alcohol intake: former Patient Tobacco Use Status: Current everyday Tobacco user Cigarette Packs Per Day: 1 e-Cigarette/Vaping Use: Never Used Substance Use Type: Marijuana service: No Current occupational status: employed 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 Depression Screening Interpretation: Positive (Followed by Vandana Ledesma NP at [facility]) Depression Screening Follow-up: Existing condition, In treatment and Community Mental Health Worker F/U Depression Screening Done: Yes Source: Developed by Drs. Klai Sheriff, Azul Palencia, Amrit Rogers and colleagues, with an educational alfa from [employer]. Thrive Questionnaire Date Thrive assessed: 03/05/24 I am a: Patient What is your living situation today?: I have a steady place to live Within the past 12 months, did the food you bought not last and you didn't have the money to get more?: Never true Within the past 12 months, did you worry whether your food would run out before you got money to buy more?: Never true Do you have trouble paying for medicines?: Yes Do you have trouble getting transportation to medical appointments?: No Do you have trouble paying your heating and electricity bill?: No Do you have trouble taking care of your child, family member or friend?: No Do you have trouble with day-to-day activities such as bathing, preparing meals, shopping, managing finances, etc.?: No Are you currently unemployed and looking for a job?: No Are you interested in more education?: No Please select the resources that you would like help with: Paying for medicine Currently or been in a relationship where the following occur: No concerns reported THRIVE Score: 0 AUDIT C Alcohol Use Questionnaire (AUDIT-C) 1. How often do you have a drink containing alcohol?: Monthly or less 2. How many drinks containing alcohol do you have on a typical day when you are drinking?: 3 or 4 3. How often do you have six or more drinks on one occasion?: Never Total Score: 2 JESÚS-7 AMB Questionnaire JESÚS-7 Date JESÚS - 7 assessed: 03/05/24 Source: Developed by Drs. Kali Sheriff, Azul aPlencia, Amrit Rogers and colleagues, with an educational alfa from [employer]. Review of Systems Const All systems reviewed & are unremarkable except as noted in HPI and below ENT Reports Normal hearing present Neuro Reports Normal hearing present Physical exam (Primary Care) Vital Signs: Last Vital Signs Temp 98.8 F 11/19/24 11:39 Pulse 106 H 11/19/24 11:39 Resp 16 11/19/24 11:39 BP 100/70 11/19/24 11:39 Pulse Ox 96 11/19/24 11:39 Oxygen Delivery Method Room Air 11/19/24 11:39 BMI result Body Mass Index 32.9 Tobacco/Smoking Status: Tobacco use Status Tobacco use date assessed 11/19/24 11/19/24 11:46 Patient Tobacco Use Status Current everyday Tobacco 11/19/24 11:34 e-Cigarette/Vaping Use Never Used 11/19/24 11:34 Depression Screening Interpretation: Positive (Followed by Vandana Ledesma NP at [facility]) Depression Screening Follow-up: Existing condition, In treatment and Community Mental Health Worker F/U Thrive Assessment: Date of Thrive Assessment Date Thrive assessed 03/05/24 11/19/24 11:34 Currently or been in a relationship where the following occur: No concerns reported Const Other: Alert oriented x3, no acute cardiorespiratory distress, ambulatory with normal gait, accompanied by daughter Orientation/consciousness: patient oriented x3 [facility] General nose exam: Normal external nose present Face and sinus: Yes face symmetric Mouth: Normal oral and palatal mucosa present and moist mucous membranes Eyes General: appearance normal, both eyes and all related structures Neck Other: Supple, no lymphadenopathy, thyroid gland nonpalpable Chest Breast/axilla palpation: normal palpation of the breasts Resp Effort & Inspection: normal respiratory effort and able to speak in complete sentences Auscultation: clear to auscultation bilaterally Cardio Other: S1-S2 present regular rate and rhythm Skin Other: Diffuse erythema and areas of excoriation noted on plantar aspect of both feet. Bilateral bunions present Neuro General: patient oriented x3, gait normal, moves all extremities, Normal light touch and pain sensation and CN's II-XI intact bilaterally Cranial nerves: Yes Normal hearing present Extrem General: Yes full ROM, Yes no joint enlargement, Yes no clubbing, cyanosis or edema and Yes normal gait Psych Appearance: grossly normal and well kempt Mental Status: mental status grossly normal Speech and movement: Normal speech and movement present Affect: normal affect Coding Level of Care Code Est Pt Level 4 (98877) Diagnoses Pain of plantar aspect of heel M79.673 Assessment & Plan Assessment & Plan (1) Pain of plantar aspect of heel: Code(s): M79.673 - Pain in unspecified foot Category: Medical Plan: Podiatry consult ordered for further evaluation management, advised to continue soaking both feet in Epsom salt and apply Aquaphor continued and wears socks to prevent from scratching. Orders: Referrals Podiatry Referral M79.673 - Pain in unspecified foot
[2024-11-19 11:39] VITALS: BP 100/70; PULSE 106; RESP 16; TEMP 37.1; O2SAT 96; BMI 32.9
== END 2024-11-19 12:00 | disposition home or self-care (01) ==
LOC: HO.HMCC 11:11
PROVIDERS: PCP Internal Medicine; Visit Provider Internal Medicine
DX: M79.673 Pain in unspecified foot (principal)

== ENCOUNTER → 2024-11-19 11:10 | Outpatient (BNVA) | payer OTHER, SELFPAY | PROVIDERS: PCP Internal Medicine; Visit Provider Internal Medicine | DX: M79.671 Pain in right foot (principal); M79.672 Pain in left foot | CPT/HCPCS: 99212 ==

== ENCOUNTER 2024-11-28 13:03 | Outpatient (AMB) | payer OTHER, SELFPAY ==
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
== END 2024-11-28 14:11 | disposition home or self-care (01) ==
LOC: HO.HOP 13:03
PROVIDERS: PCP Internal Medicine; Visit Provider Clinical Nurse Specialist Psychiatric/Mental Health, Adult
DX: F42.4 Excoriation (skin-picking) disorder (principal); F33.1 Major depressive disorder, recurrent, moderate; F90.2 Attention-deficit hyperactivity disorder, combined type; F43.12 Post-traumatic stress disorder, chronic
CPT/HCPCS: 99213

== ENCOUNTER → 2024-11-28 13:03 | Outpatient (BNVA) | payer OTHER, SELFPAY | PROVIDERS: PCP Internal Medicine; Visit Provider Clinical Nurse Specialist Psychiatric/Mental Health, Adult | DX: F42.4 Excoriation (skin-picking) disorder (principal); F33.1 Major depressive disorder, recurrent, moderate; F90.2 Attention-deficit hyperactivity disorder, combined type; F43.12 Post-traumatic stress disorder, chronic | CPT/HCPCS: 99212 ==

== ENCOUNTER 2024-11-29 09:18 | Outpatient (AMB) | payer OTHER, SELFPAY ==
[2024-11-29 09:26] VITALS: BMI 32.9
--- NOTE | 2024-11-29 09:26 | A.OFFVIS_ITS ---
Vital Signs 11/29/24 09:26 Height 5 ft 7 in Weight 210 lb BMI 32.9 Intake Visit Reasons: Pain in unspecified foot Intake Note: Stefany is a 49 year old female who presents today as a new patient for an evaluation of her bilateral foot pain of the plantar aspect. Patient states she has had the pain for about 1 year and she mentions that she peels the skin off her foot which is causing her foot pain. She has tried lotion, foot scrapers, anti fungal foot cream, clonidine and found no relief for her symptoms Allergies No Known Allergies Allergy (Verified 11/29/24 09:27) Medication List - Last Reconciled 11/29/24 by Wanda Ingram DPM bacitracin zinc 1 appl topical BID bupropion HCl XL 150 mg PO QAM clonidine HCl 0.1 mg PO QID 30 days cyclobenzaprine 10 mg PO BEDTIME PRN 90 days duloxetine 30 mg PO BID eszopiclone 3 mg PO BEDTIME PRN gabapentin 600 mg PO TID lidocaine 5% 1 patch topical DAILY 30 days pramipexole 0.125 mg PO BEDTIME trazodone 50 mg PO BEDTIME PRN HPI Comments Details: The patient is a 49-year-old female with a PMH as seen below presenting with skin excoriation and left bunion pain. She reports a habit of peeling off her skin, which she describes as a tick and itching sensation, leading to bleeding but no pus formation. The patient uses a pumice stone and diabetic foot lotion to manage the condition, which provides some relief. The patient also reports tingling and burning sensations in the feet in the areas where she itches and peels off her skin. Additionally, the patient has a history of a bunion to the left foot and states she noticed the difference after many years of wearing heels. She states the pain is localized to the 1st MPJ and medial prominence of the 1st met head. She has previously used silicone bunion sleeves and spacers for relief. She denies any other pedal concerns. Denies any pedal injuries. [facility] Medical History (Updated 11/29/24 @ 09:51 by Wanda Ingram DPM) Hallux valgus (acquired), left foot Bilateral foot pain Itch Excoriation (skin-picking) disorder Superficial abrasion Skin fissures Pain of plantar aspect of heel Cat bite Restless leg syndrome Caffeine dependence Obesity (BMI 35.0-39.9 without comorbidity) Hyperlipidemia Vitamin D deficiency OCD (obsessive compulsive disorder) Scoliosis of cervical region due to degenerative disease of spine in adult History of vitamin D deficiency Chronic right shoulder pain Varicose veins of bilateral lower extremities with pain Anemia Anxiety and depression Immunization refused Heavy cigarette smoker (20-39 per day) Menorrhagia HILDA (iron deficiency anemia) Rotator cuff disorder Surgical History History of cervical spinal surgery History of endometrial ablation Hx of dilation and curettage History of cholecystectomy History of H/O gastric bypass H/O tubal ligation Family History Father Mental health disorder Daughter Mental health disorder Paternal Aunt Mental health disorder Social History Housing: Apartment Alcohol intake: former Patient Tobacco Use Status: Current everyday Tobacco user Cigarette Packs Per Day: 1 e-Cigarette/Vaping Use: Never Used Substance Use Type: Marijuana service: No Current occupational status: employed 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 - Neurological: Reports tingling and burning in the feet, areas of skin excoriation. - MSK: Reports left bunion. All systems reviewed & are unremarkable except as noted in HPI and below Physical Exam Vital Signs: BMI result Body Mass Index 32.9 Extrem Other: B/L LE Focused Physical Exam: Derm: Fissures, abrasions, and excoriations noted to the plantar aspects of the feet with scabbing noted and various stages of healing. No active bleeding, purulence, or drainage noted. Mild edema noted to the areas of the excoriations and to the medial prominence of the 1st met head. Minimal erythema noted. No clinical signs of infection noted. Vasc: DP/PT pulses palpable. CFT < 3 secs. Temp gradient warm to warm. Pedal hair absent. No varicosities noted. Neuro: Protective sensations grossly intact to light touch. MSK: Pain on palpation to areas of excoriations. No fluctuance or crepitus noted. Pain on palpation to the medial prominence of the 1st met head. Tracking HAV noted. Mild hammertoes noted. Mildly antalgic gait noted unassisted due to excoriations. Office Procedures AMB Debridement/Avulsion Podia Details: Applied mupirocin ointment to B/L feet in the areas of the excoriations. Additional procedure code (CPT) needed (Mupirocin ointment) Results Reviewed Results Reviewed: Ordered left foot weightbearing 3 views xrays to be performed prior to next visit. Assessment & Plan Assessment & Plan (1) Skin fissures: Code(s): R23.4 - Changes in skin texture Category: Medical (2) Excoriation (skin-picking) disorder: Code(s): F42.4 - Excoriation (skin-picking) disorder Category: Medical (3) Superficial abrasion: Code(s): T14.8XXA - Other injury of unspecified body region, initial encounter Category: Medical (4) Itch: Code(s): L29.9 - Pruritus, unspecified Category: Medical (5) Bilateral foot pain: Code(s): M79.671 - Pain in right foot; M79.672 - Pain in left foot Category: Medical (6) Hallux valgus (acquired), left foot: Code(s): M20.12 - Hallux valgus (acquired), left foot Category: Medical Plan Patient was informed and verbally consented to the use of an ambient scribe for clinic note documentation during this visit. I discussed with the patient the use of Bacitracin ointment to prevent infection and soothe the excoriated skin. Discussed the use of Terbinafine ointment for itching. I recommended x-rays for the left foot to evaluate the bunion and any other potential issues, and we scheduled a follow-up in one month to discuss the results and treatment progress. - Prescribed Bacitracin ointment for skin excoriation to prevent infection and soothe the area. - Prescribe Terbinafine ointment for itching. - Ordered left foot xrays to be performed prior to next visit to assess the bunion and any underlying issues.' - Recommended use of bunion sleeves and shoes with a wide toe box. - Patient is to avoid barefoot walking and is to wear supportive shoe gear. RTC in 1 month for re-evaluation. Orders: Orders AMB Debridement/Avulsion Podiatry Today F42.4 - Excoriation (skin-picking) disorder, L29.9 - Pruritus, unspecified, M79.671 - Pain in right foot, M79.672 - Pain in left foot, R23.4 - Changes in skin texture, T14.8XXA - Other injury of unspecified body region, initial encounter XR foot LT min 3V Today M20.12 - Hallux valgus (acquired), left foot, M79.671 - Pain in right foot, M79.672 - Pain in left foot Medications: New terbinafine HCl 1% (Athlete's Foot (terbinafine)) 1 appl topical BID 30 grams 1RF Pruritis of Feet F42.4 - Excoriation (skin-picking) disorder, L29.9 - Pruritus, unspecified bacitracin zinc 1 appl topical BID 28.4 grams 1RF Fissures and Abrasions F42.4 - Excoriation (skin-picking) disorder, R23.4 - Changes in skin texture, T14.8XXA - Other injury of unspecified body region, initial encounter Coding Level of Care Code New Pt Level 4 (58319) Diagnoses Skin fissures R23.4 Excoriation (skin-picking) disorder F42.4 Superficial abrasion T14.8XXA Itch L29.9 Bilateral foot pain M79.671; M79.672 Hallux valgus (acquired), left foot M20.12 CPT Codes Skin Debridement - All charges added?: Additional procedure code (CPT) needed ([id number]) Time Spent (min) 53
== END 2024-11-29 09:58 | disposition home or self-care (01) ==
LOC: HO.HPODS 09:19
PROVIDERS: PCP Internal Medicine; Visit Provider Student in an Organized Health Care Education/Training Program
DX: R23.4 Changes in skin texture (principal); F42.4 Excoriation (skin-picking) disorder; T14.8XXA Other injury of unspecified body region, initial encounter; L29.9 Pruritus, unspecified; M79.671 Pain in right foot; M79.672 Pain in left foot; M20.12 Hallux valgus (acquired), left foot
CPT/HCPCS: 99204

== ENCOUNTER → 2024-11-29 09:18 | Outpatient (BNVA) | payer OTHER, SELFPAY | PROVIDERS: PCP Internal Medicine; Visit Provider Student in an Organized Health Care Education/Training Program | DX: R23.4 Changes in skin texture (principal); F42.4 Excoriation (skin-picking) disorder; L29.9 Pruritus, unspecified; M79.671 Pain in right foot; M79.672 Pain in left foot; M20.12 Hallux valgus (acquired), left foot; T14.8XXA Other injury of unspecified body region, initial encounter | CPT/HCPCS: 99202 ==

== ENCOUNTER 2024-12-17 13:06 | Outpatient (REF) | payer OTHER, SELFPAY ==
--- NOTE | ~2024-12-17 | XR_ITS ---
EXAMINATION: XR THORACIC SPINE CLINICAL INFORMATION: M41.9 - Scoliosis, unspecified COMPARISON: Correlated to MRI thoracic spine dated February 13, 2024. TECHNIQUE: AP and lateral views. FINDINGS: S-shaped curvature of the thoracic spine and levoconvex in the upper segment apex at T3-4 and dextroconvex in the mid to lower thoracic spine apex at T8-9. Multilevel marginal osteophyte formation and endplate sclerosis. No acute cortical disruption or gross malalignment. Metallic plate with intervertebral disc spacers in the lower cervical and upper thoracic spine. XR/XR thoracic spine 2V IMPRESSION: Scoliosis and multilevel spondylosis, unchanged. EXAMINATION: XR LUMBOSACRAL SPINE WITH OBLIQUES CLINICAL INFORMATION: M41.9 - Scoliosis, unspecified COMPARISON: Correlated to CT abdomen pelvis dated January 10, 2024 TECHNIQUE: AP lateral and oblique views. FINDINGS: Multilevel endplate sclerosis and small marginal osteophyte formation. Facet joint hypertrophy at L5-S1. Decreased intervertebral disc height at L5-S1. No lytic or blastic lesions. Sutures in the left opercular abdomen and vascular clips right upper quadrant abdomen. IMPRESSION: Multilevel spondylosis pronounced at L5-S1 without acute fracture or listhesis. Probable status post bypass Igor-en-Y procedure and cholecystectomy. Electronically signed by: Je Mills MD 12/17/2024 02:42 PM [facility]
--- NOTE | ~2024-12-17 | XR_ITS ---
EXAMINATION: XR THORACIC SPINE CLINICAL INFORMATION: M41.9 - Scoliosis, unspecified COMPARISON: Correlated to MRI thoracic spine dated February 13, 2024. TECHNIQUE: AP and lateral views. FINDINGS: S-shaped curvature of the thoracic spine and levoconvex in the upper segment apex at T3-4 and dextroconvex in the mid to lower thoracic spine apex at T8-9. Multilevel marginal osteophyte formation and endplate sclerosis. No acute cortical disruption or gross malalignment. Metallic plate with intervertebral disc spacers in the lower cervical and upper thoracic spine. XR/XR lumbar spine 4V min IMPRESSION: Scoliosis and multilevel spondylosis, unchanged. EXAMINATION: XR LUMBOSACRAL SPINE WITH OBLIQUES CLINICAL INFORMATION: M41.9 - Scoliosis, unspecified COMPARISON: Correlated to CT abdomen pelvis dated January 10, 2024 TECHNIQUE: AP lateral and oblique views. FINDINGS: Multilevel endplate sclerosis and small marginal osteophyte formation. Facet joint hypertrophy at L5-S1. Decreased intervertebral disc height at L5-S1. No lytic or blastic lesions. Sutures in the left opercular abdomen and vascular clips right upper quadrant abdomen. IMPRESSION: Multilevel spondylosis pronounced at L5-S1 without acute fracture or listhesis. Probable status post bypass Igor-en-Y procedure and cholecystectomy. Electronically signed by: Je Mills MD 12/17/2024 02:42 PM [facility]
--- NOTE | ~2024-12-17 | XR_ITS ---
EXAMINATION: XR CHEST CLINICAL INFORMATION: R06.2 - Wheezing COMPARISON: X-ray 05/02/2023 TECHNIQUE: 2 views of the chest were obtained. FINDINGS: Cardiac and mediastinal silhouette is within normal limits. Right lower lung bronchial wall thickening and hazy patchy opacities suggestive of inflammatory/infectious process. No effusion. No pneumothorax. Thoracic spine dextroconvex scoliosis and spondylosis. Spinal fusion hardware in the cervical spine. XR/XR chest 2V IMPRESSION: Right lower lung bronchial wall thickening and hazy, patchy opacities suggest inflammatory/infectious process. Electronically signed by: Jaquan Alvarez MD 12/17/2024 02:35 PM EST
== END 2024-12-17 13:07 | disposition home or self-care (01) ==
LOC: HO.HMGCX 13:06
PROVIDERS: Absent Provider Nurse Practitioner Family; PCP Internal Medicine; Referring Provider Nurse Practitioner Family; Visit Provider Student in an Organized Health Care Education/Training Program
DX: R06.2 Wheezing (principal); M41.9 Scoliosis, unspecified; M62.830 Muscle spasm of back; M54.50 Low back pain, unspecified; R05.9 Cough, unspecified
CPT/HCPCS: 71046; 72070; 72110; 94640; 99212

== ENCOUNTER 2024-12-17 13:06 | Outpatient (AMB) | payer OTHER, SELFPAY ==
--- NOTE | 2024-12-17 13:22 | AM.OFFVISNUR ---
Intake Visit Reasons: ep right throbbing lung pain hard time breathing Allergies No Known Allergies Allergy (Verified 11/29/24 09:27) Coding
--- NOTE | 2024-12-17 13:22 | MHC.OFFWIV ---
Intake Vital Signs 12/17/24 13:23 Height 5 ft 7 in Weight 210 lb BMI 32.9 BP 102/54 L Blood Pressure Location Rt brachial Position Sitting Respiration 15 Pulse 91 Pulse Source Pulse Oximeter Pulse Oximetry (%) 97 Oxygen Delivery Method Room Air Intake Visit Reasons: ep right throbbing lung pain hard time breathing Intake Note: Pt ambulated (I) gait steady to triage corner. Pt c/o shortness of breathing with deep breathing. Pt stated that the pain started x 1 month ago intermittently and is now constant x 1 week. Pt stated that she was dx with bronchitis x 1 month ago given ABT, inhaler and Prednisone. Pt stated that the pain starts from under her right rib/breast to right flank. Pt stated that she took today medications Ibprophen 600mg, Gabapentin 300mg and Alleve for pain with no relief. Pt speaks in full sentences. No acute resp distress noted. Lungs - cta, right lower lobe area tender to touch. Pt skin pink warm dry. WHIPPED TOPPING SUPERVISOR (Buffy) and Zahida (COLOR CONTROL SUPERVISOR) aware. Pt is stable and returned to the waiting room. Patient Tobacco Use Status: Current everyday Tobacco user Allergies No Known Allergies Allergy (Verified 12/17/24 13:28) Medication List - Last Reconciled 12/17/24 by Buffy Rosen NP bacitracin zinc 1 appl topical BID bupropion HCl XL 150 mg PO QAM clonidine HCl 0.1 mg PO QID 30 days cyclobenzaprine 10 mg PO BEDTIME PRN 90 days duloxetine 30 mg PO BID eszopiclone 3 mg PO BEDTIME PRN gabapentin 600 mg PO TID lidocaine 5% 1 patch topical DAILY 30 days pramipexole 0.125 mg PO BEDTIME terbinafine HCl 1% (Athlete's Foot (terbinafine)) 1 appl topical BID trazodone 50 mg PO BEDTIME PRN Do you need a note to return to daycare/school/sports/work: No PFSH Medical History (Updated 12/17/24 @ 14:04 by Buffy Rosen, RICHA) Cough Wheezing on auscultation Hallux valgus (acquired), left foot Bilateral foot pain Itch Excoriation (skin-picking) disorder Superficial abrasion Skin fissures Pain of plantar aspect of heel Cat bite Restless leg syndrome Caffeine dependence Obesity (BMI 35.0-39.9 without comorbidity) Hyperlipidemia Vitamin D deficiency OCD (obsessive compulsive disorder) Scoliosis of cervical region due to degenerative disease of spine in adult History of vitamin D deficiency Chronic right shoulder pain Varicose veins of bilateral lower extremities with pain Anemia Anxiety and depression Immunization refused Heavy cigarette smoker (20-39 per day) Menorrhagia HILDA (iron deficiency anemia) Rotator cuff disorder Surgical History History of cervical spinal surgery History of endometrial ablation Hx of dilation and curettage History of cholecystectomy History of H/O gastric bypass H/O tubal ligation Family History Father Mental health disorder Daughter Mental health disorder Paternal Aunt Mental health disorder Social History Housing: Apartment Alcohol intake: former Patient Tobacco Use Status: Current everyday Tobacco user Cigarette Packs Per Day: 1 e-Cigarette/Vaping Use: Never Used Substance Use Type: Marijuana service: No Current occupational status: employed 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[employer], 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 Cognitive needs: No Hearing needs: No Vision needs: Yes Female Reproductive History Menstrual Age of Menarche: 13 Physical Exam Vital Signs: Last Vital Signs Pulse 91 12/17/24 13:23 Resp 15 12/17/24 13:23 BP 102/54 L 12/17/24 13:23 Pulse Ox 97 12/17/24 13:23 Oxygen Delivery Method Room Air 12/17/24 13:23 BMI result Body Mass Index 32.9 Office Procedures Nebulizer Treatment Nebulizer Treatment [id number] RX initial, or Nebulizer Subsequent Treatment Office Meds ipratropium 0.5 mg-albuterol 3 mg (2.5 mg base)/3 mL nebulization soln Performing Provider: Buffy Rosen NP Performing Location: [facility] Administered by: Buffy Rosen NP on 12/17/24 14:58 Dose Route Admin Location Dispensed Lot Number Expiration Date [facility] [employer] 3 mL inhalation 3 mL Assessment & Plan Assessment & Plan (1) Wheezing on auscultation: Code(s): R06.2 - Wheezing (2) Cough: Code(s): R05.9 - Cough, unspecified Orders: Orders AMB Nebulizer Treatment Today R05.9 - Cough, unspecified, R06.2 - Wheezing XR chest 2V Today R06.2 - Wheezing Medications: New ipratropium-albuterol 0.5 mg-3 mg(2.5 mg base)/3 mL 3 mL inhalation Q4-6H PRN 90 mL 0RF wheezing R05.9 - Cough, unspecified, R06.2 - Wheezing doxycycline hyclate 100 mg PO BID 20 caps 0RF 10 days R05.9 - Cough, unspecified, R06.2 - Wheezing prednisone 20 mg PO DAILY 10 tabs 0RF R05.9 - Cough, unspecified, R06.2 - Wheezing amoxicillin-pot clavulanate 875-125 mg 1 tab PO BID 14 tabs 0RF 7 days R05.9 - Cough, unspecified, R06.2 - Wheezing budesonide-formoterol 160-4.5 mcg/actuation (Symbicort) 2 puffs inhalation BID 10.2 grams 2RF R05.9 - Cough, unspecified, R06.2 - Wheezing Coding Diagnoses Wheezing on auscultation R06.2 Cough R05.9 CPT Codes Nebulizer Treatment - Nebulizer Treatment, initial or subsequent: [id number] RX initial, or Nebulizer Subsequent Treatment ([id number])
[2024-12-17 13:23] VITALS: BP 102/54; PULSE 91; RESP 15; O2SAT 97; BMI 32.9
--- NOTE | 2024-12-17 13:54 | AM.OFFWIN_ITS ---
Intake Vital Signs 12/17/24 13:23 Height 5 ft 7 in Weight 210 lb BMI 32.9 BP 102/54 L Blood Pressure Location Rt brachial Position Sitting Respiration 15 Pulse 91 Pulse Source Pulse Oximeter Pulse Oximetry (%) 97 Oxygen Delivery Method Room Air Intake Visit Reasons: ep right throbbing lung pain hard time breathing Patient Tobacco Use Status: Current everyday Tobacco user Allergies No Known Allergies Allergy (Verified 12/17/24 13:28) PFSH Medical History (Updated 12/17/24 @ 14:04 by Buffy Rosen NP) Cough Wheezing on auscultation Hallux valgus (acquired), left foot Bilateral foot pain Itch Excoriation (skin-picking) disorder Superficial abrasion Skin fissures Pain of plantar aspect of heel Cat bite Restless leg syndrome Caffeine dependence Obesity (BMI 35.0-39.9 without comorbidity) Hyperlipidemia Vitamin D deficiency OCD (obsessive compulsive disorder) Scoliosis of cervical region due to degenerative disease of spine in adult History of vitamin D deficiency Chronic right shoulder pain Varicose veins of bilateral lower extremities with pain Anemia Anxiety and depression Immunization refused Heavy cigarette smoker (20-39 per day) Menorrhagia HILDA (iron deficiency anemia) Rotator cuff disorder Surgical History History of cervical spinal surgery History of endometrial ablation Hx of dilation and curettage History of cholecystectomy History of H/O gastric bypass H/O tubal ligation Family History Father Mental health disorder Daughter Mental health disorder Paternal Aunt Mental health disorder Social History Housing: Apartment Alcohol intake: former Patient Tobacco Use Status: Current everyday Tobacco user Cigarette Packs Per Day: 1 e-Cigarette/Vaping Use: Never Used Substance Use Type: Marijuana service: No Current occupational status: employed 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[employer], 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 Cognitive needs: No Hearing needs: No Vision needs: Yes Female Reproductive History Menstrual Age of Menarche: 13 Physical Exam Vital Signs: Last Vital Signs Pulse 91 12/17/24 13:23 Resp 15 12/17/24 13:23 BP 102/54 L 12/17/24 13:23 Pulse Ox 97 12/17/24 13:23 Oxygen Delivery Method Room Air 12/17/24 13:23 BMI result Body Mass Index 32.9 Assessment & Plan Assessment & Plan (1) Wheezing on auscultation: Code(s): R06.2 - Wheezing (2) Cough: Code(s): R05.9 - Cough, unspecified Orders: Orders AMB Nebulizer Treatment Today R05.9 - Cough, unspecified, R06.2 - Wheezing XR chest 2V Today R06.2 - Wheezing Medications: New ipratropium-albuterol 0.5 mg-3 mg(2.5 mg base)/3 mL 3 mL inhalation ONCE 3 mL 0RF R05.9 - Cough, unspecified, R06.2 - Wheezing Coding Diagnoses Wheezing on auscultation R06.2 Cough R05.9
--- NOTE | 2024-12-17 14:57 | AM.OFFWIN_ITS ---
Intake Vital Signs 12/17/24 13:23 Height 5 ft 7 in Weight 210 lb BMI 32.9 BP 102/54 L Blood Pressure Location Rt brachial Position Sitting Respiration 15 Pulse 91 Pulse Source Pulse Oximeter Pulse Oximetry (%) 97 Oxygen Delivery Method Room Air Intake Visit Reasons: ep right throbbing lung pain hard time breathing Patient Tobacco Use Status: Current everyday Tobacco user Allergies No Known Allergies Allergy (Verified 12/17/24 13:28) Medication List - Last Reconciled 12/17/24 by Buffy Rosen NP bacitracin zinc 1 appl topical BID bupropion HCl XL 150 mg PO QAM clonidine HCl 0.1 mg PO QID 30 days cyclobenzaprine 10 mg PO BEDTIME PRN 90 days duloxetine 30 mg PO BID eszopiclone 3 mg PO BEDTIME PRN gabapentin 600 mg PO TID lidocaine 5% 1 patch topical DAILY 30 days pramipexole 0.125 mg PO BEDTIME terbinafine HCl 1% (Athlete's Foot (terbinafine)) 1 appl topical BID trazodone 50 mg PO BEDTIME PRN HPI HPI Comments History of Present Illness Details 49 y/o female presents to the walk-in [facility] with c/o URI symptoms. Reports cough, wheezing, SOB, chest pain, tightness, and pressure. She notes right-sided chest pain radiating to the back. Symptoms are persistent despite recent treatment for bronchitis, which provided only temporary relief. Denies fevers, chills, nausea, vomiting, headaches, or dizziness. Reports everyday cigarette smoking. [facility] Medical History (Updated 12/17/24 @ 14:04 by Buffy Rosen NP) Cough Wheezing on auscultation Hallux valgus (acquired), left foot Bilateral foot pain Itch Excoriation (skin-picking) disorder Superficial abrasion Skin fissures Pain of plantar aspect of heel Cat bite Restless leg syndrome Caffeine dependence Obesity (BMI 35.0-39.9 without comorbidity) Hyperlipidemia Vitamin D deficiency OCD (obsessive compulsive disorder) Scoliosis of cervical region due to degenerative disease of spine in adult History of vitamin D deficiency Chronic right shoulder pain Varicose veins of bilateral lower extremities with pain Anemia Anxiety and depression Immunization refused Heavy cigarette smoker (20-39 per day) Menorrhagia HILDA (iron deficiency anemia) Rotator cuff disorder Surgical History History of cervical spinal surgery History of endometrial ablation Hx of dilation and curettage History of cholecystectomy History of H/O gastric bypass H/O tubal ligation Family History Father Mental health disorder Daughter Mental health disorder Paternal Aunt Mental health disorder Social History Housing: Apartment Alcohol intake: former Patient Tobacco Use Status: Current everyday Tobacco user Cigarette Packs Per Day: 1 e-Cigarette/Vaping Use: Never Used Substance Use Type: Marijuana service: No Current occupational status: employed 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, 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 Cognitive needs: No Hearing needs: No Vision needs: Yes Female Reproductive History Menstrual Age of Menarche: 13 Review of Systems Const All systems reviewed & are unremarkable except as noted in HPI and below Physical Exam Vital Signs: Last Vital Signs Pulse 91 12/17/24 13:23 Resp 15 12/17/24 13:23 BP 102/54 L 12/17/24 13:23 Pulse Ox 97 12/17/24 13:23 Oxygen Delivery Method Room Air 12/17/24 13:23 BMI result Body Mass Index 32.9 Const General: no acute distress Nutritional Appearance: obese Orientation/consciousness: patient oriented x3 HEENT Head: Yes normocephalic Ears: external ears normal General nose exam: Normal external nose present Face and sinus: Yes sinuses nontender Mouth: moist mucous membranes Throat: Yes uvula midline Resp Effort & Inspection: normal respiratory effort Auscultation: no crackles, no rales, rhonchi and wheezes scattered wheezes Cardio Heart sounds: S1 normal heart sound present and S2 normal heart sound present Neuro General: patient oriented x3 Office Procedures Nebulizer Treatment Nebulizer Treatment [id number]/MDI RX initial, or Nebulizer Subsequent Treatment Office Meds ipratropium 0.5 mg-albuterol 3 mg (2.5 mg base)/3 mL nebulization soln Performing Provider: Buffy Rosen NP Performing Location: [facility] Administered by: Buffy Rosen NP on 12/17/24 14:58 Dose Route Admin Location Dispensed Lot Number Expiration Date [employer] 3 mL inhalation 3 mL Assessment & Plan Assessment & Plan (1) Cough: Code(s): R05.9 - Cough, unspecified Plan: Acute bronchitis vs COPD vs Asthma exacerbation Differential: Pneumonia, pleurisy, costochondritis, PE (less likely but consider due to pleuritic pain and smoking history). Order CXR to rule out pneumonia. Administered nebulizer bronchodilator Tx in Office. Ordered Prednisone, Symbicort, Doxy and Augmentin. Advise increased fluid intake and rest ER precautions for worsening SOB, chest pain, or hemoptysis Consinder referral to Pulmonology. Orders: Orders AMB Nebulizer Treatment Today R05.9 - Cough, unspecified, R06.2 - Wheezing XR chest 2V Today R06.2 - Wheezing Medications: New ipratropium-albuterol 0.5 mg-3 mg(2.5 mg base)/3 mL 3 mL inhalation Q4-6H PRN 90 mL 0RF wheezing R05.9 - Cough, unspecified, R06.2 - Wheezing doxycycline hyclate 100 mg PO BID 20 caps 0RF 10 days R05.9 - Cough, unspecified, R06.2 - Wheezing prednisone 20 mg PO DAILY 10 tabs 0RF R05.9 - Cough, unspecified, R06.2 - Wheezing amoxicillin-pot clavulanate 875-125 mg 1 tab PO BID 14 tabs 0RF 7 days R05.9 - Cough, unspecified, R06.2 - Wheezing budesonide-formoterol 160-4.5 mcg/actuation (Symbicort) 2 puffs inhalation BID 10.2 grams 2RF R05.9 - Cough, unspecified, R06.2 - Wheezing Coding Level of Care Code Est Pt Level 4 (30682) Diagnoses Cough R05.9 CPT Codes Nebulizer Treatment - Nebulizer Treatment, initial or subsequent: 73394- Nebulizer/MDI RX initial, or Nebulizer Subsequent Treatment ([id number]) Time Spent (min) 20
== END 2024-12-17 14:54 | disposition home or self-care (01) ==
PROVIDERS: PCP Internal Medicine; Visit Provider Nurse Practitioner Family
DX: R06.2 Wheezing (principal); R05.9 Cough, unspecified

== ENCOUNTER 2024-12-27 15:46 | Outpatient (AMB) | payer OTHER, SELFPAY ==
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
== END 2024-12-27 16:28 | disposition home or self-care (01) ==
LOC: HO.HOP 15:46
PROVIDERS: PCP Internal Medicine; Visit Provider Clinical Nurse Specialist Psychiatric/Mental Health, Adult
DX: F31.9 Bipolar disorder, unspecified (principal)
CPT/HCPCS: 99213

== ENCOUNTER → 2024-12-27 15:46 | Outpatient (BNVA) | payer OTHER, SELFPAY | PROVIDERS: PCP Internal Medicine; Visit Provider Clinical Nurse Specialist Psychiatric/Mental Health, Adult | DX: F31.9 Bipolar disorder, unspecified (principal) | CPT/HCPCS: 99212 ==

== ENCOUNTER 2024-12-31 09:59 | Outpatient (AMB) | payer OTHER, SELFPAY ==
[2024-12-31 10:06] VITALS: BMI 32.9
--- NOTE | 2024-12-31 10:06 | A.OFFVIS_ITS ---
Vital Signs 12/31/24 10:06 Height 5 ft 7 in Weight 210 lb BMI 32.9 Intake Visit Reasons: 1M follow up Intake Note: Stefany is a 49 year old female who presents today for a follow up on her bilateral foot pain. During her last visit X-rays where ordered and she was prescribed bacitracin and terbinafine ointment. Patient was advised to utilize bunion sleeves, shoes with a wide toe box, and supportive shoe wear. Patient reports she has not seen any improvement since her last visit and she had went to radiology for her xrays however they did not perform imaging for her feet. Allergies No Known Allergies Allergy (Verified 12/31/24 10:07) HPI Comments Details: The patient is a 49-year-old female presenting for a follow up of B/L skin excoriations and a painful left foot bunion. The pruritus has been persistent, with itching primarily on the bottom and sides of the feet. The patient has been using Terbinafine cream, which provides some relief. Patient states she recently consults with psych in which her medication has also provided some relief with the pruritis. Patient denies any purulence or drainage. Patient continues to experience intermittent pain to the left foot bunion, but states rest and shoes with a wide toebox provide relief. She has previously used silicone bunion sleeves and spacers for relief. She states se did not get the left foot xrays done. She denies any other pedal concerns. Denies any pedal injuries. [facility] Medical History (Updated 12/17/24 @ 14:04 by Buffy Rosen NP) Cough Wheezing on auscultation Hallux valgus (acquired), left foot Bilateral foot pain Itch Excoriation (skin-picking) disorder Superficial abrasion Skin fissures Pain of plantar aspect of heel Cat bite Restless leg syndrome Caffeine dependence Obesity (BMI 35.0-39.9 without comorbidity) Hyperlipidemia Vitamin D deficiency OCD (obsessive compulsive disorder) Scoliosis of cervical region due to degenerative disease of spine in adult History of vitamin D deficiency Chronic right shoulder pain Varicose veins of bilateral lower extremities with pain Anemia Anxiety and depression Immunization refused Heavy cigarette smoker (20-39 per day) Menorrhagia HILDA (iron deficiency anemia) Rotator cuff disorder Surgical History History of cervical spinal surgery History of endometrial ablation Hx of dilation and curettage History of cholecystectomy History of H/O gastric bypass H/O tubal ligation Family History Father Mental health disorder Daughter Mental health disorder Paternal Aunt Mental health disorder Social History Housing: Apartment Alcohol intake: former Patient Tobacco Use Status: Current everyday Tobacco user Cigarette Packs Per Day: 1 e-Cigarette/Vaping Use: Never Used Substance Use Type: Marijuana service: No Current occupational status: employed 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 - MSK: Reports painful left bunion. All systems reviewed & are unremarkable except as noted in HPI and below Physical Exam Vital Signs: BMI result Body Mass Index 32.9 Extrem Other: B/L LE Focused Physical Exam: Derm: Fissures, abrasions, and excoriations noted to the plantar aspects of the feet with scabbing noted and various stages of healing. No active bleeding, purulence, or drainage noted. Mild edema noted to the areas of the excoriations and to the medial prominence of the 1st met head. Minimal erythema noted. No clinical signs of infection noted. Vasc: DP/PT pulses palpable. CFT < 3 secs. Temp gradient warm to warm. Pedal hair absent. No varicosities noted. Neuro: Protective sensations grossly intact to light touch. MSK: Pain on palpation to areas of excoriations. No fluctuance or crepitus noted. Pain on palpation to the medial prominence of the 1st met head, worse to the left. Tracking HAV noted. Mild hammertoes noted. Mildly antalgic gait noted unassisted due to excoriations. Results Reviewed Results Reviewed: Ordered left foot weightbearing 3 views xrays to be performed prior to next visit. Assessment & Plan Assessment & Plan (1) Skin fissures: Code(s): R23.4 - Changes in skin texture Category: Medical (2) Excoriation (skin-picking) disorder: Code(s): F42.4 - Excoriation (skin-picking) disorder Category: Medical (3) Superficial abrasion: Code(s): T14.8XXA - Other injury of unspecified body region, initial encounter Category: Medical (4) Itch: Code(s): L29.9 - Pruritus, unspecified Category: Medical (5) Bilateral foot pain: Code(s): M79.671 - Pain in right foot; M79.672 - Pain in left foot Category: Medical (6) Hallux valgus (acquired), left foot: Code(s): M20.12 - Hallux valgus (acquired), left foot Category: Medical Plan Patient was informed and verbally consented to the use of an ambient scribe for clinic note documentation during this visit. I discussed with the patient the management of pruritus using Clotrimazole cream and the potential use of a lidocaine patch for additional relief. Prescribed ammonium lactate to provide continued moisture of skin to prevent flaking. - Advised patient to soak her feet in epsom salt and warm water. - Advised patient to apply Terbinafine cream to areas of pruritus. - Prescribed lidocaine patches to be applied to the painful plantar aspects of the feet. - Prescribed Ammonium lactate to be applied daily for increased moisture and reduction of skin flaking. - Continue using bunion sleeves and toe sleeves. - Patient is to avoid barefoot walking and is to wear supportive shoe gear. RTC in 2 months for re-evaluation. Medications: New ammonium lactate 12% 1 appl topical BID 385 grams 0RF R23.4 - Changes in skin texture Refilled lidocaine 5% 1 patch topical DAILY 30 ea 6RF pain 30 days M41.9 - Scoliosis, unspecified, M54.50 - Low back pain, unspecified Coding Level of Care Code Est Pt Level 4 (87404) Diagnoses Skin fissures R23.4 Excoriation (skin-picking) disorder F42.4 Superficial abrasion T14.8XXA Itch L29.9 Bilateral foot pain M79.671; M79.672 Hallux valgus (acquired), left foot M20.12 Time Spent (min) 35
== END 2024-12-31 10:49 | disposition home or self-care (01) ==
LOC: HO.HPODS 10:00
PROVIDERS: PCP Internal Medicine; Visit Provider Student in an Organized Health Care Education/Training Program
DX: R23.4 Changes in skin texture (principal); F42.4 Excoriation (skin-picking) disorder; T14.8XXA Other injury of unspecified body region, initial encounter; L29.9 Pruritus, unspecified; M79.671 Pain in right foot; M79.672 Pain in left foot; M20.12 Hallux valgus (acquired), left foot
CPT/HCPCS: 99214

== ENCOUNTER → 2024-12-31 09:59 | Outpatient (BNVA) | payer OTHER, SELFPAY | PROVIDERS: PCP Internal Medicine; Visit Provider Student in an Organized Health Care Education/Training Program | DX: R23.4 Changes in skin texture (principal); F42.4 Excoriation (skin-picking) disorder; L29.9 Pruritus, unspecified; M20.12 Hallux valgus (acquired), left foot; M79.671 Pain in right foot; M79.672 Pain in left foot | CPT/HCPCS: 99212 ==

== ENCOUNTER 2025-01-02 10:08 | Outpatient (REF) | payer OTHER, SELFPAY ==
--- NOTE | ~2025-01-02 | XR_ITS ---
EXAMINATION: XR CHEST 2 VIEWS HISTORY: Z87.01 - Personal history of pneumonia (recurrent) COMPARISON: Comparison is made with the prior examination dated 12/17/2024. FINDINGS: PA and lateral views of the chest are submitted. The lungs are expanded and clear. There is no pleural effusion, pneumothorax, or pulmonary vascular congestion. The heart is normal in size. Again seen is moderate S-shaped scoliosis of the spine. There is moderate degenerative disc disease. A portion of a fusion plate is noted in the lower cervical spine. The lower screws may have backed out, but are unchanged in appearance. XR/XR chest 2V IMPRESSION: No acute cardiopulmonary abnormality. Electronically signed by: Kali Wu MD 01/02/2025 11:26 AM G[facility]ATH[facility]
[2025-01-02 13:38] LABS: MANUAL DIFF FLAG NO
[2025-01-02 13:43] LABS: Hematocrit 32.0 % (37.0-47.0); Hemoglobin 9.9 g/dl (12.0-16.0); Imm Gran Abs Auto 0.04 X10*3/uL (0.00-0.03); Imm Gran Pct Auto 0.4 % (0.0-0.4); Lymphocytes Absolute Auto 2.7 X10*3/uL (1.2-4.9); Mean Corpuscular HGB Conc 30.9 g/dl (31.0-35.0); Mean Corpuscular Hemoglobin 26.5 pg (27.0-33.0); Mean Corpuscular Volume 85.8 fL (80.0-98.0); NRBC Abs Auto 0.000 X10*3/uL (0.0-0.012); NRBC Pct Auto 0.0 /100WBC (0.0-0.2); Platelet Count 319 X10*3/uL (160-400); Red Blood Count 3.73 X10*6/uL (4.20-5.50); White Blood Count 9.3 X10*3/uL (4.8-10.8)
[2025-01-02 13:59] LABS: Cholesterol 181 mg/dL (<200); HDL Cholesterol 64 mg/dL (>40); Triglycerides 92 mg/dL (<150)
[2025-01-02 14:14] LABS: Folate 4.7 ng/mL (> or = 4.0); Vitamin B12 493 pg/mL (200-900)
== END 2025-01-02 10:09 | disposition home or self-care (01) ==
LOC: HO.HMGCLDS 10:08
PROVIDERS: PCP Internal Medicine; Visit Provider Internal Medicine
DX: J40 Bronchitis, not specified as acute or chronic (principal); E78.00 Pure hypercholesterolemia, unspecified; F42.4 Excoriation (skin-picking) disorder; R07.1 Chest pain on breathing; Z87.01 Personal history of pneumonia (recurrent); Z78.0 Asymptomatic menopausal state
CPT/HCPCS: 36415; 71046; 80061; 82306; 82607; 82746; 85025; 99212

== ENCOUNTER 2025-01-02 10:08 | Outpatient (AMB) | payer OTHER, SELFPAY ==
[2025-01-02 10:12] VITALS: BP 110/60; PULSE 96; RESP 17; TEMP 36.9; O2SAT 97; BMI 33.7
--- NOTE | 2025-01-02 10:12 | A.OFFPC_ITS ---
Vital Signs 01/02/25 10:12 Height 5 ft 7 in Weight 215 lb BMI 33.7 BP 110/60 Blood Pressure Location Rt brachial Position Sitting Respiration 17 Pulse 96 Pulse Source Pulse Oximeter Temp 98.4 F Temp Source Oral Pulse Oximetry (%) 97 Oxygen Delivery Method Room Air Intake Visit Reasons: f/u walkin Intake Note: Pt is here today to f/u walkin pneumonia Tutoring Assistant Required: No Allergies No Known Allergies Allergy (Verified 01/02/25 10:13) Medication List - Last Reconciled 01/02/25 by Rosio Augustine MD ammonium lactate 12% 1 appl topical BID bacitracin zinc 1 appl topical BID budesonide-formoterol 160-4.5 mcg/actuation (Symbicort) 2 puffs inhalation BID bupropion HCl XL 150 mg PO QAM clonidine HCl 0.1 mg PO QID 30 days cyclobenzaprine 10 mg PO BEDTIME PRN 90 days divalproex ER (Depakote ER) 500 mg PO BEDTIME duloxetine 60 mg PO DAILY eszopiclone 3 mg PO BEDTIME PRN Held on 12/27/24. Instructions: ?Cheryl gabapentin 600 mg PO TID ipratropium-albuterol 0.5 mg-3 mg(2.5 mg base)/3 mL 3 mL inhalation Q4-6H PRN lidocaine 5% 1 patch topical DAILY 30 days olanzapine 10 mg PO BEDTIME pramipexole 0.125 mg PO BEDTIME terbinafine HCl 1% (Athlete's Foot (terbinafine)) 1 appl topical BID Tobacco use date assessed: 01/02/25 Dental Screening Dental Screen Date: 01/02/25 Did you have a dental visit in the last 12 months?: Yes Did you have a dental problem in the last 6 months where you did not have access to dental care?: No Was dental information given to patient?: Patient has dentist HPI f/u cathiein HPI Details The patient is a 49 year old individual presenting for follow-up of bronchitis with persistent right-sided chest pain. The patient has completed courses of prednisone, doxycycline, and Augmentin for bronchitis but reports no improvement in symptoms. The pain is severe enough to awaken the patient from sleep. A prior chest X-ray revealed white thickening and patchy opacities, suggestive of an inflammatory or infectious process. The patient has a history of mid to lower back scoliosis and multilevel spinal arthritis, with back pain that is aggravated by coughing. The patient has been using a daughter's nebulizer and Symbicort, which helps open up the airways and provides some pain relief. The patient denies any diarrhea associated with the antibiotic use. A CBC was not performed during the previous visit. The patient has not yet received the influenza or pneumococcal vaccine for the current year. [facility] Medical History (Updated 01/02/25 @ 10:54 by Rosio Augustine MD) Hallux valgus (acquired), left foot Bilateral foot pain Excoriation (skin-picking) disorder Pain of plantar aspect of heel Cat bite Restless leg syndrome Caffeine dependence Obesity (BMI 35.0-39.9 without comorbidity) Hyperlipidemia Vitamin D deficiency OCD (obsessive compulsive disorder) Scoliosis of cervical region due to degenerative disease of spine in adult History of vitamin D deficiency Chronic right shoulder pain Varicose veins of bilateral lower extremities with pain Anemia Anxiety and depression Immunization refused Heavy cigarette smoker (20-39 per day) Menorrhagia HILDA (iron deficiency anemia) Rotator cuff disorder Surgical History History of cervical spinal surgery History of endometrial ablation Hx of dilation and curettage History of cholecystectomy History of H/O gastric bypass H/O tubal ligation Family History Father Mental health disorder Daughter Mental health disorder Paternal Aunt Mental health disorder Social History Housing: Apartment Alcohol intake: former Patient Tobacco Use Status: Current everyday Tobacco user Cigarette Packs Per Day: 1 e-Cigarette/Vaping Use: Never Used Substance Use Type: Marijuana service: No Current occupational status: employed 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[employer], 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 Cognitive needs: No Hearing needs: No Vision needs: Yes Female Reproductive History Menstrual Age of Menarche: 13 Questionnaire Thrive Questionnaire Date Thrive assessed: 03/05/24 I am a: Patient What is your living situation today?: I have a steady place to live Within the past 12 months, did the food you bought not last and you didn't have the money to get more?: Never true Within the past 12 months, did you worry whether your food would run out before you got money to buy more?: Never true Do you have trouble paying for medicines?: Yes Do you have trouble getting transportation to medical appointments?: No Do you have trouble paying your heating and electricity bill?: No Do you have trouble taking care of your child, family member or friend?: No Do you have trouble with day-to-day activities such as bathing, preparing meals, shopping, managing finances, etc.?: No Are you currently unemployed and looking for a job?: No Are you interested in more education?: No Please select the resources that you would like help with: Paying for medicine Currently or been in a relationship where the following occur: No concerns reported THRIVE Score: 0 JESÚS-7 AMB Questionnaire JESÚS-7 Date JESÚS - 7 assessed: 03/05/24 Source: Developed by Drs. Kali Sheriff, Azul Palencia, Amrit Rogers and colleagues, with an educational alfa from [employer]. Review of Systems Const All systems reviewed & are unremarkable except as noted in HPI and below ENT Reports no additional complaints and Reports Normal hearing present Card Denies chest pain, Denies irregular heart rhythm and Denies dyspnea on exertion Resp Denies hemoptysis, Denies dyspnea on exertion and Denies wheezing GI Reports no additional complaints Neuro Reports Normal hearing present Aller/Immun Denies wheezing Physical exam (Primary Care) Vital Signs: Last Vital Signs Temp 98.4 F 01/02/25 10:12 Pulse 96 01/02/25 10:12 Resp 17 01/02/25 10:12 BP 110/60 01/02/25 10:12 Pulse Ox 97 01/02/25 10:12 Oxygen Delivery Method Room Air 01/02/25 10:12 BMI result Body Mass Index 33.7 Tobacco/Smoking Status: Tobacco use Status Tobacco use date assessed 01/02/25 01/02/25 10:15 Patient Tobacco Use Status Current everyday Tobacco 01/02/25 10:12 e-Cigarette/Vaping Use Never Used 01/02/25 10:12 Thrive Assessment: Date of Thrive Assessment Date Thrive assessed 03/05/24 01/02/25 10:12 Currently or been in a relationship where the following occur: No concerns reported Const Orientation/consciousness: patient oriented x3 HENMT General nose exam: Normal external nose present Face and sinus: Yes face symmetric Mouth: Normal oral and palatal mucosa present and moist mucous membranes Neck Other: Supple, no lymphadenopathy, thyroid gland nonpalpable Resp Effort & Inspection: able to speak in complete sentences Auscultation: clear to auscultation bilaterally, no rales, no rhonchi, no wheezes and no vesicular sounds Cardio Other: S1-S2 present regular rate and rhythm Neuro General: patient oriented x3, gait normal, moves all extremities, Normal light touch and pain sensation and CN's II-XI intact bilaterally Cranial nerves: Yes Normal hearing present Extrem General: Yes full ROM, Yes no joint enlargement, Yes no clubbing, cyanosis or edema and Yes normal gait Psych Appearance: grossly normal and well kempt Mental Status: mental status grossly normal Speech and movement: Normal speech and movement present Affect: normal affect Coding Level of Care Code Est Pt Level 4 (67034) Diagnoses History of pneumonia Z87.01 Painful breathing R07.1 Assessment & Plan Assessment & Plan (1) History of pneumonia: Code(s): Z87.01 - Personal history of pneumonia (recurrent) (2) Painful breathing: Code(s): R07.1 - Chest pain on breathing Plan The patient's symptoms have not improved despite completing treatment with prednisone, doxycycline, and Augmentin. A prior chest X-ray showed an inflammatory process, and the physical exam reveals diminished breath sounds and localized swelling, concerning for a non- resolving pneumonia. A repeat chest X-ray will be ordered to re-evaluate the lungs. Continue Symbicort, and DuoNeb every 4-6 hours as needed for episodes of bronchospasm A replacement nebulizer mask piece was provided Advised to get influenza and pneumococcal vaccine once symptom resolves. Patient was informed and verbally consented to the use of an ambient scribe for clinic note documentation during this visit. Orders: Orders XR chest 2V Today R07.1 - Chest pain on breathing, Z87.01 - Personal history of pneumonia (recurrent) Complete Blood Count Auto Diff Today R07.1 - Chest pain on breathing, Z87.01 - Personal history of pneumonia (recurrent)
== END 2025-01-02 11:14 | disposition home or self-care (01) ==
LOC: HO.HMCC 10:09
PROVIDERS: PCP Internal Medicine; Visit Provider Internal Medicine
DX: Z87.01 Personal history of pneumonia (recurrent) (principal); R07.1 Chest pain on breathing

== ENCOUNTER → 2025-01-02 11:02 | Outpatient (BNV) | payer OTHER, SELFPAY | PROVIDERS: PCP Internal Medicine; Visit Provider Radiology Diagnostic Radiology | DX: Z87.01 Personal history of pneumonia (recurrent) (principal) | CPT/HCPCS: 71046 ==

== ENCOUNTER 2025-01-16 16:15 | Outpatient (AMB) | payer OTHER, SELFPAY ==
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
== END 2025-01-16 17:07 | disposition home or self-care (01) ==
LOC: HO.HOP 16:15
PROVIDERS: PCP Internal Medicine; Visit Provider Clinical Nurse Specialist Psychiatric/Mental Health, Adult
DX: F43.12 Post-traumatic stress disorder, chronic (principal); F31.9 Bipolar disorder, unspecified
CPT/HCPCS: 99213

== ENCOUNTER → 2025-01-16 16:15 | Outpatient (BNVA) | payer OTHER, SELFPAY | PROVIDERS: PCP Internal Medicine; Visit Provider Clinical Nurse Specialist Psychiatric/Mental Health, Adult | DX: F43.12 Post-traumatic stress disorder, chronic (principal); F31.9 Bipolar disorder, unspecified; Z79.899 Other long term (current) drug therapy; Z71.89 Other specified counseling | CPT/HCPCS: 99212 ==

== ENCOUNTER 2025-02-04 15:59 | Outpatient (AMB) | payer OTHER, SELFPAY ==
[2025-02-04 16:09] VITALS: BP 133/76; PULSE 100; RESP 16; O2SAT 98; BMI 34.9
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
== END 2025-02-04 16:39 | disposition home or self-care (01) ==
LOC: HO.PMC 16:00
PROVIDERS: PCP Internal Medicine; Visit Provider Nurse Practitioner Family
DX: M41.9 Scoliosis, unspecified (principal); M62.830 Muscle spasm of back; G89.4 Chronic pain syndrome; M51.369 Other intervertebral disc degeneration, lumbar region without mention of lumbar back pain or lower extremity pain; M47.815 Spondylosis without myelopathy or radiculopathy, thoracolumbar region
CPT/HCPCS: 99214

== ENCOUNTER → 2025-02-04 15:59 | Outpatient (BNVA) | payer OTHER, SELFPAY | PROVIDERS: PCP Internal Medicine; Visit Provider Nurse Practitioner Family | DX: M41.34 Thoracogenic scoliosis, thoracic region (principal); M62.830 Muscle spasm of back; G89.4 Chronic pain syndrome; M51.369 Other intervertebral disc degeneration, lumbar region without mention of lumbar back pain or lower extremity pain; M47.815 Spondylosis without myelopathy or radiculopathy, thoracolumbar region | CPT/HCPCS: 99212 ==

== ENCOUNTER 2025-02-05 16:21 | Outpatient (AMB) | payer OTHER, SELFPAY ==
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
== END 2025-02-05 17:05 | disposition home or self-care (01) ==
LOC: HO.HOP 16:21
PROVIDERS: PCP Internal Medicine; Visit Provider Clinical Nurse Specialist Psychiatric/Mental Health, Adult
DX: F31.9 Bipolar disorder, unspecified (principal); F43.12 Post-traumatic stress disorder, chronic
CPT/HCPCS: 99213

== ENCOUNTER → 2025-02-05 16:21 | Outpatient (BNVA) | payer OTHER, SELFPAY | PROVIDERS: PCP Internal Medicine; Visit Provider Clinical Nurse Specialist Psychiatric/Mental Health, Adult | DX: F43.12 Post-traumatic stress disorder, chronic (principal); F31.9 Bipolar disorder, unspecified; Z79.899 Other long term (current) drug therapy; Z71.89 Other specified counseling | CPT/HCPCS: 99212 ==